=== PATIENT | female | born 1945 | race Caucasian/White ===

== ENCOUNTER 2018-10-04 16:37 | Inpatient (IN) | payer OTHER, BC ==
--- NOTE | 2018-10-04 17:10 | PDOC ---
Rapid Medical Evaluation Chief Complaint: Congestive Heart Failure Time Seen by Provider: 10/04/18 17:04 Medical Evaluation: Allergies Allergy/AdvReac Type Severity Reaction Status Date / Time No Known Allergies Allergy Verified 10/04/18 17:00 Vital Signs Temp Pulse Resp BP Pulse Ox 98.2 F 137 H 26 H 113/78 92 L 10/04/18 17:05 10/04/18 17:05 10/04/18 17:05 10/04/18 17:05 10/04/18 17:05 10/04/18 17:08 I performed a brief in-person evaluation on this patient. Chief complaint: Dyspnea, hx breast ca metastatic to spine on chemo, hx pleural effusion s/p thoracentesis 2 wks ago at [facility] Pertinent physical exam findings: Dyspnea, tachypnea, tachycardia, hypoxia. 2+ LE edema bilat, no calf tenderness. I have ordered the following: EKG, cardiac labs, CTA r/o PE Patient brought to ED monitored bed for further evaluation. 10/04/18 17:10 Discharge Disposition - Diagnosis Dyspnea - Referrals - Patient Instructions - Post Discharge Activity
--- NOTE | 2018-10-04 17:44 | PDOC ---
History of Present Illness - General Chief Complaint: Congestive Heart Failure Stated Complaint: PCP SENT/SHORTNESS OF BREATH Time Seen by Provider: 10/04/18 17:04 History Source: Patient Exam Limitations: No Limitations - History of Present Illness Initial Comments: 10/04/18 17:43 The patient is a 73F with a PMH of stage 4 breast CA w/ mets, hypertension, hyperlipidemia, CAD, stent, angina, CHF who presents to the ER with complaints of SOB. The patient states that over the past 2 days, she's had worsening BRADLEY and resting dyspnea. She states that she had a thoracentesis 2 weeks ago and has a history of pleural effusions as well. She denies fever, chills, CP, SOB, nausea vomiting, cough, dysuria. Past History - Past Medical History Allergies/Adverse Reactions: Allergies Allergy/AdvReac Type Severity Reaction Status Date / Time No Known Allergies Allergy Verified 10/04/18 17:00 Home Medications: Ambulatory Orders Aspirin [ASA -] 81 mg PO HS 03/29/14 Atorvastatin Ca [Lipitor -] 80 mg PO HS 03/29/14 Folic Acid 1 mg PO DAILY 03/29/14 Losartan Potassium [Cozaar] 50 mg PO DAILY 03/29/14 Metoprolol Succinate [Toprol Xl] 12.5 mg PO BID 03/29/14 Gemcitabine HCl [Gemzar -] 200 mg IV ASDIR 10/04/18 Cancer: Yes (BREAST CA to spine) Cardiac Disorders: Yes COPD: No - Surgical History Cardiac Surgery: Yes (STENT) - Suicide/Smoking/Psychosocial Hx Smoking History: Unknown if ever smoked Hx Alcohol Use: No Drug/Substance Use Hx: No Substance Use Type: None Review of Systems - Review of Systems Able to Perform ROS?: Yes Comments:: 10/04/18 17:48 GENERAL/CONSTITUTIONAL: Positive for weakness and fatigue. No fever or chills. HEAD, EYES, EARS, NOSE AND THROAT: No change in vision. No ear pain or discharge. No sore throat. CARDIOVASCULAR: No chest pain, palpitations, or lightheadedness. RESPIRATORY: Positive for SOB and BRADLEY. No cough, wheezing, or hemoptysis. GASTROINTESTINAL: No nausea, vomiting, diarrhea, constipation, or abdominal pain. GENITOURINARY: No dysuria, frequency, hematuria, or change in urination. MUSCULOSKELETAL: No joint or muscle swelling or pain. No neck or back pain. SKIN: No rash or lesions. NEUROLOGIC: No headache, numbness, tingling, focal weakness, loss of consciousness, or change in strength/sensation. Is the patient limited Micronesian proficient: No *Physical Exam - Vital Signs Last Vital Signs Temp Pulse Resp BP Pulse Ox 98.2 F 137 H 26 H 113/78 92 L 10/04/18 17:05 10/04/18 17:05 10/04/18 17:05 10/04/18 17:05 10/04/18 17:05 - Physical Exam Comments: 10/04/18 17:49 GENERAL: Well developed, well nourished. Awake and alert. No acute distress. HEENT: Normocephalic, atraumatic. Hearing grossly normal. Moist mucous membranes. PERRLA, EOMI. No conjunctival pallor. NECK: Supple. Full ROM. No JVD. CARDIOVASCULAR: Regular rate and rhythm. No murmurs, rubs, or gallops. PULMONARY: Mild respiratory distress. B/l dullness at bases. L lung is dull penitentiary up chest. Pt is tachypneic without increased WOB. ABDOMINAL: Soft. Non-tender. Non-distended. No rebound or guarding. GENITOURINARY: No CVA tenderness bilaterally. MUSCULOSKELETAL: Normal range of motion at all joints. No bony deformities or tenderness. EXTREMITIES: No cyanosis. No clubbing. No pitting edema. No calf tenderness or swelling. SKIN: Warm and dry. Normal capillary refill. No rashes. No jaundice. NEUROLOGICAL: Alert, awake, appropriate. Cranial nerves 2-12 intact. Normal speech. Gait is normal without ataxia. PSYCHIATRIC: Cooperative. Good eye contact. Appropriate mood and affect. Moderate Sedation - Procedure Monitoring Vital Signs: Procedure Monitoring Vital Signs Temperature 98.2 F 10/04/18 17:05 Pulse Rate 137 H 10/04/18 17:05 Respiratory Rate 26 H 10/04/18 17:05 Blood Pressure 113/78 10/04/18 17:05 O2 Sat by Pulse Oximetry (%) 92 L 10/04/18 17:05 ED Treatment Course - LABORATORY CBC & Chemistry Diagram: 10/04/18 17:45 10/04/18 17:45 Medical Decision Making - Medical Decision Making 10/04/18 17:50 The patient is a 73F with a PMH of stage 4 breast CA who presents to the ER with worsening SOB concerning for recurrent pleural effusion, PE, and malignant pericardial effusion. Pt's incoming vitals notable for tachycardia, tachypnea, and mild hypoxia to low 90's. Giving supplemental O2 and will order fluids, hydrating gently. 10/04/18 18:17 Bedside US reveals rapid HR without bowing of RV into LV and without pericardial effusion. CXR shows L pleural effusion, likely the cause of the patient's symptoms. 10/04/18 19:03 Pt signed out to Dr. Byrd for further evaluation. *DC/Admit/Observation/Transfer Diagnosis at time of Disposition: Dyspnea - Referrals Referrals: Jimi Joseph MD [Primary Care Provider] - - Patient Instructions - Post Discharge Activity
[2018-10-04 17:58] LABS: BASO % 0.2 % (0-2.0); EOS % 0.5 % (0-4.5); HEMATOCRIT 31.4 % (32.4-45.2); HEMOGLOBIN 11.2 GM/dL (10.7-15.3); LYMPH % 10.9 % (8-40); MCH 33.5 pg (25.7-33.7); MCHC 35.7 g/dl (32.0-36.0); MEAN CELL VOLUME 93.9 fl (80-96); MEAN PLT VOLUME 8.4 fl (7.5-11.1); MONO % 7.8 % (3.8-10.2); NEUT % 80.6 % (42.8-82.8); PLATELET COUNT 125 K/MM3 (134-434); RBC 3.35 M/mm3 (3.60-5.2); RDW 16.4 % (11.6-15.6); WHITE BLOOD COUNT 10.8 K/mm3 (4.0-10.0)
[2018-10-04] MEDS ORDERED: SODIUM CHLORIDE 0.9% 1000 ML INFUS.BAG IV ONE (18:22)
--- NOTE | 2018-10-04 19:03 | PDOC ---
Attending Attestation - HPI HPI: 10/04/18 19:07 The patient is a 73 year old female, with a significant past medical history of pleural effusions, stage 4 breast CA (w/ mets), hypertension, hyperlipidemia, CAD, stent, angina, CHF, who presents to the emergency department with, shortness of breath. Patient endorses both dyspnea upon exertion and rest. Patient endorses a thoracentesis 2 weeks ago. Patient was due for chemo yesterday but, was too weak thus, she only received fluids. Allergies: [employer] Sales Representative: Dr. Fritz <Kalee Bowen - Last Filed: 10/04/18 19:07> - Resident Resident Name: Alok Moon - ED Attending Attestation I have performed the following: I have examined & evaluated the patient, The case was reviewed & discussed with the resident, I agree w/resident's findings & plan, Exceptions are as noted - Physicial Exam PE: GENERAL: Awake, alert, and fully oriented, in no acute distress HEAD: No signs of trauma EYES: PERRLA, EOMI, sclera anicteric, conjunctiva clear ENT: Auricles normal inspection, hearing grossly normal, nares patent, oropharynx clear without exudates. Moist mucosa NECK: Normal ROM, supple, no lymphadenopathy, JVD, or masses LUNGS: Dec breath sounds at bases B/L, mild tachypnea. Speaking full sentences. HEART: Regular rate and rhythm, normal S1 and S2, no murmurs, rubs or gallops ABDOMEN: Soft, nontender, normoactive bowel sounds. No guarding, no rebound. No masses EXTREMITIES: Normal range of motion, no edema. No clubbing or cyanosis. No cords, erythema, or tenderness NEUROLOGICAL: Cranial nerves II through XII grossly intact. Normal speech. Motor and sensation intact SKIN: Warm, Dry, normal turgor, no rashes or lesions noted. - Medical Decision Making Pt with recurrent pleural effusion. She is speaking full sentences on oxygen nasal cannula in ED. Will defer thoracentesis, as she is comfortable on O2 via NC, would be better performed outside the ED. Also she may require a pleurX catheter given how quickly the fluid reaccumulated. <Oneyda Tobias - Last Filed: 10/08/18 09:52> Attestations - Attestations 10/04/18 19:07 Documentation prepared by Kalee Bowen, acting as medical/surgery registered nurse for Oneyda Tobias MD. <Kalee Bowen - Last Filed: 10/04/18 19:07>
[2018-10-04 19:07] LABS: ALBUMIN 2.1 g/dl (3.4-5.0); ALK PHOS 196 U/L (45-117); ANION GAP 15 MMOL/L (8-16); BLOOD UREA NITROGEN 32 mg/dL (7-18); CALCIUM 7.3 mg/dL (8.5-10.1); CHLORIDE 103 mmol/L (98-107); CO2 20 mmol/L (21-32); CREATININE 1.7 mg/dL (0.55-1.3); GLUCOSE,RANDOM 110 mg/dL (74-106); N-TERMINAL BNP 7576.5 pg/ml (5-125); POTASSIUM 3.5 mmol/L (3.5-5.1); SGOT/AST 177 U/L (15-37); SGPT/ALT 136 U/L (13-61); SODIUM 137 mmol/L (136-145); TOT PROT 4.9 g/dl (6.4-8.2)
--- NOTE | 2018-10-04 19:38 | PDOC ---
*Physical Exam - Vital Signs Last Vital Signs Temp Pulse Resp BP Pulse Ox 98.2 F 137 H 26 H 113/78 98 10/04/18 17:05 10/04/18 17:05 10/04/18 17:05 10/04/18 17:05 10/04/18 18:05 - Physical Exam Comments: 10/04/18 19:20 Patient's care was endorsed to me by Dr. Moon at the end of his shift. Patient is a 73 YOF chemotherapy patient with h/o pleural effusion requiring thoracentesis 2/2 SOB three weeks ago at [facility]. The patient presented with SOB, hypoxia, tachypnea; found to have a moderate-large left pleural effusion, elevated BNP. Initially was some concern for PE but this appears more mechanical tachypnea/hypoxia, patient states this is no different from prior effusion symptoms which resolved completely with thoracentesis. Patient remains tachypneic to 28, tachycardic to 130, but satting well at 98% on 2 LPM via nasal cannula, BP is 111/87. She is to be admitted. ED Treatment Course - LABORATORY CBC & Chemistry Diagram: 10/17/18 06:25 10/17/18 06:25 - ADDITIONAL ORDERS Additional order review: Laboratory Results 10/04/18 10/04/18 17:45 17:45 PTT (Actin FS) 25.9 Sodium 137 Potassium 3.5 Chloride 103 Carbon Dioxide 20 L Anion Gap 15 BUN 32 H Creatinine 1.7 H Creat Clearance w eGFR 29.54 Random Glucose 110 H Calcium 7.3 L Total Bilirubin 1.0 AST 177 H ALT 136 H Alkaline Phosphatase 196 H Creatine Kinase 708 H Troponin I 0.49 H B-Natriuretic Peptide 7576.5 H Total Protein 4.9 L Albumin 2.1 L 10/04/18 17:45 RBC 3.35 L MCV 93.9 MCHC 35.7 RDW 16.4 H MPV 8.4 Neutrophils % 80.6 Lymphocytes % 10.9 D Monocytes % 7.8 Eosinophils % 0.5 D Basophils % 0.2 - Medications Given in the ED: ED Medications Discontinued Medications Generic Name Dose Route Start Last Admin Trade Name Freq PRN Reason Stop Dose Admin Sodium Chloride 500 ml 10/04/18 18:22 10/04/18 18:36 Normal Saline - IV 10/04/18 18:23 500 ml ONCE ONE Administration Medical Decision Making - Medical Decision Making 10/04/18 19:42 The patient remains tachycardic, tachypneic, new baseline O2 requi [employer] sent to [facility] for admission. 10/04/18 21:22 Inpatient team is contacting patient's shoe repair cobbler Dr. Fritz. They will contact us with recs given the fact that the patient recently had thoracentesis. She may be better served with pigtail/PleurX. 10/04/18 23:30 Inpatient team spoke with CT surgery. We will place pigtail catheter here in the ED. This is done according to procedures section. Patient outputs roughly 1/2 liters into pleura-vac. *DC/Admit/Observation/Transfer Diagnosis at time of Disposition: Large pleural effusion, Troponin level elevated, Difficulty breathing, LUCRECIA ( acute kidney injury) Congestive heart failure Qualifiers: Heart failure type: diastolic Heart failure chronicity: acute on chronic Qualified Code(s): I50.33 - Acute on chronic diastolic (congestive) heart failure - Discharge Dispostion Condition at time of disposition: Guarded Decision to Admit order: Yes - Referrals - Patient Instructions - Post Discharge Activity Procedure Note Procedure: 10/04/18 11:15 pm Procedure: Pigtail catheter placement left 5th intercostal space midaxillary line Site was sterile prepped and draped in sterile fashion. Skin anesthetized with 2 cc 1% lido without epi. Anesthetic needle inserted into pleural effusion with bold yellow fluid return. Parietal pleura was anethetized with 4cc 1% lido without epi. Pigtail catheter was inserted using Seldinger technique, no complications. Sutured in place and sterile dressing applied with BioPatch. Pigtail connected to PleuriVac and about 1200cc bold yellow fluid removed without blood. Patient had pain on reexpansion of lung and 0.5 mg Dilaudid given (BP>120 systolic). Patient tolerated well, pleural fluid sent for analysis.
[2018-10-04 19:51] LABS: INR 1.12 (0.83-1.09); PROTHROMBIN TIME (PATIENT) 13.2 SEC (9.7-13.0)
[2018-10-04 20:34] LABS: ANISOCYTOSIS 1+; MACROCYTOSIS 1+; OVALOCYTE 1+
[2018-10-04 20:35] LABS: PLATELET ESTIMATE DECREASED; TOXIC GRANULATION 1+
[2018-10-04] MEDS ORDERED: CEFTRIAXONE 1 GM in DEXTROSE 5%-WATER - 50 ML IVPB SCH (21:00)
[2018-10-04] MEDS ORDERED: HEPARIN NA (PORCINE) 5,000 UNITS/ML 1ML VIAL ONE (21:08)
[2018-10-04] MEDS ORDERED: CEFTRIAXONE 1 GM/50 ML BAG ONE (21:08)
[2018-10-04] MEDS ORDERED: SODIUM CHLORIDE 0.45% 1,000 ML IV SCH (21:45)
--- NOTE | 2018-10-04 21:52 | HP ---
<Dora Chapman - Last Filed: 10/05/18 06:29> CHIEF COMPLAINT: L pleural effusion PCP: HISTORY OF PRESENT ILLNESS: 73 y/o F with PMH recurrent pleural effusion, stage 4 R breast CA with chemoport w/mets to spine, HTN, HLD, CAD s/p 1 stent (2013), angina, who presents to the ED c/o SOB on rest and exertion over the past two weeks. As per pt, she is s/p thoracentesis which occurred two weeks prior at [facility]. She had ~1L of fluid removed (states that she was told it was not malignant), and states that she needed to receive 2U platelets and 2U PRBC's afterward d/t her low counts. Ever since, she has continued to feel SOB, however denies chest pain or pressure. Has required 02 recently, now on 2L in the hospital sat in high 90's. Has also needed to use a walker to ambulate d/t her worsening SOB, ambulates on own at baseline. During this time, endorses subjective chills and mucus production. Without LOERA, fever, chest pain or pressure, or changes in urinary or bowel function. Receives chemo weekly (gemzar) usually through her R chemoport. Oncologist is Dr. Lazaro Nelson ([phone]) from [facility]. Did not receive chemo yesterday since she was very dehydrated, only received IVF during her appointment. Also states that she is on a "low dose of lasix" for LE edema (not CHF) since September, but it was held yesterday for the same reason. Her pump servicer is Dr. Fritz. ER course was notable for: (1) tachypneic RR26, tachycardic HR 130's (2) NS 500 cc (3) Recent Travel: none PAST MEDICAL HISTORY: as above PAST SURGICAL HISTORY: 1950: tonsillectomy/adenoidectomy. 1991- tubal ligation. 1997- L breast calcification, 2003- stent. 2005- R breast calcification, 2011 total mastectomy and TRAM flap, 2018- PTOSIS repair. Social History: lives at home with family. 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 Smoking: denies Alcohol: denies Drugs: denies Family History: HF - mother's side, HTN- father's side, colon ca- mom, sister- lumpectomy Allergies No Known Allergies Allergy (Verified 10/04/18 17:00) HOME MEDICATIONS: Home Medications Medication Instructions Recorded Aspirin [ASA -] 81 mg PO HS 03/29/14 Atorvastatin Ca [Lipitor -] 80 mg PO HS 03/29/14 Folic Acid 400 mcg PO DAILY 03/29/14 Losartan Potassium [Cozaar] taken in AM 25 mg PO DAILY 03/29/14 Metoprolol Succinate [Toprol Xl] 12.5 mg PO BID 03/29/14 Cholecalciferol (Vitamin D3) 1,000 unit PO DAILY 10/04/18 [Vitamin D3] Gemcitabine HCl [Gemzar -] 200 mg IV ASDIR 10/04/18 Nitroglycerin Sublingual 0.4 mg PRN 10/04/18 [Nitrostat -] verified with pt med sheet REVIEW OF SYSTEMS CONSTITUTIONAL: +chills Absent: fever, chills, diaphoresis, generalized weakness, malaise, loss of appetite, weight change HEENT: Absent: rhinorrhea, nasal congestion, throat pain, throat swelling, difficulty swallowing, mouth swelling, ear pain, eye pain, visual changes CARDIOVASCULAR: Absent: chest pain, syncope, palpitations, irregular heart rate, lightheadedness , peripheral edema RESPIRATORY: +mucus, SOB, BRADLEY Absent: cough, shortness of breath, dyspnea with exertion, orthopnea, wheezing, stridor, hemoptysis GASTROINTESTINAL: Absent: abdominal pain, abdominal distension, nausea, vomiting, diarrhea, constipation, melena, hematochezia GENITOURINARY: Absent: dysuria, frequency, urgency, hesitancy, hematuria, flank pain, genital pain MUSCULOSKELETAL: Absent: myalgia, arthralgia, joint swelling, back pain, neck pain SKIN: Absent: rash, itching, pallor HEMATOLOGIC/IMMUNOLOGIC: Absent: easy bleeding, easy bruising, lymphadenopathy, frequent infections ENDOCRINE: Absent: unexplained weight gain, unexplained weight loss, heat intolerance, cold intolerance NEUROLOGIC: Absent: headache, focal weakness or paresthesias, dizziness, unsteady gait, seizure, mental status changes, bladder or bowel incontinence PSYCHIATRIC: Absent: anxiety, depression, suicidal or homicidal ideation, hallucinations. PHYSICAL EXAMINATION Vital Signs - 24 hr 10/04/18 10/04/18 17:05 21:14 Temperature 98.2 F Pulse Rate 137 H Pulse Rate [ 128 H Apical] Respiratory 26 H 18 Rate Blood Pressure 113/78 Blood Pressure 128/84 [Left Arm] O2 Sat by Pulse 92 L 98 Oximetry (%) GENERAL: Pleasant, sitting up in bed. awake, alert, and fully oriented, in mild distress on 2L NC 02 . mildly labored breathing HEAD: Normal with no signs of trauma. EYES: Pupils equal, round and reactive to light, extraocular movements intact, sclera anicteric, conjunctiva clear. EARS, NOSE, THROAT: Ears normal, nares patent, oropharynx clear without exudates. Moist mucous membranes. NECK: Normal range of motion, supple without lymphadenopathy, JVD, or masses. LUNGS: +decreased breath sounds (L>R). no wheezing or rhonchi HEART: +tachycardic rate and rhythm, normal S1 and S2 without murmur, rub or gallop. ABDOMEN: Soft, nontender, not distended, normoactive bowel sounds, no guarding. no anasarca LOWER EXTREMITIES: 2+ pt pulses, warm, well-perfused. No calf tenderness. No peripheral edema. NEUROLOGICAL: Cranial nerves II-XII intact. able to move UE and LE - unable to test further as pt with labored breathing PSYCHIATRIC: Cooperative. Good eye contact. SKIN: Warm, dry, normal turgor Laboratory Results 10/04/18 10/04/18 10/04/18 17:40 17:45 17:45 WBC 10.8 H Hgb 11.2 Hct 31.4 L D Plt Count 125 L D Sodium 137 Potassium 3.5 Chloride 103 Carbon Dioxide 20 L BUN 32 H Creatinine 1.7 H Lactic Acid 3.2 H* AST 177 H ALT 136 H Troponin I 0.49 H B-Natriuretic Peptide 7576.5 H 10/04/18 21:00 ALT Troponin I 0.46 H B-Natriuretic Peptide CXR: since the prior study of 11/21/2015, there is a new sizable L effusion with questionable atelectasis or infiltrate at the L base, large heart, unfolded aorta, R port, fluid and atelectasis R base and dense R ribs. correlation recommended CT chest w/o contrast: official read pending EKG: sinus tach, vent rate 137bpm, no ST-T wave changes, few PVCs, qtc 549ms ASSESSMENT/PLAN: 73 y/o F with PMH recurrent pleural effusion, stage 4 R breast CA with chemoport w/mets to spine, HTN, HLD, CAD s/p 1 stent (2013), angina, who presents to the ED c/o SOB on rest and exertion over the past two weeks. #L sided pleural effusion -possible 2/2 malignancy as pt with extensive hx breast CA as well as recurrent -d/w CT sx Dr. Fletcher - pigtail placed by ED. drainage sanguineous. will see pt in AM and discuss possibility of pleurex -f/u pleural studies to determine if transudate or exudate -c/w NC 02 d/t increased oxygen requirement from effusion, labored breathing -f/u CT chest to determine if pulm nodularity -f/u repeat CXR in AM #post-obstructive PNA -will cover with vanc 1g IVPB qd, zosyn 2.25 q6h (Cr clearance 32), and doxy 100mg BID for atypicals. was recently in hosp at -f/u blood, ucx #LUCRECIA likely prerenal 2/2 vol depletion -will give 1/2 NS 42 cc/hr for now; d/w cardio -had received lasix previously until yesterday, may have worsened renal fnc -cont to assess for any signs of overload, cont to hold lasix -may need ECHO once vol improves to determine LV fnc. no ECHO in system -cardio consult: Dr. Fritz #Troponinemia likely 2/2 demand -has trended down. from demand from significant L pl eff 0.49>0.46 #hx breast CA w/spinal mets -will need to obtain files from oncologist- Dr. Lazaro [facility] -receives chemo weekly - gemzar #HTN- controlled -for now will hold anti-HTN as pt with low BP -hold Toprol, cozaar #CAD s/p 1 stent (2003) -hold ASA - pt for pigtail #HLD -hold lipitor as pt with current transaminitis likely 2/2 vol overload #F/E/N IV 1/2 NS 42 cc/hr continue to follow lytes NPO #PPX can start hep SQ in AM , for now holding as for pigtail SCD's #Dispo admit to tele Visit type - Emergency Visit Emergency Visit: Yes ED Registration Date: 10/04/18 Care time: The patient presented to the Emergency Department on the above date and was hospitalized for further evaluation of their emergent condition. - New Patient This patient is new to me today: Yes Date on this admission: 10/05/18 - Critical Care Critical Care patient: No <Kyle Cotton - Last Filed: 10/20/18 19:59> Seen and examined; agree with above aside from what is supplemented in my own documentation. Was present and verified all rm parts of history and physical exam.
[2018-10-04] MEDS ORDERED: HEPARIN NA (PORCINE) 5,000 UNITS/ML 1ML VIAL SQ SCH (22:00)
[2018-10-04 22:03] LABS: URINE APPEARANCE CLOUDY; URINE BILIRUBIN NEGATIVE (<2.0 mg/dL); URINE COLOR AMBER; URINE GLUCOSE (UA) NEGATIVE (NEGATIVE); URINE KETONE NEGATIVE (NEGATIVE); URINE LEUK ESTERASE 1+ (NEGATIVE); URINE NITRITE NEGATIVE (NEGATIVE); URINE PROTEIN 2+ (NEGATIVE); URINE UROBILINOGEN NEGATIVE mg/dL (0.2-1.0)
[2018-10-04] MEDS ORDERED: LIDOCAINE HCL 1%, 10 MG/ML (50 mL VIAL) INF ONE (22:15)
[2018-10-04 22:19] LABS: EPI CELLS RARE /HPF (FEW); URINE BACTERIA MANY /hpf (NONE SEEN); URINE MUCUS FEW
[2018-10-04] MEDS ORDERED: LIDOCAINE HCL 1%, 10 MG/ML (20ML VIAL) ONE (22:32)
--- NOTE | 2018-10-04 23:08 | PN ---
Teaching Attending Note Name of Resident: Dora Chapman ATTENDING PHYSICIAN STATEMENT I saw and evaluated the patient. I reviewed the resident's note and discussed the case with the resident. I agree with the resident's findings and plan as documented. SUBJECTIVE: Seen and examined; please see resident note for further historical documentation. Briefly, she presents today for 1 week of progressive SOB and is found to have a large L-pleural effusion on imaging. She was hospitalized for the same issue 2 weeks ago at [facility] and had thoracentesis done there; records pending. She has a history of Stage IV breast Cancer, HTN, HLD, CAD s/p remote PCI, and does NOT carry a diagnosis of CHF at this juncture. Unfortuantely we have no old echoes, CV studies, etc. here. In the ER she was found to have an elevated lactate that did go down after 500cc bolus, elevated BNP to 7k range, elevated CK and trop as well as LUCRECIA. We spoke with CT surgery as well as her CV Dr. Dominique; they recommended gentle hydration overnight and specifically CTS said they were OK with the placement of a pigtail in the ER and he will eval her for further tx/workup tomorrow. She is tachy to the 130s and had an increased RR down in the ER but was satting 98% on 2L NC. 10 sys ROS done and negative aside from HPI PMH and PSH reviewed; discussed above FH asked and noncontributory Social hx reviewed Medication list signiicant for cozaar, MS50 qHS, Lipitor, and ASA 81 QD. Will hold ASA and Cozaar but opt to continue the BB and the statin, resuming all appropriate home medications when clinically appropriate OBJECTIVE: VS, labs, imaging reviewed Mild distress with slight tachypnea but speaking in full sentences and in good spirits. Diminished L-sided breath sounds w/ sym exp NC AT EOMI PERRLA Tachycardic with regular rhythm, no mgr NT ND +BS CN2-12 wnl, no fnd Labs show WBC 10 with plts 125 and CO2 20 with Cr 1.7 and BUN 32. Plan to repeat BMP after thoracentesis. Lactate 3.2 dropped to 2.8, trop is 0.49 BNP is 7576.5 UA with 1+LE CXR with L-sided effusion with mardiomegaly, ?infiltrate v. atelectesis. R- mediport visualized. CT chest post thoracentesis pending; it was done and reveals L-chest thoracostomy tube in place with no visible thorax. Possible pneumonia. ASSESSMENT AND PLAN: Patient presents with SOB, tachycardia, and nonspecific chest discomfort. She was found to have a large L-pleural effusion and had a pigtail placed in the ER that drained appropriately and resolved the tachycardia and her sx. 1) Large L-pleural effusion -Pleural fluid studies pending; pigtail in place. Ddx includes parapneumonic effusion given possibility of PNA vs. malignant effusion. Would be ideal to compare to the results of the tap done at [facility]. Pending records. -CTS to see; can consider further instrumentation, etc. Appreciate their help in the management of this patient. -Incentive spirometry, chest tube care, etc. 2) Possible pneumonia -Potential for pneumonia; given the dependent densities seen on CT, etc. -Check urine Ags, sputum cx, viral PCR. Given that we don't know if she got abx at [facility] we will cover for HAP and atypicals (long QTc noted so doxy) and involve ID. Can change up the treatment per what is seen in the records. 3) LUCRECIA -Likely prerenal; she informs us that her OP provider told her to stop the lasix she takes for LE edema recently due to 'dehydration.' Discussed with CV; very gentle hydration overnight and recheck in AM. If improved DC fluids. If worsens obtain FeNa and consult nephrology. 4) Elevated BNP -Checking echo, but thinking that this is moreso strain from the large pleural effusion as opposed to pure CHF. Still, VERY careful fluid management and checking the patient's echo. Monitor fluid status carefully. 3) Stage IV Breast Cancer -Noted history; continue to monitor. Port in place. FU with OP chemo. 4) Thrombocytopenia -Likely 2/2 chemo (last dose 1 week ago, missed yesterday's). Trend CBC, avoid heparin products and use SCDs for DVT px. 5) CAD s/p PCI -Hold ASA, continue metoprolol and statin 6) HTN -Resume home ARB when clinically appropriate 7) HLD -Continue statin FENA -Very gentle hydration overnight then stop -PRN replete -Cardiac diet -As tolerated
[2018-10-04] MEDS ORDERED: HYDROmorphone HCl 2 MG/ML VIAL IVPUSH ONE (23:50)
[2018-10-05] MEDS ORDERED: HYDROmorphone HCl 2 MG/ML VIAL ONE ×2 (00:04→02:32)
[2018-10-05 00:59] LABS: BF WBC & OTHER NUCLEATED CELLS 164 /mm3
[2018-10-05 01:09] LABS: ARTERIAL BLD GAS O2 SATURATION 93.4 % (90-98.9); ARTERIAL BLOOD GAS BASE EXCESS -2.4 meq/l (-2-2); ARTERIAL BLOOD GAS PCO2 31.7 mmHg (35-45); ARTERIAL BLOOD GAS PO2 70.8 mmHg (70-100); ARTERIAL BLOOD GAS pH 7.43 (7.35-7.45)
[2018-10-05 01:20] LABS: ALLENS TEST POSITIVE
[2018-10-05] MEDS ORDERED: HYDROmorphone HCL CARPU-JECT 2 MG/1 ML DISP.SYRIN IVPUSH ONE (02:23)
[2018-10-05] MEDS ORDERED: PIPERACILLIN/TAZOB 2.25 GM 2.25 GM in DEXTROSE 5%-WATER - 50 ML IVPB SCH (03:00)
[2018-10-05] MEDS ORDERED: PIPERACILLIN/TAZOB 2.25 GM 2.25 GM/50 ML BAG IVPB ONE ×3 (03:05→15:08)
[2018-10-05 04:00] LABS: BODY FLUID MONOCYTE 14 %
[2018-10-05 04:01] LABS: BODY FLUID MACROPHAGES 57 %
[2018-10-05 05:39] LABS: BASO % 0.1 % (0-2.0); EOS % 0.4 % (0-4.5); HEMATOCRIT 27.9 % (32.4-45.2); HEMOGLOBIN 9.9 GM/dL (10.7-15.3); LYMPH % 10.3 % (8-40); MCH 32.9 pg (25.7-33.7); MCHC 35.4 g/dl (32.0-36.0); MEAN CELL VOLUME 93.1 fl (80-96); MEAN PLT VOLUME 7.9 fl (7.5-11.1); MONO % 9.6 % (3.8-10.2); NEUT % 79.6 % (42.8-82.8); PLATELET COUNT 93 K/MM3 (134-434); RBC 2.99 M/mm3 (3.60-5.2); RDW 16.3 % (11.6-15.6); WHITE BLOOD COUNT 10.4 K/mm3 (4.0-10.0)
[2018-10-05 06:41] LABS: ALBUMIN 1.9 g/dl (3.4-5.0); ALK PHOS 163 U/L (45-117); ANION GAP 9 MMOL/L (8-16); BILIRUBIN,TOTAL 0.9 mg/dL (0.2-1); BLOOD UREA NITROGEN 34 mg/dL (7-18); CHLORIDE 105 mmol/L (98-107); CO2 24 mmol/L (21-32); CREATININE 1.7 mg/dL (0.55-1.3); GLUCOSE,RANDOM 121 mg/dL (74-106); MAGNESIUM 1.7 mg/dL (1.8-2.4); POTASSIUM 3.7 mmol/L (3.5-5.1); SGOT/AST 149 U/L (15-37); SGPT/ALT 122 U/L (13-61); SODIUM 138 mmol/L (136-145); TOT PROT 4.3 g/dl (6.4-8.2)
[2018-10-05 06:43] LABS: CALCIUM 6.9 mg/dL (8.5-10.1)
[2018-10-05] MEDS ORDERED: VANCOMYCIN 1 GRAM (PRE-DOCKED) 1,000 MG/250 ML BAG IVPB ONE (09:41)
[2018-10-05] MEDS ORDERED: DOXYCYCLINE HYCLATE 100 MG CAPSULE PO ONE (09:41)
[2018-10-05] MEDS: metoPROLOL SUCCINATE 25 MG TAB.SR.24H (FP) PO SCH ×2 (09:59→21:57)
[2018-10-05] MEDS: HEPARIN NA (PORCINE) 5,000 UNITS/ML 1ML VIAL SQ SCH ×3 (09:59→22:29)
[2018-10-05] MEDS ORDERED: VANCOMYCIN 1 GM in D5W (PRE-DOCKED) 1,000 MG/250 ML IVPB ONE (10:00)
[2018-10-05] MEDS ORDERED: DOXYCYCLINE HYCLATE 100 MG CAPSULE PO SCH (10:00)
[2018-10-05] MEDS ORDERED: FUROSEMIDE 40 MG/4 ML INJECTABLE VIAL IVPUSH ONE ×3 (10:11→17:09)
[2018-10-05 11:31] LABS: ANISOCYTOSIS 2+; MACROCYTOSIS 2+; OVALOCYTE 1+; PLATELET ESTIMATE DECREASED; TEAR DROP CELLS 1+
--- NOTE | 2018-10-05 11:54 | ECHO ---
Version: 1 Name: NEGRO CULLEN Exam: Adult Echocardiogram Study Date: 10/05/2018, 11:06 AM Age: 73 Years MMode/2D Measurements & Calculations IVSd: 1.03 cm LVIDs: 2.7 cm LVIDd: 3.2 cm LVPWd: 1.35 cm ACS: 1.93 cm Doppler Measurements & Calculations Lat Peak E' Robinson: 4.9 cm/sec Med Peak E' Robinson: 7.0 cm/sec TR max robinson: 271.5 cm/sec TR max P.5 mmHg Procedure The study was technically difficult with many images being suboptimal in quality. Left Ventricle There is mild concentric left ventricular hypertrophy. Left ventricular systolic function is grossly normal. Ejection Fraction = 50-55%. Right Ventricle The right ventricle is grossly normal size. The right ventricular systolic function is grossly yesenia l. Mitral Valve There is severe mitral annular calcification. There is no mitral valve stenosis. Tricuspid Valve The tricuspid valve is not well visualized, but is grossly normal. There is mild tricuspid regurgita tion. Aortic Valve There is mild aortic sclerosis.;. No hemodynamically significant valvular aortic stenosis. No aortic regurgitation is present. Pulmonic Valve The pulmonic valve is not well seen, but is grossly normal. There is no pulmonic valvular stenosis. Great Vessels The aortic root is normal size. Pericardium/Pleura Small pericardial effusion (<1cm). Summary Statements The study was technically difficult with many images being suboptimal in quality. Left ventricular systolic function is grossly normal. Ejection Fraction = 50-55%. There is severe mitral annular calcification. There is mild tricuspid regurgitation. There is mild aortic sclerosis.; Small pericardial effusion (<1cm) MD Pizarro *Eligio 10/05/2018, 11:54 AM Ordering Physician: ANNE ELLIOTT Performed By: Nicole Jackson
--- NOTE | 2018-10-05 11:55 | EKG ---
Test Reason : Blood Pressure : / mmHG Vent. Rate : 137 BPM Atrial Rate : 137 BPM P-R Int : 000 ms QRS Dur : 068 ms QT Int : 364 ms P-R-T Axes : 000 -19 018 degrees QTc Int : 549 ms SINUS TACHYCARDIA WITH PREMATURE ATRIAL COMPLEXES AND PREMATURE VENTRICULAR COMPLEXES OR FUSION COMPLEXES LOW VOLTAGE QRS CANNOT RULE OUT ANTEROSEPTAL INFARCT , AGE UNDETERMINED ABNORMAL ECG WHEN COMPARED WITH ECG OF 30-APR-2012 12:38, SIGNIFICANT CHANGES HAVE OCCURRED Confirmed by GISSELLE MACE, DELTA ([id number]) on 10/05/2018 11:55:28 AM Referred By: Confirmed By:DELTA PITTS MD
[2018-10-05] MEDS: PIPERACILLIN/TAZOB 2.25 GM 2.25 GM in DEXTROSE 5%-WATER - 50 ML IVPB SCH ×2 (12:15→15:06)
--- NOTE | 2018-10-05 13:23 | CON.ID ---
Consult Consult Specialty:: infectious diseases Referred by:: hosp[italist Reason for Consultation:: sob,weakness - History of Present Illness Chief Complaint: weakness History of Present Illness: 73 y/o F with PMH recurrent pleural effusion, stage 4 R breast CA with chemoport w/mets to spine, HTN, HLD, CAD s/p 1 stent (2013), angina, who presents to the ED c/o SOB on rest and exertion over the past two weeks. As per pt, she is s/p thoracentesis which occurred two weeks prior at [facility]. She had ~1L of fluid removed (states that she was told it was not malignant), and states that she needed to receive 2U platelets and 2U PRBC's afterward d/t her low counts. Ever since, she has continued to feel SOB, however denies chest pain or pressure. Has required 02 recently, now on 2L in the hospital sat in high 90's. Has also needed to use a walker to ambulate d/t her worsening SOB, ambulates on own at baseline. During this time, endorses subjective chills and mucus production. Without LOERA, fever, chest pain or pressure, or changes in urinary or bowel function. Receives chemo weekly (gemzar) usually through her R chemoport. Oncologist is Dr. Lazaro Nelson ([phone]) from [facility]. Did not receive chemo yesterday since she was very dehydrated, only received IVF during her appointment. Also states that she is on a "low dose of lasix" for LE edema (not CHF) since September, but it was held yesterday for the same reason. Her director speech is Dr. Fritz. who send the patient to the hospital patient also has a left sided chest tube,draining serous fluid - History Source History Provided By: Patient, Family Member Limitations to Obtaining History: No Limitations - Alcohol/Substance Use Hx Alcohol Use: No - Smoking History Smoking history: Unknown if ever smoked Home Medications - Allergies Allergies/Adverse Reactions: Allergies Allergy/AdvReac Type Severity Reaction Status Date / Time No Known Allergies Allergy Verified 10/04/18 17:00 - Home Medications Home Medications: Ambulatory Orders Aspirin [ASA -] 81 mg PO HS 03/29/14 Atorvastatin Ca [Lipitor -] 80 mg PO HS 03/29/14 Losartan Potassium [Cozaar] 25 mg PO DAILY 03/29/14 Metoprolol Succinate [Toprol Xl] 12.5 mg PO BID 03/29/14 RX: Folic Acid 400 mcg PO DAILY 03/29/14 Cholecalciferol (Vitamin D3) [Vitamin D3] 1,000 unit PO DAILY 10/04/18 RX: Gemcitabine HCl [Gemzar -] 200 mg IV ASDIR 10/04/18 RX: Nitroglycerin Sublingual [Nitrostat -] 0.4 mg PO PRN PRN 10/04/18 Review of Systems - Review of Systems Constitutional: reports: Weakness Eyes: reports: No Symptoms HENT: reports: No Symptoms Neck: reports: No Symptoms Cardiovascular: reports: No Symptoms Respiratory: reports: SOB, Other Gastrointestinal: reports: No Symptoms Genitourinary: reports: No Symptoms Musculoskeletal: reports: No Symptoms Integumentary: reports: No Symptoms Neurological: reports: No Symptoms Endocrine: reports: No Symptoms Hematology/Lymphatic: reports: No Symptoms Psychiatric: reports: No Symptoms Physical Exam Vital Signs: Vital Signs Temperature 98.2 F 10/04/18 17:05 Pulse Rate 105 H 10/05/18 12:07 Respiratory Rate 21 H 10/05/18 12:07 Blood Pressure 119/78 10/05/18 12:07 O2 Sat by Pulse Oximetry (%) 96 10/05/18 12:07 Constitutional: Yes: Well Nourished, Mild Distress, Other (weak) Eyes: Yes: Conjunctiva Clear Cardiovascular: Yes: Regular Rate and Rhythm Respiratory: Yes: Regular, On Nasal O2, Poor Air Entry, Other (left sided chest tube in place) Gastrointestinal: Yes: Normal Bowel Sounds, Soft Musculoskeletal: Yes: WNL Extremities: Yes: WNL Neurological: Yes: Alert, Oriented Psychiatric: Yes: Alert, Oriented Labs: CBC, BMP 10/05/18 05:20 10/05/18 05:20 Imaging - Results Chest X-ray: Report Reviewed, Image Reviewed Assessment/Plan Problem List - Problems (1) Chest tube in place Code(s): Z96.89 - PRESENCE OF OTHER SPECIFIED FUNCTIONAL IMPLANTS (2) Congestive heart failure Code(s): I50.9 - HEART FAILURE, UNSPECIFIED Qualifiers: Heart failure type: diastolic Heart failure chronicity: acute on chronic Qualified Code(s): I50.33 - Acute on chronic diastolic (congestive) heart failure (3) Difficulty breathing Code(s): R06.89 - OTHER ABNORMALITIES OF BREATHING (4) Large pleural effusion Code(s): J90 - PLEURAL EFFUSION, NOT ELSEWHERE CLASSIFIED (5) Metastatic breast cancer Code(s): C50.919 - MALIGNANT NEOPLASM OF UNSP SITE OF UNSPECIFIED FEMALE BREAST after looking at the patient and the history at this moment i think it is more of a primary disease i have low suspicion for infection plan will not start abx at this time close watch on the patient monitor drainage await for the fluid result to be back once we have all the things then will decide further management
--- NOTE | 2018-10-05 14:11 | CON.CARD ---
Consult Consult Specialty:: Cardiology Referred by:: Jaime Tian MD Reason for Consultation:: Diastolic heart failure - History of Present Illness Chief Complaint: Dyspnea and weakness History of Present Illness: 73 yo female h/o CAD s/p EVAN LAD 09/18/2003, diastolic dysfunction, hypertensive heart disease, hyperlipidemia, Stage IV breast cancer presented for 1 week of progressive SOB and is found to have a large L-pleural and moderate right effusion on imaging, she was hospitalized for the same issue 2 weeks ago at [facility] and had thoracentesis done there, left chest tuble placed, repeat chest CT post left chest tube shows moderate right effusion. - History Source History Provided By: Patient Limitations to Obtaining History: No Limitations - Alcohol/Substance Use Hx Alcohol Use: No - Smoking History Smoking history: Unknown if ever smoked Home Medications - Allergies Allergies/Adverse Reactions: Allergies Allergy/AdvReac Type Severity Reaction Status Date / Time No Known Allergies Allergy Verified 10/04/18 17:00 - Home Medications Home Medications: Ambulatory Orders Aspirin [ASA -] 81 mg PO HS 03/29/14 Atorvastatin Ca [Lipitor -] 80 mg PO HS 03/29/14 Folic Acid 400 mcg PO DAILY 03/29/14 Losartan Potassium [Cozaar] 25 mg PO DAILY 03/29/14 Metoprolol Succinate [Toprol Xl] 12.5 mg PO BID 03/29/14 Cholecalciferol (Vitamin D3) [Vitamin D3] 1,000 unit PO DAILY 10/04/18 Gemcitabine HCl [Gemzar -] 200 mg IV ASDIR 10/04/18 Nitroglycerin Sublingual [Nitrostat -] 0.4 mg PRN 10/04/18 Review of Systems - Review of Systems Respiratory: reports: Exercise Intolerance, SOB, SOB on Exertion Vital Signs: Vital Signs Temperature 98.2 F 10/04/18 17:05 Pulse Rate 105 H 10/05/18 12:07 Respiratory Rate 21 H 10/05/18 12:07 Blood Pressure 119/78 10/05/18 12:07 O2 Sat by Pulse Oximetry (%) 96 10/05/18 12:07 Constitutional: Yes: No Distress, Calm, Thin Neck: Yes: Supple Respiratory: Yes: Regular, Diminished Gastrointestinal: Yes: Normal Bowel Sounds, Soft Cardiovascular: Yes: Tachycardia JVD: No Carotid Bruit: No Heart Sounds: Yes: S1, S2 Edema: Yes Edema: LLE: 1+, RLE: 1+ - Other Data Labs, Other Data: CBC, BMP 10/05/18 05:20 10/05/18 05:20 INR, PTT INR 1.12 (0.83-1.09) H 10/04/18 17:59 Troponin, BNP 10/04/18 10/04/18 17:45 21:00 Troponin I 0.49 H 0.46 H B-Natriuretic Peptide 7576.5 H Troponin, BNP 10/04/18 10/04/18 17:45 21:00 Troponin I 0.49 H 0.46 H B-Natriuretic Peptide 7576.[address] @ 137 PAC Prior Cardiac Procedures: PTCA with Stent Ejection Fraction %: LVEF > or = 40 % Imaging - Results Cat Scan: Report Reviewed Problem List - Problems (1) Demand ischemia Code(s): I24.8 - OTHER FORMS OF ACUTE ISCHEMIC HEART DISEASE (2) LUCRECIA (acute kidney injury) Code(s): N17.9 - ACUTE KIDNEY FAILURE, UNSPECIFIED (3) Congestive heart failure Code(s): I50.9 - HEART FAILURE, UNSPECIFIED Qualifiers: Heart failure type: diastolic Heart failure chronicity: acute on chronic Qualified Code(s): I50.33 - Acute on chronic diastolic (congestive) heart failure (4) Large pleural effusion Code(s): J90 - PLEURAL EFFUSION, NOT ELSEWHERE CLASSIFIED (5) Chest tube in place Code(s): Z96.89 - PRESENCE OF OTHER SPECIFIED FUNCTIONAL IMPLANTS (6) Metastatic breast cancer Code(s): C50.919 - MALIGNANT NEOPLASM OF UNSP SITE OF UNSPECIFIED FEMALE BREAST Assessment/Plan 10/05/2018 Echo: Mild cLVH, normal LVEF 50-55%, normal RV size and fxn, mild TR , small pericardial effusion CXR with L-sided effusion with cardiomegaly, ?infiltrate v. atelectesis. R- mediport visualized. CT chest post left chest tube; reveals L-chest thoracostomy tube in place with moderate right effusion and atx/consolidation 1. Acute on chronic diastolic heart failure with bilateral pleural effusion post left chest tube 2. Possible PNA 3. Acute kidney injury 4. 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 CAD s/p PCI, demand ischemia 6. Thrombocytopenia 7. HTN heart disease 8. Hyperlipidemia 9. Abnl LFTs improving, possible hepatic congestion P:1. Resume IV diuresis with monitor diuretic response, renal fxn and electrolytes 2. Empiric abx course 3. Continue ASA 81 qd, Lipitor 80 qd with monitor liver panel, Toprol XL 25 qd, resume losartan 25 qd once renal fxn stabilizes 4. F/u fluid studies and cultures 5. Thank you for consultative opportunity
--- NOTE | 2018-10-05 14:27 | PN ---
Physical Exam: SUBJECTIVE: Patient seen and examined at bedside. Pt states her breathing is fine, but she is sore around the site where the pigtail catheter was placed. Otherwise, she feels thirst and hungry. Denies chest pain, f/c, n/v, urinary/ bowel symptoms. OBJECTIVE: Vital Signs Temperature 98.2 F 10/04/18 17:05 Pulse Rate 105 H 10/05/18 12:07 Respiratory Rate 21 H 10/05/18 12:07 Blood Pressure 119/78 10/05/18 12:07 O2 Sat by Pulse Oximetry (%) 96 10/05/18 12:07 GENERAL: Pleasant, sitting up in bed. awake, alert, and fully oriented HEENT: AT/NC. EOMI. FREDERICK. Dry mucus membranes. NECK: Normal range of motion, supple without lymphadenopathy, JVD, or masses. LUNGS: +decreased breath sounds (L>R). no wheezing or rhonchi HEART: +tachycardic rate and rhythm, normal S1 and S2 without murmur, rub or gallop. ABDOMEN: Soft, nontender, not distended, normoactive bowel sounds, no guarding. no anasarca. L pigtail in place, draining dark yellow fluid, dressing c/d/i PSYCHIATRIC: Cooperative. Good eye contact. SKIN: Warm, dry, normal turgor CBC, BMP 10/05/18 05:20 10/05/18 05:20 Microbiology 10/05/18 11:20 Urine For Antigen Detection Legionella Antigen - Final 10/05/18 11:20 Urine For Antigen Detection Streptococcus pneumoniae Antigen (M - Final Active Medications Atorvastatin Calcium (Lipitor -) 80 mg PO HS JOSE ARMANDO Doxycycline Hyclate (Vibramycin -) 100 mg PO BID@1000,1800 JOSE ARMANDO Last Admin: 10/05/18 09:59 Dose: Not Given Heparin Sodium (Porcine) (Heparin -) 5,000 unit SQ TID [facility] Last Admin: 10/05/18 09:59 Dose: 5,000 unit Piperacillin Sod/Tazobactam (Sod 2.25 gm/ Dextrose) 50 mls @ 100 mls/hr IVPB Q6H-IV JOSE ARMANDO; Protocol Stop: 10/06/18 03:29 Last Admin: 10/05/18 12:15 Dose: 100 mls/hr Metoprolol Succinate (Toprol Xl -) 12.5 mg PO BID [facility] Last Admin: 10/05/18 09:59 Dose: 12.5 mg IMAGING: * CXR: since the prior study of 11/21/2015, there is a new sizable L effusion with questionable atelectasis or infiltrate at the L base, large heart, unfolded aorta, R port, fluid and atelectasis R base and dense R ribs. correlation recommended * CT chest w/o contrast: s/p L pig tail catheter placement; only minimal residual L pleural effusion. Atelectatic changes with airspace dz in the L lower lobe suggestive of infiltrates. Diffuse osteoblastic metastasis. * EKG: sinus tach, vent rate 137bpm, no ST-T wave changes, few PVCs, qtc 549ms ASSESSMENT/PLAN: 73 y/o F with PMH recurrent pleural effusion, stage 4 R breast CA with chemoport w/mets to spine, HTN, HLD, CAD s/p 1 stent (2013), angina, who presents to the ED c/o SOB on rest and exertion over the past two weeks. #L sided pleural effusion -Per pt, she had this same pleural effusion drained about 2 weeks ago and reports testing done at the hospital ruled out malignancy as cause of effusion -Will order fluid culture, amylase, LDH, osmolality, pH, -Per ID, d/c ABx -await CTS recommendations #LUCRECIA likely prerenal 2/2 vol depletion -cont to assess for any signs of overload, cont to hold lasix -may need ECHO once vol improves to determine LV fnc. no ECHO in system -f/u cardio recs #Troponinemia likely 2/2 demand -has trended down. from demand from significant L pl eff 0.49>0.46 #hx breast CA w/spinal mets -will need to obtain files from oncologist- Dr. Lazaro Oliov -receives chemo weekly - Gemzar #HTN- controlled -Cont home med Toprol XL 12.5 mg PO BID #CAD s/p 1 stent (2003) -hold ASA for now #HLD -Cont home med: Atorvastatin 80 mg PO HS #F/E/N IV 1/2 NS 42 cc/hr continue to follow lytes NPO #PPX -SQH #Dispo -cont to monitor on tele Visit type - Emergency Visit Emergency Visit: Yes ED Registration Date: 10/04/18 Care time: The patient presented to the Emergency Department on the above date and was hospitalized for further evaluation of their emergent condition. - New Patient This patient is new to me today: Yes Date on this admission: 10/05/18 - Critical Care Critical Care patient: No
[2018-10-05] MEDS ORDERED: HEPARIN NA (PORCINE) 5,000 UNITS/ML 1ML VIAL ONE (14:59)
--- NOTE | 2018-10-05 16:10 | PN ---
Teaching Attending Note Name of Resident: Subhash Nguyen ATTENDING PHYSICIAN STATEMENT I saw and evaluated the patient. I reviewed the resident's note and discussed the case with the resident. I agree with the resident's findings and plan as documented. SUBJECTIVE: No fever or chills. No abd pain. No PC . denies any cough. has poor po intake. was asked to stop her lasix a couple weeks ago due to dehydration . denies h/o heart failure . feels SOB. no fever at home . LE edema is not new and is not worsening OBJECTIVE: NAD, Awake, started with 4 word sentences but then became normal and comfortable . dry MM Cv: RRR Lungs: crackles T Left half way down and decreased breath sounds at R base . Ext : 1+ edema Abd: soft, NT, ND , Nl BS . Liver might be palpated in epigastric area . ASSESSMENT AND PLAN: Pleasant unfortunate 73 y/o lady with h/o Stage IV breast Cancer, HTN, HLD, CAD s/p PCI, currently on chemotherapy, and recent diagnosis of pleural effusions s/ p thoracentesis who presented with SOB. 1- b/l Pleural effusions: etiology could be malignant but could be due to hypoalbuminemia, and or cardiomyopathy . d/w Dr. Vazquez, unlikely parapneumonic. - s/p L pig tail with significant improvement on L hemithorax . - records from OSH are being obtained - follow fluid studies. add LDH of serum. send cytology. send cx. send PH - d/w ID , dc Abx - follow CTS Recs. 2- LE edema, unlikely due to heart failure as patient clinically looks volume depleted. hypoalbuminemia is probably contributing - echo - Card eval pending Recs. wll d/w Dr. Evans - hold home lasix 3- LUCRECIA : most likely prerenal form volume depletion . unlikely heart failure. need to r/o obstruction withh/o cancer - start IVF - check renal US - obtain base line cr 4- Elevated trop: EKG with low voltage , and sinus tachy. no significant ST/Tw changes - trop trended down, probaby demand . card eval pending - cont BB - holding asa in case a chest tube or other procedure is needed 5- Transaminitis : ? Mets/fatty liver. no abd tenderness . - check US dispo : HLOC DVT px
[2018-10-05] MEDS ORDERED: SODIUM CHLORIDE 1,000 ML IV SCH (16:15)
[2018-10-05] MEDS: ATORVASTATIN CA 80 MG TABLET (FP) PO SCH (21:57)
[2018-10-06] MEDS: HEPARIN NA (PORCINE) 5,000 UNITS/ML 1ML VIAL SQ SCH ×3 (05:46→22:09)
[2018-10-06 07:05] LABS: HEMOGLOBIN 9.3 GM/dL (10.7-15.3); MCH 33.4 pg (25.7-33.7); MCHC 35.9 g/dl (32.0-36.0); MEAN CELL VOLUME 93.1 fl (80-96); MEAN PLT VOLUME 7.9 fl (7.5-11.1); PLATELET COUNT 81 K/MM3 (134-434); RBC 2.79 M/mm3 (3.60-5.2); RDW 16.6 % (11.6-15.6); WHITE BLOOD COUNT 10.5 K/mm3 (4.0-10.0)
--- NOTE | 2018-10-06 08:47 | PN ---
Progress Note (short form) - Note Progress Note: Chief Complaint: Events noted, notes reviewed, reports persistent dyspnea, denies orthopnea or PND, denies any chest pain History of Present Illness: Seen and examined on telemetry. Events noted, notes reviewed, reports persistent dyspnea, denies orthopnea or PND, denies any chest pain Chest tube in situ Echocardiography dated 10/05/2018 revealed mild cLVH, normal LVEF 50-55%, normal RV size and function, mild TR and a small pericardial effusion Current Medications: Current Medications Atorvastatin Calcium (Lipitor -) 80 mg PO HS [facility] Last Admin: 10/05/18 21:57 Dose: 80 mg Heparin Sodium (Porcine) (Heparin -) 5,000 unit SQ TID [facility] Last Admin: 10/06/18 05:46 Dose: 5,000 unit Metoprolol Succinate (Toprol Xl -) 12.5 mg PO BID [facility] Last Admin: 10/06/18 09:34 Dose: 12.5 mg Review of Systems Constitutional: denies Chills or Fever Respiratory: denies Cough or Sputum Production Cardiovascular: As noted above Gastrointestinal: denies Nausea, Vomiting, Diarrhea, Constipation or Abdominal Pain Genitourinary: denies Frequency or Urgency Musculoskeletal: No symptoms reported - Objective Vital Signs: Last Vital Signs Temp Pulse Resp BP Pulse Ox 98.0 F 105 H 18 124/82 98 10/06/18 10:00 10/06/18 10:00 10/06/18 10:00 10/06/18 10:00 10/06/18 06:00 Intake & Output 10/03/18 10/04/18 10/05/18 10/06/18 23:59 23:59 23:59 23:59 Intake Total 620 260 Output Total 1710 390 Balance -1090 -130 Weight 148 lb 148 lb Neck: Supple Negative JVD No bruit Respiratory: Diminished breath sounds at the bases Cardiovascular: S1, S2 Regular Rate Rhythm Gastrointestinal: Soft Benign Normal Bowel Sounds Ext: Trace Edema Labs: CBC, BMP 10/06/18 05:30 10/06/18 05:30 Hepatic Panel Total Bilirubin 0.9 mg/dL (0.2-1) 10/06/18 05:30 Direct Bilirubin 0.4 mg/dL (0.0-0.2) H 10/06/18 05:30 AST 127 U/L (15-37) H 10/06/18 05:30 ALT 108 U/L (13-61) H 10/06/18 05:30 Alkaline Phosphatase 154 U/L (45-117) H 10/06/18 05:30 Albumin 1.8 g/dl (3.4-5.0) L 10/06/18 05:30 Assessment/Plan ASSESSMENT: 1. Diastolic LV dysfunction with clinical class I-II NYHA classification LV failure, resolving, unclear if pleural effusion is related to heart failure syndrome 2. Bilateral pleural effusion post left chest tube insertion, cytology pending 3. CAD post PCI/stent demand ischemia 4. HTN 5. Hyperlipidemia 6. 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 Acute kidney injury, with Hypokalemia 8. Thrombocytopenia 9. Abnl LFTs, possible hepatic congestion, resolving PLAN: 1. Consider IV diuresis/Lasix with Albumin (low albumin) infusion and close monitoring of renal function and electrolytes 2. Continue ASA 3. Withhold Lipitor therapy pending resolution of LFT's abnormality 4. Continue Toprol XL 25 5. Resume Losartan once renal function improved and at baseline 6. Correction of Hypokalemia Ambrocio Fritz MD
[2018-10-06 08:48] LABS: ALBUMIN 1.8 g/dl (3.4-5.0); ALK PHOS 154 U/L (45-117); ANION GAP 9 MMOL/L (8-16); BILIRUBIN,DIRECT 0.4 mg/dL (0.0-0.2); BILIRUBIN,TOTAL 0.9 mg/dL (0.2-1); BLOOD UREA NITROGEN 32 mg/dL (7-18); CHLORIDE 105 mmol/L (98-107); CO2 24 mmol/L (21-32); CREATININE 1.7 mg/dL (0.55-1.3); GLUCOSE,RANDOM 93 mg/dL (74-106); POTASSIUM 3.1 mmol/L (3.5-5.1); SGOT/AST 127 U/L (15-37); SGPT/ALT 108 U/L (13-61); SODIUM 138 mmol/L (136-145); TOT PROT 3.9 g/dl (6.4-8.2)
[2018-10-06 09:00] LABS: CALCIUM 6.9 mg/dL (8.5-10.1)
[2018-10-06] MEDS: metoPROLOL SUCCINATE 25 MG TAB.SR.24H (FP) PO SCH ×2 (09:34→22:09)
[2018-10-06] MEDS ORDERED: POTASSIUM CHLORIDE TABS 20 MEQ TABLET.ER (FP) PO ONE (09:46)
[2018-10-06] MEDS ORDERED: VANCOMYCIN 1 GM in D5W (PRE-DOCKED) 1,000 MG/250 ML IVPB SCH (10:00)
--- NOTE | 2018-10-06 10:57 | CONSULT ---
Consult Consult Specialty:: Thoracic Surgery Reason for Consultation:: pleural effusion, Shortness of breath - History of Present Illness Chief Complaint: Shortness of Breath History of Present Illness: 73 y/o F with PMH recurrent pleural effusion, stage 4 R breast CA with chemoport w/mets to spine, HTN, HLD, CAD s/p 1 stent (2013), angina, who presents to the ED c/o SOB on rest and exertion over the past two weeks. As per pt, she is s/p thoracentesis which occurred two weeks prior at [facility]. She had ~1L of fluid removed (states that she was told it was not malignant), and states that she needed to receive 2U platelets and 2U PRBC's afterward d/t her low counts. Ever since, she has continued to feel SOB, however denies chest pain or pressure. Has required 02 recently, now on 2L in the hospital sat in high 90's. Has also needed to use a walker to ambulate d/t her worsening SOB, ambulates on own at baseline. During this time, endorses subjective chills and mucus production. Without LOERA, fever, chest pain or pressure, or changes in urinary or bowel function. Receives chemo weekly (gemzar ) usually through her R chemoport. Patient had a left pigtail inserted during this admission and almost 1700 mL fluid was drained. Cytology pending. Patient feeling better after drainage. CT chest revealed right sided pleural effusion as well. - History Source History Provided By: Patient Limitations to Obtaining History: No Limitations - Past Medical History Cardio/Vascular: Yes: CAD, Hyperlipdemia Pulmonary: Yes: O2 Dependent Heme/Onc: Yes: Cancer, Thrombocytopenia - Past Surgical History Past Surgical History: Yes: Mastectomy - Alcohol/Substance Use Hx Alcohol Use: No - Smoking History Smoking history: Unknown if ever smoked - Social History Usual Living Arrangement: With Spouse Place of : [facility] Home Medications - Allergies Allergies/Adverse Reactions: Allergies Allergy/AdvReac Type Severity Reaction Status Date / Time No Known Allergies Allergy Verified 10/04/18 17:00 - Home Medications Home Medications: Ambulatory Orders Aspirin [ASA -] 81 mg PO HS 03/29/14 Atorvastatin Ca [Lipitor -] 80 mg PO HS 03/29/14 Folic Acid 400 mcg PO DAILY 03/29/14 Losartan Potassium [Cozaar] 25 mg PO DAILY 03/29/14 Metoprolol Succinate [Toprol Xl] 12.5 mg PO BID 03/29/14 Cholecalciferol (Vitamin D3) [Vitamin D3] 1,000 unit PO DAILY 10/04/18 Gemcitabine HCl [Gemzar -] 200 mg IV ASDIR 10/04/18 Nitroglycerin Sublingual [Nitrostat -] 0.4 mg PO PRN PRN 10/04/18 Family Disease History - Family Disease History Family History: Denies Review of Systems - Review of Systems Cardiovascular: reports: Shortness of Breath Respiratory: reports: SOB on Exertion Gastrointestinal: reports: No Symptoms Breasts: reports: See HPI Musculoskeletal: reports: No Symptoms Integumentary: reports: No Symptoms Physical Exam Vital Signs: Vital Signs Temperature 97.6 F 10/06/18 06:00 Pulse Rate 102 H 10/06/18 06:00 Respiratory Rate 18 10/06/18 06:00 Blood Pressure 110/72 10/06/18 06:00 O2 Sat by Pulse Oximetry (%) 98 10/06/18 06:00 Constitutional: Yes: Well Nourished Eyes: Yes: WNL HENT: Yes: WNL Neck: Yes: WNL Cardiovascular: Yes: Tachycardia Respiratory: Yes: On Nasal O2, Other (Decreased breath sounds bilaterally) Gastrointestinal: Yes: WNL Edema: Yes Edema: LLE: 1+, RLE: 1+ Neurological: Yes: WNL Labs: CBC, BMP 10/06/18 05:30 10/06/18 05:30 Imaging - Results Chest X-ray: Report Reviewed, Image Reviewed Cat Scan: Report Reviewed, Image Reviewed Problem List - Problems (1) Chest tube in place Code(s): Z96.89 - PRESENCE OF OTHER SPECIFIED FUNCTIONAL IMPLANTS (2) Congestive heart failure Code(s): I50.9 - HEART FAILURE, UNSPECIFIED Qualifiers: Heart failure type: diastolic Heart failure chronicity: acute on chronic Qualified Code(s): I50.33 - Acute on chronic diastolic (congestive) heart failure (3) Difficulty breathing Code(s): R06.89 - OTHER ABNORMALITIES OF BREATHING (4) Large pleural effusion Code(s): J90 - PLEURAL EFFUSION, NOT ELSEWHERE CLASSIFIED (5) Metastatic breast cancer Code(s): C50.919 - MALIGNANT NEOPLASM OF UNSP SITE OF UNSPECIFIED FEMALE BREAST Assessment/Plan 73 y/ O Fwith stage IV breast cancer with metastasis to spine was admitted with bilateral pleural effusion L>R. pigtail wsa placed in left pleural cavity with drainage of 1700mL pleural fluid. Cytology pending. Patient and her and daughter were informed of different treatment option after final cytology result for pleural fluid. Bilateral VATS and pleural biopsy and insertion of pleurX catheters as well as IR guided pleurX catheter placement. Will follow.
--- NOTE | 2018-10-06 12:48 | PN ---
Physical Exam: SUBJECTIVE: Patient seen and examined at bedside. 400+ cc drainage overnight for total of 1700. Denies SOB or chest pain. OBJECTIVE: Vital Signs Period Temp Pulse Resp BP Sys/[place] Pulse Ox Last 24 Hr 97.5 F-98.3 F 97-115 16-22 102-132/58-82 95-98 GENERAL: A&Ox3, no acute distress EYES: PERRLA, EOMI ENT: Moist mucus membranes NECK: No JVD LUNGS: CTA in apices, diminished at bases, no wheezes. L sided drainage pigtail catheter in place HEART: RRR, no murmurs ABDOMEN: Soft, nontender, BS present MUSCULOSKELETAL: No CVA Tenderness EXTREMITIES: 2+ pulses, no edema. NEUROLOGICAL: Cranial nerves II-XII intact. Laboratory Results - last 24 hr 10/06/18 10/06/18 05:30 05:30 WBC 10.5 H RBC 2.79 L Hgb 9.3 L Hct 26.0 L MCV 93.1 MCH 33.4 MCHC 35.9 RDW 16.6 H Plt Count 81 L MPV 7.9 Sodium 138 Potassium 3.1 L Chloride 105 Carbon Dioxide 24 Anion Gap 9 BUN 32 H Creatinine 1.7 H Creat Clearance w eGFR 29.54 Random Glucose 93 Calcium 6.9 L* Total Bilirubin 0.9 Direct Bilirubin 0.4 H AST 127 H ALT 108 H Alkaline Phosphatase 154 H Total Protein 3.9 L Albumin 1.8 L Active Medications Generic Name Dose Route Start Last Admin Trade Name Freq PRN Reason Stop Dose Admin Atorvastatin Calcium 80 mg 10/05/18 22:00 10/05/18 21:57 Lipitor - PO 80 mg HS JOSE ARMANDO Administration Heparin Sodium (Porcine) 5,000 unit 10/05/18 10:00 10/06/18 05:46 Heparin - SQ 5,000 unit TID JOSE ARMANDO Administration Metoprolol Succinate 12.5 mg 10/05/18 10:00 10/06/18 09:34 Toprol Xl - PO 12.5 mg BID JOSE ARMANDO Administration ASSESSMENT/PLAN: 73 y/o F with PMH recurrent pleural effusion, stage 4 R breast CA with chemoport w/mets to spine, HTN, HLD, CAD s/p 1 stent (2013), angina, who presents to the ED c/o SOB on rest and exertion over the past two weeks. #L sided pleural effusion: malignant vs cardiac in etiology, unlikely parapneumonic effusion -culture fluid/cytology still pending -off abx -CT surg following, possible Bilateral VATS and pleural biopsy and insertion of pleurX catheters as well as IR guided pleurX catheter placement. -files were obtained from [place] that showed exudative effusion without malignant cells, need to compare to fluid obtained here #LUCRECIA vs CKD: unclear etiology - creatinine was 1.7 for the past 3 days without improvement -continue to hold lasix for now -can consider albumin + lasix for simultaneous osmotic maintenance and fluid mobilization -renal US -f/u cards #hx breast CA w/spinal mets -files obtained from previous visit to [place] -receives chemo weekly - Gemzar #Troponinemia: likely demand #HTN- controlled -Cont home med Toprol XL 12.5 mg PO BID #CAD s/p 1 stent (2003) -hold ASA for now #HLD -Cont home med: Atorvastatin 80 mg PO HS #F/E/N Off fluids continue to follow lytes diet #PPX -SQH #Dispo -cont to monitor on tele Visit type - Emergency Visit Emergency Visit: No - New Patient This patient is new to me today: No - Critical Care Critical Care patient: No
--- NOTE | 2018-10-06 13:43 | PN ---
Teaching Attending Note Name of Resident: Subhash Nguyen ATTENDING PHYSICIAN STATEMENT I saw and evaluated the patient. I reviewed the resident's note and discussed the case with the resident. I agree with the resident's findings and plan as documented. SUBJECTIVE: No fever or chills. No abd pain, No CP . SOB is better. OBJECTIVE: NAD, Awake, dr ERNANDEZ Cv: RRR Lungs: clear lungs, with decreased breath sounds at R base . Ext : No edema Abd: soft, NT, ND , Nl BS . ASSESSMENT AND PLAN: Pleasant unfortunate 73 y/o lady with h/o Stage IV breast Cancer, HTN, HLD, CAD s/p PCI, currently on chemotherapy, and recent diagnosis of pleural effusions s/ p thoracentesis who presented with SOB. 1- b/l Pleural effusions: etiology could be malignant but could be due to hypoalbuminemia, and or cardiomyopathy . No evidence of pNA records obtained from OSH and indicated L sided effusion only, s/p drainage---> exudative fluid on analysis with neg cx and neg cytology for malignancy - cont pig tail to L - thoracic procedures pending cytology - follow LDH/protein/and fluid cx - received lasix yesterday. will hold off today and will decide tomorrow on need fro lasix + albumin 2- LE edema,possibly due to hypoalbuminemia +/- diastolic heart failure - will evaluate volume status and renal function tomorrow to decide on the need fro IV lasix + albumin 3- LUCRECIA : likely prerenal . No obstruction - monitor after receiving HD yesterday 4- Elevated trop: could be due to renal failure - cont BB - holding asa in case a chest tube or other procedure is needed 5- Transaminitis: ? Mets/fatty liver.? liver congestion frm heart failure . no abd tenderness . - check US - trend dispo : HLOC DVT px
--- NOTE | 2018-10-06 13:50 | PN ---
Progress Note, Physician History of Present Illness: patient doing well no complaints feels better more strength - Current Medication List Current Medications: Active Medications Atorvastatin Calcium (Lipitor -) 80 mg PO HS [facility] Last Admin: 10/05/18 21:57 Dose: 80 mg Heparin Sodium (Porcine) (Heparin -) 5,000 unit SQ TID [facility] Last Admin: 10/06/18 13:27 Dose: 5,000 unit Metoprolol Succinate (Toprol Xl -) 12.5 mg PO BID [facility] Last Admin: 10/06/18 09:34 Dose: 12.5 mg - Objective Vital Signs: Vital Signs Temperature 98.0 F 10/06/18 10:00 Pulse Rate 105 H 10/06/18 10:00 Respiratory Rate 18 10/06/18 10:00 Blood Pressure 124/82 10/06/18 10:00 O2 Sat by Pulse Oximetry (%) 98 10/06/18 09:00 Constitutional: Yes: No Distress, Calm Cardiovascular: Yes: Regular Rate and Rhythm Respiratory: Yes: Poor Air Entry (left side chest tube left side draianing) Gastrointestinal: Yes: Normal Bowel Sounds, Soft Musculoskeletal: Yes: WNL Extremities: Yes: WNL Neurological: Yes: Alert, Oriented Psychiatric: Yes: Alert, Oriented Labs: CBC, BMP 10/06/18 05:30 10/06/18 05:30 INR, PTT INR 1.12 (0.83-1.09) H 10/04/18 17:59 - ....Imaging X-ray: Report Reviewed, Image Reviewed Assessment/Plan Problem List - Problems (1) Chest tube in place Code(s): Z96.89 - PRESENCE OF OTHER SPECIFIED FUNCTIONAL IMPLANTS (2) Congestive heart failure Code(s): I50.9 - HEART FAILURE, UNSPECIFIED Qualifiers: Heart failure type: diastolic Heart failure chronicity: acute on chronic Qualified Code(s): I50.33 - Acute on chronic diastolic (congestive) heart failure (3) Difficulty breathing Code(s): R06.89 - OTHER ABNORMALITIES OF BREATHING (4) Large pleural effusion Code(s): J90 - PLEURAL EFFUSION, NOT ELSEWHERE CLASSIFIED (5) Metastatic breast cancer Code(s): C50.919 - MALIGNANT NEOPLASM OF UNSP SITE OF UNSPECIFIED FEMALE BREAST plan continue to monitor closely no abx await for all results rest as per the team
[2018-10-06] MEDS: ATORVASTATIN CA 80 MG TABLET (FP) PO SCH (22:09)
[2018-10-07] MEDS: HEPARIN NA (PORCINE) 5,000 UNITS/ML 1ML VIAL SQ SCH ×3 (06:44→21:53)
[2018-10-07 07:00] LABS: HEMATOCRIT 26.2 % (32.4-45.2); HEMOGLOBIN 9.4 GM/dL (10.7-15.3); MCH 33.4 pg (25.7-33.7); MCHC 35.8 g/dl (32.0-36.0); MEAN CELL VOLUME 93.2 fl (80-96); MEAN PLT VOLUME 8.1 fl (7.5-11.1); PLATELET COUNT 72 K/MM3 (134-434); RBC 2.81 M/mm3 (3.60-5.2); RDW 16.2 % (11.6-15.6)
[2018-10-07 07:14] LABS: ANION GAP 8 MMOL/L (8-16); BLOOD UREA NITROGEN 30 mg/dL (7-18); CHLORIDE 105 mmol/L (98-107); CO2 26 mmol/L (21-32); CREATININE 1.7 mg/dL (0.55-1.3); GLUCOSE,RANDOM 92 mg/dL (74-106); SODIUM 138 mmol/L (136-145)
--- NOTE | 2018-10-07 08:09 | PN ---
Progress Note (short form) - Note Progress Note: Chief Complaint: Events noted, notes reviewed, reports persistent dyspnea but improved, denies orthopnea or PND, denies any chest pain, chest tube in situ/ drainage noted History of Present Illness: Seen and examined on telemetry. Events noted, notes reviewed, reports persistent dyspnea but improved, denies orthopnea or PND, denies any chest pain , chest tube in situ/drainage noted Pleural fluid cytology and chemistry pending Echocardiography dated 10/05/2018 revealed mild cLVH, normal LVEF 50-55%, normal RV size and function, mild TR and a small pericardial effusion Current Medications: Current Medications Atorvastatin Calcium (Lipitor -) 80 mg PO HS [facility] Last Admin: 10/06/18 22:09 Dose: 80 mg Heparin Sodium (Porcine) (Heparin -) 5,000 unit SQ TID [facility] Last Admin: 10/07/18 06:44 Dose: 5,000 unit Metoprolol Succinate (Toprol Xl -) 12.5 mg PO BID [facility] Last Admin: 10/06/18 22:09 Dose: 12.5 mg Review of Systems Constitutional: denies Chills or Fever Respiratory: denies Cough or Sputum Production Cardiovascular: As noted above Gastrointestinal: denies Nausea, Vomiting, Diarrhea, Constipation or Abdominal Pain Genitourinary: denies Frequency or Urgency Musculoskeletal: No symptoms reported - Objective Vital Signs: Last Vital Signs Temp Pulse Resp BP Pulse Ox 98.1 F 107 H 20 123/73 98 10/07/18 04:00 10/07/18 04:00 10/07/18 04:00 10/07/18 04:00 10/06/18 20:00 Intake & Output 10/04/18 10/05/18 10/06/18 10/07/18 23:59 23:59 23:59 23:59 Intake Total 620 580 Output Total 1710 680 120 Balance -1090 -100 -120 Weight 148 lb 148 lb 148 lb Neck: Supple Negative JVD No bruit Respiratory: Diminished breath sounds at the bases Cardiovascular: S1, S2 Regular Rate Rhythm Gastrointestinal: Soft Benign Normal Bowel Sounds Ext: Trace Ankle Edema Labs: CBC, BMP 10/07/18 05:30 10/07/18 05:30 Hepatic Panel Total Bilirubin 0.9 mg/dL (0.2-1) 10/06/18 05:30 Direct Bilirubin 0.4 mg/dL (0.0-0.2) H 10/06/18 05:30 AST 127 U/L (15-37) H 10/06/18 05:30 ALT 108 U/L (13-61) H 10/06/18 05:30 Alkaline Phosphatase 154 U/L (45-117) H 10/06/18 05:30 Albumin 1.8 g/dl (3.4-5.0) L 10/06/18 05:30 Assessment/Plan ASSESSMENT: 1. Diastolic LV dysfunction with clinical class I-II NYHA classification LV failure, resolving, unclear if pleural effusion is related to heart failure syndrome, await cytology/chemistry 2. Bilateral pleural effusion post left chest tube insertion, cytology pending 3. CAD post PCI/stent demand ischemia angina pectoris 4. HTN 5. Hyperlipidemia 6. 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 Acute kidney injury, with Hypokalemia/persistent 8. Thrombocytopenia 9. Abnormal LFTs, possible hepatic congestion, resolving 10. Hypocalcemia PLAN: 1. Consider IV diuresis/Lasix with Albumin (low albumin) infusion and close monitoring of renal function and electrolytes, but await pleural fluid chemistry (transudate vs. exudate) 2. Continue ASA 3. As outlined in yesterday's note withhold Lipitor therapy pending resolution of LFT's abnormality 4. Continue Toprol XL hemodynamics permitting 5. Resume Losartan once renal function improved and at baseline, hemodynamics permitting 6. Correction of Hypokalemia and Hypocalcemia, check Mg level 7. Repeat BMP later today Ambrocio Fritz MD
[2018-10-07 08:10] LABS: POTASSIUM 2.7 mmol/L (3.5-5.1)
[2018-10-07 08:11] LABS: CALCIUM 6.6 mg/dL (8.5-10.1)
[2018-10-07] MEDS ORDERED: POTASSIUM CHLORIDE TABS 20 MEQ TABLET.ER (FP) PO ONE (08:18)
[2018-10-07] MEDS ORDERED: CALCIUM GLUCONATE 10% - 1,000 MG/10 ML VIAL IVPB ONE (08:21)
[2018-10-07] MEDS ORDERED: POTASSIUM CHLORIDE ORAL LIQUID 20 MEQ/15 ML PO ONE (08:34)
[2018-10-07 08:56] LABS: MAGNESIUM 2.2 mg/dL (1.8-2.4)
[2018-10-07] MEDS: metoPROLOL SUCCINATE 25 MG TAB.SR.24H (FP) PO SCH ×2 (09:03→21:53)
[2018-10-07] MEDS: KCL 10 MEQ IVPB 10 MEQ/100 ML INFUS.BAG IVPB SCH ×3 (09:06→12:15)
--- NOTE | 2018-10-07 12:47 | PN ---
Progress Note, Physician History of Present Illness: stable doing well says she feels much better u/s of abd done - Current Medication List Current Medications: Active Medications Heparin Sodium (Porcine) (Heparin -) 5,000 unit SQ TID [facility] Last Admin: 10/07/18 06:44 Dose: 5,000 unit Metoprolol Succinate (Toprol Xl -) 12.5 mg PO BID [facility] Last Admin: 10/07/18 09:03 Dose: 12.5 mg - Objective Vital Signs: Vital Signs Temperature 98.0 F 10/07/18 10:00 Pulse Rate 117 H 10/07/18 10:00 Respiratory Rate 20 10/07/18 10:00 Blood Pressure 104/50 L 10/07/18 10:00 O2 Sat by Pulse Oximetry (%) 98 10/07/18 09:00 Constitutional: Yes: No Distress, Calm Cardiovascular: Yes: Regular Rate and Rhythm Respiratory: Yes: Regular, Poor Air Entry (rt side) Gastrointestinal: Yes: Normal Bowel Sounds, Soft Musculoskeletal: Yes: WNL Extremities: Yes: WNL Neurological: Yes: Alert, Oriented Psychiatric: Yes: Alert, Oriented Labs: CBC, BMP 10/07/18 05:30 10/07/18 05:30 INR, PTT INR 1.12 (0.83-1.09) H 10/04/18 17:59 Assessment/Plan Problem List - Problems (1) Chest tube in place Code(s): Z96.89 - PRESENCE OF OTHER SPECIFIED FUNCTIONAL IMPLANTS (2) Congestive heart failure Code(s): I50.9 - HEART FAILURE, UNSPECIFIED Qualifiers: Heart failure type: diastolic Heart failure chronicity: acute on chronic Qualified Code(s): I50.33 - Acute on chronic diastolic (congestive) heart failure (3) Difficulty breathing Code(s): R06.89 - OTHER ABNORMALITIES OF BREATHING (4) Large pleural effusion Code(s): J90 - PLEURAL EFFUSION, NOT ELSEWHERE CLASSIFIED (5) Metastatic breast cancer Code(s): C50.919 - [facility] OF [facility]NSPECIFIED FEMALE BREAST plan continue to monitor closely nutrition will have to make final await for all results
[2018-10-07 16:34] LABS: ANION GAP 9 MMOL/L (8-16); BLOOD UREA NITROGEN 30 mg/dL (7-18); CALCIUM 7.3 mg/dL (8.5-10.1); CHLORIDE 108 mmol/L (98-107); CO2 23 mmol/L (21-32); CREATININE 1.7 mg/dL (0.55-1.3); GLUCOSE,RANDOM 150 mg/dL (74-106); POTASSIUM 4.4 mmol/L (3.5-5.1); SODIUM 140 mmol/L (136-145)
--- NOTE | 2018-10-07 17:52 | PN ---
Progress Note (short form) - Note Progress Note: Subjective: no SOB , no pain. Objective: Vital Signs: Last Vital Signs Temp Pulse Resp BP Pulse Ox 97.9 F 108 H 20 105/78 98 10/07/18 14:00 10/07/18 14:00 10/07/18 14:00 10/07/18 14:00 10/07/18 09:00 Laboratory Results - last 24 hr 10/07/18 10/07/18 10/07/18 05:30 05:30 16:00 WBC 12.0 H RBC 2.81 L Hgb 9.4 L Hct 26.2 L MCV 93.2 MCH 33.4 MCHC 35.8 RDW 16.2 H Plt Count 72 L MPV 8.1 Sodium 138 140 Potassium 2.7 L* 4.4 Chloride 105 108 H Carbon Dioxide 26 23 Anion Gap 8 9 BUN 30 H 30 H Creatinine 1.7 H 1.7 H Creat Clearance w eGFR 29.54 29.54 Random Glucose 92 150 H Calcium 6.6 L* 7.3 L Phosphorus 3.0 Magnesium 2.2 Physical Exam: NAD, Awake, dry MM still Cv: RRR Lungs: crackles at L base and decreased breath sounds at R base . Ext : No edema Abd: soft, NT, ND , Nl BS . ASSESSMENT AND PLAN: Pleasant unfortunate 73 y/o lady with h/o Stage IV breast Cancer, HTN, HLD, CAD s/p PCI, currently on chemotherapy, and recent diagnosis of pleural effusions s/ p thoracentesis who presented with SOB. 1- b/l Pleural effusions: etiology could be malignant but could be due to hypoalbuminemia, and or cardiomyopathy . No evidence of pNA - cont pig tail to L - thoracic procedures pending cytology - follow LDH/protein/and fluid cx - hold diuresis for now 2- LE edema,possibly due to hypoalbuminemia +/- diastolic heart failure - cont to evaluate volume status daily 3- LUCRECIA : ? CKD - will review records cont o hold losartan 4- Elevated trop: could be due to renal failure - cont BB - holding asa in case a chest tube or other procedure is needed 5- Transaminitis: ? Mets/fatty liver.? liver congestion from heart failure . no abd tenderness . - US unremarkable - trend 6- Hypokalemia repleted 7- hypocalcemia , corrected ca 8.38 . received IV calcium by card Dispo : HLOC DVT px Visit type - Emergency Visit Emergency Visit: Yes ED Registration Date: 10/04/18 Care time: The patient presented to the Emergency Department on the above date and was hospitalized for further evaluation of their emergent condition. - New Patient This patient is new to me today: No - Critical Care Critical Care patient: No
[2018-10-08] MEDS: HEPARIN NA (PORCINE) 5,000 UNITS/ML 1ML VIAL SQ SCH ×3 (06:29→21:33)
[2018-10-08 06:44] LABS: BASO % 0.3 % (0-2.0); EOS % 0.6 % (0-4.5); HEMATOCRIT 26.9 % (32.4-45.2); HEMOGLOBIN 9.5 GM/dL (10.7-15.3); LYMPH % 13.3 % (8-40); MCH 33.7 pg (25.7-33.7); MCHC 35.5 g/dl (32.0-36.0); MEAN CELL VOLUME 94.8 fl (80-96); MEAN PLT VOLUME 8.3 fl (7.5-11.1); NEUT % 75.8 % (42.8-82.8); PLATELET COUNT 64 K/MM3 (134-434); RBC 2.84 M/mm3 (3.60-5.2); RDW 16.6 % (11.6-15.6); WHITE BLOOD COUNT 13.5 K/mm3 (4.0-10.0)
[2018-10-08 07:26] LABS: ALBUMIN 1.8 g/dl (3.4-5.0); ALK PHOS 171 U/L (45-117); ANION GAP 7 MMOL/L (8-16); BILIRUBIN,TOTAL 0.9 mg/dL (0.2-1); BLOOD UREA NITROGEN 28 mg/dL (7-18); CHLORIDE 107 mmol/L (98-107); CO2 23 mmol/L (21-32); CREATININE 1.7 mg/dL (0.55-1.3); GLUCOSE,RANDOM 94 mg/dL (74-106); MAGNESIUM 2.2 mg/dL (1.8-2.4); POTASSIUM 3.9 mmol/L (3.5-5.1); SGOT/AST 159 U/L (15-37); SGPT/ALT 112 U/L (13-61); SODIUM 137 mmol/L (136-145); TOT PROT 4.1 g/dl (6.4-8.2)
[2018-10-08 09:50] LABS: CALCIUM 6.8 mg/dL (8.5-10.1)
[2018-10-08] MEDS: metoPROLOL SUCCINATE 25 MG TAB.SR.24H (FP) PO SCH ×2 (09:53→21:33)
[2018-10-08 11:20] LABS: ANISOCYTOSIS 1+; MACROCYTOSIS 1+; OVALOCYTE 1+; PLATELET ESTIMATE DECREASED; TEAR DROP CELLS 1+
--- NOTE | 2018-10-08 11:59 | PN ---
Physical Exam: SUBJECTIVE: Patient seen and examined at bedside. No acute events overnight. Pt states she feels breathing is better. Denies any bowel movement yet. Amauri PO diet , no nausea/vomiting. OBJECTIVE: Vital Signs Temperature 98.2 F 10/08/18 09:00 Pulse Rate 104 H 10/08/18 09:00 Respiratory Rate 20 10/08/18 09:00 Blood Pressure 95/54 L 10/08/18 09:00 O2 Sat by Pulse Oximetry (%) 98 10/08/18 09:00 GENERAL: Pleasant, sitting up in bed. awake, alert, and fully oriented HEENT: AT/NC. EOMI. FRED[place]. Dry mucus membranes. NECK: Normal range of motion, supple without lymphadenopathy, JVD, or masses. LUNGS: CTA B/L. no wheezing or rhonchi HEART: RRR, normal S1 and S2 without murmur, rub or gallop. ABDOMEN: Soft, nontender, not distended, normoactive bowel sounds, no guarding. no anasarca. L pigtail in place, draining dark yellow fluid, dressing c/d/i PSYCHIATRIC: Cooperative. Good eye contact. SKIN: Warm, dry, normal turgor CBCD WBC 13.5 K/mm3 (4.0-10.0) H 10/08/18 05:30 RBC 2.84 M/mm3 (3.60-5.2) L 10/08/18 05:30 Hgb 9.5 GM/dL (10.7-15.3) L 10/08/18 05:30 Hct 26.9 % (32.4-45.2) L 10/08/18 05:30 MCV 94.8 fl (80-96) 10/08/18 05:30 MCHC 35.5 g/dl (32.0-36.0) 10/08/18 05:30 RDW 16.6 % (11.6-15.6) H 10/08/18 05:30 Plt Count 64 K/MM3 (134-434) L 10/08/18 05:30 MPV 8.3 fl (7.5-11.1) 10/08/18 05:30 CMP Sodium 137 mmol/L (136-145) 10/08/18 05:30 Potassium 3.9 mmol/L (3.5-5.1) 10/08/18 05:30 Chloride 107 mmol/L (98-107) 10/08/18 05:30 Carbon Dioxide 23 mmol/L (21-32) 10/08/18 05:30 Anion Gap 7 MMOL/L (8-16) L 10/08/18 05:30 BUN 28 mg/dL (7-18) H 10/08/18 05:30 Creatinine 1.7 mg/dL (0.55-1.3) H 10/08/18 05:30 Creat Clearance w eGFR 29.54 (>60) 10/08/18 05:30 Calcium 6.8 mg/dL (8.5-10.1) L* 10/08/18 05:30 Total Bilirubin 0.9 mg/dL (0.2-1) 10/08/18 05:30 AST 159 U/L (15-37) H 10/08/18 05:30 ALT 112 U/L (13-61) H 10/08/18 05:30 Alkaline Phosphatase 171 U/L (45-117) H 10/08/18 05:30 Total Protein 4.1 g/dl (6.4-8.2) L 10/08/18 05:30 Albumin 1.8 g/dl (3.4-5.0) L 10/08/18 05:30 Active Medications Heparin Sodium (Porcine) (Heparin -) 5,000 unit SQ TID [facility] Last Admin: 10/08/18 06:29 Dose: 5,000 unit Metoprolol Succinate (Toprol Xl -) 12.5 mg PO BID [facility] Last Admin: 10/08/18 09:53 Dose: Not Given IMAGING: * Renal U/S: Small R mid and L renal cyst/parapelvic cyst w/o gross evid. of hydronephrosis or renal stones, b/l. R pleural effusion. * Abd U/S: R pleural effusion. R renal cyst. 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 #L sided pleural effusion: malignant vs cardiac in etiology, unlikely parapneumonic effusion -Files were obtained from [place] that showed exudative effusion without malignant cells, need to compare to fluid obtained here; called lab regarding fluid cytology which were sent out to [facility]; results will be available on 10/10 -Off abx -CT surg following, possible Bilateral VATS and pleural biopsy and insertion of pleurX catheters as well as IR guided pleurX catheter placement. #LUCRECIA vs CKD: unclear etiology - creatinine was 1.7 for 4 days without improvement -continue to hold lasix for now -can consider albumin + lasix for simultaneous osmotic maintenance and fluid mobilization -renal US -f/u cardio eval #hx breast CA w/spinal mets -files obtained from previous visit to [place] -receives chemo weekly - Gemzar; Pt states her oncologist did not give her dose last week as she was volume-depleted. She has an appointment schedule for this Monday. #Troponinemia: likely demand #HTN- controlled -Cont home med Toprol XL 12.5 mg PO BID #CAD s/p 1 stent (2003) -hold ASA for now #HLD -Cont home med: Atorvastatin 80 mg PO HS #F/E/N -Off fluids -continue to follow lytes -regular diet #PPX -SQH #Dispo -cont to monitor on tele Visit type - Emergency Visit Emergency Visit: Yes ED Registration Date: 10/04/18 Care time: The patient presented to the Emergency Department on the above date and was hospitalized for further evaluation of their emergent condition. - New Patient This patient is new to me today: No - Critical Care Critical Care patient: No
--- NOTE | 2018-10-08 14:52 | PN ---
Progress Note, Physician Chief Complaint: Events noted Chest tube draining Not in distress History of Present Illness: Patient was seen and examined. Awake and alert. Chart was reviewed Less SOB. No chest pain or palpitations - Current Medication List Current Medications: Active Medications Heparin Sodium (Porcine) (Heparin -) 5,[address] [facility] Last Admin: 10/08/18 14:24 Dose: 5,000 unit Metoprolol Succinate (Toprol Xl -) 12.[address] [facility] Last Admin: 10/07/18 21:53 Dose: 12.5 mg - Objective Vital Signs: Vital Signs Temperature 99.0 F 10/08/18 14:24 Pulse Rate 119 H 10/08/18 14:24 Respiratory Rate 20 10/08/18 14:24 Blood Pressure 109/69 10/08/18 14:24 O2 Sat by Pulse Oximetry (%) 98 10/08/18 09:00 HENT: Yes: Atraumatic Neck: Yes: Supple Cardiovascular: Yes: Regular Rate and Rhythm, S1, S2 Respiratory: Yes: Diminished, Other (chest tube) Gastrointestinal: Yes: Normal Bowel Sounds, Soft. No: Tenderness Edema: Yes Edema: LLE: Trace, RLE: Trace Additional Findings/Remarks: Review of Systems Constitutional: denies Chills or Fever Respiratory: denies Cough or Sputum Production Cardiovascular: (+) SOB Gastrointestinal: denies Nausea, Vomiting, Diarrhea, Constipation or Abdominal Pain Genitourinary: denies Frequency or Urgency Musculoskeletal: No symptoms reported Labs: CBC, BMP 10/08/18 05:30 10/08/18 05:30 Problem List - Problems (1) LUCRECIA (acute kidney injury) Code(s): N17.9 - ACUTE KIDNEY FAILURE, UNSPECIFIED (2) Chest tube in place Code(s): Z96.89 - PRESENCE OF OTHER SPECIFIED FUNCTIONAL IMPLANTS (3) Congestive heart failure Code(s): I50.9 - HEART FAILURE, UNSPECIFIED Qualifiers: Heart failure type: diastolic Heart failure chronicity: acute on chronic Qualified Code(s): I50.33 - Acute on chronic diastolic (congestive) heart failure (4) Demand ischemia Code(s): I24.8 - OTHER FORMS OF ACUTE ISCHEMIC HEART DISEASE (5) Large pleural effusion Code(s): J90 - PLEURAL EFFUSION, NOT ELSEWHERE CLASSIFIED (6) Metastatic breast cancer Code(s): C50.919 - MALIGNANT NEOPLASM OF UNSP SITE OF UNSPECIFIED FEMALE BREAST (7) CAD (coronary artery disease) Code(s): I25.10 - ATHSCL HEART DISEASE OF [place] CORONARY ARTERY W/O ANG PCTRS (8) History of percutaneous coronary intervention Code(s): Z98.61 - CORONARY ANGIOPLASTY STATUS (9) Hypercholesterolemia Code(s): E78.00 - PURE HYPERCHOLESTEROLEMIA, UNSPECIFIED (10) HTN (hypertension) Code(s): I10 - ESSENTIAL (PRIMARY) HYPERTENSION (11) Congestive heart failure with LV diastolic dysfunction, NYHA class 2 Code(s): I50.30 - UNSPECIFIED DIASTOLIC (CONGESTIVE) HEART FAILURE Assessment/Plan 1. Diastolic LV dysfunction with clinical class I-II NYHA classification LV failure, resolving, unclear if pleural effusion is related to heart failure syndrome 2. Bilateral pleural effusion post left chest tube insertion 3. CAD post PCI/stent demand ischemia angina pectoris 4. HTN 5. Hyperlipidemia 6. 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 Acute kidney injury, with Hypokalemia/persistent 8. Thrombocytopenia 9. Abnormal LFTs, possible hepatic congestion 10. Hypocalcemia PLAN: 1. Consider IV diuresis/Lasix with Albumin (low albumin) infusion and close monitoring of renal function and electrolytes. Currently chest tube draining 2. Continue ASA 3. Lipitor held with abnormal LFT 4. Continue Toprol XL hemodynamics permitting 5. Resume Losartan once renal function improved and at baseline, hemodynamics permitting 6. Monitor electrolytes Further plans are to follow Bello Combs MD
--- NOTE | 2018-10-08 15:34 | PN ---
Progress Note, Physician History of Present Illness: stable doing well no issues chest tube still draining - Current Medication List Current Medications: Active Medications Heparin Sodium (Porcine) (Heparin -) 5,000 unit SQ TID [facility] Last Admin: 10/08/18 14:24 Dose: 5,000 unit Metoprolol Succinate (Toprol Xl -) 12.5 mg PO BID [facility] Last Admin: 10/07/18 21:53 Dose: 12.5 mg - Objective Vital Signs: Vital Signs Temperature 99.0 F 10/08/18 14:24 Pulse Rate 119 H 10/08/18 14:24 Respiratory Rate 20 10/08/18 14:24 Blood Pressure 109/69 10/08/18 14:24 O2 Sat by Pulse Oximetry (%) 98 10/08/18 09:00 Constitutional: Yes: No Distress, Calm Cardiovascular: Yes: Regular Rate and Rhythm Respiratory: Yes: Regular, Poor Air Entry, Other (left sided chest tube) Musculoskeletal: Yes: WNL Extremities: Yes: WNL Neurological: Yes: Alert, Oriented Psychiatric: Yes: Alert, Oriented Labs: CBC, BMP 10/08/18 05:30 10/08/18 05:30 INR, PTT INR 1.12 (0.83-1.09) H 10/04/18 17:59 Assessment/Plan Problem List - Problems (1) Chest tube in place Code(s): Z96.89 - PRESENCE OF OTHER SPECIFIED FUNCTIONAL IMPLANTS (2) Congestive heart failure Code(s): I50.9 - HEART FAILURE, UNSPECIFIED Qualifiers: Heart failure type: diastolic Heart failure chronicity: acute on chronic Qualified Code(s): I50.33 - Acute on chronic diastolic (congestive) heart failure (3) Difficulty breathing Code(s): R06.89 - OTHER ABNORMALITIES OF BREATHING (4) Large pleural effusion Code(s): J90 - PLEURAL EFFUSION, NOT ELSEWHERE CLASSIFIED (5) Metastatic breast cancer Code(s): C50.919 - MALIGNANT NEOPLASM OF UNSP SITE OF UNSPECIFIED FEMALE BREAST plan continue to monitor closely nutrition all results noted will d/w the team
[2018-10-08 16:19] LABS: BODY FLUID ALBUMIN 1.4 g/dL (.)
--- NOTE | 2018-10-08 17:35 | PN ---
Teaching Attending Note Name of Resident: Subhash Nguyen ATTENDING PHYSICIAN STATEMENT I saw and evaluated the patient. I reviewed the resident's note and discussed the case with the resident. I agree with the resident's findings and plan as documented. SUBJECTIVE: No fever or chills. No abd pain. No SOB. OBJECTIVE: NAD, Awake, dry MM. Cv: RRR Lungs: crackles at L base and decreased breath sounds at R base . Ext : No edema Abd: soft, NT, ND, NL BS ASSESSMENT AND PLAN: Pleasant unfortunate 73 y/o lady with h/o Stage IV breast Cancer, HTN, HLD, CAD s/p PCI, currently on chemotherapy, and recent diagnosis of pleural effusions s/ p thoracentesis who presented with SOB. 1- B/l Pleural effusions: etiology could be malignant but could be due to hypoalbuminemia, and or cardiomyopathy . No evidence of pNA - cont pig tail to L - thoracic procedures pending cytology - follow LDH/protein - fluid cx neg - hold diuresis for now. 2- LE edema,possibly due to hypoalbuminemia +/- diastolic heart failure - cont to evaluate volume status daily 3- LUCRECIA : ? CKD - cr was 1.2 on sep 19 - cont o hold losartan 4- Elevated trop: could be due to renal failure - cont BB - holding asa in case a chest tube or other procedure is needed 5- Transaminitis: ? Mets/fatty liver.? liver congestion from heart failure . no abd tenderness . - trend 6- hypocalcemia , corrected ca is normal Dispo : HLOC DVT px
[2018-10-09] MEDS: HEPARIN NA (PORCINE) 5,000 UNITS/ML 1ML VIAL SQ SCH ×3 (05:41→21:14)
[2018-10-09 08:17] LABS: HEMATOCRIT 26.8 % (32.4-45.2); HEMOGLOBIN 9.4 GM/dL (10.7-15.3); MCH 33.5 pg (25.7-33.7); MCHC 35.1 g/dl (32.0-36.0); MEAN CELL VOLUME 95.4 fl (80-96); MEAN PLT VOLUME 8.8 fl (7.5-11.1); PLATELET COUNT 70 K/MM3 (134-434); RBC 2.81 M/mm3 (3.60-5.2); RDW 16.8 % (11.6-15.6); WHITE BLOOD COUNT 14.6 K/mm3 (4.0-10.0)
[2018-10-09 09:08] LABS: ANION GAP 6 MMOL/L (8-16); BLOOD UREA NITROGEN 26 mg/dL (7-18); CHLORIDE 106 mmol/L (98-107); CO2 24 mmol/L (21-32); CREATININE 1.5 mg/dL (0.55-1.3); GLUCOSE,RANDOM 90 mg/dL (74-106); POTASSIUM 3.8 mmol/L (3.5-5.1); SODIUM 136 mmol/L (136-145)
[2018-10-09 09:17] LABS: CALCIUM 6.8 mg/dL (8.5-10.1)
--- NOTE | 2018-10-09 10:14 | PN ---
Progress Note, Physician Chief Complaint: Events noted Chest tube in place Not in distress History of Present Illness: Patient was seen and examined. Awake and alert. Chart was reviewed Less SOB. No chest pain or palpitations - Current Medication List Current Medications: Active Medications Heparin Sodium (Porcine) (Heparin -) 5,000 unit SQ TID [facility] Last Admin: 10/09/18 05:41 Dose: 5,000 unit Metoprolol Succinate (Toprol Xl -) 12.5 mg PO BID [facility] Last Admin: 10/08/18 21:33 Dose: 12.5 mg - Objective Vital Signs: Vital Signs Temperature 97.7 F 10/09/18 05:30 Pulse Rate 112 H 10/09/18 05:30 Respiratory Rate 20 10/09/18 05:30 Blood Pressure 105/60 10/09/18 05:30 O2 Sat by Pulse Oximetry (%) 98 10/08/18 21:00 Eyes: Yes: PERRL HENT: Yes: Atraumatic Neck: Yes: Supple Cardiovascular: Yes: Regular Rate and Rhythm, S1, S2 Respiratory: Yes: Diminished, Other (Chest tube) Gastrointestinal: Yes: Normal Bowel Sounds, Soft. No: Tenderness Edema: Yes Edema: LLE: Trace, RLE: Trace Additional Findings/Remarks: Review of Systems Constitutional: denies Chills or Fever Respiratory: denies Cough or Sputum Production Cardiovascular: (+) SOB Gastrointestinal: denies Nausea, Vomiting, Diarrhea, Constipation or Abdominal Pain Genitourinary: denies Frequency or Urgency Musculoskeletal: No symptoms reported Labs: CBC, BMP 10/09/18 06:15 10/09/18 06:15 Problem List - Problems (1) LUCRECIA (acute kidney injury) Code(s): N17.9 - ACUTE KIDNEY FAILURE, UNSPECIFIED (2) Chest tube in place Code(s): Z96.89 - PRESENCE OF OTHER SPECIFIED FUNCTIONAL IMPLANTS (3) Congestive heart failure Code(s): I50.9 - HEART FAILURE, UNSPECIFIED Qualifiers: Heart failure type: diastolic Heart failure chronicity: acute on chronic Qualified Code(s): I50.33 - Acute on chronic diastolic (congestive) heart failure (4) Demand ischemia Code(s): I24.8 - OTHER FORMS OF ACUTE ISCHEMIC HEART DISEASE (5) Large pleural effusion Code(s): J90 - PLEURAL EFFUSION, NOT ELSEWHERE CLASSIFIED (6) Metastatic breast cancer Code(s): C50.919 - MALIGNANT NEOPLASM OF UNSP SITE OF UNSPECIFIED FEMALE BREAST (7) CAD (coronary artery disease) Code(s): I25.10 - ATHSCL HEART DISEASE OF [place] CORONARY ARTERY W/O ANG PCTRS (8) History of percutaneous coronary intervention Code(s): Z98.61 - CORONARY ANGIOPLASTY STATUS (9) Hypercholesterolemia Code(s): E78.00 - PURE HYPERCHOLESTEROLEMIA, UNSPECIFIED (10) HTN (hypertension) Code(s): I10 - ESSENTIAL (PRIMARY) HYPERTENSION (11) Congestive heart failure with LV diastolic dysfunction, NYHA class 2 Code(s): I50.30 - UNSPECIFIED DIASTOLIC (CONGESTIVE) HEART FAILURE Assessment/Plan 1. Diastolic LV dysfunction with clinical class I-II NYHA classification LV failure, resolving, unclear if pleural effusion is related to heart failure syndrome 2. Bilateral pleural effusion post left chest tube insertion 3. CAD post PCI/stent demand ischemia angina pectoris 4. HTN 5. Hyperlipidemia 6. 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 Acute kidney injury, with Hypokalemia/persistent 8. Thrombocytopenia 9. Abnormal LFTs, possible hepatic congestion 10. Hypocalcemia PLAN: 1. Currently chest tube draining - considering PleurX catheter (IR guided) decision is to be made. CT surgery follow up 2. Continue ASA 3. Lipitor held with abnormal LFT 4. Continue Toprol XL hemodynamics permitting 5. Resume Losartan once renal function improved and at baseline, hemodynamics permitting 6. Monitor electrolytes Further plans are to follow Bello Combs MD
[2018-10-09] MEDS: metoPROLOL SUCCINATE 25 MG TAB.SR.24H (FP) PO SCH ×2 (10:18→21:13)
--- NOTE | 2018-10-09 14:15 | PN ---
Teaching Attending Note Name of Resident: Sarika Reddy ATTENDING PHYSICIAN STATEMENT I saw and evaluated the patient. I reviewed the resident's note and discussed the case with the resident. I agree with the resident's findings and plan as documented. SUBJECTIVE: no fever or chills . felt nauseated after she walked to the bathroom. No abd pain . no CP OBJECTIVE: NAD, Awake, dry MM. Cv: RRR Lungs: crackles at L base and decreased breath sounds at R base . Ext : No edema Abd: soft, NT, ND, NL BS ASSESSMENT AND PLAN: Pleasant unfortunate 73 y/o lady with h/o Stage IV breast Cancer, HTN, HLD, CAD s/p PCI, currently on chemotherapy, and recent diagnosis of pleural effusions s/ p thoracentesis who presented with SOB. 1- B/l Pleural effusions: fluid is exudative per LDH. This rule out heart failure as etiology. it could be either malignant or parapneumonic - will d/w Id the rising WBC - spoke to path department, unfortunately the order was not received correctly and cytology was not done - will resend the cytology order - Fluid culture is negative - avoid diuresis due to above - decision on CT and pleurodesis depends on pathology 2- LUCRECIA : improved. likely prerenal . base line 1.2 - cont oral hydration - cont to hold losartan 3- LE edema,possibly due to hypoalbuminemia - cont to evaluate volume status daily 4- Elevated trop: could be due to renal failure - cont BB - holding asa in case a chest tube or other procedure is needed 5- Transaminitis: - trend 6- hypocalcemia , corrected ca is normal Dispo: HLOC DVT px
--- NOTE | 2018-10-09 14:18 | PN ---
Progress Note, Physician History of Present Illness: clinically patient is stable but the wbc has progressively climbing feels better worry is if patient is developing infection - Current Medication List Current Medications: Active Medications Heparin Sodium (Porcine) (Heparin -) 5,000 unit SQ TID [facility] Last Admin: 10/09/18 05:41 Dose: 5,000 unit Metoprolol Succinate (Toprol Xl -) 12.5 mg PO BID [facility] Last Admin: 10/09/18 10:18 Dose: 12.5 mg - Objective Vital Signs: Vital Signs Temperature 982 F H 10/09/18 09:00 Pulse Rate 107 H 10/09/18 09:00 Respiratory Rate 20 10/09/18 09:00 Blood Pressure 124/77 10/09/18 09:00 O2 Sat by Pulse Oximetry (%) 98 10/09/18 09:00 Constitutional: Yes: No Distress, Calm Cardiovascular: Yes: Regular Rate and Rhythm Respiratory: Yes: Regular, CTA Bilaterally, Other (chest tube with increased drainage) Gastrointestinal: Yes: Normal Bowel Sounds, Soft Musculoskeletal: Yes: WNL Extremities: Yes: WNL Neurological: Yes: Alert, Oriented Psychiatric: Yes: Alert, Oriented Labs: CBC, BMP 10/09/18 06:15 10/09/18 06:15 INR, PTT INR 1.12 (0.83-1.09) H 10/04/18 17:59 Assessment/Plan Problem List - Problems (1) Chest tube in place Code(s): Z96.89 - PRESENCE OF OTHER SPECIFIED FUNCTIONAL IMPLANTS (2) Congestive heart failure Code(s): I50.9 - HEART FAILURE, UNSPECIFIED Qualifiers: Heart failure type: diastolic Heart failure chronicity: acute on chronic Qualified Code(s): I50.33 - Acute on chronic diastolic (congestive) heart failure (3) Difficulty breathing Code(s): R06.89 - OTHER ABNORMALITIES OF BREATHING (4) Large pleural effusion Code(s): J90 - PLEURAL EFFUSION, NOT ELSEWHERE CLASSIFIED (5) Metastatic breast cancer Code(s): C50.919 - MALIGNANT NEOPLASM OF UNSP SITE OF UNSPECIFIED FEMALE BREAST plan continue to monitor closely nutrition all results noted will d/w the team if the patients wbc increases tomorrow will start patient on abx
--- NOTE | 2018-10-09 18:13 | PN ---
Physical Exam: SUBJECTIVE: Patient seen and examined at bedside. No acute events overnight. Pt denies cp, sob, abd pain, urinary/bowel symptoms. Amauri PO diet. OBJECTIVE: Last Vital Signs Temp Pulse Resp BP Pulse Ox 98.7 F 110 H 20 110/61 98 10/09/18 15:03 10/09/18 15:03 10/09/18 15:03 10/09/18 15:03 10/09/18 09:00 GENERAL: Pleasant, sitting up in bed. awake, alert, and fully oriented HEENT: AT/NC. EOMI. [place]. Dry mucus membranes. NECK: Normal range of motion, supple without lymphadenopathy, JVD, or masses. LUNGS: CTA B/L. no wheezing or rhonchi HEART: RRR, normal S1 and S2 without murmur, rub or gallop. ABDOMEN: Soft, nontender, not distended, normoactive bowel sounds, no guarding. no anasarca. L pigtail in place, draining dark yellow fluid, dressing c/d/i PSYCHIATRIC: Cooperative. Good eye contact. SKIN: Warm, dry, normal turgor CBC, BMP 10/09/18 06:15 10/09/18 06:15 Active Medications Heparin Sodium (Porcine) (Heparin -) 5,000 unit SQ TID [facility] Last Admin: 10/09/18 14:01 Dose: 5,000 unit Metoprolol Succinate (Toprol Xl -) 12.5 mg PO BID [facility] Last Admin: 10/09/18 10:18 Dose: 12.5 mg IMAGING: * Renal U/S: Small R mid and L renal/parapelvic cyst w/o gross evidence of hydronephrosis or renal stones b/l. R pleural effusion. 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 #L sided pleural effusion: malignant vs cardiac in etiology, unlikely CHF as pt' s fluid is exudative -Files were obtained from [place] that showed exudative effusion without malignant cells, need to compare to fluid obtained here; called lab regarding fluid cytology, however specimen was not received 2 days ago. Re-sent specimen and order form to lab, await results. -Off abx -CT surg following, possible Bilateral VATS and pleural biopsy and insertion of pleurX catheters as well as IR guided pleurX catheter placement. #LUCRECIA vs CKD: unclear etiology - creatinine was 1.7 for 4 days without improvement -continue to hold lasix for now -can consider albumin + lasix for simultaneous osmotic maintenance and fluid mobilization -renal US -f/u cardio eval #hx breast CA w/spinal mets -files obtained from previous visit to [place] -receives chemo weekly - Gemzar; Pt states her oncologist did not give her dose last week as she was volume-depleted. She has an appointment schedule for this Monday; will need f/u after discharage #Troponinemia: likely demand #HTN- controlled -Cont home med Toprol XL 12.5 mg PO BID #CAD s/p 1 stent (2003) -hold ASA for now #HLD -Lipitor held due to abnormal LFTs #F/E/N -Off fluids -continue to follow lytes -regular diet #PPX -SQH #Dispo -cont to monitor on tele Visit type - Emergency Visit Emergency Visit: Yes ED Registration Date: 10/04/18 Care time: The patient presented to the Emergency Department on the above date and was hospitalized for further evaluation of their emergent condition. - New Patient This patient is new to me today: No - Critical Care Critical Care patient: No
[2018-10-10] MEDS: HEPARIN NA (PORCINE) 5,000 UNITS/ML 1ML VIAL SQ SCH ×2 (05:53→14:49)
--- NOTE | 2018-10-10 07:12 | PN ---
Physical Exam: SUBJECTIVE: Patient seen and examined at bedside. No acute events overnight. Denies cp, sob, abd pain. Amauri PO diet. OBJECTIVE: Vital Signs Temperature 98.9 F 10/10/18 05:00 Pulse Rate 97 H 10/10/18 05:00 Respiratory Rate 18 10/10/18 05:00 Blood Pressure 102/65 10/10/18 05:00 O2 Sat by Pulse Oximetry (%) 96 10/09/18 20:57 GENERAL: Pleasant, sitting up in bed. awake, alert, and fully oriented HEENT: AT/NC. EOMI. FREDERICK. Dry mucus membranes. NECK: Normal range of motion, supple without lymphadenopathy, JVD, or masses. LUNGS: CTA B/L. no wheezing or rhonchi. L pigtail catheter in place draining yellow fluid in vac. Dressing c/d/i. HEART: RRR, normal S1 and S2 without murmur, rub or gallop. ABDOMEN: Soft, nontender, not distended, normoactive bowel sounds, no guarding. no anasarca. L pigtail in place, draining dark yellow fluid, dressing c/d/i PSYCHIATRIC: Cooperative. Good eye contact. SKIN: Warm, dry, normal turgor CBCD WBC 14.6 K/mm3 (4.0-10.0) H 10/09/18 06:15 RBC 2.81 M/mm3 (3.60-5.2) L 10/09/18 06:15 Hgb 9.4 GM/dL (10.7-15.3) L 10/09/18 06:15 Hct 26.8 % (32.4-45.2) L 10/09/18 06:15 MCV 95.4 fl (80-96) 10/09/18 06:15 MCHC 35.1 g/dl (32.0-36.0) 10/09/18 06:15 RDW 16.8 % (11.6-15.6) H 10/09/18 06:15 Plt Count 70 K/MM3 (134-434) L 10/09/18 06:15 MPV 8.8 fl (7.5-11.1) 10/09/18 06:15 CMP Sodium 136 mmol/L (136-145) 10/09/18 06:15 Potassium 3.8 mmol/L (3.5-5.1) 10/09/18 06:15 Chloride 106 mmol/L (98-107) 10/09/18 06:15 Carbon Dioxide 24 mmol/L (21-32) 10/09/18 06:15 Anion Gap 6 MMOL/L (8-16) L 10/09/18 06:15 BUN 26 mg/dL (7-18) H 10/09/18 06:15 Creatinine 1.5 mg/dL (0.55-1.3) H 10/09/18 06:15 Creat Clearance w eGFR 34.13 (>60) 10/09/18 06:15 Calcium 6.8 mg/dL (8.5-10.1) L* 10/09/18 06:15 Total Bilirubin 0.9 mg/dL (0.2-1) 10/08/18 05:30 AST 159 U/L (15-37) H 10/08/18 05:30 ALT 112 U/L (13-61) H 10/08/18 05:30 Alkaline Phosphatase 171 U/L (45-117) H 10/08/18 05:30 Total Protein 4.1 g/dl (6.4-8.2) L 10/08/18 05:30 Albumin 1.8 g/dl (3.4-5.0) L 10/08/18 05:30 Active Medications Heparin Sodium (Porcine) (Heparin -) 5,000 unit SQ TID [facility] Last Admin: 10/10/18 05:53 Dose: 5,000 unit Metoprolol Succinate (Toprol Xl -) 12.5 mg PO BID [facility] Last Admin: 10/09/18 21:13 Dose: 12.5 mg IMAGING: * Renal U/S: Small R mid and L renal/parapelvic cyst w/o gross evidence of hydronephrosis or renal stones b/l. R pleural effusion. 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 #L sided pleural effusion: malignant vs cardiac in etiology, unlikely CHF as pt' s fluid is exudative -Files were obtained from [place] that showed exudative effusion without malignant cells, need to compare to fluid obtained here; called lab regarding fluid cytology, however specimen was not received 2 days ago. Re-sent specimen and order form to lab, await results. -Per ID, start Zosyn 3.375gm Q8H IVPB -CT surg following, possible Bilateral VATS and pleural biopsy and insertion of pleurX catheters as well as IR guided pleurX catheter placement. #LUCRECIA vs CKD: Cr 1.5 today, improved from yesterday at 1.7. -continue to hold lasix for now -can consider albumin + lasix for simultaneous osmotic maintenance and fluid mobilization -renal US noted above, no evid of hydronephrosis -Per cardio eval, resume Losartan once renal fxn improves and at baseline #hx breast CA w/spinal mets -files obtained from previous visit to [place] -receives chemo weekly - Gemzar; Pt states her oncologist did not give her dose last week as she was volume-depleted. She has an appointment schedule for this Monday; will need f/u after discharage #Troponinemia: likely demand #HTN- controlled -Cont home med Toprol XL 12.5 mg PO BID #CAD s/p 1 stent (2003) -hold ASA for now #HLD -Lipitor held due to abnormal LFTs #F/E/N -Off fluids -continue to follow lytes -regular diet #PPX -SQH on hold due to thrombocytopenia #Dispo -cont to monitor on tele Visit type - Emergency Visit Emergency Visit: Yes ED Registration Date: 10/04/18 Care time: The patient presented to the Emergency Department on the above date and was hospitalized for further evaluation of their emergent condition. - New Patient This patient is new to me today: No - Critical Care Critical Care patient: No
[2018-10-10] MEDS: metoPROLOL SUCCINATE 25 MG TAB.SR.24H (FP) PO SCH ×2 (11:11→21:53)
--- NOTE | 2018-10-10 11:57 | PN ---
Progress Note, Physician History of Present Illness: Dyspnea resolving. - Current Medication List Current Medications: Active Medications Heparin Sodium (Porcine) (Heparin -) 5,000 unit SQ TID [facility] Last Admin: 10/10/18 05:53 Dose: 5,000 unit Metoprolol Succinate (Toprol Xl -) 12.5 mg PO BID [facility] Last Admin: 10/09/18 21:13 Dose: 12.5 mg - Objective Vital Signs: Vital Signs Temperature 98.9 F 10/10/18 05:00 Pulse Rate 114 H 10/10/18 09:00 Respiratory Rate 18 10/10/18 09:00 Blood Pressure 112/70 10/10/18 09:00 O2 Sat by Pulse Oximetry (%) 96 10/10/18 09:00 Constitutional: Yes: No Distress, Calm, Thin Neck: Yes: Supple Cardiovascular: Yes: Regular Rate and Rhythm Respiratory: Yes: Regular, Diminished, Other (Left chest tube in place) Gastrointestinal: Yes: Normal Bowel Sounds, Soft Edema: No Labs: CBC, BMP 10/09/18 06:15 10/09/18 06:15 INR, PTT INR 1.12 (0.83-1.09) H 10/04/18 17:59 - ....Imaging EKG: Report Reviewed (Paroxysmal atrial tachycardia -> SR) Problem List - Problems (1) Demand ischemia Code(s): I24.8 - OTHER FORMS OF ACUTE ISCHEMIC HEART DISEASE (2) LUCRECIA (acute kidney injury) Code(s): N17.9 - ACUTE KIDNEY FAILURE, UNSPECIFIED (3) Congestive heart failure Code(s): I50.9 - HEART FAILURE, UNSPECIFIED Qualifiers: Heart failure type: diastolic Heart failure chronicity: acute on chronic Qualified Code(s): I50.33 - Acute on chronic diastolic (congestive) heart failure (4) Large pleural effusion Code(s): J90 - PLEURAL EFFUSION, NOT ELSEWHERE CLASSIFIED (5) Chest tube in place Code(s): Z96.89 - PRESENCE OF OTHER SPECIFIED FUNCTIONAL IMPLANTS (6) Metastatic breast cancer Code(s): C50.919 - MALIGNANT NEOPLASM OF UNSP SITE OF UNSPECIFIED FEMALE BREAST Assessment/Plan 1. Diastolic LV dysfunction with clinical class I-II NYHA classification LV failure, resolving, unclear if pleural effusion is related to heart failure syndrome 2. Bilateral pleural effusion post left chest tube insertion 3. CAD post PCI/stent demand ischemia angina pectoris 4. HTN 5. Hyperlipidemia 6. 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 Acute kidney injury, with Hypokalemia/persistent 8. Thrombocytopenia, r/o HIT 9. Abnormal LFTs, possible hepatic congestion 10. Hypocalcemia 11. Paroxysmal atrial tachycardia -> SR PLAN: 1. Currently chest tube draining - considering PleurX catheter (IR guided) decision is to be made. CT surgery follow up, f/u cytology 2. ASA 81 qd held pending above procedure 3. Lipitor held with abnormal LFT 4. Continue Toprol XL 12.5 bid hemodynamics permitting 5. Resume Losartan once renal function improved and at baseline, hemodynamics permitting 6. D/c heparin, check HIT panel, mechanical DVT prophylaxis
[2018-10-10] MEDS ORDERED: DEXTROSE 5%-WATER - 50 ML IVPB ONE ×2 (14:29→20:20)
[2018-10-10] MEDS ORDERED: PIPERACILLIN/TAZOBACTAM 3.375 GM VIAL IVPB ONE ×2 (14:29→20:18)
--- NOTE | 2018-10-10 14:39 | PN ---
Progress Note, Physician History of Present Illness: wbc has increased again patient with no complaints - Current Medication List Current Medications: Active Medications Heparin Sodium (Porcine) (Heparin -) 5,000 unit SQ TID [facility] Last Admin: 10/10/18 05:53 Dose: 5,000 unit Piperacillin Sod/Tazobactam (Sod 3.375 gm/ Dextrose) 50 mls @ 100 mls/hr IVPB Q8H-IV [facility]; Protocol Metoprolol Succinate (Toprol Xl -) 12.5 mg PO BID [facility] Last Admin: 10/10/18 11:11 Dose: 12.5 mg - Objective Vital Signs: Vital Signs Temperature 98.9 F 10/10/18 05:00 Pulse Rate 114 H 10/10/18 09:00 Respiratory Rate 18 10/10/18 09:00 Blood Pressure 112/70 10/10/18 09:00 O2 Sat by Pulse Oximetry (%) 96 10/10/18 09:00 Constitutional: Yes: No Distress, Calm Cardiovascular: Yes: Regular Rate and Rhythm Respiratory: Yes: Regular, Poor Air Entry (bases), Other (chest tube in place) Gastrointestinal: Yes: Normal Bowel Sounds, Soft Extremities: Yes: WNL Neurological: Yes: Alert, Oriented Psychiatric: Yes: Alert, Oriented Labs: CBC, BMP 10/09/18 06:15 10/09/18 06:15 INR, PTT INR 1.12 (0.83-1.09) H 10/04/18 17:59 Assessment/Plan Problem List - Problems (1) Chest tube in place Code(s): Z96.89 - PRESENCE OF OTHER SPECIFIED FUNCTIONAL IMPLANTS (2) Congestive heart failure Code(s): I50.9 - HEART FAILURE, UNSPECIFIED Qualifiers: Heart failure type: diastolic Heart failure chronicity: acute on chronic Qualified Code(s): I50.33 - Acute on chronic diastolic (congestive) heart failure (3) Difficulty breathing Code(s): R06.89 - OTHER ABNORMALITIES OF BREATHING (4) Large pleural effusion Code(s): J90 - PLEURAL EFFUSION, NOT ELSEWHERE CLASSIFIED (5) Metastatic breast cancer Code(s): C50.919 - MALIGNANT NEOPLASM OF UNSP SITE OF UNSPECIFIED FEMALE BREAST plan continue to monitor closely nutrition all results noted will start patient on abx
[2018-10-10] MEDS: PIPERACILLIN/TAZOB 3.375 GM 3.375 GM in DEXTROSE 5%-WATER - 50 ML IVPB SCH ×2 (14:49→20:37)
--- NOTE | 2018-10-10 17:02 | PN ---
Teaching Attending Note Name of Resident: Sarika Reddy ATTENDING PHYSICIAN STATEMENT I saw and evaluated the patient. I reviewed the resident's note and discussed the case with the resident. I agree with the resident's findings and plan as documented. SUBJECTIVE: Patient is comfortable with no acute distress. No nausea or vomiting. OBJECTIVE: Vital Signs Temperature 98.1 F 10/10/18 14:00 Pulse Rate 103 H 10/10/18 14:00 Respiratory Rate 18 10/10/18 09:00 Blood Pressure 114/58 L 10/10/18 14:00 O2 Sat by Pulse Oximetry (%) 96 10/10/18 09:00 GENERAL: Pleasant, sitting up in bed. awake, alert, and fully oriented HEENT: AT/NC. EOMI. FREDERICK. Dry mucus membranes. NECK: Normal range of motion, supple without lymphadenopathy, JVD, or masses. LUNGS: CTA B/L. no wheezing or rhonchi HEART: RRR, normal S1 and S2 without murmur, rub or gallop. ABDOMEN: Soft, nontender, ND, normoactive bowel sounds, no guarding. L pigtail in place, draining dark yellow fluid. PSYCHIATRIC: Cooperative. Good eye contact. SKIN: Warm, dry, normal turgor CBCD WBC 14.6 K/mm3 (4.0-10.0) H 10/09/18 06:15 RBC 2.81 M/mm3 (3.60-5.2) L 10/09/18 06:15 Hgb 9.4 GM/dL (10.7-15.3) L 10/09/18 06:15 Hct 26.8 % (32.4-45.2) L 10/09/18 06:15 MCV 95.4 fl (80-96) 10/09/18 06:15 MCHC 35.1 g/dl (32.0-36.0) 10/09/18 06:15 RDW 16.8 % (11.6-15.6) H 10/09/18 06:15 Plt Count 70 K/MM3 (134-434) L 10/09/18 06:15 MPV 8.8 fl (7.5-11.1) 10/09/18 06:15 CMP Sodium 136 mmol/L (136-145) 10/09/18 06:15 Potassium 3.8 mmol/L (3.5-5.1) 10/09/18 06:15 Chloride 106 mmol/L (98-107) 10/09/18 06:15 Carbon Dioxide 24 mmol/L (21-32) 10/09/18 06:15 Anion Gap 6 MMOL/L (8-16) L 10/09/18 06:15 BUN 26 mg/dL (7-18) H 10/09/18 06:15 Creatinine 1.5 mg/dL (0.55-1.3) H 10/09/18 06:15 Creat Clearance w eGFR 34.13 (>60) 10/09/18 06:15 Random Glucose 90 mg/dL (74-106) 10/09/18 06:15 Calcium 6.8 mg/dL (8.5-10.1) L* 10/09/18 06:15 Total Bilirubin 0.9 mg/dL (0.2-1) 10/08/18 05:30 AST 159 U/L (15-37) H 10/08/18 05:30 ALT 112 U/L (13-61) H 10/08/18 05:30 Alkaline Phosphatase 171 U/L (45-117) H 10/08/18 05:30 Total Protein 4.1 g/dl (6.4-8.2) L 10/08/18 05:30 Albumin 1.8 g/dl (3.4-5.0) L 10/08/18 05:30 CARDIAC ENZYMES Creatine Kinase 708 U/L (26-192) H 10/04/18 17:45 Troponin I 0.46 ng/ml (0.00-0.05) H 10/04/18 21:00 Current Medications Generic Name Dose Route Start Last Admin Trade Name Freq PRN Reason Stop Dose Admin Heparin Sodium (Porcine) 5,000 unit 10/05/18 10:00 10/10/18 14:49 Heparin - SQ 5,000 unit TID [facility] Administration Piperacillin Sod/Tazobactam 50 mls @ 100 mls/hr 10/10/18 14:30 10/10/18 14:49 Sod 3.375 gm/ Dextrose IVPB 100 mls/hr Q8H-IV [facility] Administration Protocol Metoprolol Succinate 12.5 mg 10/05/18 10:00 10/10/18 11:11 Toprol Xl - PO 12.5 mg BID [facility] Administration Home Medications Medication Instructions Recorded Aspirin [ASA -] 81 mg PO HS 03/29/14 Atorvastatin Ca [Lipitor -] 80 mg PO HS 03/29/14 Folic Acid 400 mcg PO DAILY 03/29/14 Losartan Potassium [Cozaar] 25 mg PO DAILY 03/29/14 Metoprolol Succinate [Toprol Xl] 12.5 mg PO BID 03/29/14 Cholecalciferol (Vitamin D3) 1,000 unit PO DAILY 10/04/18 [Vitamin D3] Gemcitabine HCl [Gemzar -] 200 mg IV ASDIR 10/04/18 Nitroglycerin Sublingual 0.4 mg PO PRN PRN 10/04/18 [Nitrostat -] ASSESSMENT AND PLAN: Patient is a 73yo female with PMHx of Stage IV breast Cancer with metastasis to spine admitted for bl pleural effusions, L>R with pigtail in the left pleural cavity , HTN, HLD, CAD s/p PCI, currently on chemotherapy, and recent diagnosis of pleural effusions s/p thoracentesis who presented with SOB. Bilateral VATS and pleural biopsy and insertion of pleurX catheters as well as IR guided pleurX catheter placement. #Acute B/l Pleural effusions: fluid is exudative per LDH. Either malignant or parapneumonic , Fluid culture is negative, avoid diuresis ,pending cytology report. # LUCRECIA : improved. base line 1.2, continue oral hydration, hold losartan # LE edema, possibly due to hypoalbuminemia. # Elevated trop: could be due to renal failure , cont BB , hold asa in case a chest tube or other procedure is needed # Transaminitis: will trend # hypocalcemia , corrected ca is normal DVT Px: Heparin
[2018-10-11] MEDS ORDERED: PIPERACILLIN/TAZOBACTAM 3.375 GM VIAL IVPB ONE ×3 (02:32→17:13)
[2018-10-11] MEDS ORDERED: DEXTROSE 5%-WATER - 50 ML IVPB ONE ×3 (02:33→17:13)
[2018-10-11] MEDS: PIPERACILLIN/TAZOB 3.375 GM 3.375 GM in DEXTROSE 5%-WATER - 50 ML IVPB SCH ×3 (02:55→17:24)
[2018-10-11 06:24] LABS: HEMATOCRIT 27.3 % (32.4-45.2); HEMOGLOBIN 9.4 GM/dL (10.7-15.3); MCH 33.7 pg (25.7-33.7); MCHC 34.6 g/dl (32.0-36.0); MEAN CELL VOLUME 97.4 fl (80-96); MEAN PLT VOLUME 8.7 fl (7.5-11.1); PLATELET COUNT 102 K/MM3 (134-434); RDW 17.3 % (11.6-15.6); WHITE BLOOD COUNT 12.9 K/mm3 (4.0-10.0)
[2018-10-11 07:35] LABS: ANION GAP 6 MMOL/L (8-16); BLOOD UREA NITROGEN 25 mg/dL (7-18); CHLORIDE 106 mmol/L (98-107); CO2 25 mmol/L (21-32); CREATININE 1.6 mg/dL (0.55-1.3); GLUCOSE,RANDOM 94 mg/dL (74-106); POTASSIUM 3.7 mmol/L (3.5-5.1); SODIUM 137 mmol/L (136-145)
[2018-10-11 08:21] LABS: CALCIUM 6.5 mg/dL (8.5-10.1)
--- NOTE | 2018-10-11 08:57 | PN ---
Physical Exam: SUBJECTIVE: Patient seen and examined at bedside. Pt unable to sleep last night due to constant noise, otherwise she feels fine. Denies cp, sob, abd pain, f/c, n/v. Amauri PO diet. Ambulating, but gets short of breath easily. OBJECTIVE: Last Vital Signs Temp Pulse Resp BP Pulse Ox 97.9 F 103 H 20 110/66 97 10/11/18 06:38 10/11/18 06:38 10/11/18 06:38 10/11/18 06:38 10/10/18 21:00 GENERAL: Pleasant, sitting up in bed. awake, alert, and fully oriented HEENT: AT/NC. EOMI. FREDERICK. Dry mucus membranes. NECK: Normal range of motion, supple without lymphadenopathy, JVD, or masses. LUNGS: CTA B/L. no wheezing or rhonchi. L pigtail catheter in place draining yellow fluid in vac. Dressing c/d/i. HEART: RRR, normal S1 and S2 without murmur, rub or gallop. ABDOMEN: Soft, nontender, not distended, normoactive bowel sounds, no guarding. no anasarca. L pigtail in place, draining dark yellow fluid, dressing c/d/i PSYCHIATRIC: Cooperative. Good eye contact. SKIN: Warm, dry, normal turgor CBC, BMP 10/11/18 05:30 10/11/18 05:30 Active Medications Piperacillin Sod/Tazobactam (Sod 3.375 gm/ Dextrose) 50 mls @ 100 mls/hr IVPB Q8H-IV [facility]; Protocol Last Admin: 10/11/18 02:55 Dose: 100 mls/hr Metoprolol Succinate (Toprol Xl -) 12.5 mg PO BID [facility] Last Admin: 10/10/18 21:53 Dose: 12.5 mg IMAGING: * Renal U/S: Small R mid and L renal/parapelvic cyst w/o gross evidence of hydronephrosis or renal stones b/l. R pleural effusion. * CXR (10/11/18): Progressively worsening b/l pleural effusions. 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 #L sided pleural effusion: malignant vs cardiac in etiology, unlikely CHF as pt' s fluid is exudative -Spoke to path, pleural fluid cytology neg; CT made aware and will speak to pt and family regarding Bilateral VATS and pleural biopsy and insertion of pleurX catheters as well as IR guided pleurX catheter placement. (Files were obtained from [place] that showed exudative effusion without malignant cells). -Per ID, cont Zosyn 3.375gm Q8H IVPB (started 10/10/18) #LUCRECIA vs CKD: Cr 1.6 today, stable. -continue to hold lasix for now -can consider albumin + lasix for simultaneous osmotic maintenance and fluid mobilization -Renal US noted above, no evid of hydronephrosis -Per cardio eval, resume Losartan once renal fxn improves and at baseline #hx breast CA w/spinal mets -receives chemo weekly - Gemzar; Pt states her oncologist did not give her dose last week as she was volume-depleted. will need outpatient follow up after discharge. #Troponinemia: likely demand #HTN- controlled -Cont home med Toprol XL 12.5 mg PO BID #CAD s/p 1 stent (2003) -hold ASA for now #HLD -Lipitor held due to abnormal LFTs #Hypocalcemia; corrected Ca is normal. #F/E/N -Off fluids -continue to follow lytes -regular diet #PPX -SQH on hold due to thrombocytopenia #Dispo -cont to monitor on tele Visit type - Emergency Visit Emergency Visit: Yes ED Registration Date: 10/04/18 Care time: The patient presented to the Emergency Department on the above date and was hospitalized for further evaluation of their emergent condition. - New Patient This patient is new to me today: No - Critical Care Critical Care patient: No
[2018-10-11] MEDS: metoPROLOL SUCCINATE 25 MG TAB.SR.24H (FP) PO SCH ×2 (10:14→21:14)
--- NOTE | 2018-10-11 11:05 | PN ---
Progress Note, Physician History of Present Illness: Dyspnea resolving. - Current Medication List Current Medications: Active Medications Piperacillin Sod/Tazobactam (Sod 3.375 gm/ Dextrose) 50 mls @ 100 mls/hr IVPB Q8H-IV [facility]; Protocol Last Admin: 10/11/18 10:15 Dose: 100 mls/hr Metoprolol Succinate (Toprol Xl -) 12.5 mg PO BID [facility] Last Admin: 10/11/18 10:14 Dose: 12.5 mg - Objective Vital Signs: Vital Signs Temperature 97.9 F 10/11/18 06:38 Pulse Rate 103 H 10/11/18 06:38 Respiratory Rate 20 10/11/18 06:38 Blood Pressure 110/66 10/11/18 06:38 O2 Sat by Pulse Oximetry (%) 97 10/11/18 09:00 Constitutional: Yes: No Distress, Calm, Thin Neck: Yes: Supple Cardiovascular: Yes: Regular Rate and Rhythm Respiratory: Yes: Regular, Diminished, Other (Left chest tube) Gastrointestinal: Yes: Normal Bowel Sounds, Soft Edema: No Labs: CBC, BMP 10/11/18 05:30 10/11/18 05:30 INR, PTT INR 1.12 (0.83-1.09) H 10/04/18 17:59 - ....Imaging EKG: Report Reviewed (Tele: SR) Problem List - Problems (1) Demand ischemia Code(s): I24.8 - OTHER FORMS OF ACUTE ISCHEMIC HEART DISEASE (2) LUCRECIA (acute kidney injury) Code(s): N17.9 - ACUTE KIDNEY FAILURE, UNSPECIFIED (3) Congestive heart failure Code(s): I50.9 - HEART FAILURE, UNSPECIFIED Qualifiers: Heart failure type: diastolic Heart failure chronicity: acute on chronic Qualified Code(s): I50.33 - Acute on chronic diastolic (congestive) heart failure (4) Large pleural effusion Code(s): J90 - PLEURAL EFFUSION, NOT ELSEWHERE CLASSIFIED (5) Chest tube in place Code(s): Z96.89 - PRESENCE OF OTHER SPECIFIED FUNCTIONAL IMPLANTS (6) Metastatic breast cancer Code(s): C50.919 - MALIGNANT NEOPLASM OF UNSP SITE OF UNSPECIFIED FEMALE BREAST Assessment/Plan 1. Diastolic LV dysfunction with clinical class I-II NYHA classification LV failure, resolving, exudative pleural effusion argues against heart failure 2. Bilateral pleural effusion post left chest tube insertion 3. CAD post PCI/stent demand ischemia angina pectoris 4. HTN 5. Hyperlipidemia 6. 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 Acute kidney injury, with Hypokalemia/persistent 8. Thrombocytopenia, r/o HIT 9. Abnormal LFTs, possible hepatic congestion 10. Hypocalcemia 11. Paroxysmal atrial tachycardia -> SR PLAN: 1. Currently chest tube draining - considering Bilateral VATS and pleural biopsy and insertion of pleurX catheters as well as IR guided pleurX catheter placement pending cytology 2. ASA 81 qd held pending above procedure 3. Lipitor held with abnormal LFT 4. Continue Toprol XL 12.5 bid hemodynamics permitting 5. Resume Losartan once renal function improved and at baseline, hemodynamics permitting 6. SC heparin d/gaustin, f/u HIT panel, mechanical DVT prophylaxis
--- NOTE | 2018-10-11 14:08 | PN ---
Progress Note, Physician History of Present Illness: stable no complaints wbc trending down xray looked at reports noted - Current Medication List Current Medications: Active Medications Piperacillin Sod/Tazobactam (Sod 3.375 gm/ Dextrose) 50 mls @ 100 mls/hr IVPB Q8H-IV [facility]; Protocol Last Admin: 10/11/18 10:15 Dose: 100 mls/hr Metoprolol Succinate (Toprol Xl -) 12.5 mg PO BID [facility] Last Admin: 10/11/18 10:14 Dose: 12.5 mg - Objective Vital Signs: Vital Signs Temperature 97.7 F 10/11/18 10:00 Pulse Rate 104 H 10/11/18 10:00 Respiratory Rate 20 10/11/18 10:00 Blood Pressure 116/69 10/11/18 10:00 O2 Sat by Pulse Oximetry (%) 97 10/11/18 09:00 Constitutional: Yes: No Distress, Calm Cardiovascular: Yes: Regular Rate and Rhythm Respiratory: Yes: Regular, Poor Air Entry (at the bases), Other (left sided chest tube) Gastrointestinal: Yes: Normal Bowel Sounds, Soft Musculoskeletal: Yes: WNL Extremities: Yes: WNL Neurological: Yes: Alert, Oriented Psychiatric: Yes: Alert, Oriented Labs: CBC, BMP 10/11/18 05:30 10/11/18 05:30 INR, PTT INR 1.12 (0.83-1.09) H 10/04/18 17:59 Assessment/Plan Problem List - Problems (1) Chest tube in place Code(s): Z96.89 - PRESENCE OF OTHER SPECIFIED FUNCTIONAL IMPLANTS (2) Congestive heart failure Code(s): I50.9 - HEART FAILURE, UNSPECIFIED Qualifiers: Heart failure type: diastolic Heart failure chronicity: acute on chronic Qualified Code(s): I50.33 - Acute on chronic diastolic (congestive) heart failure (3) Difficulty breathing Code(s): R06.89 - OTHER ABNORMALITIES OF BREATHING (4) Large pleural effusion Code(s): J90 - PLEURAL EFFUSION, NOT ELSEWHERE CLASSIFIED (5) Metastatic breast cancer Code(s): C50.919 - MALIGNANT NEOPLASM OF UNSP SITE OF UNSPECIFIED FEMALE BREAST plan continue abx await for final plan monitor wbc rest a per the team
--- NOTE | 2018-10-11 15:07 | PN ---
Teaching Attending Note Name of Resident: Sarika Reddy ATTENDING PHYSICIAN STATEMENT I saw and evaluated the patient. I reviewed the resident's note and discussed the case with the resident. I agree with the resident's findings and plan as documented. SUBJECTIVE: Patient is comfortable, no new complains. OBJECTIVE: Vital Signs Temperature 97.7 F 10/11/18 10:00 Pulse Rate 104 H 10/11/18 10:00 Respiratory Rate 20 10/11/18 10:00 Blood Pressure 116/69 10/11/18 10:00 O2 Sat by Pulse Oximetry (%) 97 10/11/18 09:00 GENERAL: Pleasant, sitting up in bed. awake, alert, and fully oriented HEENT: AT/NC. EOMI. FREDERICK. Dry mucus membranes. NECK: Normal range of motion, supple without lymphadenopathy, JVD, or masses. LUNGS: CTA B/L. no wheezing or rhonchi HEART: RRR, normal S1 and S2 without murmur, rub or gallop. ABDOMEN: Soft, nontender, ND, normoactive bowel sounds, no guarding. L pigtail in place, draining dark yellow fluid. PSYCHIATRIC: Cooperative. Good eye contact. SKIN: Warm, dry, normal turgor CBCD WBC 12.9 K/mm3 (4.0-10.0) H 10/11/18 05:30 RBC 2.80 M/mm3 (3.60-5.2) L 10/11/18 05:30 Hgb 9.4 GM/dL (10.7-15.3) L 10/11/18 05:30 Hct 27.3 % (32.4-45.2) L 10/11/18 05:30 MCV 97.4 fl (80-96) H 10/11/18 05:30 MCHC 34.6 g/dl (32.0-36.0) 10/11/18 05:30 RDW 17.3 % (11.6-15.6) H 10/11/18 05:30 Plt Count 102 K/MM3 (134-434) L D 10/11/18 05:30 MPV 8.7 fl (7.5-11.1) 10/11/18 05:30 CMP Sodium 137 mmol/L (136-145) 10/11/18 05:30 Potassium 3.7 mmol/L (3.5-5.1) 10/11/18 05:30 Chloride 106 mmol/L (98-107) 10/11/18 05:30 Carbon Dioxide 25 mmol/L (21-32) 10/11/18 05:30 Anion Gap 6 MMOL/L (8-16) L 10/11/18 05:30 BUN 25 mg/dL (7-18) H 10/11/18 05:30 Creatinine 1.6 mg/dL (0.55-1.3) H 10/11/18 05:30 Creat Clearance w eGFR 31.68 (>60) 10/11/18 05:30 Random Glucose 94 mg/dL (74-106) 10/11/18 05:30 Calcium 6.5 mg/dL (8.5-10.1) L* 10/11/18 05:30 Total Bilirubin 0.9 mg/dL (0.2-1) 10/08/18 05:30 AST 159 U/L (15-37) H 10/08/18 05:30 ALT 112 U/L (13-61) H 10/08/18 05:30 Alkaline Phosphatase 171 U/L (45-117) H 10/08/18 05:30 Total Protein 4.1 g/dl (6.4-8.2) L 10/08/18 05:30 Albumin 1.8 g/dl (3.4-5.0) L 10/08/18 05:30 CARDIAC ENZYMES Creatine Kinase 708 U/L (26-192) H 10/04/18 17:45 Troponin I 0.46 ng/ml (0.00-0.05) H 10/04/18 21:00 Current Medications Generic Name Dose Route Start Last Admin Trade Name Freq PRN Reason Stop Dose Admin Piperacillin Sod/Tazobactam 50 mls @ 100 mls/hr 10/10/18 14:30 10/11/18 10:15 Sod 3.375 gm/ Dextrose IVPB 100 mls/hr Q8H-IV JOSE ARMANDO Administration Protocol Metoprolol Succinate 12.5 mg 10/05/18 10:00 10/11/18 10:14 Toprol Xl - PO 12.5 mg BID JOSE ARMANDO Administration Home Medications Medication Instructions Recorded Aspirin [ASA -] 81 mg PO 03/29/14 Atorvastatin Ca [Lipitor -] 80 mg PO 03/29/14 Folic Acid 400 mcg PO DAILY 03/29/14 Losartan Potassium [Cozaar] 25 mg PO DAILY 03/29/14 Metoprolol Succinate [Toprol Xl] 12.5 mg PO BID 03/29/14 Cholecalciferol (Vitamin D3) 1,000 unit PO DAILY 10/04/18 [Vitamin D3] Gemcitabine HCl [Gemzar -] 200 mg IV ASDIR 10/04/18 Nitroglycerin Sublingual 0.4 mg PO PRN PRN 10/04/18 [Nitrostat -] ASSESSMENT AND PLAN: Patient is a 73yo female with PMHx of Stage IV breast Cancer with metastasis to spine admitted for bl pleural effusions, L>R with pigtail in the left pleural cavity, HTN, HLD, CAD s/p PCI, currently on chemotherapy, and recent diagnosis of pleural effusions s/p thoracentesis who presented with SOB. Bilateral VATS and pleural biopsy and insertion of pleurX catheters as well as IR guided pleurX catheter placement. #Acute B/l Pleural effusions: fluid is exudative per LDH. malignant vs parapneumonic effusions, Fluid culture is negative, avoid diuresis ,cytology is negative. discussed with thoracic surgeon for further care. # LUCRECIA : improved. base line 1.2, continue oral hydration, hold losartan # LE edema, possibly due to hypoalbuminemia. improving. # Elevated trop: could be due to renal failure , cont BB , hold asa in case a chest tube or other procedure is needed # Transaminitis: will trend # hypocalcemia , corrected ca is normal DVT Px: Heparin
[2018-10-11] MEDS ORDERED: PT OWN MED DRAWER 7, Y5N ONE (16:53)
--- NOTE | 2018-10-11 17:03 | PATH ---
Cytology Non-Gynecological Report Patient Name: NEGRO CULLEN Med. Rec. #: [id number] /Age/Gender: 1945 (Age: 73) / F Account: [id number] Location: 4 TELEMETRY U Taken: 10/09/2018 Received: 10/09/2018 Reported: 10/11/2018 Physicians: Madelyn Gan M.D. Alexander Yurkiw, MD Specimen(s) Received PLEURAL FLUID LEFT SIDE Clinical History Left-sided pleural effusion, rule out malignancy-history of breast cancer Final Diagnosis PLEURAL FLUID, LEFT, THORACENTESIS: SATISFACTORY FOR EVALUATION NO MALIGNANT CELLS IDENTIFIED. RARE NEUTROPHILS AND RARE LYMPHOCYTES IN HEMORRHAGIC BACKGROUND PRESENT. Electronically Signed Faby Heredia M.D. Gross Description Approximately 7.5 cc of yellow fluid received fresh in a sterile cup. One cytofunnel prepared and Pap stained. One cellblock prepared.
[2018-10-12] MEDS ORDERED: PIPERACILLIN/TAZOBACTAM 3.375 GM VIAL IVPB ONE ×3 (01:19→18:07)
[2018-10-12] MEDS ORDERED: DEXTROSE 5%-WATER - 50 ML IVPB ONE ×3 (01:19→18:07)
[2018-10-12] MEDS: PIPERACILLIN/TAZOB 3.375 GM 3.375 GM in DEXTROSE 5%-WATER - 50 ML IVPB SCH ×3 (01:39→18:12)
[2018-10-12 06:52] LABS: HEMATOCRIT 27.6 % (32.4-45.2); HEMOGLOBIN 9.5 GM/dL (10.7-15.3); MCH 33.6 pg (25.7-33.7); MCHC 34.5 g/dl (32.0-36.0); MEAN CELL VOLUME 97.4 fl (80-96); MEAN PLT VOLUME 8.5 fl (7.5-11.1); PLATELET COUNT 122 K/MM3 (134-434); RBC 2.83 M/mm3 (3.60-5.2); RDW 17.5 % (11.6-15.6); WHITE BLOOD COUNT 12.2 K/mm3 (4.0-10.0)
[2018-10-12 07:32] LABS: ALBUMIN 1.6 g/dl (3.4-5.0); ALK PHOS 182 U/L (45-117); ANION GAP 9 MMOL/L (8-16); BILIRUBIN,TOTAL 0.8 mg/dL (0.2-1); BLOOD UREA NITROGEN 25 mg/dL (7-18); CHLORIDE 105 mmol/L (98-107); CO2 23 mmol/L (21-32); CREATININE 1.5 mg/dL (0.55-1.3); GLUCOSE,RANDOM 91 mg/dL (74-106); POTASSIUM 3.6 mmol/L (3.5-5.1); SGOT/AST 120 U/L (15-37); SGPT/ALT 87 U/L (13-61); SODIUM 138 mmol/L (136-145)
[2018-10-12 07:36] LABS: CALCIUM 6.9 mg/dL (8.5-10.1)
--- NOTE | 2018-10-12 08:28 | PN ---
Teaching Attending Note Name of Resident: Sarika Reddy ATTENDING PHYSICIAN STATEMENT I saw and evaluated the patient. I reviewed the resident's note and discussed the case with the resident. I agree with the resident's findings and plan as documented. SUBJECTIVE: Patient has no new complain. OBJECTIVE: Vital Signs Temperature 97.7 F 10/12/18 01:00 Pulse Rate 102 H 10/12/18 01:00 Respiratory Rate 18 10/12/18 01:00 Blood Pressure 102/59 L 10/12/18 01:00 O2 Sat by Pulse Oximetry (%) 98 10/11/18 21:00 GENERAL: Pleasant, sitting up in bed. awake, alert, and fully oriented HEENT: AT/NC. EOMI. FREDERICK. Dry mucus membranes. NECK: Normal range of motion, supple without lymphadenopathy, JVD, or masses. LUNGS: CTA B/L. no wheezing or rhonchi HEART: RRR, normal S1 and S2 without murmur, rub or gallop. ABDOMEN: Soft, nontender, ND, normoactive bowel sounds, no guarding. L pigtail in place. PSYCHIATRIC: Cooperative. Good eye contact. SKIN: Warm, dry, normal turgor CBCD WBC 12.2 K/mm3 (4.0-10.0) H 10/12/18 06:15 RBC 2.83 M/mm3 (3.60-5.2) L 10/12/18 06:15 Hgb 9.5 GM/dL (10.7-15.3) L 10/12/18 06:15 Hct 27.6 % (32.4-45.2) L 10/12/18 06:15 MCV 97.4 fl (80-96) H 10/12/18 06:15 MCHC 34.5 g/dl (32.0-36.0) 10/12/18 06:15 RDW 17.5 % (11.6-15.6) H 10/12/18 06:15 Plt Count 122 K/MM3 (134-434) L 10/12/18 06:15 MPV 8.5 fl (7.5-11.1) 10/12/18 06:15 CMP Sodium 138 mmol/L (136-145) 10/12/18 06:15 Potassium 3.6 mmol/L (3.5-5.1) 10/12/18 06:15 Chloride 105 mmol/L (98-107) 10/12/18 06:15 Carbon Dioxide 23 mmol/L (21-32) 10/12/18 06:15 Anion Gap 9 MMOL/L (8-16) 10/12/18 06:15 BUN 25 mg/dL (7-18) H 10/12/18 06:15 Creatinine 1.5 mg/dL (0.55-1.3) H 10/12/18 06:15 Creat Clearance w eGFR 34.13 (>60) 10/12/18 06:15 Random Glucose 91 mg/dL (74-106) 10/12/18 06:15 Calcium 6.9 mg/dL (8.5-10.1) L* 10/12/18 06:15 Total Bilirubin 0.8 mg/dL (0.2-1) 10/12/18 06:15 AST 120 U/L (15-37) H 10/12/18 06:15 ALT 87 U/L (13-61) H 10/12/18 06:15 Alkaline Phosphatase 182 U/L (45-117) H 10/12/18 06:15 Total Protein 4.0 g/dl (6.4-8.2) L 10/12/18 06:15 Albumin 1.6 g/dl (3.4-5.0) L 10/12/18 06:15 CARDIAC ENZYMES Creatine Kinase 708 U/L (26-192) H 10/04/18 17:45 Troponin I 0.46 ng/ml (0.00-0.05) H 10/04/18 21:00 Current Medications Generic Name Dose Route Start Last Admin Trade Name Freq PRN Reason Stop Dose Admin Piperacillin Sod/Tazobactam 50 mls @ 100 mls/hr 10/11/18 18:00 10/12/18 01:39 Sod 3.375 gm/ Dextrose IVPB 100 mls/hr Q8H-IV JOSE ARMANDO Administration Protocol Metoprolol Succinate 12.5 mg 10/05/18 10:00 10/11/18 21:14 Toprol Xl - PO 12.5 mg BID JOSE ARMANDO Administration Home Medications Medication Instructions Recorded Aspirin [ASA -] 81 mg PO HS 03/29/14 Atorvastatin Ca [Lipitor -] 80 mg PO HS 03/29/14 Folic Acid 400 mcg PO DAILY 03/29/14 Losartan Potassium [Cozaar] 25 mg PO DAILY 03/29/14 Metoprolol Succinate [Toprol Xl] 12.5 mg PO BID 03/29/14 Cholecalciferol (Vitamin D3) 1,000 unit PO DAILY 10/04/18 [Vitamin D3] Gemcitabine HCl [Gemzar -] 200 mg IV ASDIR 10/04/18 Nitroglycerin Sublingual 0.4 mg PO PRN PRN 10/04/18 [Nitrostat -] Laboratory Tests 10/04/18 10/05/18 10/06/18 17:45 05:20 05:30 Creatinine 1.7 H 1.7 H 1.7 H 10/07/18 10/07/18 10/08/18 05:30 16:00 05:30 Creatinine 1.7 H 1.7 H 1.7 H 10/09/18 10/11/18 10/12/18 06:15 05:30 06:15 Creatinine 1.5 H 1.6 H 1.5 H ASSESSMENT AND PLAN: Patient is a 73yo female with PMHx of Stage IV breast Cancer with metastasis to spine admitted for bl pleural effusions, L>R with pigtail in the left pleural cavity, HTN, HLD, CAD s/p PCI, currently on chemotherapy, and recent diagnosis of pleural effusions s/p thoracentesis who presented with SOB. Bilateral VATS and pleural biopsy and insertion of pleurX catheters as well as IR guided pleurX catheter placement. #Acute B/l Pleural effusions: fluid is exudative per LDH. malignant vs parapneumonic effusions, Fluid culture is negative, discussed with Dr. Newberry , will discuss with family for further care and management, avoid diuresis , cytology is negative. discussed with thoracic surgeon for further care, possible VATs Bl. # LUCRECIA : improved. 1.7-->1.5 today, base line 1.2, continue oral hydration, hold losartan , blood pressure is stable. # LE edema, possibly due to hypoalbuminemia, improving. # Elevated trop: could be due to renal failure , cont BB , hold asa in case a chest tube or other procedure is needed # Transaminitis: will trend # hypocalcemia , corrected ca is normal DVT Px: Heparin
[2018-10-12] MEDS: metoPROLOL SUCCINATE 25 MG TAB.SR.24H (FP) PO SCH ×2 (11:19→21:58)
--- NOTE | 2018-10-12 11:51 | PN ---
Physical Exam: SUBJECTIVE: Patient seen and examined at bedside. No acute events overnight. OBJECTIVE: Last Vital Signs Temp Pulse Resp BP Pulse Ox 97.7 F 110 H 18 112/63 98 10/12/18 01:00 10/12/18 09:00 10/12/18 09:00 10/12/18 09:00 10/12/18 09:00 GENERAL: Pleasant, sitting up in bed. awake, alert, and fully oriented HEENT: AT/NC. EOMI. FREDERICK. Dry mucus membranes. NECK: Normal range of motion, supple without lymphadenopathy, JVD, or masses. LUNGS: CTA B/L. no wheezing or rhonchi. L pigtail catheter in place draining yellow fluid in vac. Dressing c/d/i. HEART: RRR, normal S1 and S2 without murmur, rub or gallop. ABDOMEN: Soft, nontender, not distended, normoactive bowel sounds, no guarding. no anasarca. L pigtail in place, draining dark yellow fluid, dressing c/d/i PSYCHIATRIC: Cooperative. Good eye contact. SKIN: Warm, dry, normal turgor CBC, BMP 10/12/18 06:15 10/12/18 06:15 Active Medications Piperacillin Sod/Tazobactam (Sod 3.375 gm/ Dextrose) 50 mls @ 100 mls/hr IVPB Q8H-IV JOSE ARMANDO; Protocol Last Admin: 10/12/18 11:19 Dose: 100 mls/hr Metoprolol Succinate (Toprol Xl -) 12.5 mg PO BID JOSE ARMANDO Last Admin: 10/12/18 11:19 Dose: 12.5 mg IMAGING: * Renal U/S: Small R mid and L renal/parapelvic cyst w/o gross evidence of hydronephrosis or renal stones b/l. R pleural effusion. * CXR (10/11/18): Progressively worsening b/l pleural effusions. 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 #L sided pleural effusion: malignant vs cardiac in etiology, unlikely CHF as pt' s fluid is exudative -Spoke to path, pleural fluid cytology neg; CT made aware and will speak to pt and family regarding Bilateral VATS and pleural biopsy and insertion of pleurX catheters as well as IR guided pleurX catheter placement. (Files were obtained from [place] [facility] that showed exudative effusion without malignant cells). -Per ID, cont Zosyn 3.375gm Q8H IVPB (started 10/10/18) #LUCRECIA vs CKD: Cr 1.5 today, stable. -continue to hold lasix for now -can consider albumin + lasix for simultaneous osmotic maintenance and fluid mobilization -Renal US noted above, no evid of hydronephrosis -Per cardio eval, resume Losartan once renal fxn improves and at baseline #hx breast CA w/spinal mets -receives chemo weekly - Gemzar; Pt states her oncologist did not give her dose last week as she was volume-depleted. will need outpatient follow up after discharge. Pt's oncologist, Dr. Nelson, contacted. Spoke to trade union secretary to have physician call back to update pt's current clinical status as she follows him closely for chemo. #Troponinemia: likely demand #HTN- controlled -Cont home med Toprol XL 12.5 mg PO BID #CAD s/p 1 stent (2003) -hold ASA for now #HLD -Lipitor held due to abnormal LFTs #Hypocalcemia; corrected Ca is normal. #F/E/N -Off fluids -continue to follow lytes -regular diet #PPX -SQH on hold due to thrombocytopenia #Dispo -cont to monitor on tele Visit type - Emergency Visit Emergency Visit: Yes ED Registration Date: 10/04/18 Care time: The patient presented to the Emergency Department on the above date and was hospitalized for further evaluation of their emergent condition. - New Patient This patient is new to me today: No - Critical Care Critical Care patient: No
--- NOTE | 2018-10-12 11:55 | PN ---
Progress Note, Physician History of Present Illness: Dyspnea resolving. OOB to chair, fluid cytology negative for malignancy. - Current Medication List Current Medications: Active Medications Piperacillin Sod/Tazobactam (Sod 3.375 gm/ Dextrose) 50 mls @ 100 mls/hr IVPB Q8H-IV JOSE ARMANDO; Protocol Last Admin: 10/12/18 11:19 Dose: 100 mls/hr Metoprolol Succinate (Toprol Xl -) 12.5 mg PO BID JOSE ARMANDO Last Admin: 10/12/18 11:19 Dose: 12.5 mg - Objective Vital Signs: Vital Signs Temperature 97.7 F 10/12/18 01:00 Pulse Rate 110 H 10/12/18 09:00 Respiratory Rate 18 10/12/18 09:00 Blood Pressure 112/63 10/12/18 09:00 O2 Sat by Pulse Oximetry (%) 98 10/12/18 09:00 Constitutional: Yes: No Distress, Calm Neck: Yes: Supple Cardiovascular: Yes: Regular Rate and Rhythm Respiratory: Yes: Regular, Diminished, On Nasal O2, Other (Left chest tube) Gastrointestinal: Yes: Normal Bowel Sounds, Soft Edema: No Labs: CBC, BMP 10/12/18 06:15 10/12/18 06:15 INR, PTT INR 1.12 (0.83-1.09) H 10/04/18 17:59 - ....Imaging EKG: Report Reviewed (Tele: SR) Problem List - Problems (1) Demand ischemia Code(s): I24.8 - OTHER FORMS OF ACUTE ISCHEMIC HEART DISEASE (2) LUCRECIA (acute kidney injury) Code(s): N17.9 - ACUTE KIDNEY FAILURE, UNSPECIFIED (3) Congestive heart failure Code(s): I50.9 - HEART FAILURE, UNSPECIFIED Qualifiers: Heart failure type: diastolic Heart failure chronicity: acute on chronic Qualified Code(s): I50.33 - Acute on chronic diastolic (congestive) heart failure (4) Large pleural effusion Code(s): J90 - PLEURAL EFFUSION, NOT ELSEWHERE CLASSIFIED (5) Chest tube in place Code(s): Z96.89 - PRESENCE OF OTHER SPECIFIED FUNCTIONAL IMPLANTS (6) Metastatic breast cancer Code(s): C50.919 - MALIGNANT NEOPLASM OF UNSP SITE OF UNSPECIFIED FEMALE BREAST Assessment/Plan 1. Diastolic LV dysfunction with clinical class I-II NYHA classification LV failure, resolving, exudative pleural effusion argues against heart failure 2. Bilateral pleural effusion post left chest tube insertion 3. CAD post PCI/stent demand ischemia angina pectoris 4. HTN 5. Hyperlipidemia 6. 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 Acute kidney injury, with Hypokalemia/persistent 8. Thrombocytopenia, r/o HIT 9. Abnormal LFTs, possible hepatic congestion 10. Hypocalcemia 11. Paroxysmal atrial tachycardia -> SR PLAN: 1. Currently chest tube draining - considering Bilateral VATS and pleural biopsy and insertion of pleurX catheters as well as IR guided pleurX catheter placement, cytology negative for malignancy 2. ASA 81 qd held pending above procedure 3. Lipitor held with abnormal LFT 4. Continue Toprol XL 12.5 bid hemodynamics permitting 5. Resume Losartan once renal function improved and at baseline, hemodynamics permitting 6. SC heparin d/agustin, f/u HIT panel, mechanical DVT prophylaxis
--- NOTE | 2018-10-12 14:17 | PN ---
Progress Note, Physician History of Present Illness: stable no complaints weak wbc tending down - Current Medication List Current Medications: Active Medications Piperacillin Sod/Tazobactam (Sod 3.375 gm/ Dextrose) 50 mls @ 100 mls/hr IVPB Q8H-IV JOSE ARMANDO; Protocol Last Admin: 10/12/18 11:19 Dose: 100 mls/hr Metoprolol Succinate (Toprol Xl -) 12.5 mg PO BID JOSE ARMANDO Last Admin: 10/12/18 11:19 Dose: 12.5 mg - Objective Vital Signs: Vital Signs Temperature 97.7 F 10/12/18 01:00 Pulse Rate 110 H 10/12/18 09:00 Respiratory Rate 18 10/12/18 09:00 Blood Pressure 112/63 10/12/18 09:00 O2 Sat by Pulse Oximetry (%) 98 10/12/18 09:00 Constitutional: Yes: Calm Cardiovascular: Yes: Regular Rate and Rhythm Respiratory: Yes: Poor Air Entry, Other Gastrointestinal: Yes: Normal Bowel Sounds, Soft Musculoskeletal: Yes: WNL Extremities: Yes: WNL Neurological: Yes: Alert, Oriented Psychiatric: Yes: Alert, Oriented Labs: CBC, BMP 10/12/18 06:15 10/12/18 06:15 INR, PTT INR 1.12 (0.83-1.09) H 10/04/18 17:59 - ....Imaging Chest X-ray: Report Reviewed, Image Reviewed Assessment/Plan Problem List - Problems (1) Chest tube in place Code(s): Z96.89 - PRESENCE OF OTHER SPECIFIED FUNCTIONAL IMPLANTS (2) Congestive heart failure Code(s): I50.9 - HEART FAILURE, UNSPECIFIED Qualifiers: Heart failure type: diastolic Heart failure chronicity: acute on chronic Qualified Code(s): I50.33 - Acute on chronic diastolic (congestive) heart failure (3) Difficulty breathing Code(s): R06.89 - OTHER ABNORMALITIES OF BREATHING (4) Large pleural effusion Code(s): J90 - PLEURAL EFFUSION, NOT ELSEWHERE CLASSIFIED (5) Metastatic breast cancer Code(s): C50.919 - MALIGNANT NEOPLASM OF UNSP SITE OF UNSPECIFIED FEMALE BREAST plan continue abx monitor wbc final plan awaited rest as per the team
[2018-10-13] MEDS ORDERED: PIPERACILLIN/TAZOBACTAM 3.375 GM VIAL IVPB ONE ×3 (01:34→17:03)
[2018-10-13] MEDS ORDERED: DEXTROSE 5%-WATER - 50 ML IVPB ONE ×3 (01:34→17:03)
[2018-10-13] MEDS: PIPERACILLIN/TAZOB 3.375 GM 3.375 GM in DEXTROSE 5%-WATER - 50 ML IVPB SCH ×3 (02:00→18:21)
[2018-10-13 08:03] LABS: HEMATOCRIT 26.3 % (32.4-45.2); HEMOGLOBIN 9.1 GM/dL (10.7-15.3); MCH 34.3 pg (25.7-33.7); MCHC 34.6 g/dl (32.0-36.0); MEAN PLT VOLUME 8.8 fl (7.5-11.1); PLATELET COUNT 135 K/MM3 (134-434); RBC 2.65 M/mm3 (3.60-5.2); RDW 20.8 % (11.6-15.6); WHITE BLOOD COUNT 10.6 K/mm3 (4.0-10.0)
[2018-10-13 08:55] LABS: ANION GAP 8 MMOL/L (8-16); BLOOD UREA NITROGEN 24 mg/dL (7-18); CHLORIDE 104 mmol/L (98-107); CO2 24 mmol/L (21-32); CREATININE 1.5 mg/dL (0.55-1.3); GLUCOSE,RANDOM 85 mg/dL (74-106); POTASSIUM 3.8 mmol/L (3.5-5.1); SODIUM 136 mmol/L (136-145)
[2018-10-13 09:28] LABS: CALCIUM 6.6 mg/dL (8.5-10.1)
--- NOTE | 2018-10-13 10:48 | PN ---
Progress Note (short form) - Note Progress Note: Patient is feeling better with no acute distress, no nausea or vomiting. Vital Signs Temperature 97.8 F 10/13/18 06:00 Pulse Rate 101 H 10/13/18 06:00 Respiratory Rate 18 10/13/18 06:00 Blood Pressure 107/62 10/13/18 06:00 O2 Sat by Pulse Oximetry (%) 97 10/13/18 09:00 GENERAL: Pleasant, sitting up in bed. awake, alert, and fully oriented HEENT: AT/NC. EOMI. FREDERICK. Dry mucus membranes. NECK: Normal range of motion, supple without lymphadenopathy, JVD, or masses. LUNGS: CTA B/L. no wheezing or rhonchi HEART: RRR, normal S1 and S2 without murmur, rub or gallop. ABDOMEN: Soft, nontender, ND, normoactive bowel sounds, no guarding. L pigtail in place. PSYCHIATRIC: Cooperative. Good eye contact. SKIN: Warm, dry, normal turgor CBCD WBC 10.6 K/mm3 (4.0-10.0) H 10/13/18 06:20 RBC 2.65 M/mm3 (3.60-5.2) L 10/13/18 06:20 Hgb 9.1 GM/dL (10.7-15.3) L 10/13/18 06:20 Hct 26.3 % (32.4-45.2) L 10/13/18 06:20 MCV 99.0 fl (80-96) H 10/13/18 06:20 MCHC 34.6 g/dl (32.0-36.0) 10/13/18 06:20 RDW 20.8 % (11.6-15.6) H 10/13/18 06:20 Plt Count 135 K/MM3 (134-434) 10/13/18 06:20 MPV 8.8 fl (7.5-11.1) 10/13/18 06:20 CMP Sodium 136 mmol/L (136-145) 10/13/18 06:20 Potassium 3.8 mmol/L (3.5-5.1) 10/13/18 06:20 Chloride 104 mmol/L (98-107) 10/13/18 06:20 Carbon Dioxide 24 mmol/L (21-32) 10/13/18 06:20 Anion Gap 8 MMOL/L (8-16) 10/13/18 06:20 BUN 24 mg/dL (7-18) H 10/13/18 06:20 Creatinine 1.5 mg/dL (0.55-1.3) H 10/13/18 06:20 Creat Clearance w eGFR 34.13 (>60) 10/13/18 06:20 Random Glucose 85 mg/dL (74-106) 10/13/18 06:20 Calcium 6.6 mg/dL (8.5-10.1) L* 10/13/18 06:20 Total Bilirubin 0.8 mg/dL (0.2-1) 10/12/18 06:15 AST 120 U/L (15-37) H 10/12/18 06:15 ALT 87 U/L (13-61) H 10/12/18 06:15 Alkaline Phosphatase 182 U/L (45-117) H 10/12/18 06:15 Total Protein 4.0 g/dl (6.4-8.2) L 10/12/18 06:15 Albumin 1.6 g/dl (3.4-5.0) L 10/12/18 06:15 CARDIAC ENZYMES Creatine Kinase 708 U/L (26-192) H 10/04/18 17:45 Troponin I 0.46 ng/ml (0.00-0.05) H 10/04/18 21:00 Current Medications Generic Name Dose Route Start Last Admin Trade Name Freq PRN Reason Stop Dose Admin Piperacillin Sod/Tazobactam 50 mls @ 100 mls/hr 10/11/18 18:00 10/13/18 02:00 Sod 3.375 gm/ Dextrose IVPB 100 mls/hr Q8H-IV JOSE ARMANDO Administration Protocol Metoprolol Succinate 12.5 mg 10/05/18 10:00 10/12/18 21:58 Toprol Xl - PO 12.5 mg BID JOSE ARMANDO Administration Home Medications Medication Instructions Recorded Aspirin [ASA -] 81 mg PO HS 03/29/14 Atorvastatin Ca [Lipitor -] 80 mg PO HS 03/29/14 Folic Acid 400 mcg PO DAILY 03/29/14 Losartan Potassium [Cozaar] 25 mg PO DAILY 03/29/14 Metoprolol Succinate [Toprol Xl] 12.5 mg PO BID 03/29/14 Cholecalciferol (Vitamin D3) 1,000 unit PO DAILY 10/04/18 [Vitamin D3] Gemcitabine HCl [Gemzar -] 200 mg IV ASDIR 10/04/18 Nitroglycerin Sublingual 0.4 mg PO PRN PRN 10/04/18 [Nitrostat -] Microbiology 10/04/18 17:45 Blood - Peripheral Venous Blood Culture - Final NO GROWTH AFTER 5 DAYS INCUBATION 10/04/18 17:45 Blood - Peripheral Venous Blood Culture - Final NO GROWTH AFTER 5 DAYS INCUBATION 10/05/18 12:09 Nasopharyngeal Swab Respiratory Virus (PCR) - Final 10/05/18 06:45 Pleural Fluid Gram Stain - Final 10/05/18 06:45 Pleural Fluid Body Fluid Culture - Final NO GROWTH OF AEROBIC ORGANISMS AFTER 48 HOURS INCUBATION 10/05/18 06:45 Pleural Fluid Anaerobic Culture - Final NO ANAEROBES WERE ISOLATED 10/04/18 22:32 Pleural Fluid Gram Stain - Final 10/04/18 22:32 Pleural Fluid Body Fluid Culture - Final NO GROWTH OF AEROBIC ORGANISMS AFTER 48 HOURS INCUBATION 10/04/18 22:32 Pleural Fluid Anaerobic Culture - Final NO ANAEROBES WERE ISOLATED 10/04/18 21:00 Urine - Urine Clean Catch Urine Culture - Final Contaminated: Please Repeat 10/05/18 11:20 Urine For Antigen Detection Legionella Antigen - Final 10/05/18 11:20 Urine For Antigen Detection Streptococcus pneumoniae Antigen (M - Final A/P: Patient is a 73yo female with PMHx of 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 #Acute B/l Pleural effusions: fluid is exudative per LDH. malignant vs parapneumonic effusions, Fluid culture is negative, discussed with Dr. Newberry , will discuss with family for further care and management,for possible VATs Bl. Bilateral VATS and pleural biopsy and insertion of pleurX catheters. # LUCRECIA : improved. 1.7-->1.5 today, base line 1.2, continue oral hydration, hold losartan , blood pressure is stable. # LE edema, possibly due to hypoalbuminemia, improving. # Elevated trop: could be due to renal failure , cont BB , hold asa in case a chest tube or other procedure is needed # Transaminitis: will trend # hypocalcemia , corrected ca is normal DVT Px: Heparin Visit type - Emergency Visit Emergency Visit: Yes ED Registration Date: 10/04/18 Care time: The patient presented to the Emergency Department on the above date and was hospitalized for further evaluation of their emergent condition. - New Patient This patient is new to me today: No - Critical Care Critical Care patient: No - Discharge Referral Referred to [facility] No
--- NOTE | 2018-10-13 11:25 | PN ---
Progress Note, Physician History of Present Illness: Dyspnea resolving. resting in bed, fluid cytology negative for malignancy, await thoracic surgery plan. - Current Medication List Current Medications: Active Medications Piperacillin Sod/Tazobactam (Sod 3.375 gm/ Dextrose) 50 mls @ 100 mls/hr IVPB Q8H-IV JOSE ARMANDO; Protocol Last Admin: 10/13/18 02:00 Dose: 100 mls/hr Metoprolol Succinate (Toprol Xl -) 12.5 mg PO BID JOSE ARMANDO Last Admin: 10/12/18 21:58 Dose: 12.5 mg - Objective Vital Signs: Vital Signs Temperature 97.8 F 10/13/18 06:00 Pulse Rate 101 H 10/13/18 06:00 Respiratory Rate 18 10/13/18 06:00 Blood Pressure 107/62 10/13/18 06:00 O2 Sat by Pulse Oximetry (%) 97 10/13/18 09:00 Constitutional: Yes: No Distress, Calm, Thin Neck: Yes: Supple Cardiovascular: Yes: Regular Rate and Rhythm Respiratory: Yes: Regular, Diminished, Other (Left chest tube) Gastrointestinal: Yes: Normal Bowel Sounds, Soft Edema: No Labs: CBC, BMP 10/13/18 06:20 10/13/18 06:20 INR, PTT INR 1.12 (0.83-1.09) H 10/04/18 17:59 - ....Imaging EKG: Report Reviewed (Tele: NSR) Problem List - Problems (1) Demand ischemia Code(s): I24.8 - OTHER FORMS OF ACUTE ISCHEMIC HEART DISEASE (2) LUCRECIA (acute kidney injury) Code(s): N17.9 - ACUTE KIDNEY FAILURE, UNSPECIFIED (3) Congestive heart failure Code(s): I50.9 - HEART FAILURE, UNSPECIFIED Qualifiers: Heart failure type: diastolic Heart failure chronicity: acute on chronic Qualified Code(s): I50.33 - Acute on chronic diastolic (congestive) heart failure (4) Large pleural effusion Code(s): J90 - PLEURAL EFFUSION, NOT ELSEWHERE CLASSIFIED (5) Chest tube in place Code(s): Z96.89 - PRESENCE OF OTHER SPECIFIED FUNCTIONAL IMPLANTS (6) Metastatic breast cancer Code(s): C50.919 - MALIGNANT NEOPLASM OF UNSP SITE OF UNSPECIFIED FEMALE BREAST Assessment/Plan 1. Diastolic LV dysfunction with clinical class I-II NYHA classification LV failure, resolving, exudative pleural effusion argues against heart failure 2. Bilateral pleural effusion post left chest tube insertion 3. CAD post PCI/stent demand ischemia angina pectoris 4. HTN 5. Hyperlipidemia 6. 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 Acute kidney injury, with Hypokalemia/persistent 8. Thrombocytopenia, r/o HIT 9. Abnormal LFTs, possible hepatic congestion 10. Hypocalcemia 11. Paroxysmal atrial tachycardia -> SR PLAN: 1. Currently chest tube draining - considering Bilateral VATS and pleural biopsy and insertion of pleurX catheters as well as IR guided pleurX catheter placement, cytology negative for malignancy 2. ASA 81 qd held pending above procedure 3. Lipitor held with abnormal LFT 4. Continue Toprol XL 12.5 bid hemodynamics permitting 5. Resume Losartan once renal function improved and at baseline, hemodynamics permitting 6. SC heparin d/agustin, f/u HIT panel, mechanical DVT prophylaxis
[2018-10-13] MEDS: metoPROLOL SUCCINATE 25 MG TAB.SR.24H (FP) PO SCH ×2 (11:38→21:38)
--- NOTE | 2018-10-13 12:43 | PN ---
Progress Note, Physician History of Present Illness: Pt seen and examined, events noted. SOB improving, remains afebrile. WBC trending down. No other specific complaints. - Current Medication List Current Medications: Active Medications Piperacillin Sod/Tazobactam (Sod 3.375 gm/ Dextrose) 50 mls @ 100 mls/hr IVPB Q8H-IV JOSE ARMANDO; Protocol Last Admin: 10/13/18 11:41 Dose: 100 mls/hr Metoprolol Succinate (Toprol Xl -) 12.5 mg PO BID JOSE ARMANDO Last Admin: 10/13/18 11:38 Dose: 12.5 mg - Objective Vital Signs: Vital Signs Temperature 97.8 F 10/13/18 06:00 Pulse Rate 101 H 10/13/18 06:00 Respiratory Rate 18 10/13/18 06:00 Blood Pressure 107/62 10/13/18 06:00 O2 Sat by Pulse Oximetry (%) 97 10/13/18 09:00 Constitutional: Yes: No Distress, Calm Neck: Yes: Supple Respiratory: Yes: Diminished (bibasilar, +Lt chest tube) Gastrointestinal: Yes: Normal Bowel Sounds, Soft Edema: No Neurological: Yes: Alert Labs: CBC, BMP 10/13/18 06:20 10/13/18 06:20 INR, PTT INR 1.12 (0.83-1.09) H 10/04/18 17:59 Microbiology 10/04/18 17:45 Blood - Peripheral Venous Blood Culture - Final NO GROWTH AFTER 5 DAYS INCUBATION 10/04/18 17:45 Blood - Peripheral Venous Blood Culture - Final NO GROWTH AFTER 5 DAYS INCUBATION 10/05/18 12:09 Nasopharyngeal Swab Respiratory Virus (PCR) - Final 10/05/18 06:45 Pleural Fluid Gram Stain - Final 10/05/18 06:45 Pleural Fluid Body Fluid Culture - Final NO GROWTH OF AEROBIC ORGANISMS AFTER 48 HOURS INCUBATION 10/05/18 06:45 Pleural Fluid Anaerobic Culture - Final NO ANAEROBES WERE ISOLATED 10/04/18 22:32 Pleural Fluid Gram Stain - Final 10/04/18 22:32 Pleural Fluid Body Fluid Culture - Final NO GROWTH OF AEROBIC ORGANISMS AFTER 48 HOURS INCUBATION 10/04/18 22:32 Pleural Fluid Anaerobic Culture - Final NO ANAEROBES WERE ISOLATED 10/04/18 21:00 Urine - Urine Clean Catch Urine Culture - Final Contaminated: Please Repeat 10/05/18 11:20 Urine For Antigen Detection Legionella Antigen - Final 10/05/18 11:20 Urine For Antigen Detection Streptococcus pneumoniae Antigen (M - Final Problem List - Problems (1) LUCRECIA (acute kidney injury) Code(s): N17.9 - ACUTE KIDNEY FAILURE, UNSPECIFIED (2) CAD (coronary artery disease) Code(s): I25.10 - ATHSCL HEART DISEASE OF [place] CORONARY ARTERY W/O ANG PCTRS (3) Chest tube in place Code(s): Z96.89 - PRESENCE OF OTHER SPECIFIED FUNCTIONAL IMPLANTS (4) HTN (hypertension) Code(s): I10 - ESSENTIAL (PRIMARY) HYPERTENSION (5) Hypercholesterolemia Code(s): E78.00 - PURE HYPERCHOLESTEROLEMIA, UNSPECIFIED (6) Large pleural effusion Code(s): J90 - PLEURAL EFFUSION, NOT ELSEWHERE CLASSIFIED (7) Metastatic breast cancer Code(s): C50.919 - MALIGNANT NEOPLASM OF UNSP SITE OF UNSPECIFIED FEMALE BREAST Assessment/Plan B/L pleural effusion s/p Lt chest tube placement Dyspnea LUCRECIA Metastatic Breast CA CAD s/p PCI/stent HTN HLD -- lab and imaging results reviewed -- lactate and wbc trend down -- will consider d/c antibiotics -- possible VATS/pleurodesis, awaiting plan
[2018-10-14] MEDS ORDERED: PIPERACILLIN/TAZOBACTAM 3.375 GM VIAL IVPB ONE ×3 (02:29→16:31)
[2018-10-14] MEDS ORDERED: DEXTROSE 5%-WATER - 50 ML IVPB ONE ×3 (02:29→16:31)
[2018-10-14] MEDS: PIPERACILLIN/TAZOB 3.375 GM 3.375 GM in DEXTROSE 5%-WATER - 50 ML IVPB SCH ×3 (02:38→17:16)
[2018-10-14] MEDS: metoPROLOL SUCCINATE 25 MG TAB.SR.24H (FP) PO SCH ×2 (09:15→21:40)
--- NOTE | 2018-10-14 11:18 | PN ---
Physical Exam: SUBJECTIVE: Patient seen and examined at bedside. No acute complaints OBJECTIVE: Vital Signs Period Temp Pulse Resp BP Sys/[place] Pulse Ox Last 24 Hr 97.9 F-98.4 F 60-114 17-20 99-116/61-74 97 GENERAL: A&Ox3, no acute distress EYES: PERRLA, EOMI ENT: Moist mucus membranes NECK: No JVD LUNGS: CTA, no wheezes, pigtail catheter in place on L chest wall draining cloudy yellow fluid HEART: RRR, no murmurs ABDOMEN: Soft, nontender, BS present MUSCULOSKELETAL: No CVA Tenderness EXTREMITIES: 2+ pulses, no edema. NEUROLOGICAL: Cranial nerves II-XII intact. Active Medications Generic Name Dose Route Start Last Admin Trade Name Freq PRN Reason Stop Dose Admin Piperacillin Sod/Tazobactam 50 mls @ 100 mls/hr 10/11/18 18:00 10/14/18 09:16 Sod 3.375 gm/ Dextrose IVPB 100 mls/hr Q8H-IV JOSE ARMANDO Administration Protocol Metoprolol Succinate 12.5 mg 10/05/18 10:00 10/14/18 09:15 Toprol Xl - PO 12.5 mg BID JOSE ARMANDO Administration ASSESSMENT/PLAN: 73 y/o F with PMH recurrent pleural effusion, stage 4 R breast CA with chemoport w/mets to spine, HTN, HLD, CAD s/p 1 stent (2013), angina, who presents to the ED c/o SOB on rest and exertion over the past two weeks. #L sided pleural effusion: malignant etiology most likely -Spoke to path, pleural fluid cytology neg; CT made aware and will speak to pt and family regarding Bilateral VATS and pleural biopsy and insertion of pleurX catheters as well as IR guided pleurX catheter placement. (Files were obtained from [place] that showed exudative effusion without malignant cells). -will consider DC abx pending ID Eval -pending CT-surg evaluation #LUCRECIA vs CKD: stable -continue to hold lasix for now -can consider albumin + lasix for simultaneous osmotic maintenance and fluid mobilization -Renal US noted above, no evid of hydronephrosis #hx breast CA w/spinal mets -receives chemo weekly - Gemzar; Pt states her oncologist did not give her dose last week as she was volume-depleted. will need outpatient follow up after discharge. Pt's oncologist, Dr. Nelson, contacted. Spoke to laboratory secretary to have physician call back to update pt's current clinical status as she follows him closely for chemo. #Troponinemia: likely demand #HTN- controlled -Cont home med Toprol XL 12.5 mg PO BID #CAD s/p 1 stent (2003) -hold ASA for now #HLD -Lipitor held due to abnormal LFTs #Hypocalcemia; corrected Ca is normal. #F/E/N -Off fluids -continue to follow lytes -regular diet #PPX -SQH on hold due to thrombocytopenia #Dispo -cont to monitor on tele Visit type - Emergency Visit Emergency Visit: No - New Patient This patient is new to me today: No - Critical Care Critical Care patient: No
--- NOTE | 2018-10-14 13:25 | PN ---
Progress Note, Physician History of Present Illness: Dyspnea resolving. resting in bed, fluid cytology negative for malignancy, await thoracic surgery plan. - Current Medication List Current Medications: Active Medications Piperacillin Sod/Tazobactam (Sod 3.375 gm/ Dextrose) 50 mls @ 100 mls/hr IVPB Q8H-IV JOSE ARMANDO; Protocol Last Admin: 10/14/18 09:16 Dose: 100 mls/hr Metoprolol Succinate (Toprol Xl -) 12.5 mg PO BID JOSE ARMANDO Last Admin: 10/14/18 09:15 Dose: 12.5 mg - Objective Vital Signs: Vital Signs Temperature 98 F 10/14/18 09:00 Pulse Rate 80 10/14/18 09:00 Respiratory Rate 18 10/14/18 09:00 Blood Pressure 102/74 10/14/18 09:00 O2 Sat by Pulse Oximetry (%) 98 10/14/18 09:00 Constitutional: Yes: No Distress, Calm Neck: Yes: Supple Cardiovascular: Yes: Regular Rate and Rhythm Respiratory: Yes: Regular, Diminished, On Nasal O2, Other (Left chest tube in place) Gastrointestinal: Yes: Soft, Hypoactive Bowel Sounds Edema: No Labs: CBC, BMP 10/13/18 06:20 10/13/18 06:20 INR, PTT INR 1.12 (0.83-1.09) H 10/04/18 17:59 - ....Imaging EKG: Report Reviewed (Tele: No further PAT) Problem List - Problems (1) Demand ischemia Code(s): I24.8 - OTHER FORMS OF ACUTE ISCHEMIC HEART DISEASE (2) LUCRECIA (acute kidney injury) Code(s): N17.9 - ACUTE KIDNEY FAILURE, UNSPECIFIED (3) Congestive heart failure Code(s): I50.9 - HEART FAILURE, UNSPECIFIED Qualifiers: Heart failure type: diastolic Heart failure chronicity: acute on chronic Qualified Code(s): I50.33 - Acute on chronic diastolic (congestive) heart failure (4) Large pleural effusion Code(s): J90 - PLEURAL EFFUSION, NOT ELSEWHERE CLASSIFIED (5) Chest tube in place Code(s): Z96.89 - PRESENCE OF OTHER SPECIFIED FUNCTIONAL IMPLANTS (6) Metastatic breast cancer Code(s): C50.919 - MALIGNANT NEOPLASM OF UNSP SITE OF UNSPECIFIED FEMALE BREAST Assessment/Plan 1. Diastolic LV dysfunction with clinical class I-II NYHA classification LV failure, resolving, exudative pleural effusion argues against heart failure 2. Bilateral pleural effusion post left chest tube insertion 3. CAD post PCI/stent demand ischemia angina pectoris 4. HTN 5. Hyperlipidemia 6. 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 Acute kidney injury, with Hypokalemia/persistent 8. Thrombocytopenia improving, r/o HIT 9. Abnormal LFTs, possible hepatic congestion 10. Hypocalcemia 11. Paroxysmal atrial tachycardia -> SR PLAN: 1. Currently chest tube draining - considering Bilateral VATS and pleural biopsy and insertion of pleurX catheters as well as IR guided pleurX catheter placement, cytology negative for malignancy 2. ASA 81 qd held pending above procedure 3. Lipitor held with abnormal LFT 4. Continue Toprol XL 12.5 bid hemodynamics permitting 5. Resume Losartan once renal function improved and at baseline, hemodynamics permitting 6. SC heparin d/agustin, f/u HIT panel, mechanical DVT prophylaxis 7. Complete empiric abx course per ID
--- NOTE | 2018-10-14 16:43 | PN ---
Progress Note, Physician History of Present Illness: Pt remains alert, without distress. States she is breathing better. Chest tube remains in place. Afebrile, without specific complaints. - Current Medication List Current Medications: Active Medications Piperacillin Sod/Tazobactam (Sod 3.375 gm/ Dextrose) 50 mls @ 100 mls/hr IVPB Q8H-IV JOSE ARMANDO; Protocol Last Admin: 10/14/18 09:16 Dose: 100 mls/hr Metoprolol Succinate (Toprol Xl -) 12.5 mg PO BID JOSE ARMANDO Last Admin: 10/14/18 09:15 Dose: 12.5 mg - Objective Vital Signs: Vital Signs Temperature 98.3 F 10/14/18 14:00 Pulse Rate 106 H 10/14/18 14:00 Respiratory Rate 18 10/14/18 09:00 Blood Pressure 142/69 10/14/18 14:00 O2 Sat by Pulse Oximetry (%) 98 10/14/18 09:00 Constitutional: Yes: No Distress, Calm Cardiovascular: Yes: Regular Rate and Rhythm Respiratory: Yes: Regular, Other (Lt Chest tube diminished BS Rt base) Gastrointestinal: Yes: Normal Bowel Sounds, Soft Genitourinary: Yes: WNL Integumentary: Yes: WNL Neurological: Yes: Alert, Oriented Labs: CBC, BMP 10/13/18 06:20 10/13/18 06:20 INR, PTT INR 1.12 (0.83-1.09) H 10/04/18 17:59 Microbiology 10/04/18 17:45 Blood - Peripheral Venous Blood Culture - Final NO GROWTH AFTER 5 DAYS INCUBATION 10/04/18 17:45 Blood - Peripheral Venous Blood Culture - Final NO GROWTH AFTER 5 DAYS INCUBATION 10/05/18 12:09 Nasopharyngeal Swab Respiratory Virus (PCR) - Final 10/05/18 06:45 Pleural Fluid Gram Stain - Final 10/05/18 06:45 Pleural Fluid Body Fluid Culture - Final NO GROWTH OF AEROBIC ORGANISMS AFTER 48 HOURS INCUBATION 10/05/18 06:45 Pleural Fluid Anaerobic Culture - Final NO ANAEROBES WERE ISOLATED 10/04/18 22:32 Pleural Fluid Gram Stain - Final 10/04/18 22:32 Pleural Fluid Body Fluid Culture - Final NO GROWTH OF AEROBIC ORGANISMS AFTER 48 HOURS INCUBATION 10/04/18 22:32 Pleural Fluid Anaerobic Culture - Final NO ANAEROBES WERE ISOLATED 10/04/18 21:00 Urine - Urine Clean Catch Urine Culture - Final Contaminated: Please Repeat 10/05/18 11:20 Urine For Antigen Detection Legionella Antigen - Final 10/05/18 11:20 Urine For Antigen Detection Streptococcus pneumoniae Antigen (M - Final Problem List - Problems (1) LUCRECIA (acute kidney injury) Code(s): N17.9 - ACUTE KIDNEY FAILURE, UNSPECIFIED (2) CAD (coronary artery disease) Code(s): I25.10 - ATHSCL HEART DISEASE OF [place] CORONARY ARTERY W/O ANG PCTRS (3) Chest tube in place Code(s): Z96.89 - PRESENCE OF OTHER SPECIFIED FUNCTIONAL IMPLANTS (4) HTN (hypertension) Code(s): I10 - ESSENTIAL (PRIMARY) HYPERTENSION (5) Hypercholesterolemia Code(s): E78.00 - PURE HYPERCHOLESTEROLEMIA, UNSPECIFIED (6) Large pleural effusion Code(s): J90 - PLEURAL EFFUSION, NOT ELSEWHERE CLASSIFIED (7) Metastatic breast cancer Code(s): C50.919 - MALIGNANT NEOPLASM OF UNSP SITE OF UNSPECIFIED FEMALE BREAST Assessment/Plan B/L pleural effusion s/p Lt chest tube placement Dyspnea LUCRECIA Metastatic Breast CA CAD s/p PCI/stent HTN HLD -- wbc trending down since initiation of antibiotics -- continue Zosyn empirically for now -- possible VATS/pleurodesis/biopsy currently stable
--- NOTE | 2018-10-14 17:53 | PN ---
Teaching Attending Note Name of Resident: Subhash Nguyen ATTENDING PHYSICIAN STATEMENT I saw and evaluated the patient. I reviewed the resident's note and discussed the case with the resident. I agree with the resident's findings and plan as documented. SUBJECTIVE: Patient is comfortable wit no acute distress, no fever or chills. No nausea or vomiting. OBJECTIVE: Vital Signs Temperature 98.3 F 10/14/18 14:00 Pulse Rate 106 H 10/14/18 14:00 Respiratory Rate 18 10/14/18 09:00 Blood Pressure 142/69 10/14/18 14:00 O2 Sat by Pulse Oximetry (%) 98 10/14/18 09:00 GENERAL: Pleasant, sitting up in bed. awake, alert, and fully oriented HEENT: AT/NC. EOMI. [place]. Dry mucus membranes. NECK: Normal range of motion, supple without lymphadenopathy, JVD, or masses. LUNGS: CTA B/L. no wheezing or rhonchi HEART: RRR, normal S1 and S2 without murmur, rub or gallop. ABDOMEN: Soft, nontender, ND, normoactive bowel sounds, no guarding. L pigtail in place, draining. PSYCHIATRIC: Cooperative. Good eye contact. SKIN: Warm, dry, normal turgor. CBCD WBC 10.6 K/mm3 (4.0-10.0) H 10/13/18 06:20 RBC 2.65 M/mm3 (3.60-5.2) L 10/13/18 06:20 Hgb 9.1 GM/dL (10.7-15.3) L 10/13/18 06:20 Hct 26.3 % (32.4-45.2) L 10/13/18 06:20 MCV 99.0 fl (80-96) H 10/13/18 06:20 MCHC 34.6 g/dl (32.0-36.0) 10/13/18 06:20 RDW 20.8 % (11.6-15.6) H 10/13/18 06:20 Plt Count 135 K/MM3 (134-434) 10/13/18 06:20 MPV 8.8 fl (7.5-11.1) 10/13/18 06:20 CMP Sodium 136 mmol/L (136-145) 10/13/18 06:20 Potassium 3.8 mmol/L (3.5-5.1) 10/13/18 06:20 Chloride 104 mmol/L (98-107) 10/13/18 06:20 Carbon Dioxide 24 mmol/L (21-32) 10/13/18 06:20 Anion Gap 8 MMOL/L (8-16) 10/13/18 06:20 BUN 24 mg/dL (7-18) H 10/13/18 06:20 Creatinine 1.5 mg/dL (0.55-1.3) H 10/13/18 06:20 Creat Clearance w eGFR 34.13 (>60) 10/13/18 06:20 Random Glucose 85 mg/dL (74-106) 10/13/18 06:20 Calcium 6.6 mg/dL (8.5-10.1) L* 10/13/18 06:20 Total Bilirubin 0.8 mg/dL (0.2-1) 10/12/18 06:15 AST 120 U/L (15-37) H 10/12/18 06:15 ALT 87 U/L (13-61) H 10/12/18 06:15 Alkaline Phosphatase 182 U/L (45-117) H 10/12/18 06:15 Total Protein 4.0 g/dl (6.4-8.2) L 10/12/18 06:15 Albumin 1.6 g/dl (3.4-5.0) L 10/12/18 06:15 CARDIAC ENZYMES Creatine Kinase 708 U/L (26-192) H 10/04/18 17:45 Troponin I 0.46 ng/ml (0.00-0.05) H 10/04/18 21:00 Microbiology 10/04/18 17:45 Blood - Peripheral Venous Blood Culture - Final NO GROWTH AFTER 5 DAYS INCUBATION 10/04/18 17:45 Blood - Peripheral Venous Blood Culture - Final NO GROWTH AFTER 5 DAYS INCUBATION 10/05/18 12:09 Nasopharyngeal Swab Respiratory Virus (PCR) - Final 10/05/18 06:45 Pleural Fluid Gram Stain - Final 10/05/18 06:45 Pleural Fluid Body Fluid Culture - Final NO GROWTH OF AEROBIC ORGANISMS AFTER 48 HOURS INCUBATION 10/05/18 06:45 Pleural Fluid Anaerobic Culture - Final NO ANAEROBES WERE ISOLATED 10/04/18 22:32 Pleural Fluid Gram Stain - Final 10/04/18 22:32 Pleural Fluid Body Fluid Culture - Final NO GROWTH OF AEROBIC ORGANISMS AFTER 48 HOURS INCUBATION 10/04/18 22:32 Pleural Fluid Anaerobic Culture - Final NO ANAEROBES WERE ISOLATED 10/04/18 21:00 Urine - Urine Clean Catch Urine Culture - Final Contaminated: Please Repeat 10/05/18 11:20 Urine For Antigen Detection Legionella Antigen - Final 10/05/18 11:20 Urine For Antigen Detection Streptococcus pneumoniae Antigen (M - Final ASSESSMENT AND PLAN: Patient is a 73yo female with PMHx of 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 #Acute B/l Pleural effusions: fluid is exudative per LDH. malignant vs parapneumonic effusions, Fluid culture is negative so far, discussed with Dr. Newberry , will discuss with family for further care and management and possible b/l VATs if family agrees. Bilateral VATS and pleural biopsy and insertion of pleurX catheters if family agrees. # LUCRECIA : improved. 1.7-->1.5 today, base line 1.2, continue oral hydration, hold losartan , blood pressure is stable. # LE edema, possibly due to hypoalbuminemia, improving. # Elevated trop: could be due to renal failure , cont BB , hold asa in case a chest tube or other procedure is needed # Transaminitis: will trend # hypocalcemia , corrected ca is normal DVT Px: Heparin
[2018-10-15] MEDS ORDERED: PIPERACILLIN/TAZOBACTAM 3.375 GM VIAL IVPB ONE ×3 (03:10→16:53)
[2018-10-15] MEDS ORDERED: DEXTROSE 5%-WATER - 50 ML IVPB ONE ×3 (03:11→16:54)
[2018-10-15] MEDS: PIPERACILLIN/TAZOB 3.375 GM 3.375 GM in DEXTROSE 5%-WATER - 50 ML IVPB SCH ×3 (03:15→17:05)
[2018-10-15 06:41] LABS: BASO % 0.6 % (0-2.0); EOS % 4.9 % (0-4.5); HEMATOCRIT 26.5 % (32.4-45.2); HEMOGLOBIN 9.3 GM/dL (10.7-15.3); LYMPH % 18.9 % (8-40); MCH 34.9 pg (25.7-33.7); MEAN CELL VOLUME 99.8 fl (80-96); MEAN PLT VOLUME 8.2 fl (7.5-11.1); MONO % 17.3 % (3.8-10.2); NEUT % 58.3 % (42.8-82.8); PLATELET COUNT 167 K/MM3 (134-434); RBC 2.65 M/mm3 (3.60-5.2); RDW 25.7 % (11.6-15.6); WHITE BLOOD COUNT 10.8 K/mm3 (4.0-10.0)
[2018-10-15] MEDS: metoPROLOL SUCCINATE 25 MG TAB.SR.24H (FP) PO SCH ×2 (09:53→21:18)
--- NOTE | 2018-10-15 10:05 | PN ---
Progress Note, Physician Chief Complaint: Events noted Chest tube in place Await further intervention History of Present Illness: Patient was seen and examined. Awake and alert. Chart was reviewed Less SOB. No chest pain or palpitations - Current Medication List Current Medications: Active Medications Piperacillin Sod/Tazobactam (Sod 3.375 gm/ Dextrose) 50 mls @ 100 mls/hr IVPB Q8H-IV JOSE ARMANDO; Protocol Last Admin: 10/15/18 09:54 Dose: 100 mls/hr Metoprolol Succinate (Toprol Xl -) 12.5 mg PO BID JOSE ARMANDO Last Admin: 10/15/18 09:53 Dose: 12.5 mg - Objective Vital Signs: Vital Signs Temperature 97.8 F 10/15/18 06:00 Pulse Rate 82 10/15/18 06:00 Respiratory Rate 20 10/15/18 06:00 Blood Pressure 100/56 L 10/15/18 06:00 O2 Sat by Pulse Oximetry (%) 99 10/14/18 21:00 Eyes: Yes: PERRL HENT: Yes: Atraumatic Neck: Yes: Supple Cardiovascular: Yes: Regular Rate and Rhythm, S1, S2 Respiratory: Yes: Diminished Gastrointestinal: Yes: Normal Bowel Sounds, Soft. No: Tenderness Edema: No Additional Findings/Remarks: Review of Systems Constitutional: denies Chills or Fever Respiratory: denies Cough or Sputum Production Cardiovascular: (+) SOB Gastrointestinal: denies Nausea, Vomiting, Diarrhea, Constipation or Abdominal Pain Genitourinary: denies Frequency or Urgency Musculoskeletal: No symptoms reported Labs: CBC, BMP 10/15/18 05:30 Problem List - Problems (1) LUCRECIA (acute kidney injury) Code(s): N17.9 - ACUTE KIDNEY FAILURE, UNSPECIFIED (2) Chest tube in place Code(s): Z96.89 - PRESENCE OF OTHER SPECIFIED FUNCTIONAL IMPLANTS (3) Congestive heart failure Code(s): I50.9 - HEART FAILURE, UNSPECIFIED Qualifiers: Heart failure type: diastolic Heart failure chronicity: acute on chronic Qualified Code(s): I50.33 - Acute on chronic diastolic (congestive) heart failure (4) Demand ischemia Code(s): I24.8 - OTHER FORMS OF ACUTE ISCHEMIC HEART DISEASE (5) Large pleural effusion Code(s): J90 - PLEURAL EFFUSION, NOT ELSEWHERE CLASSIFIED (6) Metastatic breast cancer Code(s): C50.919 - MALIGNANT NEOPLASM OF UNSP SITE OF UNSPECIFIED FEMALE BREAST (7) CAD (coronary artery disease) Code(s): I25.10 - ATHSCL HEART DISEASE OF [place] CORONARY ARTERY W/O ANG PCTRS Qualifiers: Coronary Disease-Associated Artery/Lesion type: [place] artery [place] vs. transplanted heart: [place] heart Associated angina: without angina Qualified Code(s): I25.10 - Atherosclerotic heart disease of [place] coronary artery without angina pectoris (8) History of percutaneous coronary intervention Code(s): Z98.61 - CORONARY ANGIOPLASTY STATUS (9) Hypercholesterolemia Code(s): E78.00 - PURE HYPERCHOLESTEROLEMIA, UNSPECIFIED (10) HTN (hypertension) Code(s): I10 - ESSENTIAL (PRIMARY) HYPERTENSION Qualifiers: Hypertension type: essential hypertension Qualified Code(s): I10 - Essential (primary) hypertension (11) Congestive heart failure with LV diastolic dysfunction, NYHA class 2 Code(s): I50.30 - UNSPECIFIED DIASTOLIC (CONGESTIVE) HEART FAILURE Assessment/Plan 1. Diastolic LV dysfunction with clinical class I-II NYHA classification LV failure - exudative pleural effusion argues against heart failure 2. Bilateral pleural effusion post left chest tube insertion 3. CAD post PCI/stent demand ischemia angina pectoris 4. HTN 5. Hyperlipidemia 6. 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 Acute kidney injury, with Hypokalemia 8. Thrombocytopenia improving, possible HIT 9. Abnormal LFTs, possible hepatic congestion 10. Hypocalcemia 11. Paroxysmal atrial tachycardia currently in sinus rhythm PLAN: 1. Currently chest tube draining - considering Bilateral VATS and pleural biopsy and insertion of IR guided pleurX catheter placement (cytology negative for malignancy) 2. ASA 81 qd held pending above procedure 3. Lipitor held with abnormal LFT 4. Continue Toprol XL 12.5 mg BID hemodynamics permitting 5. Resume Losartan once renal function improves and as tolerated 6. SQ heparin held 7. Complete empiric antibiotic course per ID Further plans are to follow Bello Combs MD
[2018-10-15 10:17] LABS: ANISOCYTOSIS 2+; MACROCYTOSIS 1+; OVALOCYTE 1+; PLATELET ESTIMATE NORMAL
--- NOTE | 2018-10-15 12:31 | PN ---
Progress Note (short form) - Note Progress Note: PULMONARY CONSULTATION DICTATED 10/15/18 IMP BILATERAL PLEURAL EFFUSIONS LIKELY MALIGNANT METASTATIC BREAST CA ANEMIA ASHD S/P STENT DIASTOLIC HF CKD ELEVATED TROPONIN PLAN CONSIDER R VAT WITH BX IF + MALIGNANT CELLS PLEUR-X CATH INSERTION O2 MONITOR CHEST TUBE DRAINAGE MONITOR LYTES,H+H CHEST X-RAY DR CA Problem List - Problems (1) LUCRECIA (acute kidney injury) Code(s): N17.9 - ACUTE KIDNEY FAILURE, UNSPECIFIED (2) CAD (coronary artery disease) Code(s): I25.10 - ATHSCL HEART DISEASE OF [place] CORONARY ARTERY W/O ANG PCTRS Qualifiers: Coronary Disease-Associated Artery/Lesion type: [place] artery [place] vs. transplanted heart: [place] heart Associated angina: without angina Qualified Code(s): I25.10 - Atherosclerotic heart disease of [place] coronary artery without angina pectoris (3) Chest tube in place Code(s): Z96.89 - PRESENCE OF OTHER SPECIFIED FUNCTIONAL IMPLANTS (4) Congestive heart failure Code(s): I50.9 - HEART FAILURE, UNSPECIFIED Qualifiers: Heart failure type: diastolic Heart failure chronicity: acute on chronic Qualified Code(s): I50.33 - Acute on chronic diastolic (congestive) heart failure (5) Difficulty breathing Code(s): R06.89 - OTHER ABNORMALITIES OF BREATHING (6) HTN (hypertension) Code(s): I10 - ESSENTIAL (PRIMARY) HYPERTENSION Qualifiers: Hypertension type: essential hypertension Qualified Code(s): I10 - Essential (primary) hypertension (7) History of percutaneous coronary intervention Code(s): Z98.61 - CORONARY ANGIOPLASTY STATUS (8) Hypercholesterolemia Code(s): E78.00 - PURE HYPERCHOLESTEROLEMIA, UNSPECIFIED (9) Large pleural effusion Code(s): J90 - PLEURAL EFFUSION, NOT ELSEWHERE CLASSIFIED (10) Metastatic breast cancer Code(s): C50.919 - MALIGNANT NEOPLASM OF UNSP SITE OF UNSPECIFIED FEMALE BREAST
--- NOTE | 2018-10-15 13:22 | PN ---
Physical Exam: SUBJECTIVE: Patient seen and examined at bedside. No acute events overnight. Pt denies chest pain, shortness of breath, nausea/vomiting, f/c. Amauri PO diet. Has no complaints at this time. OBJECTIVE: Last Vital Signs Temp Pulse Resp BP Pulse Ox 98.2 F 93 H 20 108/65 100 10/15/18 10:00 10/15/18 10:00 10/15/18 10:00 10/15/18 10:00 10/15/18 09:00 GENERAL: A&Ox3, no acute distress EYES: PERRLA, EOMI ENT: Moist mucus membranes NECK: No JVD LUNGS: CTA, no wheezes, pigtail catheter in place on L chest wall draining cloudy yellow fluid HEART: RRR, no murmurs ABDOMEN: Soft, nontender, BS present MUSCULOSKELETAL: No CVA Tenderness EXTREMITIES: 2+ pulses, no edema. NEUROLOGICAL: Cranial nerves II-XII intact. CBC, BMP 10/15/18 05:30 10/13/18 06:20 Active Medications Piperacillin Sod/Tazobactam (Sod 3.375 gm/ Dextrose) 50 mls @ 100 mls/hr IVPB Q8H-IV JOSE ARMANDO; Protocol Last Admin: 10/15/18 09:54 Dose: 100 mls/hr Metoprolol Succinate (Toprol Xl -) 12.5 mg PO BID JOSE ARMANDO Last Admin: 10/15/18 09:53 Dose: 12.5 mg IMAGING: * Renal U/S: Small R mid and L renal/parapelvic cyst w/o gross evidence of hydronephrosis or renal stones b/l. R pleural effusion. * CXR (10/11/18): Progressively worsening b/l pleural effusions. 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 #L-sided pleural effusion: malignant etiology most likely -Spoke to path, pleural fluid cytology neg; CT made aware and will speak to pt and family regarding Bilateral VATS and pleural biopsy and insertion of pleurX catheters as well as IR guided pleurX catheter placement. (Files were obtained from [facility] that showed exudative effusion without malignant cells). -will consider DC abx pending ID Eval -Per CT eval, will likely do pleural biopsy this Monday; this was apparently discussed with pt's family this past weekend. Await further CT recs. -Per ID, currently on Zosyn (started 10/11) Day 5; await further ID recs #LUCRECIA vs CKD: stable -continue to hold lasix for now -can consider albumin + lasix for simultaneous osmotic maintenance and fluid mobilization -Renal US noted above, no evid of hydronephrosis #hx breast CA w/spinal mets -receives chemo weekly - Gemzar; Pt states her oncologist did not give her dose last week as she was volume-depleted. will need outpatient follow up after discharge. Pt's oncologist, Dr. Nelson, contacted. Called oncologist office again, left a message with law secretary to call back for update on pt's current status. #Troponinemia: likely demand #HTN- controlled -Cont home med Toprol XL 12.5 mg PO BID #CAD s/p 1 stent (2003) -hold ASA for now #HLD -Lipitor held due to abnormal LFTs #Hypocalcemia; corrected Ca is normal. #F/E/N -Off fluids -continue to follow lytes -regular diet #PPX -SQH on hold due to thrombocytopenia #Dispo -cont to monitor on tele -DC planning after pleural biopsy on Monday Visit type - Emergency Visit Emergency Visit: Yes ED Registration Date: 10/04/18 Care time: The patient presented to the Emergency Department on the above date and was hospitalized for further evaluation of their emergent condition. - New Patient This patient is new to me today: No - Critical Care Critical Care patient: No
--- NOTE | 2018-10-15 14:07 | CONS ---
DATE OF CONSULTATION: 10/15/2018 REFERRING PHYSICIAN: Alok Hamlni MD HISTORY: The patient is a 73-year-old white female with past medical history of breast cancer initially diagnosed 7 years ago status post bilateral mastectomy postoperative treated with chemotherapy. The patient had recurrence of disease recently to the spine. Currently back on chemotherapy, diastolic dysfunction, hypertensive heart disease, hyperlipidemia admitted to [facility] with complaint of a [id number] of progressive shortness of breath and dyspnea on exertion. The patient on admission was noted to have large bilateral pleural effusions. In the emergency room, she had a chest tube pigtail catheter inserted and transferred up to medical floor for further management. Of note, approximately 2-3 weeks prior to this admission, the patient was seen in [place] and underwent a thoracentesis on the left side. Apparently, the fluid reaccumulated within a couple of days, and the cytology was negative. During this hospitalization, she was also seen by Dr. Evans from Cardiology as well as Dr. Vazquez for Infectious Disease. Pleural fluid chemistries returned positive for exudate by LDH criteria. Protein was never sent. Cholesterol levels were never sent. Cytology, of note, initial specimen was not found, and subsequent specimen returned negative for malignancy. Patient is a nonsmoker. She denies any history of occupational exposure to chemicals or fumes. There is no history of asthma or COPD in the past. There is no history of fever or hemoptysis. Denies any chest pains or palpitations. PAST MEDICAL HISTORY: Again includes ASHD status post stent, metastatic breast cancer with recurrence, diastolic heart failure, hyperlipidemia. REVIEW OF SYSTEMS: Positive dyspnea. Positive orthopnea. No chest pain, no palpitations, no cough, no hemoptysis, no fevers. CURRENT MEDICATIONS: Include piperacillin and Toprol. PHYSICAL EXAMINATION: General: The patient is a thin white female well-developed, awake, alert in no acute distress. Vital Signs: She is afebrile. Blood pressure is 108/65, her respiratory rate is 20, O2 saturation is 100% on 2 L. HEENT: Normocephalic, atraumatic. Neck: Supple. Heart: Regular S1, S2. Chest: She has diminished breath sounds on the right 2/3 up and mildly diminished breath sounds at the left base. Abdomen: Soft. Bowel sounds are positive. Extremities: No cyanosis or edema. LABORATORIES: WBC: BUN 24, creatinine 1.5, WBC 10.8, hemoglobin 9.3, hematocrit 26.5 with a platelet count of 167,000. INR 1.12. Blood gas: PH 7.43, PCO2 of 31, PO2 of 75, bicarbonate 20, saturation 93.4. Chemistries: Pleural fluid, WBC 164, RBC 5094, albumin 1.4, LDH 262. Serum albumin 1.8, albumin gradient is 0.4 consistent with exudate. Chest x-ray on October 11, 2018 revealed increasing bilateral pleural effusion. IMPRESSION: 1. Bilateral pleural effusion exudate likely malignant. 2. Advanced metastatic breast cancer with spinal metastasis. 3. Diastolic heart failure. 4. Arteriosclerotic heart disease status post stent. 5. Hyperlipidemia. 6. Acute or chronic kidney disease. PLAN: Thoracic surgical consultation for right-sided video-assisted thoracoscopy with biopsy. If pleural fluid is biopsy-positive malignancy, recommend PleurX catheter insertion. Continue nutritional support. Supplemental O2 as needed. Also monitor electrolytes and renal function. CALLI CA M.D. [id number]
--- NOTE | 2018-10-15 14:09 | PN ---
Progress Note, Physician History of Present Illness: stable no new issues all cx reports noted vats procedure - Current Medication List Current Medications: Active Medications Piperacillin Sod/Tazobactam (Sod 3.375 gm/ Dextrose) 50 mls @ 100 mls/hr IVPB Q8H-IV JOSE ARMANDO; Protocol Last Admin: 10/15/18 09:54 Dose: 100 mls/hr Metoprolol Succinate (Toprol Xl -) 12.5 mg PO BID JOSE ARMANDO Last Admin: 10/15/18 09:53 Dose: 12.5 mg - Objective Vital Signs: Vital Signs Temperature 98.2 F 10/15/18 10:00 Pulse Rate 93 H 10/15/18 10:00 Respiratory Rate 20 10/15/18 10:00 Blood Pressure 108/65 10/15/18 10:00 O2 Sat by Pulse Oximetry (%) 100 10/15/18 09:00 Constitutional: Yes: No Distress, Calm Cardiovascular: Yes: Regular Rate and Rhythm Respiratory: Yes: Regular, Poor Air Entry (bases) Gastrointestinal: Yes: Normal Bowel Sounds, Soft Musculoskeletal: Yes: WNL Extremities: Yes: WNL Neurological: Yes: Alert, Oriented Psychiatric: Yes: Alert, Oriented Labs: CBC, BMP 10/15/18 05:30 10/13/18 06:20 INR, PTT INR 1.12 (0.83-1.09) H 10/04/18 17:59 Assessment/Plan Problem List - Problems (1) LUCRECIA (acute kidney injury) Code(s): N17.9 - ACUTE KIDNEY FAILURE, UNSPECIFIED (2) CAD (coronary artery disease) Code(s): I25.10 - ATHSCL HEART DISEASE OF [place] CORONARY ARTERY W/O ANG PCTRS Qualifiers: Coronary Disease-Associated Artery/Lesion type: [place] artery [place] vs. transplanted heart: [place] heart Associated angina: without angina Qualified Code(s): I25.10 - Atherosclerotic heart disease of [place] coronary artery without angina pectoris (3) Chest tube in place Code(s): Z96.89 - PRESENCE OF OTHER SPECIFIED FUNCTIONAL IMPLANTS (4) HTN (hypertension) Code(s): I10 - ESSENTIAL (PRIMARY) HYPERTENSION Qualifiers: Hypertension type: essential hypertension Qualified Code(s): I10 - Essential (primary) hypertension (5) Hypercholesterolemia Code(s): E78.00 - PURE HYPERCHOLESTEROLEMIA, UNSPECIFIED (6) Large pleural effusion Code(s): J90 - PLEURAL EFFUSION, NOT ELSEWHERE CLASSIFIED (7) Metastatic breast cancer Code(s): C50.919 - MALIGNANT NEOPLASM OF UNSP SITE OF UNSPECIFIED FEMALE BREAST Assessment/Plan B/L pleural effusion s/p b/l chest tube placement Metastatic Breast CA LUCR[place] CAD s/p PCI/stent HTN HLD plan continue abx monitor wbc await for procedure rest as per the team resp support
--- NOTE | 2018-10-15 17:29 | PN ---
Teaching Attending Note Name of Resident: Sarika Reddy ATTENDING PHYSICIAN STATEMENT I saw and evaluated the patient. I reviewed the resident's note and discussed the case with the resident. I agree with the resident's findings and plan as documented. SUBJECTIVE: Patient is comfortable with no acute distress, no new changes. OBJECTIVE: Vital Signs Temperature 98.3 F 10/15/18 14:00 Pulse Rate 86 10/15/18 14:00 Respiratory Rate 20 10/15/18 14:00 Blood Pressure 114/69 10/15/18 14:00 O2 Sat by Pulse Oximetry (%) 100 10/15/18 09:00 GENERAL: Pleasant, sitting up in bed. awake, alert, and fully oriented HEENT: AT/NC. EOMI. [place]. Dry mucus membranes. NECK: Normal range of motion, supple without lymphadenopathy, JVD, or masses. LUNGS: CTA B/L. no wheezing or rhonchi HEART: RRR, normal S1 and S2 without murmur, rub or gallop. ABDOMEN: Soft, nontender, ND, normoactive bowel sounds, no guarding. L pigtail in place, draining. PSYCHIATRIC: Cooperative. Good eye contact. SKIN: Warm, dry, normal turgor. CBCD WBC 10.8 K/mm3 (4.0-10.0) H 10/15/18 05:30 RBC 2.65 M/mm3 (3.60-5.2) L 10/15/18 05:30 Hgb 9.3 GM/dL (10.7-15.3) L 10/15/18 05:30 Hct 26.5 % (32.4-45.2) L 10/15/18 05:30 MCV 99.8 fl (80-96) H 10/15/18 05:30 MCHC 35.0 g/dl (32.0-36.0) 10/15/18 05:30 RDW 25.7 % (11.6-15.6) H 10/15/18 05:30 Plt Count 167 K/MM3 (134-434) D 10/15/18 05:30 MPV 8.2 fl (7.5-11.1) 10/15/18 05:30 CMP Sodium 136 mmol/L (136-145) 10/13/18 06:20 Potassium 3.8 mmol/L (3.5-5.1) 10/13/18 06:20 Chloride 104 mmol/L (98-107) 10/13/18 06:20 Carbon Dioxide 24 mmol/L (21-32) 10/13/18 06:20 Anion Gap 8 MMOL/L (8-16) 10/13/18 06:20 BUN 24 mg/dL (7-18) H 10/13/18 06:20 Creatinine 1.5 mg/dL (0.55-1.3) H 10/13/18 06:20 Creat Clearance w eGFR 34.13 (>60) 10/13/18 06:20 Random Glucose 85 mg/dL (74-106) 10/13/18 06:20 Calcium 6.6 mg/dL (8.5-10.1) L* 10/13/18 06:20 Total Bilirubin 0.8 mg/dL (0.2-1) 10/12/18 06:15 AST 120 U/L (15-37) H 10/12/18 06:15 ALT 87 U/L (13-61) H 10/12/18 06:15 Alkaline Phosphatase 182 U/L (45-117) H 10/12/18 06:15 Total Protein 4.0 g/dl (6.4-8.2) L 10/12/18 06:15 Albumin 1.6 g/dl (3.4-5.0) L 10/12/18 06:15 CARDIAC ENZYMES Creatine Kinase 708 U/L (26-192) H 10/04/18 17:45 Troponin I 0.46 ng/ml (0.00-0.05) H 10/04/18 21:00 CARDIAC ENZYMES Creatine Kinase 708 U/L (26-192) H 10/04/18 17:45 Troponin I 0.46 ng/ml (0.00-0.05) H 10/04/18 21:00 Current Medications Generic Name Dose Route Start Last Admin Trade Name Freq PRN Reason Stop Dose Admin Piperacillin Sod/Tazobactam 50 mls @ 100 mls/hr 10/11/18 18:00 10/15/18 17:05 Sod 3.375 gm/ Dextrose IVPB 100 mls/hr Q8H-IV JOSE ARMANDO Administration Protocol Metoprolol Succinate 12.5 mg 10/05/18 10:00 10/15/18 09:53 Toprol Xl - PO 12.5 mg BID JOSE ARMANDO Administration Home Medications Medication Instructions Recorded Aspirin [ASA -] 81 mg PO HS 03/29/14 Atorvastatin Ca [Lipitor -] 80 mg PO HS 03/29/14 Folic Acid 400 mcg PO DAILY 03/29/14 Losartan Potassium [Cozaar] 25 mg PO DAILY 03/29/14 Metoprolol Succinate [Toprol Xl] 12.5 mg PO BID 03/29/14 Cholecalciferol (Vitamin D3) 1,000 unit PO DAILY 10/04/18 [Vitamin D3] Gemcitabine HCl [Gemzar -] 200 mg IV ASDIR 10/04/18 Nitroglycerin Sublingual 0.4 mg PO PRN PRN 10/04/18 [Nitrostat -] Microbiology 10/04/18 17:45 Blood - Peripheral Venous Blood Culture - Final NO GROWTH AFTER 5 DAYS INCUBATION 10/04/18 17:45 Blood - Peripheral Venous Blood Culture - Final NO GROWTH AFTER 5 DAYS INCUBATION 10/05/18 12:09 Nasopharyngeal Swab Respiratory Virus (PCR) - Final 10/05/18 06:45 Pleural Fluid Gram Stain - Final 10/05/18 06:45 Pleural Fluid Body Fluid Culture - Final NO GROWTH OF AEROBIC ORGANISMS AFTER 48 HOURS INCUBATION 10/05/18 06:45 Pleural Fluid Anaerobic Culture - Final NO ANAEROBES WERE ISOLATED 10/04/18 22:32 Pleural Fluid Gram Stain - Final 10/04/18 22:32 Pleural Fluid Body Fluid Culture - Final NO GROWTH OF AEROBIC ORGANISMS AFTER 48 HOURS INCUBATION 10/04/18 22:32 Pleural Fluid Anaerobic Culture - Final NO ANAEROBES WERE ISOLATED 10/04/18 21:00 Urine - Urine Clean Catch Urine Culture - Final Contaminated: Please Repeat 10/05/18 11:20 Urine For Antigen Detection Legionella Antigen - Final 10/05/18 11:20 Urine For Antigen Detection Streptococcus pneumoniae Antigen (M - Final ASSESSMENT AND PLAN: Patient is a 73yo female with PMHx of 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 #Acute B/l Pleural effusions: fluid is exudative per LDH. malignant vs parapneumonic effusions, Fluid culture is negative so far, discussed with Dr. Newberry , will bx / b/l VATs procedure on morning, will keep the patient , surgeon discussed with the family for Bilateral VATS and pleural biopsy and insertion of pleurX catheters. # LUCRECIA : improved. 1.7-->1.5 today, base line 1.2, continue oral hydration, hold losartan , blood pressure is stable. will repeat labs for am # LE edema, possibly due to hypoalbuminemia, improving. # Elevated trop: could be due to renal failure , cont BB , hold asa in case a chest tube or other procedure is needed # Transaminitis: will trend # hypocalcemia , corrected ca is normal DVT Px: Heparin
[2018-10-16] MEDS ORDERED: PIPERACILLIN/TAZOBACTAM 3.375 GM VIAL IVPB ONE ×3 (00:57→17:34)
[2018-10-16] MEDS ORDERED: DEXTROSE 5%-WATER - 50 ML IVPB ONE ×3 (00:58→17:35)
[2018-10-16] MEDS: PIPERACILLIN/TAZOB 3.375 GM 3.375 GM in DEXTROSE 5%-WATER - 50 ML IVPB SCH ×3 (01:01→17:43)
[2018-10-16 06:40] LABS: HEMATOCRIT 26.3 % (32.4-45.2); HEMOGLOBIN 9.2 GM/dL (10.7-15.3); MCHC 35.1 g/dl (32.0-36.0); MEAN CELL VOLUME 99.7 fl (80-96); MEAN PLT VOLUME 8.2 fl (7.5-11.1); PLATELET COUNT 168 K/MM3 (134-434); RBC 2.64 M/mm3 (3.60-5.2); RDW 25.8 % (11.6-15.6)
[2018-10-16 07:31] LABS: ALBUMIN 1.4 g/dl (3.4-5.0); ALK PHOS 155 U/L (45-117); ANION GAP 9 MMOL/L (8-16); BILIRUBIN,TOTAL 0.7 mg/dL (0.2-1); BLOOD UREA NITROGEN 25 mg/dL (7-18); CHLORIDE 104 mmol/L (98-107); CO2 24 mmol/L (21-32); CREATININE 1.5 mg/dL (0.55-1.3); GLUCOSE,RANDOM 92 mg/dL (74-106); MAGNESIUM 2.1 mg/dL (1.8-2.4); POTASSIUM 3.2 mmol/L (3.5-5.1); SGOT/AST 77 U/L (15-37); SGPT/ALT 56 U/L (13-61); SODIUM 137 mmol/L (136-145); TOT PROT 3.7 g/dl (6.4-8.2)
[2018-10-16 07:35] LABS: CALCIUM 6.7 mg/dL (8.5-10.1)
[2018-10-16] MEDS: metoPROLOL SUCCINATE 25 MG TAB.SR.24H (FP) PO SCH ×2 (09:22→21:16)
--- NOTE | 2018-10-16 10:11 | PN ---
Progress Note, Physician History of Present Illness: PULMONARY ALERT,DYSPNEIC WITH EXERTION,L CHEST TUBE REMAINS IN PLACE. PT SCHEDULED FOR R VAT AND BX ON MONDAY - Current Medication List Current Medications: Active Medications Piperacillin Sod/Tazobactam (Sod 3.375 gm/ Dextrose) 50 mls @ 100 mls/hr IVPB Q8H-IV JOSE ARMANDO; Protocol Last Admin: 10/16/18 09:22 Dose: 100 mls/hr Metoprolol Succinate (Toprol Xl -) 12.5 mg PO BID JOSE ARMANDO Last Admin: 10/16/18 09:22 Dose: 12.5 mg - Objective Vital Signs: Vital Signs Temperature 98 F 10/16/18 09:00 Pulse Rate 106 H 10/16/18 09:00 Respiratory Rate 18 10/16/18 09:00 Blood Pressure 102/62 10/16/18 09:00 O2 Sat by Pulse Oximetry (%) 99 10/16/18 06:00 Constitutional: Yes: Calm, Thin Eyes: Yes: WNL HENT: Yes: WNL Neck: Yes: WNL Cardiovascular: Yes: Regular Rate and Rhythm, S1, S2 Respiratory: Yes: Diminished Gastrointestinal: Yes: Normal Bowel Sounds, Soft Extremities: Yes: WNL Edema: No Labs: CBC, BMP 10/16/18 05:30 10/16/18 05:30 INR, PTT INR 1.12 (0.83-1.09) H 10/04/18 17:59 - ....Imaging Chest X-ray: Report Reviewed, Image Reviewed Problem List - Problems (1) LUCRECIA (acute kidney injury) Code(s): N17.9 - ACUTE KIDNEY FAILURE, UNSPECIFIED (2) CAD (coronary artery disease) Code(s): I25.10 - ATHSCL HEART DISEASE OF [place] CORONARY ARTERY W/O ANG PCTRS Qualifiers: Coronary Disease-Associated Artery/Lesion type: [place] artery [place] vs. transplanted heart: [place] heart Associated angina: without angina Qualified Code(s): I25.10 - Atherosclerotic heart disease of [place] coronary artery without angina pectoris (3) Chest tube in place Code(s): Z96.89 - PRESENCE OF OTHER SPECIFIED FUNCTIONAL IMPLANTS (4) Congestive heart failure Code(s): I50.9 - HEART FAILURE, UNSPECIFIED Qualifiers: Heart failure type: diastolic Heart failure chronicity: acute on chronic Qualified Code(s): I50.33 - Acute on chronic diastolic (congestive) heart failure (5) Difficulty breathing Code(s): R06.89 - OTHER ABNORMALITIES OF BREATHING (6) HTN (hypertension) Code(s): I10 - ESSENTIAL (PRIMARY) HYPERTENSION Qualifiers: Hypertension type: essential hypertension Qualified Code(s): I10 - Essential (primary) hypertension (7) History of percutaneous coronary intervention Code(s): Z98.61 - CORONARY ANGIOPLASTY STATUS (8) Hypercholesterolemia Code(s): E78.00 - PURE HYPERCHOLESTEROLEMIA, UNSPECIFIED (9) Large pleural effusion Code(s): J90 - PLEURAL EFFUSION, NOT ELSEWHERE CLASSIFIED (10) Metastatic breast cancer Code(s): C50.919 - MALIGNANT NEOPLASM OF UNSP SITE OF UNSPECIFIED FEMALE BREAST Assessment/Plan IMP BILATERAL PLEURAL EFFUSIONS LIKELY MALIGNANT METASTATIC BREAST CA ANEMIA ASHD S/P STENT DIASTOLIC HF CKD ELEVATED TROPONIN PLAN R VAT WITH BX ON MONDAY IF + MALIGNANT CELLS PLEUR-X CATH INSERTION O2 MONITOR CHEST TUBE DRAINAGE MONITOR LYTES,H+H DR CA Problem List - Problems (1) LUCR[place]IA (acute kidney injury) Code(s): N17.9 - ACUTE KIDNEY FAILURE, UNSPECIFIED (2) CAD (coronary artery disease) Code(s): I25.10 - ATHSCL HEART DISEASE OF [place] CORONARY ARTERY W/O ANG PCTRS Qualifiers: Coronary Disease-Associated Artery/Lesion type: [place] artery [place] vs. transplanted heart: [place] heart Associated angina: without angina Qualified Code(s): I25.10 - Atherosclerotic heart disease of [place] coronary artery without angina pectoris (3) Chest tube in place Code(s): Z96.89 - PRESENCE OF OTHER SPECIFIED FUNCTIONAL IMPLANTS (4) Congestive heart failure Code(s): I50.9 - HEART FAILURE, UNSPECIFIED Qualifiers: Heart failure type: diastolic Heart failure chronicity: acute on chronic Qualified Code(s): I50.33 - Acute on chronic diastolic (congestive) heart failure (5) Difficulty breathing Code(s): R06.89 - OTHER ABNORMALITIES OF BREATHING (6) HTN (hypertension) Code(s): I10 - ESSENTIAL (PRIMARY) HYPERTENSION Qualifiers: Hypertension type: essential hypertension Qualified Code(s): I10 - Essential (primary) hypertension (7) History of percutaneous coronary intervention Code(s): Z98.61 - CORONARY ANGIOPLASTY STATUS (8) Hypercholesterolemia Code(s): E78.00 - PURE HYPERCHOLESTEROLEMIA, UNSPECIFIED (9) Large pleural effusion Code(s): J90 - PLEURAL EFFUSION, NOT ELSEWHERE CLASSIFIED (10) Metastatic breast cancer Code(s): C50.919 - MALIGNANT NEOPLASM OF UNSP SITE OF UNSPECIFIED FEMALE BREAST
--- NOTE | 2018-10-16 10:34 | PN ---
Progress Note, Physician Chief Complaint: Events noted Chest tube in place Await VAT and pleurX catheter insertion later this week History of Present Illness: Patient was seen and examined. Awake and alert. Chart was reviewed Less SOB. No chest pain or palpitations Appears comfortable - Current Medication List Current Medications: Active Medications Piperacillin Sod/Tazobactam (Sod 3.375 gm/ Dextrose) 50 mls @ 100 mls/hr IVPB Q8H-IV JOSE ARMANDO; Protocol Last Admin: 10/16/18 09:22 Dose: 100 mls/hr Metoprolol Succinate (Toprol Xl -) 12.5 mg PO BID JOSE ARMANDO Last Admin: 10/16/18 09:22 Dose: 12.5 mg - Objective Vital Signs: Vital Signs Temperature 98 F 10/16/18 09:00 Pulse Rate 106 H 10/16/18 09:00 Respiratory Rate 18 10/16/18 09:00 Blood Pressure 102/62 10/16/18 09:00 O2 Sat by Pulse Oximetry (%) 99 10/16/18 06:00 Eyes: Yes: PERRL HENT: Yes: Atraumatic Neck: Yes: Supple Cardiovascular: Yes: Regular Rate and Rhythm, S1, S2 Respiratory: Yes: Diminished Gastrointestinal: Yes: Normal Bowel Sounds, Soft. No: Tenderness Edema: No Additional Findings/Remarks: Review of Systems Constitutional: denies Chills or Fever Respiratory: denies Cough or Sputum Production Cardiovascular: (+) SOB Gastrointestinal: denies Nausea, Vomiting, Diarrhea, Constipation or Abdominal Pain Genitourinary: denies Frequency or Urgency Musculoskeletal: No symptoms reported Labs: CBC, BMP 10/16/18 05:30 10/16/18 05:30 Problem List - Problems (1) LUCRECIA (acute kidney injury) Code(s): N17.9 - ACUTE KIDNEY FAILURE, UNSPECIFIED (2) Chest tube in place Code(s): Z96.89 - PRESENCE OF OTHER SPECIFIED FUNCTIONAL IMPLANTS (3) Congestive heart failure Code(s): I50.9 - HEART FAILURE, UNSPECIFIED Qualifiers: Heart failure type: diastolic Heart failure chronicity: acute on chronic Qualified Code(s): I50.33 - Acute on chronic diastolic (congestive) heart failure (4) Demand ischemia Code(s): I24.8 - OTHER FORMS OF ACUTE ISCHEMIC HEART DISEASE (5) Large pleural effusion Code(s): J90 - PLEURAL EFFUSION, NOT ELSEWHERE CLASSIFIED (6) Metastatic breast cancer Code(s): C50.919 - MALIGNANT NEOPLASM OF UNSP SITE OF UNSPECIFIED FEMALE BREAST (7) CAD (coronary artery disease) Code(s): I25.10 - ATHSCL HEART DISEASE OF [place] CORONARY ARTERY W/O ANG PCTRS Qualifiers: Coronary Disease-Associated Artery/Lesion type: [place] artery [place] vs. transplanted heart: [place] heart Associated angina: without angina Qualified Code(s): I25.10 - Atherosclerotic heart disease of [place] coronary artery without angina pectoris (8) History of percutaneous coronary intervention Code(s): Z98.61 - CORONARY ANGIOPLASTY STATUS (9) Hypercholesterolemia Code(s): E78.00 - PURE HYPERCHOLESTEROLEMIA, UNSPECIFIED (10) HTN (hypertension) Code(s): I10 - ESSENTIAL (PRIMARY) HYPERTENSION Qualifiers: Hypertension type: essential hypertension Qualified Code(s): I10 - Essential (primary) hypertension (11) Congestive heart failure with LV diastolic dysfunction, NYHA class 2 Code(s): I50.30 - UNSPECIFIED DIASTOLIC (CONGESTIVE) HEART FAILURE Assessment/Plan 1. Diastolic LV dysfunction with clinical class I-II NYHA classification LV failure - exudative pleural effusion argues against heart failure 2. Bilateral pleural effusion post left chest tube insertion 3. CAD post PCI/stent demand ischemia angina pectoris 4. HTN 5. Hyperlipidemia 6. 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 Acute kidney injury, with Hypokalemia 8. Thrombocytopenia improving, possible HIT 9. Abnormal LFTs, possible hepatic congestion 10. Hypocalcemia 11. Paroxysmal atrial tachycardia currently in sinus rhythm PLAN: 1. Currently chest tube draining - considering Bilateral VATS and pleural biopsy and insertion of IR guided pleurX catheter placement later this week ( cytology negative for malignancy) 2. ASA 81 qd held pending above procedure 3. Lipitor held with abnormal LFT 4. Continue Toprol XL 12.5 mg BID hemodynamics permitting 5. Resume Losartan once renal function improves and as tolerated 6. SQ heparin held 7. Complete empiric antibiotic course per ID Further plans are to follow Bello Combs MD
--- NOTE | 2018-10-16 13:07 | PN ---
Physical Exam: SUBJECTIVE: Patient seen and examined at bedside. No acute events overnight. Pt feels stronger today. OBJECTIVE: Vital Signs Temperature 98 F 10/16/18 09:00 Pulse Rate 106 H 10/16/18 09:00 Respiratory Rate 18 10/16/18 09:00 Blood Pressure 102/62 10/16/18 09:00 O2 Sat by Pulse Oximetry (%) 99 10/16/18 06:00 GENERAL: A&Ox3, no acute distress EYES: PERRLA, EOMI ENT: Moist mucus membranes NECK: No JVD LUNGS: CTA, no wheezes, pigtail catheter in place on L chest wall draining cloudy yellow fluid HEART: RRR, no murmurs ABDOMEN: Soft, nontender, BS present MUSCULOSKELETAL: No CVA Tenderness EXTREMITIES: 2+ pulses, no edema. NEUROLOGICAL: Cranial nerves II-XII intact. Laboratory Results - last 24 hr 10/16/18 10/16/18 05:30 05:30 WBC 10.0 RBC 2.64 L Hgb 9.2 L Hct 26.3 L MCV 99.7 H MCH 35.0 H MCHC 35.1 RDW 25.8 H Plt Count 168 MPV 8.2 Sodium 137 Potassium 3.2 L Chloride 104 Carbon Dioxide 24 Anion Gap 9 BUN 25 H Creatinine 1.5 H Creat Clearance w eGFR 34.13 Random Glucose 92 Calcium 6.7 L* Magnesium 2.1 Total Bilirubin 0.7 AST 77 H ALT 56 Alkaline Phosphatase 155 H Total Protein 3.7 L Albumin 1.4 L Active Medications Piperacillin Sod/Tazobactam (Sod 3.375 gm/ Dextrose) 50 mls @ 100 mls/hr IVPB Q8H-IV JOSE ARMANDO; Protocol Last Admin: 10/16/18 09:22 Dose: 100 mls/hr Metoprolol Succinate (Toprol Xl -) 12.5 mg PO BID JOSE ARMANDO Last Admin: 10/16/18 09:22 Dose: 12.5 mg IMAGING: Renal U/S: Small R mid and L renal/parapelvic cyst w/o gross evidence of hydronephrosis or renal stones b/l. R pleural effusion. CXR (10/11/18): Progressively worsening b/l pleural effusions. 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 #L-sided pleural effusion: malignant etiology most likely -Spoke to path, pleural fluid cytology neg. (Files were obtained from [place] that also showed exudative effusion without malignant cells). -will consider DC abx pending ID Eval -Per CT eval, scheduled for pleural biopsy and R VAT this ; surgeon d/w patient and family yesterday. Await further CT recs. -Per ID, currently on Zosyn (started 10/11) Day 5; await further ID recs #LUCRECIA vs CKD: stable, BUN/Cr ~25/1.5 -continue to hold lasix for now -can consider albumin + lasix for simultaneous osmotic maintenance and fluid mobilization -Per cardio, hold Losartan until renal fxn improves -Renal US noted above, no evid of hydronephrosis #Hx breast CA w/spinal mets -receives chemo weekly - Gemzar; Pt states her oncologist did not give her dose last week as she was volume-depleted. will need outpatient follow up after discharge. Pt's oncologist, Dr. Nelson, contacted. 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 #Troponinemia: likely demand #HTN- controlled -Cont home med Toprol XL 12.5 mg PO BID #CAD s/p 1 stent (2003) -hold ASA for now #HLD -Lipitor held due to abnormal LFTs #Hypocalcemia; corrected Ca is normal. #F/E/N -Off fluids -continue to follow lytes -regular diet #PPX -SQH on hold due to thrombocytopenia #Dispo -cont to monitor on tele -DC planning after pleural biopsy on Visit type - Emergency Visit Emergency Visit: Yes ED Registration Date: 10/04/18 Care time: The patient presented to the Emergency Department on the above date and was hospitalized for further evaluation of their emergent condition. - New Patient This patient is new to me today: No - Critical Care Critical Care patient: No
[2018-10-16] MEDS ORDERED: POTASSIUM CHLORIDE TABS 20 MEQ TABLET.ER (FP) PO ONE (13:11)
--- NOTE | 2018-10-16 13:43 | PN ---
Progress Note, Physician History of Present Illness: stable still with sob chest tube in place plan for procedure on - Current Medication List Current Medications: Active Medications Piperacillin Sod/Tazobactam (Sod 3.375 gm/ Dextrose) 50 mls @ 100 mls/hr IVPB Q8H-IV JOSE ARMANDO; Protocol Last Admin: 10/16/18 09:22 Dose: 100 mls/hr Metoprolol Succinate (Toprol Xl -) 12.5 mg PO BID JOSE ARMANDO Last Admin: 10/16/18 09:22 Dose: 12.5 mg - Objective Vital Signs: Vital Signs Temperature 98 F 10/16/18 09:00 Pulse Rate 106 H 10/16/18 09:00 Respiratory Rate 18 10/16/18 09:00 Blood Pressure 102/62 10/16/18 09:00 O2 Sat by Pulse Oximetry (%) 99 10/16/18 06:00 Constitutional: Yes: Calm, Mild Distress Cardiovascular: Yes: Regular Rate and Rhythm Respiratory: Yes: Poor Air Entry, Other (chest tube in place) Gastrointestinal: Yes: Normal Bowel Sounds, Soft Musculoskeletal: Yes: WNL Extremities: Yes: WNL Neurological: Yes: Alert, Oriented Psychiatric: Yes: Alert, Oriented Labs: CBC, BMP 10/16/18 05:30 10/16/18 05:30 INR, PTT INR 1.12 (0.83-1.09) H 10/04/18 17:59 Assessment/Plan Problem List - Problems (1) LUCRECIA (acute kidney injury) Code(s): N17.9 - ACUTE KIDNEY FAILURE, UNSPECIFIED (2) CAD (coronary artery disease) Code(s): I25.10 - ATHSCL HEART DISEASE OF [place] CORONARY ARTERY W/O ANG PCTRS Qualifiers: Coronary Disease-Associated Artery/Lesion type: [place] artery [place] vs. transplanted heart: [place] heart Associated angina: without angina Qualified Code(s): I25.10 - Atherosclerotic heart disease of [place] coronary artery without angina pectoris (3) Chest tube in place Code(s): Z96.89 - PRESENCE OF OTHER SPECIFIED FUNCTIONAL IMPLANTS (4) HTN (hypertension) Code(s): I10 - ESSENTIAL (PRIMARY) HYPERTENSION Qualifiers: Hypertension type: essential hypertension Qualified Code(s): I10 - Essential (primary) hypertension (5) Hypercholesterolemia Code(s): E78.00 - PURE HYPERCHOLESTEROLEMIA, UNSPECIFIED (6) Large pleural effusion Code(s): J90 - PLEURAL EFFUSION, NOT ELSEWHERE CLASSIFIED (7) Metastatic breast cancer Code(s): C50.919 - MALIGNANT NEOPLASM OF UNSP SITE OF UNSPECIFIED FEMALE BREAST Assessment/Plan B/L pleural effusion s/p b/l chest tube placement Metastatic Breast CA LUCRECIA CAD s/p PCI/stent HTN HLD plan continue abx monitor wbc await for procedure rest as per the team resp support
[2018-10-16] MEDS ORDERED: POTASSIUM CHLORIDE TABS 10 MEQ TABLET.ER (FP) PO ONE (15:15)
--- NOTE | 2018-10-16 15:31 | PN ---
Teaching Attending Note Name of Resident: Sarika Reddy ATTENDING PHYSICIAN STATEMENT I saw and evaluated the patient. I reviewed the resident's note and discussed the case with the resident. I agree with the resident's findings and plan as documented. SUBJECTIVE: Patient is comfortable, patient is going for Bx on , patient has no new complains. OBJECTIVE: Vital Signs Temperature 98 F 10/16/18 09:00 Pulse Rate 106 H 10/16/18 09:00 Respiratory Rate 18 10/16/18 09:00 Blood Pressure 102/62 10/16/18 09:00 O2 Sat by Pulse Oximetry (%) 100 10/16/18 09:00 GENERAL: Pleasant, sitting up in bed. awake, alert, and fully oriented HEENT: AT/NC. EOMI. [place]. Dry mucus membranes. NECK: Normal range of motion, supple without lymphadenopathy, JVD, or masses. LUNGS: CTA B/L. no wheezing or rhonchi HEART: RRR, normal S1 and S2 without murmur, rub or gallop. ABDOMEN: Soft, nontender, ND, normoactive bowel sounds, no guarding. L pigtail in place, draining. PSYCHIATRIC: Cooperative. Good eye contact. SKIN: Warm, dry, normal turgor. CBCD WBC 10.0 K/mm3 (4.0-10.0) 10/16/18 05:30 RBC 2.64 M/mm3 (3.60-5.2) L 10/16/18 05:30 Hgb 9.2 GM/dL (10.7-15.3) L 10/16/18 05:30 Hct 26.3 % (32.4-45.2) L 10/16/18 05:30 MCV 99.7 fl (80-96) H 10/16/18 05:30 MCHC 35.1 g/dl (32.0-36.0) 10/16/18 05:30 RDW 25.8 % (11.6-15.6) H 10/16/18 05:30 Plt Count 168 K/MM3 (134-434) 10/16/18 05:30 MPV 8.2 fl (7.5-11.1) 10/16/18 05:30 CMP Sodium 137 mmol/L (136-145) 10/16/18 05:30 Potassium 3.2 mmol/L (3.5-5.1) L 10/16/18 05:30 Chloride 104 mmol/L (98-107) 10/16/18 05:30 Carbon Dioxide 24 mmol/L (21-32) 10/16/18 05:30 Anion Gap 9 MMOL/L (8-16) 10/16/18 05:30 BUN 25 mg/dL (7-18) H 10/16/18 05:30 Creatinine 1.5 mg/dL (0.55-1.3) H 10/16/18 05:30 Creat Clearance w eGFR 34.13 (>60) 10/16/18 05:30 Random Glucose 92 mg/dL (74-106) 10/16/18 05:30 Calcium 6.7 mg/dL (8.5-10.1) L* 10/16/18 05:30 Total Bilirubin 0.7 mg/dL (0.2-1) 10/16/18 05:30 AST 77 U/L (15-37) H 10/16/18 05:30 ALT 56 U/L (13-61) 10/16/18 05:30 Alkaline Phosphatase 155 U/L (45-117) H 10/16/18 05:30 Total Protein 3.7 g/dl (6.4-8.2) L 10/16/18 05:30 Albumin 1.4 g/dl (3.4-5.0) L 10/16/18 05:30 CARDIAC ENZYMES Creatine Kinase 708 U/L (26-192) H 10/04/18 17:45 Troponin I 0.46 ng/ml (0.00-0.05) H 10/04/18 21:00 CMP Sodium 137 mmol/L (136-145) 10/16/18 05:30 Potassium 3.2 mmol/L (3.5-5.1) L 10/16/18 05:30 Chloride 104 mmol/L (98-107) 10/16/18 05:30 Carbon Dioxide 24 mmol/L (21-32) 10/16/18 05:30 Anion Gap 9 MMOL/L (8-16) 10/16/18 05:30 BUN 25 mg/dL (7-18) H 10/16/18 05:30 Creatinine 1.5 mg/dL (0.55-1.3) H 10/16/18 05:30 Creat Clearance w eGFR 34.13 (>60) 10/16/18 05:30 Random Glucose 92 mg/dL (74-106) 10/16/18 05:30 Lactic Acid 1.5 mmol/L (0.4-2.0) 10/05/18 05:20 Calcium 6.7 mg/dL (8.5-10.1) L* 10/16/18 05:30 Phosphorus 3.0 mg/dL (2.5-4.9) 10/07/18 05:30 Magnesium 2.1 mg/dL (1.8-2.4) 10/16/18 05:30 Total Bilirubin 0.7 mg/dL (0.2-1) 10/16/18 05:30 Direct Bilirubin 0.4 mg/dL (0.0-0.2) H 10/06/18 05:30 AST 77 U/L (15-37) H 10/16/18 05:30 ALT 56 U/L (13-61) 10/16/18 05:30 Alkaline Phosphatase 155 U/L (45-117) H 10/16/18 05:30 Creatine Kinase 708 U/L (26-192) H 10/04/18 17:45 Creatine Kinase Index 0.7 % (0.0-5.0) 10/04/18 17:45 CK-MB (CK-2) 5.4 ng/mL (0.5-3.6) H 10/04/18 17:45 Troponin I 0.46 ng/ml (0.00-0.05) H 10/04/18 21:00 B-Natriuretic Peptide 7576.5 pg/ml (5-125) H 10/04/18 17:45 Total Protein 3.7 g/dl (6.4-8.2) L 10/16/18 05:30 Albumin 1.4 g/dl (3.4-5.0) L 10/16/18 05:30 Home Medications Medication Instructions Recorded Aspirin [ASA -] 81 mg PO HS 03/29/14 Atorvastatin Ca [Lipitor -] 80 mg PO HS 03/29/14 Folic Acid 400 mcg PO DAILY 03/29/14 Losartan Potassium [Cozaar] 25 mg PO DAILY 03/29/14 Metoprolol Succinate [Toprol Xl] 12.5 mg PO BID 03/29/14 Cholecalciferol (Vitamin D3) 1,000 unit PO DAILY 10/04/18 [Vitamin D3] Gemcitabine HCl [Gemzar -] 200 mg IV ASDIR 10/04/18 Nitroglycerin Sublingual 0.4 mg PO PRN PRN 10/04/18 [Nitrostat -] Microbiology 10/04/18 17:45 Blood - Peripheral Venous Blood Culture - Final NO GROWTH AFTER 5 DAYS INCUBATION 10/04/18 17:45 Blood - Peripheral Venous Blood Culture - Final NO GROWTH AFTER 5 DAYS INCUBATION 10/05/18 12:09 Nasopharyngeal Swab Respiratory Virus (PCR) - Final 10/05/18 06:45 Pleural Fluid Gram Stain - Final 10/05/18 06:45 Pleural Fluid Body Fluid Culture - Final NO GROWTH OF AEROBIC ORGANISMS AFTER 48 HOURS INCUBATION 10/05/18 06:45 Pleural Fluid Anaerobic Culture - Final NO ANAEROBES WERE ISOLATED 10/04/18 22:32 Pleural Fluid Gram Stain - Final 10/04/18 22:32 Pleural Fluid Body Fluid Culture - Final NO GROWTH OF AEROBIC ORGANISMS AFTER 48 HOURS INCUBATION 10/04/18 22:32 Pleural Fluid Anaerobic Culture - Final NO ANAEROBES WERE ISOLATED 10/04/18 21:00 Urine - Urine Clean Catch Urine Culture - Final Contaminated: Please Repeat 10/05/18 11:20 Urine For Antigen Detection Legionella Antigen - Final 10/05/18 11:20 Urine For Antigen Detection Streptococcus pneumoniae Antigen (M - Final ASSESSMENT AND PLAN: Patient is a 73yo female with PMHx of 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 #Acute B/l Pleural effusions: fluid is exudative per LDH. malignant vs parapneumonic effusions, Fluid culture is negative so far, discussed with , will bx / b/l VATs procedure on morning, will keep the patient NPO prior to bx, surgeon discussed with the family for Bilateral VATS and pleural biopsy and insertion of pleurX catheters. # LUCRECIA : improved. 1.7-->1.5-->1.5 today, base line 1.2, continue oral hydration , hold losartan , blood pressure is stable. will repeat labs for am # LE edema, possibly due to hypoalbuminemia, improving. # Elevated trop: could be due to renal failure , cont BB , hold asa in case a chest tube or other procedure is needed # Transaminitis: will trend # hypocalcemia , corrected ca is normal DVT Px: Heparin
[2018-10-17] MEDS ORDERED: PIPERACILLIN/TAZOBACTAM 3.375 GM VIAL IVPB ONE ×3 (00:54→17:10)
[2018-10-17] MEDS ORDERED: DEXTROSE 5%-WATER - 50 ML IVPB ONE ×3 (00:54→17:11)
[2018-10-17] MEDS: PIPERACILLIN/TAZOB 3.375 GM 3.375 GM in DEXTROSE 5%-WATER - 50 ML IVPB SCH ×3 (01:00→17:17)
[2018-10-17 08:03] LABS: HEMATOCRIT 26.4 % (32.4-45.2); HEMOGLOBIN 9.5 GM/dL (10.7-15.3); MCH 35.8 pg (25.7-33.7); MEAN CELL VOLUME 99.5 fl (80-96); PLATELET COUNT 173 K/MM3 (134-434); RBC 2.65 M/mm3 (3.60-5.2); RDW 26.3 % (11.6-15.6); WHITE BLOOD COUNT 9.6 K/mm3 (4.0-10.0)
--- NOTE | 2018-10-17 09:02 | PN ---
Progress Note, Physician History of Present Illness: Dyspnea resolving, await bilateral VATs, pleural biopsy and pleurX catheter insertion . - Current Medication List Current Medications: Active Medications Piperacillin Sod/Tazobactam (Sod 3.375 gm/ Dextrose) 50 mls @ 100 mls/hr IVPB Q8H-IV JOSE ARMANDO; Protocol Last Admin: 10/17/18 01:00 Dose: 100 mls/hr Metoprolol Succinate (Toprol Xl -) 12.5 mg PO BID JOSE ARMANDO Last Admin: 10/16/18 21:16 Dose: 12.5 mg - Objective Vital Signs: Vital Signs Temperature 97.9 F 10/17/18 06:00 Pulse Rate 88 10/17/18 06:00 Respiratory Rate 18 10/17/18 06:00 Blood Pressure 102/51 L 10/17/18 06:00 O2 Sat by Pulse Oximetry (%) 99 10/17/18 06:00 Constitutional: Yes: No Distress, Calm, Thin Neck: Yes: Supple Cardiovascular: Yes: Regular Rate and Rhythm, Murmur (2/6 SM) Respiratory: Yes: Regular, Diminished, Other (Left chest tube in place) Edema: No Labs: CBC, BMP 10/17/18 06:25 INR, PTT INR 1.12 (0.83-1.09) H 10/04/18 17:59 - ....Imaging EKG: Report Reviewed (Tele: SR with PAC) Problem List - Problems (1) Demand ischemia Code(s): I24.8 - OTHER FORMS OF ACUTE ISCHEMIC HEART DISEASE (2) LUCRECIA (acute kidney injury) Code(s): N17.9 - ACUTE KIDNEY FAILURE, UNSPECIFIED (3) Congestive heart failure Code(s): I50.9 - HEART FAILURE, UNSPECIFIED Qualifiers: Heart failure type: diastolic Heart failure chronicity: acute on chronic Qualified Code(s): I50.33 - Acute on chronic diastolic (congestive) heart failure (4) Large pleural effusion Code(s): J90 - PLEURAL EFFUSION, NOT ELSEWHERE CLASSIFIED (5) Chest tube in place Code(s): Z96.89 - PRESENCE OF OTHER SPECIFIED FUNCTIONAL IMPLANTS (6) Metastatic breast cancer Code(s): C50.919 - MALIGNANT NEOPLASM OF UNSP SITE OF UNSPECIFIED FEMALE BREAST Assessment/Plan 1. Diastolic LV dysfunction with clinical class I-II NYHA classification LV failure - exudative pleural effusion argues against heart failure 2. Bilateral pleural effusion post left chest tube insertion 3. CAD post PCI/stent demand ischemia angina pectoris 4. HTN 5. Hyperlipidemia 6. 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 Acute kidney injury, with Hypokalemia 8. Thrombocytopenia improving, possible HIT 9. Abnormal LFTs, possible hepatic congestion 10. Hypocalcemia 11. Paroxysmal atrial tachycardia currently in sinus rhythm PLAN: 1. Currently chest tube draining - considering Bilateral VATS and pleural biopsy and insertion of IR guided pleurX catheter placement later this week ( cytology negative for malignancy) 2. ASA 81 qd held pending above procedure 3. Lipitor held with abnormal LFT 4. Continue Toprol XL 12.5 mg BID hemodynamics permitting 5. Resume Losartan once renal function improves and as tolerated 6. SQ heparin held 7. Complete empiric antibiotic course per ID
[2018-10-17 09:19] LABS: ANION GAP 9 MMOL/L (8-16); BLOOD UREA NITROGEN 23 mg/dL (7-18); CHLORIDE 104 mmol/L (98-107); CO2 25 mmol/L (21-32); CREATININE 1.5 mg/dL (0.55-1.3); GLUCOSE,RANDOM 83 mg/dL (74-106); POTASSIUM 3.8 mmol/L (3.5-5.1); SODIUM 137 mmol/L (136-145)
[2018-10-17] MEDS: metoPROLOL SUCCINATE 25 MG TAB.SR.24H (FP) PO SCH ×2 (09:34→21:15)
--- NOTE | 2018-10-17 10:38 | PN ---
Progress Note, Physician History of Present Illness: pulmonary alert,no distress,-cp,-sob at rest - Current Medication List Current Medications: Active Medications Piperacillin Sod/Tazobactam (Sod 3.375 gm/ Dextrose) 50 mls @ 100 mls/hr IVPB Q8H-IV JOSE ARMANDO; Protocol Last Admin: 10/17/18 09:35 Dose: 100 mls/hr Metoprolol Succinate (Toprol Xl -) 12.5 mg PO BID JOSE ARMANDO Last Admin: 10/17/18 09:34 Dose: 12.5 mg - Objective Vital Signs: Vital Signs Temperature 98.4 F 10/17/18 10:00 Pulse Rate 85 10/17/18 10:00 Respiratory Rate 20 10/17/18 10:00 Blood Pressure 108/76 10/17/18 10:00 O2 Sat by Pulse Oximetry (%) 100 10/17/18 09:00 Constitutional: Yes: Well Nourished, Calm Eyes: Yes: WNL HENT: Yes: WNL Neck: Yes: WNL Cardiovascular: Yes: Regular Rate and Rhythm, S1, S2 Respiratory: Yes: Diminished Gastrointestinal: Yes: Normal Bowel Sounds, Soft Extremities: Yes: WNL Edema: No Labs: CBC, BMP 10/17/18 06:25 10/17/18 06:25 INR, PTT INR 1.12 (0.83-1.09) H 10/04/18 17:59 Problem List - Problems (1) LUCRECIA (acute kidney injury) Code(s): N17.9 - ACUTE KIDNEY FAILURE, UNSPECIFIED (2) CAD (coronary artery disease) Code(s): I25.10 - ATHSCL HEART DISEASE OF [place] CORONARY ARTERY W/O ANG PCTRS Qualifiers: Coronary Disease-Associated Artery/Lesion type: [place] artery [place] vs. transplanted heart: [place] heart Associated angina: without angina Qualified Code(s): I25.10 - Atherosclerotic heart disease of [place] coronary artery without angina pectoris (3) Chest tube in place Code(s): Z96.89 - PRESENCE OF OTHER SPECIFIED FUNCTIONAL IMPLANTS (4) Congestive heart failure Code(s): I50.9 - HEART FAILURE, UNSPECIFIED Qualifiers: Heart failure type: diastolic Heart failure chronicity: acute on chronic Qualified Code(s): I50.33 - Acute on chronic diastolic (congestive) heart failure (5) Difficulty breathing Code(s): R06.89 - OTHER ABNORMALITIES OF BREATHING (6) HTN (hypertension) Code(s): I10 - ESSENTIAL (PRIMARY) HYPERTENSION Qualifiers: Hypertension type: essential hypertension Qualified Code(s): I10 - Essential (primary) hypertension (7) History of percutaneous coronary intervention Code(s): Z98.61 - CORONARY ANGIOPLASTY STATUS (8) Hypercholesterolemia Code(s): E78.00 - PURE HYPERCHOLESTEROLEMIA, UNSPECIFIED (9) Large pleural effusion Code(s): J90 - PLEURAL EFFUSION, NOT ELSEWHERE CLASSIFIED (10) Metastatic breast cancer Code(s): C50.919 - MALIGNANT NEOPLASM OF UNSP SITE OF UNSPECIFIED FEMALE BREAST Assessment/Plan IMP BILATERAL PLEURAL EFFUSIONS LIKELY MALIGNANT METASTATIC BREAST CA ANEMIA ASHD S/P STENT DIASTOLIC HF CKD ELEVATED TROPONIN PLAN R VAT WITH BX TOMORROW IF + MALIGNANT CELLS PLEUR-X CATH INSERTION O2 MONITOR CHEST TUBE DRAINAGE MONITOR LYTES,H+H DR CA Problem List - Problems (1) LUCRECIA (acute kidney injury) Code(s): N17.9 - ACUTE KIDNEY FAILURE, UNSPECIFIED (2) CAD (coronary artery disease) Code(s): I25.10 - ATHSCL HEART DISEASE OF [place] CORONARY ARTERY W/O ANG PCTRS Qualifiers: Coronary Disease-Associated Artery/Lesion type: [place] artery [place] vs. transplanted heart: [place] heart Associated angina: without angina Qualified Code(s): I25.10 - Atherosclerotic heart disease of [place] coronary artery without angina pectoris (3) Chest tube in place Code(s): Z96.89 - PRESENCE OF OTHER SPECIFIED FUNCTIONAL IMPLANTS (4) Congestive heart failure Code(s): I50.9 - HEART FAILURE, UNSPECIFIED Qualifiers: Heart failure type: diastolic Heart failure chronicity: acute on chronic Qualified Code(s): I50.33 - Acute on chronic diastolic (congestive) heart failure (5) Difficulty breathing Code(s): R06.89 - OTHER ABNORMALITIES OF BREATHING (6) HTN (hypertension) Code(s): I10 - ESSENTIAL (PRIMARY) HYPERTENSION Qualifiers: Hypertension type: essential hypertension Qualified Code(s): I10 - Essential (primary) hypertension (7) History of percutaneous coronary intervention Code(s): Z98.61 - CORONARY ANGIOPLASTY STATUS (8) Hypercholesterolemia Code(s): E78.00 - PURE HYPERCHOLESTEROLEMIA, UNSPECIFIED (9) Large pleural effusion Code(s): J90 - PLEURAL EFFUSION, NOT ELSEWHERE CLASSIFIED (10) Metastatic breast cancer Code(s): C50.919 - MALIGNANT NEOPLASM OF UNSP SITE OF UNSPECIFIED FEMALE BREAST
--- NOTE | 2018-10-17 11:13 | PN ---
Physical Exam: SUBJECTIVE: Patient seen and examined at bedside. No acute events overnight. Pt denies chest pain, sob, abd pain, n/v, f/c. Amauri PO diet. Has redness at the bottom of the R heel, and is now wearing cushion for support. No other complaints. OBJECTIVE: Vital Signs Temperature 98.4 F 10/17/18 10:00 Pulse Rate 85 10/17/18 10:00 Respiratory Rate 20 10/17/18 10:00 Blood Pressure 108/76 10/17/18 10:00 O2 Sat by Pulse Oximetry (%) 100 10/17/18 09:00 GENERAL: A&Ox3, no acute distress EYES: PERRLA, EOMI ENT: Moist mucus membranes NECK: No JVD LUNGS: CTA, no wheezes, pigtail catheter in place on L chest wall draining cloudy yellow fluid HEART: RRR, no murmurs ABDOMEN: Soft, nontender, BS present MUSCULOSKELETAL: No CVA Tenderness. Redness on R heel. EXTREMITIES: 2+ pulses, no edema. NEUROLOGICAL: Cranial nerves II-XII intact. CBCD WBC 9.6 K/mm3 (4.0-10.0) 10/17/18 06:25 RBC 2.65 M/mm3 (3.60-5.2) L 10/17/18 06:25 Hgb 9.5 GM/dL (10.7-15.3) L 10/17/18 06:25 Hct 26.4 % (32.4-45.2) L 10/17/18 06:25 MCV 99.5 fl (80-96) H 10/17/18 06:25 MCHC 36.0 g/dl (32.0-36.0) 10/17/18 06:25 RDW 26.3 % (11.6-15.6) H 10/17/18 06:25 Plt Count 173 K/MM3 (134-434) 10/17/18 06:25 MPV 8.0 fl (7.5-11.1) 10/17/18 06:25 CMP Sodium 137 mmol/L (136-145) 10/17/18 06:25 Potassium 3.8 mmol/L (3.5-5.1) 10/17/18 06:25 Chloride 104 mmol/L (98-107) 10/17/18 06:25 Carbon Dioxide 25 mmol/L (21-32) 10/17/18 06:25 Anion Gap 9 MMOL/L (8-16) 10/17/18 06:25 BUN 23 mg/dL (7-18) H 10/17/18 06:25 Creatinine 1.5 mg/dL (0.55-1.3) H 10/17/18 06:25 Creat Clearance w eGFR 34.13 (>60) 10/17/18 06:25 Calcium 6.8 mg/dL (8.5-10.1) L* 10/17/18 06:25 Total Bilirubin 0.7 mg/dL (0.2-1) 10/16/18 05:30 AST 77 U/L (15-37) H 10/16/18 05:30 ALT 56 U/L (13-61) 10/16/18 05:30 Alkaline Phosphatase 155 U/L (45-117) H 10/16/18 05:30 Total Protein 3.7 g/dl (6.4-8.2) L 10/16/18 05:30 Albumin 1.4 g/dl (3.4-5.0) L 10/16/18 05:30 Active Medications Piperacillin Sod/Tazobactam (Sod 3.375 gm/ Dextrose) 50 mls @ 100 mls/hr IVPB Q8H-IV JOSE ARMANDO; Protocol Last Admin: 10/17/18 09:35 Dose: 100 mls/hr Metoprolol Succinate (Toprol Xl -) 12.5 mg PO BID JOSE ARMANDO Last Admin: 10/17/18 09:34 Dose: 12.5 mg IMAGING: Renal U/S: Small R mid and L renal/parapelvic cyst w/o gross evidence of hydronephrosis or renal stones b/l. R pleural effusion. CXR (10/11/18): Progressively worsening b/l pleural effusions. 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 #L-sided pleural effusion: malignant etiology most likely -Spoke to path, pleural fluid cytology neg. (Files were obtained from [place] that also showed exudative effusion without malignant cells). -Per CT eval, scheduled for pleural biopsy and R VAT this at 8am; surgeon d/w patient and family this past Monday. NPO at midnight. -Per ID, currently on Zosyn (started 10/11) Day 6; await further ID recs #LUCRECIA vs CKD: stable, BUN/Cr ~25/1.5 -continue to hold lasix for now -can consider albumin + lasix for simultaneous osmotic maintenance and fluid mobilization -Per cardio, hold Losartan until renal fxn improves -Renal US noted above, no evid of hydronephrosis #Hx breast CA w/spinal mets -receives chemo weekly - Gemzar; Pt states her oncologist did not give her dose last week as she was volume-depleted. will need outpatient follow up after discharge. Pt's oncologist, Dr. Nelson, contacted. Called oncologist office again, left a message with legal secretary receptionist to call back for update on pt's current status. #Troponinemia: likely demand #HTN- controlled -Cont home med Toprol XL 12.5 mg PO BID #CAD s/p 1 stent (2003) -hold ASA for now #HLD -Lipitor held due to abnormal LFTs #Hypocalcemia; corrected Ca is normal. #F/E/N -Off fluids -continue to follow lytes -regular diet #PPX -SQH on hold due to thrombocytopenia #Dispo -cont to monitor on tele -Possible DC planning after pleural biopsy tomorrow Visit type - Emergency Visit Emergency Visit: Yes ED Registration Date: 10/04/18 Care time: The patient presented to the Emergency Department on the above date and was hospitalized for further evaluation of their emergent condition. - New Patient This patient is new to me today: No - Critical Care Critical Care patient: No
[2018-10-17 12:33] LABS: CALCIUM 6.8 mg/dL (8.5-10.1)
--- NOTE | 2018-10-17 13:53 | PN ---
Progress Note, Physician History of Present Illness: stable still with sob chest tube in place plan for procedure - Current Medication List Current Medications: Active Medications Piperacillin Sod/Tazobactam (Sod 3.375 gm/ Dextrose) 50 mls @ 100 mls/hr IVPB Q8H-IV JOSE ARMANDO; Protocol Metoprolol Succinate (Toprol Xl -) 12.5 mg PO BID JOSE ARMANDO Last Admin: 10/17/18 09:34 Dose: 12.5 mg - Objective Vital Signs: Vital Signs Temperature 98.4 F 10/17/18 10:00 Pulse Rate 85 10/17/18 10:00 Respiratory Rate 20 10/17/18 10:00 Blood Pressure 108/76 10/17/18 10:00 O2 Sat by Pulse Oximetry (%) 100 10/17/18 09:00 Constitutional: Yes: No Distress, Calm Cardiovascular: Yes: Regular Rate and Rhythm Respiratory: Yes: Poor Air Entry, Other (chest ube in place) Gastrointestinal: Yes: Normal Bowel Sounds, Soft Neurological: Yes: Alert, Oriented Psychiatric: Yes: Alert, Oriented Labs: CBC, BMP 10/17/18 06:25 10/17/18 06:25 INR, PTT INR 1.12 (0.83-1.09) H 10/04/18 17:59 Assessment/Plan Problem List - Problems (1) LUCRECIA (acute kidney injury) Code(s): N17.9 - ACUTE KIDNEY FAILURE, UNSPECIFIED (2) CAD (coronary artery disease) Code(s): I25.10 - ATHSCL HEART DISEASE OF [place] CORONARY ARTERY W/O ANG PCTRS Qualifiers: Coronary Disease-Associated Artery/Lesion type: [place] artery [place] vs. transplanted heart: [place] heart Associated angina: without angina Qualified Code(s): I25.10 - Atherosclerotic heart disease of [place] coronary artery without angina pectoris (3) Chest tube in place Code(s): Z96.89 - PRESENCE OF OTHER SPECIFIED FUNCTIONAL IMPLANTS (4) HTN (hypertension) Code(s): I10 - ESSENTIAL (PRIMARY) HYPERTENSION Qualifiers: Hypertension type: essential hypertension Qualified Code(s): I10 - Essential (primary) hypertension (5) Hypercholesterolemia Code(s): E78.00 - PURE HYPERCHOLESTEROLEMIA, UNSPECIFIED (6) Large pleural effusion Code(s): J90 - PLEURAL EFFUSION, NOT ELSEWHERE CLASSIFIED (7) Metastatic breast cancer Code(s): C50.919 - MALIGNANT NEOPLASM OF UNSP SITE OF UNSPECIFIED FEMALE BREAST Assessment/Plan B/L pleural effusion s/p b/l chest tube placement Metastatic Breast CA LUCRECIA CAD s/p PCI/stent HTN HLD plan continue abx await for procedure rest as per the team resp support
--- NOTE | 2018-10-17 16:12 | SPA.PREOP ---
- PRE-OP NOTE Dx: Recurrent pleural effusion, stage 4 R breast CA with chemoport w/mets to spine, HTN, HLD, CAD s/p 1 stent (2013), angina, who presents to the ED c/o SOB on rest and exertion over the past two weeks Planned Procedure: Right VATs Surgeon: Chance Last Vital Signs Temp Pulse Resp BP Pulse Ox 98.4 F 85 20 108/76 100 10/17/18 10:00 10/17/18 10:00 10/17/18 10:00 10/17/18 10:00 10/17/18 09:00 Lab Results WBC 9.6 K/mm3 (4.0-10.0) 10/17/18 06:25 RBC 2.65 M/mm3 (3.60-5.2) L 10/17/18 06:25 Hgb 9.5 GM/dL (10.7-15.3) L 10/17/18 06:25 Hct 26.4 % (32.4-45.2) L 10/17/18 06:25 MCV 99.5 fl (80-96) H 10/17/18 06:25 MCHC 36.0 g/dl (32.0-36.0) 10/17/18 06:25 RDW 26.3 % (11.6-15.6) H 10/17/18 06:25 Plt Count 173 K/MM3 (134-434) 10/17/18 06:25 Sodium 137 mmol/L (136-145) 10/17/18 06:25 Potassium 3.8 mmol/L (3.5-5.1) 10/17/18 06:25 Chloride 104 mmol/L (98-107) 10/17/18 06:25 Carbon Dioxide 25 mmol/L (21-32) 10/17/18 06:25 Anion Gap 9 MMOL/L (8-16) 10/17/18 06:25 BUN 23 mg/dL (7-18) H 10/17/18 06:25 Creatinine 1.5 mg/dL (0.55-1.3) H 10/17/18 06:25 Random Glucose 83 mg/dL (74-106) 10/17/18 06:25 Calcium 6.8 mg/dL (8.5-10.1) L* 10/17/18 06:25 INR 1.12 (0.83-1.09) H 10/04/18 17:59 Problem List - Problems (1) Metastatic breast cancer Assessment/Plan: 1. Make NPO after midnight except po meds 2. GI/DVT PPX 3. Medical optimization / clearance 4. Consent to be obtained by surgeon after risks, benefits and alternatives discussed with patient and or Health Care Proxy. 5. [facility] Code(s): C50.919 - MALIGNANT NEOPLASM OF UNSP SITE OF UNSPECIFIED FEMALE BREAST Visit type - Case Type Case Type: ED Admission
--- NOTE | 2018-10-17 18:44 | PN ---
Teaching Attending Note Name of Resident: Subhash Nguyen ATTENDING PHYSICIAN STATEMENT I saw and evaluated the patient. I reviewed the resident's note and discussed the case with the resident. I agree with the resident's findings and plan as documented. SUBJECTIVE: no pain, SOB , or other complaints OBJECTIVE: NAD, Awake, dry MM. Cv: RRR Lungs: decreased breath sounds a R base. L chest tube with yellow fluids in container Ext : No edema Abd: soft, NT, ND, NL BS ASSESSMENT AND PLAN: Pleasant unfortunate 73 y/o lady with h/o Stage IV breast Cancer, HTN, HLD, CAD s/p PCI, currently on chemotherapy, and recent diagnosis of pleural effusions s/ p thoracentesis who presented with SOB. 1- B/l Pleural effusions, exudative fluid 2- LUCRECIA . ? CKD 3- Elevated trop 4- Transaminitis 5- hypoclacemia /hypoalbuminemia plan: - path report reviewed. neg for malignancy - for VATS tomorrow and pleural bx/possible pleurX cath - NPO after MN - cont to hold ASA for procedure - monitor renal function - corrected ca nL - Zosyn per ID
[2018-10-17] MEDS ORDERED: CHLORHEXIDINE GLUCONATE 4% CLEANSER FOR DECOLONIZATION TP SCH (22:00)
[2018-10-18] MEDS ORDERED: PIPERACILLIN/TAZOBACTAM 3.375 GM VIAL IVPB ONE ×3 (04:19→20:03)
[2018-10-18] MEDS ORDERED: DEXTROSE 5%-WATER - 50 ML IVPB ONE ×3 (04:20→20:03)
[2018-10-18] MEDS: PIPERACILLIN/TAZOB 3.375 GM 3.375 GM in DEXTROSE 5%-WATER - 50 ML IVPB SCH ×3 (04:25→17:31)
[2018-10-18] MEDS ORDERED: LIDOCAINE 1%-EPI 1:100,000 30 ML MDV IJ ONE (07:27)
[2018-10-18] MEDS ORDERED: BUPIVACAINE HCL/PF 0.5% (5MG/ML) 10 ML VIAL ONE (07:27)
[2018-10-18] MEDS ORDERED: BENZOIN TINCTURE SWABSTICK TP ONE (07:27)
[2018-10-18 08:06] LABS: HEMOGLOBIN 9.7 GM/dL (10.7-15.3); MCH 34.8 pg (25.7-33.7); MCHC 34.7 g/dl (32.0-36.0); MEAN CELL VOLUME 100.5 fl (80-96); MEAN PLT VOLUME 7.8 fl (7.5-11.1); PLATELET COUNT 181 K/MM3 (134-434); RBC 2.79 M/mm3 (3.60-5.2); RDW 26.9 % (11.6-15.6); WHITE BLOOD COUNT 12.3 K/mm3 (4.0-10.0)
[2018-10-18] MEDS ORDERED: MIDAZOLAM HCL 2 MG/2 ML SINGLE DOSE VIAL ONE ×2 (08:16→08:38)
[2018-10-18] MEDS ORDERED: PROPOFOL 20 ML ONE ×2 (08:16→08:51)
[2018-10-18] MEDS ORDERED: LIDOCAINE HCL/PF 2% SDV 5ML VIAL ONE (08:16)
[2018-10-18 08:50] LABS: INR 1.14 (0.83-1.09); PROTHROMBIN TIME (PATIENT) 13.5 SEC (9.7-13.0)
[2018-10-18] MEDS ORDERED: LIDOCAINE 1%/EPI 1:100000 (50 ML MULTI DOSE VIAL) INF ONE (08:55)
[2018-10-18] MEDS ORDERED: BUPIVACAINE HCL/PF (5 MG/ML) 30 ML VIAL IJ ONE (08:55)
[2018-10-18 08:58] LABS: ANION GAP 11 MMOL/L (8-16); BLOOD UREA NITROGEN 24 mg/dL (7-18); CALCIUM 7.3 mg/dL (8.5-10.1); CHLORIDE 102 mmol/L (98-107); CO2 24 mmol/L (21-32); CREATININE 1.5 mg/dL (0.55-1.3); GLUCOSE,RANDOM 103 mg/dL (74-106); POTASSIUM 3.4 mmol/L (3.5-5.1); SODIUM 137 mmol/L (136-145)
[2018-10-18] MEDS ORDERED: SODIUM CHLORIDE IVPB ONE (09:00)
[2018-10-18] MEDS ORDERED: DOXYCYCLINE IVPB ONE (09:00)
--- NOTE | 2018-10-18 09:55 | OP ---
Operative Note - Note: Operative Date: 10/18/18 Pre-Operative Diagnosis: Pleural effusion Operation: Right VATS with pleural biopsy and pleurex catheter placement Post-Operative Diagnosis: Same as Pre-op Surgeon: Nevin Fletcher Shipping Lead: Olegario Bennett Anesthesiologist/WELT INSOLE CHANNELER: Yesica Leblanc Anesthesia: MAC Specimens Removed: pleural biopsy and pleural fluid Blood Volume Replaced (mls): 15 Operative Report Dictated: Yes
--- NOTE | 2018-10-18 09:56 | SURG ---
Surgery Legal Cashier Note Legal Cashier: Olegario Bennett PA-C Date of Service: 10/18/18 Diagnosis: pleural effusion Procedure: Right VATS with pleural biopsy and pleurex catheter placement I was present for the entirety of the operative procedure. For further detail, please refer to operative report.
[2018-10-18] MEDS ORDERED: ACETAMINOPHEN 1000 MG/100 ML VIAL (NON FORMULARY) IVPB ONE (10:54)
[2018-10-18] MEDS ORDERED: ACETAMINOPHEN INJECTION 100 ML IVPB ONE (10:54)
[2018-10-18 11:29] LABS: BF WBC & OTHER NUCLEATED CELLS 72 /mm3
[2018-10-18] MEDS: LACTATED RINGERS SOLUTION 1,000 ML IV SCH ×2 (13:00→21:04)
--- NOTE | 2018-10-18 13:47 | PN ---
Physical Exam: SUBJECTIVE: Patient seen and examined, post-op. Doing well, minimal pain. Denies chest pain, sob improving. Amauri PO diet. OBJECTIVE: Vital Signs Temperature 97.8 F 10/18/18 12:10 Pulse Rate 103 H 10/18/18 12:10 Respiratory Rate 18 10/18/18 12:10 Blood Pressure 127/72 10/18/18 12:10 O2 Sat by Pulse Oximetry (%) 100 10/18/18 12:10 GENERAL: A&Ox3, no acute distress. Laying comfortably. EYES: PERRLA, EOMI ENT: Moist mucus membranes NECK: No JVD LUNGS: CTA, no wheezes, pigtail catheter in place on L chest wall draining cloudy yellow fluid. R VAT draining dark fluid. HEART: RRR, no murmurs ABDOMEN: Soft, nontender, BS present MUSCULOSKELETAL: No CVA Tenderness. Redness on R heel. EXTREMITIES: 2+ pulses, no edema. NEUROLOGICAL: Cranial nerves II-XII intact. CBCD WBC 12.3 K/mm3 (4.0-10.0) H 10/18/18 06:30 RBC 2.79 M/mm3 (3.60-5.2) L 10/18/18 06:30 Hgb 9.7 GM/dL (10.7-15.3) L 10/18/18 06:30 Hct 28.0 % (32.4-45.2) L 10/18/18 06:30 MCV 100.5 fl (80-96) H 10/18/18 06:30 MCHC 34.7 g/dl (32.0-36.0) 10/18/18 06:30 RDW 26.9 % (11.6-15.6) H 10/18/18 06:30 Plt Count 181 K/MM3 (134-434) 10/18/18 06:30 MPV 7.8 fl (7.5-11.1) 10/18/18 06:30 CMP Sodium 137 mmol/L (136-145) 10/18/18 06:00 Potassium 3.4 mmol/L (3.5-5.1) L 10/18/18 06:00 Chloride 102 mmol/L (98-107) 10/18/18 06:00 Carbon Dioxide 24 mmol/L (21-32) 10/18/18 06:00 Anion Gap 11 MMOL/L (8-16) 10/18/18 06:00 BUN 24 mg/dL (7-18) H 10/18/18 06:00 Creatinine 1.5 mg/dL (0.55-1.3) H 10/18/18 06:00 Creat Clearance w eGFR 34.13 (>60) 10/18/18 06:00 Calcium 7.3 mg/dL (8.5-10.1) L 10/18/18 06:00 Total Bilirubin 0.7 mg/dL (0.2-1) 10/16/18 05:30 AST 77 U/L (15-37) H 10/16/18 05:30 ALT 56 U/L (13-61) 10/16/18 05:30 Alkaline Phosphatase 155 U/L (45-117) H 10/16/18 05:30 Total Protein 3.7 g/dl (6.4-8.2) L 10/16/18 05:30 Albumin 1.4 g/dl (3.4-5.0) L 10/16/18 05:30 Active Medications Piperacillin Sod/Tazobactam (Sod 3.375 gm/ Dextrose) 50 mls @ 100 mls/hr IVPB Q8H-IV JOSE ARMANDO; Protocol Metoprolol Succinate (Toprol Xl -) 12.5 mg PO BID JOSE ARMANDO CONSULT: CT surg- Dr. Fletcher ID- Dr. Vazquez Cardio- Dr. Lisandro Pena- Dr. Webb IMAGING: Renal U/S: Small R mid and L renal/parapelvic cyst w/o gross evidence of hydronephrosis or renal stones b/l. R pleural effusion. CXR (10/11/18): Progressively worsening b/l pleural effusions. 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 #L-sided pleural effusion: malignant etiology most likely -s/p R VAT, pleural biopsy, POD #0. Frozen section neg for malignancy, await biopsy. -Per ID, currently on Zosyn (started 10/11) Day 8; 1 dose of IV Doxy given post- op. Continue IV Zosyn post-op for now per ID recs -Cont to monitor for at least 48 hours; will follow up CT surg recs regarding removal of L sided pigtail catheter, although still draining. -Pleural fluid studies pending #LUCRECIA vs CKD: stable, BUN/Cr ~24/1.5 -continue to hold lasix for now -can consider albumin + lasix for simultaneous osmotic maintenance and fluid mobilization -Per cardio, hold Losartan until renal fxn improves -Renal US noted above, no evid of hydronephrosis #Hx breast CA w/spinal mets -receives chemo weekly - Gemzar; Pt states her oncologist did not give her dose last week as she was volume-depleted. will need outpatient follow up after discharge. Pt's oncologist, Dr. Nelson, contacted. Called oncologist office again, left a message with painter barrel to call back for update on pt's current status. #Troponinemia: likely demand #HTN- controlled -Cont home med Toprol XL 12.5 mg PO BID #CAD s/p 1 stent (2003) -hold ASA for now #HLD -Lipitor held due to abnormal LFTs #Hypocalcemia; corrected Ca is normal. #F/E/N -LR @ 76 -continue to follow lytes -regular diet #PPX -SQH on hold due to thrombocytopenia #Dispo -cont to monitor on tele Visit type - Emergency Visit Emergency Visit: Yes ED Registration Date: 10/04/18 Care time: The patient presented to the Emergency Department on the above date and was hospitalized for further evaluation of their emergent condition. - New Patient This patient is new to me today: No - Critical Care Critical Care patient: No
[2018-10-18 14:16] LABS: BODY FLUID BASOPHIL 1 %; BODY FLUID MACROPHAGES 6 %; BODY FLUID MESOTHELIAL 5 %; BODY FLUID MONOCYTE 8 %; BODYL FLD EOSINOPHIL 2 %
[2018-10-18] MEDS: metoPROLOL SUCCINATE 25 MG TAB.SR.24H (FP) PO SCH ×2 (14:36→21:04)
[2018-10-18] MEDS ORDERED: ONDANSETRON 4 MG/2 ML VIAL IVPUSH PRN (14:37)
[2018-10-18] MEDS ORDERED: ACETAMINOPHEN 1000 MG/100 ML VIAL (NON FORMULARY) IVPB PRN (14:38)
--- NOTE | 2018-10-18 15:18 | PN ---
Teaching Attending Note Name of Resident: Svetlana Brown ATTENDING PHYSICIAN STATEMENT I saw and evaluated the patient. I reviewed the resident's note and discussed the case with the resident. I agree with the resident's findings and plan as documented. ASSESSMENT AND PLAN: Pleasant unfortunate 73 y/o lady with h/o Stage IV breast Cancer, HTN, HLD, CAD s/p PCI, currently on chemotherapy, and recent diagnosis of pleural effusions s/ p thoracentesis who presented with SOB. 1- B/l Pleural effusions, exudative fluid 2- LUCRECIA . ? CKD 3- Elevated trop 4- Transaminitis 5- hypoclacemia /hypoalbuminemia plan: - S/P VATS with R pleurX cath placement and Bx - plan d/w Dr. kline, best option for her is removing L pig tail and then pleurX cath and pleurodesis after fluid accumulate in near future. . will d/w patient - Cont Abx per ID - cont to hold statin and losartan - monitor renal function - corrected ca nL Dispo : close form DC . pending plan for L sided Pig tail
[2018-10-19] MEDS: PIPERACILLIN/TAZOB 3.375 GM 3.375 GM in DEXTROSE 5%-WATER - 50 ML IVPB SCH ×2 (01:50→10:24)
[2018-10-19 07:02] LABS: ALBUMIN 1.4 g/dl (3.4-5.0); ALK PHOS 152 U/L (45-117); ANION GAP 7 MMOL/L (8-16); BILIRUBIN,TOTAL 0.6 mg/dL (0.2-1); BLOOD UREA NITROGEN 26 mg/dL (7-18); CHLORIDE 105 mmol/L (98-107); CO2 25 mmol/L (21-32); CREATININE 1.5 mg/dL (0.55-1.3); GLUCOSE,RANDOM 90 mg/dL (74-106); POTASSIUM 3.8 mmol/L (3.5-5.1); SGOT/AST 65 U/L (15-37); SGPT/ALT 42 U/L (13-61); SODIUM 137 mmol/L (136-145); TOT PROT 3.8 g/dl (6.4-8.2)
[2018-10-19 07:06] LABS: CALCIUM 6.9 mg/dL (8.5-10.1)
--- NOTE | 2018-10-19 07:12 | OP ---
DATE OF OPERATION: DATE OF DICTATION: 10/18/2018 SURGEON: Nevin Reece MD DIRECTOR AIRPORT OPERATIONS: Oelgario Bennett PA-C ANESTHESIOLOGIST: Yesica Leblanc MD PREOPERATIVE DIAGNOSES: Stage IV right breast cancer with metastasis to spine, hypertension, hyperlipidemia, coronary artery disease status post 1 coronary stent, angina pectoris, pleural fluid. POSTOPERATIVE DIAGNOSES: Stage IV right breast cancer with metastasis to spine, hypertension, hyperlipidemia, coronary artery disease status post 1 coronary stent, angina pectoris, pleural fluid. PROCEDURE PERFORMED: Right video-assisted thoracoscopic surgery pleural biopsy, pleurodesis, and insertion of PleurX catheter. SPECIMEN: Pleural fluid and pleural biopsy. Frozen section showed no malignancy. TUBES: One PleurX catheter. IMPLANTS: Not applicable. CONDITION: Hemodynamically stable, transferred to PACU. INDICATION: A 73-year-old female with past medical history of recurrent pleural effusion on the left side, stage IV right breast cancer with chemotherapy port with metastases to spine, hypertension, HLD, CAD status post stent, presented to ED on October 04 for shortness of breath. CT of chest revealed right and left pleural effusion, left larger than right. A pigtail was inserted. In the beginning, the cytology was non-diagnostic. The cytology was re-sent and was found non-malignant, but exudative in character. We discussed with patient different treatment options such as bilateral VATS, PleurX placement, pleural biopsy versus right-sided VATS pleural biopsy and treatment of the left-sided fluid at a later time. We decided to go for a right VATS pleural biopsy and PleurX insertion. Risks, benefits, and alternative treatment options were presented to patient. Patient's daughter, , and patient consented for surgery. PROCEDURE IN DETAIL: Patient was brought into the OR, was placed in supine position. IV access was done by anesthesiologist. IV sedation was given. Patient was placed in a left lateral decubitus position, right side up; prepped and draped in sterile fashion. Maximum pressure points were adequately padded. Hereafter, at the level of IC7, local anesthesia of 0.25% Marcaine and 1% lidocaine given. Incision was made, pleura entered. About 800 mL of fluid was drained, sent for chemistry, culture, and cytology. Hereafter, 5-mm camera was inserted into the chest. Parietal and visceral pleura were inspected. No pleural metastasis was observed. Random pleural biopsy was performed. Per limited frozen section, did not show any malignancy. Hereafter, chemical pleurodesis using 500 mg of doxycycline in 50 mL saline was sprayed into the chest wall and over visceral and parietal pleura. Hereafter, a PleurX catheter was tunneled under the skin and inserted into the chest. Incision was closed. The tube was connected to Pleurovac. Patient tolerated the procedure well. I performed the procedure as dictated above and remained available thereafter. NEVIN REECE M.D. [id number]
--- NOTE | 2018-10-19 08:09 | PN ---
Progress Note (short form) - Note Progress Note: Anesthesia POD#1 S/P Right lung VATS,biopsy and Pleurex cathetor Placement under MAC VSS,looking better than before. Breathing is improved. No complications to anesthesia seen. Yesica Leblanc MD.
--- NOTE | 2018-10-19 09:35 | PN ---
Physical Exam: SUBJECTIVE: Patient seen and examined at bedside. No acute events overnight. Pt feels wells. Denies cp, sob, abd pain. Amauri PO diet. Has no complaints at this time. OBJECTIVE: Vital Signs Temperature 98.1 F 10/19/18 06:00 Pulse Rate 104 H 10/19/18 06:00 Respiratory Rate 17 10/19/18 06:00 Blood Pressure 124/75 10/19/18 06:00 O2 Sat by Pulse Oximetry (%) 100 10/18/18 19:32 GENERAL: A&Ox3, no acute distress. Laying comfortably. EYES: PERRLA, EOMI ENT: Moist mucus membranes NECK: No JVD LUNGS: CTA, no wheezes, pigtail catheter in place on L chest wall draining cloudy yellow fluid. R VAT draining dark fluid. HEART: RRR, no murmurs ABDOMEN: Soft, nontender, BS present MUSCULOSKELETAL: No CVA Tenderness. Redness on R heel. EXTREMITIES: 2+ pulses, no edema. NEUROLOGICAL: Cranial nerves II-XII intact. CBC, BMP 10/18/18 06:30 10/19/18 05:30 Microbiology 10/18/18 09:00 Pleural Fluid Gram Stain - Final 10/04/18 17:45 Blood - Peripheral Venous Blood Culture - Final NO GROWTH AFTER 5 DAYS INCUBATION 10/04/18 17:45 Blood - Peripheral Venous Blood Culture - Final NO GROWTH AFTER 5 DAYS INCUBATION 10/05/18 12:09 Nasopharyngeal Swab Respiratory Virus (PCR) - Final 10/05/18 06:45 Pleural Fluid Gram Stain - Final 10/05/18 06:45 Pleural Fluid Body Fluid Culture - Final NO GROWTH OF AEROBIC ORGANISMS AFTER 48 HOURS INCUBATION 10/05/18 06:45 Pleural Fluid Anaerobic Culture - Final NO ANAEROBES WERE ISOLATED 10/04/18 22:32 Pleural Fluid Gram Stain - Final 10/04/18 22:32 Pleural Fluid Body Fluid Culture - Final NO GROWTH OF AEROBIC ORGANISMS AFTER 48 HOURS INCUBATION 10/04/18 22:32 Pleural Fluid Anaerobic Culture - Final NO ANAEROBES WERE ISOLATED 10/04/18 21:00 Urine - Urine Clean Catch Urine Culture - Final Contaminated: Please Repeat 10/05/18 11:20 Urine For Antigen Detection Legionella Antigen - Final 10/05/18 11:20 Urine For Antigen Detection Streptococcus pneumoniae Antigen (M - Final Active Medications Acetaminophen (Ofirmev Injection -) 1,000 mg IVPB ONCE PRN PRN Reason: MODERATE PAIN Stop: 10/19/18 14:37 Piperacillin Sod/Tazobactam (Sod 3.375 gm/ Dextrose) 50 mls @ 100 mls/hr IVPB Q8H-IV JOSE ARMANDO; Protocol Last Admin: 10/19/18 01:50 Dose: 100 mls/hr Lactated Ringer's (Lactated Ringers Solution) 1,000 mls @ 75 mls/hr IV ASDIR JOSE ARMANDO Last Admin: 10/18/18 21:04 Dose: 75 mls/hr Metoprolol Succinate (Toprol Xl -) 12.5 mg PO BID JOSE ARMANDO Last Admin: 10/18/18 21:04 Dose: 12.5 mg Ondansetron HCl (Zofran Injection) 4 mg IVPUSH Q6H PRN PRN Reason: NAUSEA AND/OR VOMITING Stop: 10/19/18 14:36 CONSULT: CT surg- Dr. Chance GASTON- Dr. Vazquez Cardio- Dr. Agarwal Pulzaynab- Dr. Webb IMAGING: Renal U/S: Small R mid and L renal/parapelvic cyst w/o gross evidence of hydronephrosis or renal stones b/l. R pleural effusion. CXR (10/11/18): Progressively worsening b/l pleural effusions. ASSESSMENT/PLAN: 73 y/o F with PMH recurrent pleural effusion, stage 4 R breast CA with chemoport w/ mets to spine, HTN, HLD, CAD s/p 1 stent (2013), angina, presented w/ b/l pleural effusion, now s/p L pigtail catheter placement and R VAT placement w/ pleural biopsy (10/18/18). #L-sided pleural effusion: malignant etiology most likely -s/p R VAT, pleural biopsy, POD #1. Frozen section neg for malignancy, await biopsy results. -L pigtail catheter removed today. Since pt wishes to have L side pleural effusion taken care of definitively, she will remain in hospital and monitored over the weekend to watch for further fluid accumulation. If she develops more fluid, L VATS and L pleurX will be considered next week. Cont to suction R side for 48 hours. -Per ID, currently on Zosyn (started 10/11) Day 8; 1 dose of IV Doxy given post- op. Abx per ID recs -Pleural fluid studies pending -f/u CXR #LUCRECIA vs CKD: stable, BUN/Cr ~24/1.5 -continue to hold lasix for now -Per cardio, hold Losartan until renal fxn improves -Renal US noted above, no evid of hydronephrosis #Hx breast CA w/spinal mets -receives chemo weekly - Gemzar; Pt states her oncologist did not give her dose last week as she was volume-depleted. will need outpatient follow up after discharge. Pt's oncologist, Dr. Nelson, contacted. Called oncologist office again, left a message with real estate legal secretary to call back for update on pt's current status. #Troponinemia: likely demand #HTN- controlled -Cont home med Toprol XL 12.5 mg PO BID #CAD s/p 1 stent (2003) -hold ASA for now #HLD -Lipitor held due to abnormal LFTs #Hypocalcemia; corrected Ca is normal. #F/E/N -LR @ 76 -continue to follow lytes -regular diet #PPX -SQH on hold due to thrombocytopenia #Dispo -cont to monitor on tele -VNS to be arranged upon d/c for R pleurx Visit type - Emergency Visit Emergency Visit: Yes ED Registration Date: 10/04/18 Care time: The patient presented to the Emergency Department on the above date and was hospitalized for further evaluation of their emergent condition. - New Patient This patient is new to me today: No - Critical Care Critical Care patient: No
[2018-10-19] MEDS ORDERED: PT OWN MED DRAWER 7, Y5N ONE (10:21)
[2018-10-19] MEDS ORDERED: DEXTROSE 5%-WATER - 50 ML IVPB ONE (10:21)
[2018-10-19] MEDS ORDERED: PIPERACILLIN/TAZOBACTAM 3.375 GM VIAL IVPB ONE (10:21)
[2018-10-19] MEDS: metoPROLOL SUCCINATE 25 MG TAB.SR.24H (FP) PO SCH ×2 (10:23→21:30)
--- NOTE | 2018-10-19 11:55 | PN ---
Progress Note, Physician History of Present Illness: Dyspnea resolving, s/p right VATS with pleural biopsy and pleurex catheter placement without sequelae. - Current Medication List Current Medications: Active Medications Acetaminophen (Ofirmev Injection -) 1,000 mg IVPB ONCE PRN PRN Reason: MODERATE PAIN Stop: 10/19/18 14:37 Piperacillin Sod/Tazobactam (Sod 3.375 gm/ Dextrose) 50 mls @ 100 mls/hr IVPB Q8H-IV JOSE ARMANDO; Protocol Last Admin: 10/19/18 10:24 Dose: 100 mls/hr Lactated Ringer's (Lactated Ringers Solution) 1,000 mls @ 75 mls/hr IV ASDIR JOSE ARMANDO Last Admin: 10/18/18 21:04 Dose: 75 mls/hr Metoprolol Succinate (Toprol Xl -) 12.5 mg PO BID [facility] Last Admin: 10/19/18 10:23 Dose: 12.5 mg Ondansetron HCl (Zofran Injection) 4 mg IVPUSH Q6H PRN PRN Reason: NAUSEA AND/OR VOMITING Stop: 10/19/18 14:36 - Objective Vital Signs: Vital Signs Temperature 98.2 F 10/19/18 11:20 Pulse Rate 79 10/19/18 11:20 Respiratory Rate 22 H 10/19/18 11:20 Blood Pressure 109/56 L 10/19/18 11:20 O2 Sat by Pulse Oximetry (%) 100 10/18/18 19:32 Constitutional: Yes: No Distress, Calm, Thin Neck: Yes: Supple Cardiovascular: Yes: Regular Rate and Rhythm Respiratory: Yes: Regular, Diminished, On Nasal O2 Gastrointestinal: Yes: Normal Bowel Sounds, Soft Edema: No Labs: CBC, BMP 10/18/18 06:30 10/19/18 05:30 INR, PTT INR 1.14 (0.83-1.09) H 10/18/18 06:30 - ....Imaging Chest X-ray: Report Reviewed (Small right apica PTX, bilateral chest tubes) EKG: Report Reviewed (Tele: NSR) Problem List - Problems (1) Demand ischemia Code(s): I24.8 - OTHER FORMS OF ACUTE ISCHEMIC HEART DISEASE (2) LUCR[place]IA (acute kidney injury) Code(s): N17.9 - ACUTE KIDNEY FAILURE, UNSPECIFIED (3) Congestive heart failure Code(s): I50.9 - HEART FAILURE, UNSPECIFIED Qualifiers: Heart failure type: diastolic Heart failure chronicity: acute on chronic Qualified Code(s): I50.33 - Acute on chronic diastolic (congestive) heart failure (4) Large pleural effusion Code(s): J90 - PLEURAL EFFUSION, NOT ELSEWHERE CLASSIFIED (5) Chest tube in place Code(s): Z96.89 - PRESENCE OF OTHER SPECIFIED FUNCTIONAL IMPLANTS (6) Metastatic breast cancer Code(s): C50.919 - MALIGNANT NEOPLASM OF UNSP SITE OF UNSPECIFIED FEMALE BREAST Assessment/Plan 1. POD #1 S/P VATS with R pleurX cath placement and Bx 2. Diastolic LV dysfunction with clinical class I-II NYHA classification LV failure - exudative pleural effusion argues against heart failure 3. Bilateral pleural effusion post left chest tube insertion 4. CAD post PCI/stent demand ischemia angina pectoris 5. HTN 6. Hyperlipidemia 7. 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 Acute kidney injury, with Hypokalemia 9. Thrombocytopenia improving, possible HIT 10. Abnormal LFTs, possible hepatic congestion 11. Hypocalcemia 12. Paroxysmal atrial tachycardia currently in sinus rhythm PLAN: 1. Remove left pig drain per thoracic 2. ASA 81 qd held pending hemostasis 3. Lipitor held with abnormal LFT 4. Continue Toprol XL 12.5 mg BID hemodynamics permitting 5. Resume Losartan once renal function improves and as tolerated 6. SQ heparin held 7. Complete empiric antibiotic course per ID
--- NOTE | 2018-10-19 12:30 | PATH ---
Surgical Pathology Report Patient Name: NEGRO CULLEN [facility]. Rec. #: [id number] /Age/Gender: 1945 (Age: 73) / F Account: [id number] Location: 4 TELEMETRY U Taken: 10/18/2018 Received: 10/18/2018 Reported: 10/19/2018 Physicians: Madelyn Prakash M.D. Specimen(s) Received A: PLEURAL BIOPSY B: PLEURA BIOPSY/TISSUE Clinical History Pleural effusion Intraoperative Consult Diagnosis Pleural biopsy (FS): No definitive carcinoma identified. Jagjit Joshi 10/18/18. Final Diagnosis A. PLEURAL, BIOPSY (FS): BENIGN FIBROMEMBRANOUS TISSUE WITH MILD CHRONIC INFLAMMATION AND FEW MESOTHELIAL CELLS. NO MALIGNANCY IDENTIFIED. B. PLEURAL, BIOPSY: BENIGN FIBROMEMBRANOUS TISSUE WITH MILD CHRONIC INFLAMMATION AND ADIPOSE TISSUE. SCANT DETACHED MESOTHELIAL CELL CLUSTERS PRESENT. NO MALIGNANCY IDENTIFIED. Electronically Signed Faby Heredia M.D. Gross Description A. Received fresh for immediate intraoperative consultation labeled as "pleural biopsy" are 2 small fragments of pink correa soft tissue measuring 0.2 x 0.1 and 0.2 x < 0.1 cm. The entire specimen is submitted for frozen section analysis in one cassette. B. Received in formalin labeled "pleural biopsy," is a correa, irregular portion of soft tissue measuring 0.2 cm in greatest dimension. The specimen is submitted in toto in one cassette. MLSZ/10/18/2018 sannuno/10/18/2018
--- NOTE | 2018-10-19 14:10 | PN ---
Teaching Attending Note Name of Resident: Sarika Reddy ATTENDING PHYSICIAN STATEMENT I saw and evaluated the patient. I reviewed the resident's note and discussed the case with the resident. I agree with the resident's findings and plan as documented. SUBJECTIVE: No fever or chills. No abd pain, NO LOERA . R upper extremity swelling. no pain though. No diarrhea. No SOB. OBJECTIVE: NAD, dry lips. CV: RRR, No MRG Lungs: improved air entry in R base with some crackles Abd: soft, NT, ND , NL BS Ext : RUE edema , no erythema, RP 2+ . some bruises on both arms ASSESSMENT AND PLAN: Pleasant unfortunate 73 y/o lady with h/o Stage IV breast Cancer, HTN, HLD, CAD s/p PCI, currently on chemotherapy, and recent diagnosis of pleural effusions s/ p thoracentesis who presented with SOB. 1- B/l Pleural effusions, exudative fluid 2- LUCRECIA . ? CKD 3- Elevated trop 4- Transaminitis 5- hypoclacemia /hypoalbuminemia plan: - S/P VATS with R pleurodesis, pleurX cath placement and Bx - cont suction to R side for 48 hours - case was d/w patient. her options of L pigtail removal, then pleurodesis/ pleurX cath placement as out pt Vs. doing the procedure as inpatient wer ed/w her. - Patient chose the latter - will remove L PIg tail today. then L VATS will be done next week after fluid accumulate - Abx per ID - Keep Asa on hold for procedure - cont to hold statin and losartan - monitor renal function - corrected ca nL Dispo : as above
--- NOTE | 2018-10-19 14:52 | PN ---
Progress Note (short form) - Note Progress Note: Thoracic (For Chance) POD#1 Pain controlled. Tube functioning. Wants other side dealt with definitively before dc although I made her aware she may not need anything done on left unless symptomatic. Plan per Chance. Set up VNS for right pleurx.
--- NOTE | 2018-10-19 15:03 | PN ---
Progress Note (short form) - Note Progress Note: Pt will have Left pigtail catheter removed today. Plan is to see if pt reaccumulates over the weekend, if so will consider VATS and pleurex catheter placement on the Left. Plan discussed with Dr. De Dios and Chance. Left chest tube removed at bedside. Pt tolerated the procedure well. Follow up cxr
[2018-10-19] MEDS ORDERED: ACETAMINOPHEN 325 MG TABLET (FP) PO PRN (15:41)
--- NOTE | 2018-10-19 15:43 | PN ---
Progress Note, Physician - Current Medication List Current Medications: Active Medications Acetaminophen (Tylenol -) 650 mg PO Q6H PRN PRN Reason: Fever Or Pain Piperacillin Sod/Tazobactam (Sod 3.375 gm/ Dextrose) 50 mls @ 100 mls/hr IVPB Q8H-IV JOSE ARMANDO; Protocol Last Admin: 10/19/18 10:24 Dose: 100 mls/hr Lactated Ringer's (Lactated Ringers Solution) 1,000 mls @ 75 mls/hr IV ASDIR JOSE ARMANDO Last Admin: 10/18/18 21:04 Dose: 75 mls/hr Metoprolol Succinate (Toprol Xl -) 12.5 mg PO BID JOSE ARMANDO Last Admin: 10/19/18 10:23 Dose: 12.5 mg - Objective Vital Signs: Vital Signs Temperature 98.3 F 10/19/18 15:13 Pulse Rate 78 10/19/18 14:00 Respiratory Rate 20 10/19/18 15:13 Blood Pressure 134/75 10/19/18 14:00 O2 Sat by Pulse Oximetry (%) 100 10/19/18 10:00 Labs: CBC, BMP 10/18/18 06:30 10/19/18 05:30 INR, PTT INR 1.14 (0.83-1.09) H 10/18/18 06:30
--- NOTE | 2018-10-19 15:50 | PN ---
Progress Note, Physician History of Present Illness: stable post pleurodessis doing well - Current Medication List Current Medications: Active Medications Acetaminophen (Tylenol -) 650 mg PO Q6H PRN PRN Reason: Fever Or Pain Last Admin: 10/19/18 15:47 Dose: 650 mg Lactated Ringer's (Lactated Ringers Solution) 1,000 mls @ 75 mls/hr IV ASDIR [facility] Last Admin: 10/18/18 21:04 Dose: 75 mls/hr Metoprolol Succinate (Toprol Xl -) 12.5 mg PO BID [facility] Last Admin: 10/19/18 10:23 Dose: 12.5 mg - Objective Vital Signs: Vital Signs Temperature 98.3 F 10/19/18 15:13 Pulse Rate 78 10/19/18 14:00 Respiratory Rate 20 10/19/18 15:13 Blood Pressure 134/75 10/19/18 14:00 O2 Sat by Pulse Oximetry (%) 100 10/19/18 10:00 Constitutional: Yes: No Distress, Calm Cardiovascular: Yes: Regular Rate and Rhythm Respiratory: Yes: Regular, CTA Bilaterally, Other (b/l chest tubes) Gastrointestinal: Yes: Normal Bowel Sounds, Soft Musculoskeletal: Yes: WNL Extremities: Yes: WNL Neurological: Yes: Alert, Oriented Psychiatric: Yes: Alert, Oriented Labs: CBC, BMP 10/18/18 06:30 10/19/18 05:30 INR, PTT INR 1.14 (0.83-1.09) H 10/18/18 06:30 Assessment/Plan Problem List - Problems (1) Chest tube in place Code(s): Z96.89 - PRESENCE OF OTHER SPECIFIED FUNCTIONAL IMPLANTS (2) Congestive heart failure Code(s): I50.9 - HEART FAILURE, UNSPECIFIED Qualifiers: Heart failure type: diastolic Heart failure chronicity: acute on chronic Qualified Code(s): I50.33 - Acute on chronic diastolic (congestive) heart failure (3) Difficulty breathing Code(s): R06.89 - OTHER ABNORMALITIES OF BREATHING (4) Large pleural effusion Code(s): J90 - PLEURAL EFFUSION, NOT ELSEWHERE CLASSIFIED (5) Metastatic breast cancer Code(s): C50.919 - MALIGNANT NEOPLASM OF UNSP SITE OF UNSPECIFIED FEMALE BREAST plan continue abx will stop abx tomorrow rest as per the team close monitoring
[2018-10-19] MEDS: LACTATED RINGERS SOLUTION 1,000 ML IV SCH (21:31)
--- NOTE | 2018-10-20 06:46 | PN ---
Progress Note (short form) - Note Progress Note: Chief Complaint: Events noted, notes reviewed, reports persistent dyspnea but improved, denies orthopnea or PND, denies any chest pain, right chest tube/ pleurX cath in situ/drainage noted History of Present Illness: Seen and examined on telemetry. Events noted, notes reviewed, reports persistent dyspnea but improved, denies orthopnea or PND, denies any chest pain , right chest tube/pleurX cath in situ/drainage noted Echocardiography dated 10/05/2018 revealed mild cLVH, low normal LVEF 50-55%, normal RV size and function, mild TR and a small pericardial effusion Current Medications: Current Medications Acetaminophen (Tylenol -) 650 mg PO Q6H PRN PRN Reason: Fever Or Pain Last Admin: 10/19/18 15:47 Dose: 650 mg Lactated Ringer's (Lactated Ringers Solution) 1,000 mls @ 75 mls/hr IV ASDIR [facility] Last Admin: 10/19/18 21:31 Dose: Not Given Metoprolol Succinate (Toprol Xl -) 12.5 mg PO BID [facility] Last Admin: 10/19/18 21:30 Dose: 12.5 mg Review of Systems Constitutional: denies Chills or Fever Respiratory: denies Cough or Sputum Production Cardiovascular: As noted above Gastrointestinal: denies Nausea, Vomiting, Diarrhea, Constipation or Abdominal Pain Genitourinary: denies Frequency or Urgency Musculoskeletal: No symptoms reported - Objective Vital Signs: Last Vital Signs Temp Pulse Resp BP Pulse Ox 98.6 F 90 17 121/77 99 10/20/18 06:00 10/20/18 06:00 10/20/18 06:00 10/20/18 06:00 10/19/18 22:00 Intake & Output 10/17/18 10/18/18 10/19/18 10/20/18 23:59 23:59 23:59 23:59 Intake Total 850 2605 2600 1020 Output Total 340 900 360 110 Balance 510 1705 2240 910 Weight 142 lb 9.6 oz 142 lb 3 oz Neck: Supple Negative JVD No bruit Respiratory: Diminished breath sounds at the bases Cardiovascular: S1, S2 Regular Rate Rhythm Gastrointestinal: Soft Benign Normal Bowel Sounds Ext: Negative Edema Labs: Blood test from this AM pending Assessment/Plan ASSESSMENT: 1. POD #2 post VATS with right pleurX cath placement and Biopsy (Bilateral pleural effusions) 2. Diastolic/systolic LV dysfunction with clinical class 0-I NYHA classification LV failure, compensated/euvolemic, exudative pleural effusion argues against heart failure 3. CAD post PCI/stent demand ischemia angina pectoris 4. Paroxysmal atrial tachycardia currently in sinus rhythm 5. HTN 6. Hyperlipidemia 7. 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 Acute kidney injury, with Hypokalemia 9. Thrombocytopenia 10. Abnormal LFTs, possible hepatic congestion, resolving 11. Hypocalcemia PLAN: 1. Continue to hold ASA pending hemostasis 2. Continue to hold Lipitor pending LFT abnormality resolution 3. Continue Toprol XL and titrate dosage as needed and as tolerated, hemodynamics permitting 4. Resume Losartan once renal function improves and as tolerated, hemodynamics permitting 5. Await pathology report Ambrocio Fritz MD
[2018-10-20 07:15] LABS: HEMATOCRIT 27.9 % (32.4-45.2); HEMOGLOBIN 9.6 GM/dL (10.7-15.3); MCH 34.6 pg (25.7-33.7); MCHC 34.3 g/dl (32.0-36.0); MEAN CELL VOLUME 100.9 fl (80-96); PLATELET COUNT 151 K/MM3 (134-434); RBC 2.76 M/mm3 (3.60-5.2); RDW 27.2 % (11.6-15.6)
[2018-10-20 07:18] LABS: ANION GAP 8 MMOL/L (8-16); BLOOD UREA NITROGEN 26 mg/dL (7-18); CALCIUM 7.1 mg/dL (8.5-10.1); CHLORIDE 104 mmol/L (98-107); CO2 24 mmol/L (21-32); CREATININE 1.4 mg/dL (0.55-1.3); GLUCOSE,RANDOM 72 mg/dL (74-106); POTASSIUM 3.1 mmol/L (3.5-5.1); SODIUM 137 mmol/L (136-145)
--- NOTE | 2018-10-20 07:32 | PN ---
Physical Exam: SUBJECTIVE: Patient seen and examined at bedside. No acute events overnight. Pt complaining of R arm pain, although pain is controlled. Denies chest pain, sob, abd pain, n/v. Amauri PO diet. OBJECTIVE: Vital Signs Period Temp Pulse Resp BP Sys/[place] Pulse Ox Last 24 Hr 97.9 F-98.6 F 78-110 17-26 108-148/56-77 99-100 GENERAL: A&Ox3, no acute distress. Laying comfortably. EYES: PERRLA, EOMI ENT: Moist mucus membranes NECK: No JVD LUNGS: CTA, no wheezes. R VAT draining dark red fluid. HEART: RRR, no murmurs ABDOMEN: Soft, nontender, BS present MUSCULOSKELETAL: No CVA Tenderness. Redness on R heel. EXTREMITIES: 2+ pulses, no edema. NEUROLOGICAL: Cranial nerves II-XII intact. Laboratory Results - last 24 hr 10/18/18 10/18/18 10/20/18 09:00 09:00 05:30 Sodium 137 Potassium 3.1 L Chloride 104 Carbon Dioxide 24 Anion Gap 8 BUN 26 H Creatinine 1.4 H Creat Clearance w eGFR 36.96 Random Glucose 72 L Calcium 7.1 L POC Fluid pH 7.8 Fluid Glucose 125 Fluid Total Protein 1.8 Body Fluid LDH Source 249 Fluid Amylase 28 Fluid Triglycerides 19 Active Medications Acetaminophen (Tylenol -) 650 mg PO Q6H PRN PRN Reason: Fever Or Pain Last Admin: 10/19/18 15:47 Dose: 650 mg Lactated Ringer's (Lactated Ringers Solution) 1,000 mls @ 75 mls/hr IV ASDIR [facility] Last Admin: 10/19/18 21:31 Dose: Not Given Metoprolol Succinate (Toprol Xl -) 12.5 mg PO BID [facility] Last Admin: 10/19/18 21:30 Dose: 12.5 mg Potassium Chloride (K-Dur -) 40 meq PO ONCE ONE Stop: 10/20/18 08:49 CONSULT: CT surg- Dr. Chance Vazquez Cardio- Dr. Stefano Pena- Dr. Webb IMAGING: Renal U/S: Small R mid and L renal/parapelvic cyst w/o gross evidence of hydronephrosis or renal stones b/l. R pleural effusion. CXR (10/11/18): Progressively worsening b/l pleural effusions. ASSESSMENT/PLAN: 73 y/o F with PMH recurrent pleural effusion, stage 4 R breast CA with chemoport w/ mets to spine, HTN, HLD, CAD s/p 1 stent (2013), angina, presented w/ b/l pleural effusion, now s/p L pigtail catheter placement and R VAT placement w/ pleural biopsy (10/18/18). #L-sided pleural effusion: malignant etiology most likely -s/p R VAT, pleural biopsy, POD #2. Frozen section neg for malignancy, await biopsy results. -L pigtail catheter removed yesterday. Cont to monitor pt for fluid accumulation. If she develops more fluid, L VATS and L pleurX will be considered next week. Cont to suction R side for 48 hours total. -Per ID, currently on Zosyn (started 10/11) Day 8; 1 dose of IV Doxy given post- op. Abx d/c'd. Cont to monitor off abx -Pleural fluid studies pending -repeat CXR next week to check for fluid accumulation, especially on L side. #LUCRECIA vs CKD: stable, BUN/Cr ~24/1.5 -continue to hold lasix for now -Per cardio, hold Losartan until renal fxn improves -Renal US noted above, no evid of hydronephrosis #Hx breast CA w/spinal mets -receives chemo weekly - Gemzar; Pt states her oncologist did not give her dose last week as she was volume-depleted. will need outpatient follow up after discharge. Pt's oncologist, Dr. Nelson, contacted. Called oncologist office again, left a message with clinical secretary to call back for update on pt's current status. #Troponinemia: likely demand #HTN- controlled -Cont home med Toprol XL 12.5 mg PO BID #CAD s/p 1 stent (2003) -hold ASA for now #HLD -Lipitor held due to abnormal LFTs #Hypocalcemia; corrected Ca is normal. #F/E/N -LR @ 76 -continue to follow lytes -regular diet #PPX -SQH on hold due to thrombocytopenia #Dispo -cont to monitor on tele -VNS to be arranged upon d/c for R pleurx Visit type - Emergency Visit Emergency Visit: Yes ED Registration Date: 10/04/18 Care time: The patient presented to the Emergency Department on the above date and was hospitalized for further evaluation of their emergent condition. - New Patient This patient is new to me today: No - Critical Care Critical Care patient: No
[2018-10-20] MEDS ORDERED: POTASSIUM CHLORIDE TABS 20 MEQ TABLET.ER (FP) PO ONE (09:00)
[2018-10-20] MEDS: metoPROLOL SUCCINATE 25 MG TAB.SR.24H (FP) PO SCH ×2 (09:05→22:00)
[2018-10-20] MEDS ORDERED: POTASSIUM CHLORIDE TABS 10 MEQ TABLET.ER (FP) PO ONE (09:15)
--- NOTE | 2018-10-20 11:33 | PN ---
Teaching Attending Note Name of Resident: Sarika Reddy ATTENDING PHYSICIAN STATEMENT I saw and evaluated the patient. I reviewed the resident's note and discussed the case with the resident. I agree with the resident's findings and plan as documented. SUBJECTIVE: No fever or chills. No abd pain. no LOERA . feels good. OBJECTIVE: NAD, dry lips. CV: RRR, No MRG Lungs: good air entry. R basal crackles . R CT with light pink fluid Abd: soft, NT, ND , NL BS Ext : RUE edema , no erythema, RP 2+ . some bruises on both arms ASSESSMENT AND PLAN: Pleasant unfortunate 73 y/o lady with h/o Stage IV breast Cancer, HTN, HLD, CAD s/p PCI, currently on chemotherapy, and recent diagnosis of pleural effusions s/ p thoracentesis who presented with SOB. 1- B/l Pleural effusions, exudative fluid 2- LUCRECIA . ? CKD 3- Elevated trop 4- Transaminitis 5- hypoclacemia /hypoalbuminemia 6- RUE superficial phlebitis plan: - S/P VATS with R pleurodesis, pleurX cath placement and Bx - cont suction to R side until Monday - Pleural bx with no malignancy. - S/p removal of L pig tail, plan for L sided VATS on Monday - Off Abx since yesterday - Keep Asa on hold for procedure - cont to hold statin and losartan - Usually , no AC is indicated for upper ext superficial phlebitis. But will d/ w Heme , as this lady has cancer.
--- NOTE | 2018-10-20 11:42 | PN ---
Progress Note, Physician History of Present Illness: pulmonary alert,comfortable ,s/p r vat bx negative for malignant cells. left chest tube removed yesterday - Current Medication List Current Medications: Active Medications Acetaminophen (Tylenol -) 650 mg PO Q6H PRN PRN Reason: Fever Or Pain Last Admin: 10/19/18 15:47 Dose: 650 mg Lactated Ringer's (Lactated Ringers Solution) 1,000 mls @ 75 mls/hr IV ASDIR [facility] Last Admin: 10/19/18 21:31 Dose: Not Given Metoprolol Succinate (Toprol Xl -) 12.5 mg PO BID [facility] Last Admin: 10/20/18 09:05 Dose: 12.5 mg - Objective Vital Signs: Vital Signs Temperature 98 F 10/20/18 10:00 Pulse Rate 96 H 10/20/18 10:00 Respiratory Rate 10/20/18 10:00 Blood Pressure 104/78 10/20/18 10:00 O2 Sat by Pulse Oximetry (%) 100 10/20/18 08:27 Constitutional: Yes: Calm, Thin Eyes: Yes: WNL HENT: Yes: WNL Neck: Yes: WNL Cardiovascular: Yes: Regular Rate and Rhythm, S1, S2 Respiratory: Yes: Diminished Gastrointestinal: Yes: Normal Bowel Sounds, Soft Extremities: Yes: WNL Edema: No Labs: CBC, BMP 10/20/18 05:30 10/20/18 05:30 INR, PTT INR 1.14 (0.83-1.09) H 10/18/18 06:30 Problem List - Problems (1) LUCRECIA (acute kidney injury) Code(s): N17.9 - ACUTE KIDNEY FAILURE, UNSPECIFIED (2) CAD (coronary artery disease) Code(s): I25.10 - ATHSCL HEART DISEASE OF [place] CORONARY ARTERY W/O ANG PCTRS Qualifiers: Coronary Disease-Associated Artery/Lesion type: [place] artery [place] vs. transplanted heart: [place] heart Associated angina: without angina Qualified Code(s): I25.10 - Atherosclerotic heart disease of [place] coronary artery without angina pectoris (3) Chest tube in place Code(s): Z96.89 - PRESENCE OF OTHER SPECIFIED FUNCTIONAL IMPLANTS (4) Congestive heart failure Code(s): I50.9 - HEART FAILURE, UNSPECIFIED Qualifiers: Heart failure type: diastolic Heart failure chronicity: acute on chronic Qualified Code(s): I50.33 - Acute on chronic diastolic (congestive) heart failure (5) Difficulty breathing Code(s): R06.89 - OTHER ABNORMALITIES OF BREATHING (6) HTN (hypertension) Code(s): I10 - ESSENTIAL (PRIMARY) HYPERTENSION Qualifiers: Hypertension type: essential hypertension Qualified Code(s): I10 - Essential (primary) hypertension (7) History of percutaneous coronary intervention Code(s): Z98.61 - CORONARY ANGIOPLASTY STATUS (8) Hypercholesterolemia Code(s): E78.00 - PURE HYPERCHOLESTEROLEMIA, UNSPECIFIED (9) Large pleural effusion Code(s): J90 - PLEURAL EFFUSION, NOT ELSEWHERE CLASSIFIED (10) Metastatic breast cancer Code(s): C50.919 - MALIGNANT NEOPLASM OF UNSP SITE OF UNSPECIFIED FEMALE BREAST Assessment/Plan IMP BILATERAL PLEURAL EFFUSIONS LIKELY MALIGNANT S/P R VAT BX - FOR MALIGNANCY METASTATIC BREAST CA ANEMIA ASHD S/P STENT DIASTOLIC HF CKD ELEVATED TROPONIN PLAN O2 MONITOR CHEST TUBE DRAINAGE ON R F/U CHEST X-RAY IF SIGNIFICANT ACCUMULATION LEFT PLEURAL FLUID PLEUR-X INSERTION MONITOR LALITHAH+H DR CA Problem List - Problems (1) LUCRECIA (acute kidney injury) Code(s): N17.9 - ACUTE KIDNEY FAILURE, UNSPECIFIED (2) CAD (coronary artery disease) Code(s): I25.10 - ATHSCL HEART DISEASE OF [place] CORONARY ARTERY W/O ANG PCTRS Qualifiers: Coronary Disease-Associated Artery/Lesion type: [place] artery [place] vs. transplanted heart: [place] heart Associated angina: without angina Qualified Code(s): I25.10 - Atherosclerotic heart disease of [place] coronary artery without angina pectoris (3) Chest tube in place Code(s): Z96.89 - PRESENCE OF OTHER SPECIFIED FUNCTIONAL IMPLANTS (4) Congestive heart failure Code(s): I50.9 - HEART FAILURE, UNSPECIFIED Qualifiers: Heart failure type: diastolic Heart failure chronicity: acute on chronic Qualified Code(s): I50.33 - Acute on chronic diastolic (congestive) heart failure (5) Difficulty breathing Code(s): R06.89 - OTHER ABNORMALITIES OF BREATHING (6) HTN (hypertension) Code(s): I10 - ESSENTIAL (PRIMARY) HYPERTENSION Qualifiers: Hypertension type: essential hypertension Qualified Code(s): I10 - Essential (primary) hypertension (7) History of percutaneous coronary intervention Code(s): Z98.61 - CORONARY ANGIOPLASTY STATUS (8) Hypercholesterolemia Code(s): E78.00 - PURE HYPERCHOLESTEROLEMIA, UNSPECIFIED (9) Large pleural effusion Code(s): J90 - PLEURAL EFFUSION, NOT ELSEWHERE CLASSIFIED (10) Metastatic breast cancer Code(s): C50.919 - MALIGNANT NEOPLASM OF UNSP SITE OF UNSPECIFIED FEMALE BREAST
--- NOTE | 2018-10-20 16:43 | PN ---
Progress Note, Physician History of Present Illness: stable no complaints patients wbc has jumped up which is worrying - Current Medication List Current Medications: Active Medications Acetaminophen (Tylenol -) 650 mg PO Q6H PRN PRN Reason: Fever Or Pain Last Admin: 10/19/18 15:47 Dose: 650 mg Lactated Ringer's (Lactated Ringers Solution) 1,000 mls @ 75 mls/hr IV ASDIR [facility] Last Admin: 10/19/18 21:31 Dose: Not Given Metoprolol Succinate (Toprol Xl -) 12.5 mg PO BID [facility] Last Admin: 10/20/18 09:05 Dose: 12.5 mg - Objective Vital Signs: Vital Signs Temperature 97.8 F 10/20/18 14:00 Pulse Rate 100 H 10/20/18 14:00 Respiratory Rate 16 10/20/18 14:00 Blood Pressure 120/80 10/20/18 14:00 O2 Sat by Pulse Oximetry (%) 100 10/20/18 08:27 Constitutional: Yes: No Distress, Calm Cardiovascular: Yes: Regular Rate and Rhythm Respiratory: Yes: Poor Air Entry, Other (chest tube in place) Gastrointestinal: Yes: Normal Bowel Sounds, Soft Musculoskeletal: Yes: WNL Extremities: Yes: WNL Neurological: Yes: Alert, Oriented Psychiatric: Yes: Alert, Oriented Labs: CBC, BMP 10/20/18 05:30 10/20/18 05:30 INR, PTT INR 1.14 (0.83-1.09) H 10/18/18 06:30 Assessment/Plan Problem List - Problems (1) Chest tube in place Code(s): Z96.89 - PRESENCE OF OTHER SPECIFIED FUNCTIONAL IMPLANTS (2) Congestive heart failure Code(s): I50.9 - HEART FAILURE, UNSPECIFIED Qualifiers: Heart failure type: diastolic Heart failure chronicity: acute on chronic Qualified Code(s): I50.33 - Acute on chronic diastolic (congestive) heart failure (3) Difficulty breathing Code(s): R06.89 - OTHER ABNORMALITIES OF BREATHING (4) Large pleural effusion Code(s): J90 - PLEURAL EFFUSION, NOT ELSEWHERE CLASSIFIED (5) Metastatic breast cancer Code(s): C50.919 - MALIGNANT NEOPLASM OF UNSP SITE OF UNSPECIFIED FEMALE BREAST plan will restart the abx monitor wbc rest continue current mgmt patient stable
[2018-10-20] MEDS ORDERED: PIPERACILLIN/TAZOBACTAM 3.375 GM VIAL IVPB ONE (17:14)
[2018-10-20] MEDS ORDERED: DEXTROSE 5%-WATER - 50 ML IVPB ONE (17:15)
[2018-10-20] MEDS: PIPERACILLIN/TAZOB 3.375 GM 3.375 GM in DEXTROSE 5%-WATER - 50 ML IVPB SCH (17:26)
[2018-10-20] MEDS: LACTATED RINGERS SOLUTION 1,000 ML IV SCH (17:26)
--- NOTE | 2018-10-20 21:18 | CONSULT ---
Consult Consult Specialty:: Hematology Referred by:: Dr. Cotton Reason for Consultation:: superficial vein thrombosis - History of Present Illness Chief Complaint: SOB History of Present Illness: 73F with Stage 4 breast cancer with mets to spine, on gemzar (Dr. Nelson at [facility], previously treated with Ibrance, then anastrazole )CAD s/p 1 stent in 2013 admitted on 10/04 with dyspnea due to recurrent exudative bilateral pleural effusions s/p VATS with R. pleurodesis and pleurX catheter and bx (pleural biopsy and repeated taps with no e/o malignancy), planned for possible L. sided VATS next week. Hematology consulted for thrombophlebitis of superficial cephalic vein. Pt c/o intermittent pain in upper right arm, exacerbated by movement x 2 days and mild swelling that resolved with elevation. Denies prior hx of thrombosis. - Past Medical History Cardio/Vascular: Yes: CAD, Hyperlipdemia Pulmonary: Yes: O2 Dependent - Past Surgical History Past Surgical History: Yes: Mastectomy - Alcohol/Substance Use Hx Alcohol Use: No - Smoking History Smoking history: Unknown if ever smoked - Social History Usual Living Arrangement: With Spouse Home Medications - Allergies Allergies/Adverse Reactions: Allergies Allergy/AdvReac Type Severity Reaction Status Date / Time No Known Allergies Allergy Verified 10/04/18 17:00 - Home Medications Home Medications: Ambulatory Orders Aspirin [ASA -] 81 mg PO HS 03/29/14 Atorvastatin Ca [Lipitor -] 80 mg PO HS 03/29/14 Folic Acid 400 mcg PO DAILY 03/29/14 Losartan Potassium [Cozaar] 25 mg PO DAILY 03/29/14 Metoprolol Succinate [Toprol Xl] 12.5 mg PO BID 03/29/14 Cholecalciferol (Vitamin D3) [Vitamin D3] 1,000 unit PO DAILY 10/04/18 Gemcitabine HCl [Gemzar -] 200 mg IV ASDIR 10/04/18 Nitroglycerin Sublingual [Nitrostat -] 0.4 mg PO PRN PRN 10/04/18 Physical Exam Vital Signs: Vital Signs Temperature 98 F 10/20/18 18:00 Pulse Rate 103 H 10/20/18 18:00 Respiratory Rate 16 10/20/18 18:00 Blood Pressure 118/76 10/20/18 18:00 O2 Sat by Pulse Oximetry (%) 100 10/20/18 08:27 Constitutional: Yes: No Distress, Calm Eyes: Yes: Conjunctiva Clear Cardiovascular: Yes: Regular Rate and Rhythm Respiratory: Yes: Regular, Diminished (at bases, catheter draining) Gastrointestinal: Yes: Soft Extremities: Yes: WNL (Firm, tender area on dorsal surface of right upper arm, multiple bruises) Labs: CBC, BMP 10/20/18 05:30 10/20/18 05:30 Assessment/Plan 73F with Stage 4 breast cancer with mets to spine, on third line gemzar, CAD s/ p 1 stent in 2013 admitted on 10/04 with dyspnea due to recurrent exudative bilateral pleural effusions s/p VATS with R. pleurodesis and pleurX catheter and bx (pleural biopsy with no e/o malignancy), planned for possible L. sided VATS next week. UE doppler, done for evaluation of pain and swelling, showed thrombophlebitis of superficial cephalic vein. Would treat with low dose Lovenox (40 mg daily) for symptomatic SVT, monitor symptoms, and repeat doppler in 1 week.
[2018-10-21] MEDS: PIPERACILLIN/TAZOB 3.375 GM 3.375 GM in DEXTROSE 5%-WATER - 50 ML IVPB SCH ×3 (04:46→18:04)
[2018-10-21] MEDS: LACTATED RINGERS SOLUTION 1,000 ML IV SCH ×2 (04:47→22:05)
[2018-10-21 05:57] LABS: HEMATOCRIT 27.8 % (32.4-45.2); HEMOGLOBIN 9.5 GM/dL (10.7-15.3); MCH 34.3 pg (25.7-33.7); MCHC 34.3 g/dl (32.0-36.0); MEAN CELL VOLUME 100.1 fl (80-96); MEAN PLT VOLUME 7.6 fl (7.5-11.1); PLATELET COUNT 139 K/MM3 (134-434); RBC 2.78 M/mm3 (3.60-5.2); RDW 27.4 % (11.6-15.6); WHITE BLOOD COUNT 17.5 K/mm3 (4.0-10.0)
[2018-10-21 06:21] LABS: ANION GAP 7 MMOL/L (8-16); BLOOD UREA NITROGEN 27 mg/dL (7-18); CHLORIDE 106 mmol/L (98-107); CO2 24 mmol/L (21-32); CREATININE 1.4 mg/dL (0.55-1.3); GLUCOSE,RANDOM 81 mg/dL (74-106); SODIUM 137 mmol/L (136-145)
[2018-10-21 06:24] LABS: CALCIUM 6.9 mg/dL (8.5-10.1)
--- NOTE | 2018-10-21 07:24 | PN ---
Progress Note (short form) - Note Progress Note: Chief Complaint: Events noted, notes reviewed, reports persistent dyspnea but improved, denies orthopnea or PND, denies any chest pain, right chest tube/ pleurX cath in situ/drainage noted, sinus tachycardia persistent History of Present Illness: Seen and examined on telemetry. Events noted, notes reviewed, reports persistent dyspnea but improved, denies orthopnea or PND, denies any chest pain , right chest tube/pleurX cath in situ/drainage noted, sinus tachycardia persistent Antibiotics initiated, hematology note appreciated recommended Lovenox prophylaxis dose for management of thrombophlebitis/superficial cephalic vein; has been initiated as or yet ?? Echocardiography dated 10/05/2018 revealed mild cLVH, low normal LVEF 50-55%, normal RV size and function, mild TR and a small pericardial effusion Current Medications: Current Medications Acetaminophen (Tylenol -) 650 mg PO Q6H PRN PRN Reason: Fever Or Pain Last Admin: 10/19/18 15:47 Dose: 650 mg Lactated Ringer's (Lactated Ringers Solution) 1,000 mls @ 75 mls/hr IV ASDIR [facility] Last Admin: 10/21/18 04:47 Dose: 75 mls/hr Piperacillin Sod/Tazobactam (Sod 3.375 gm/ Dextrose) 50 mls @ 100 mls/hr IVPB Q8H-IV [facility]; Protocol Last Admin: 10/21/18 04:46 Dose: 100 mls/hr Metoprolol Succinate (Toprol Xl -) 12.5 mg PO BID [facility] Last Admin: 10/20/18 22:00 Dose: 12.5 mg Review of Systems Constitutional: denies Chills or Fever Respiratory: denies Cough or Sputum Production Cardiovascular: As noted above Gastrointestinal: denies Nausea, Vomiting, Diarrhea, Constipation or Abdominal Pain Genitourinary: denies Frequency or Urgency Musculoskeletal: No symptoms reported - Objective Vital Signs: Last Vital Signs Temp Pulse Resp BP Pulse Ox 97.8 F 111 H 18 112/79 100 10/21/18 02:00 10/21/18 06:00 10/21/18 06:00 10/21/18 06:00 10/20/18 21:00 Intake & Output 10/18/18 10/19/18 10/20/18 10/21/18 23:59 23:59 23:59 23:59 Intake Total 2605 2600 2670 610 Output Total 317 209 6279 550 Balance 1705 2240 280 60 Weight 142 lb 9.6 oz 142 lb 3 oz Neck: Supple Negative JVD No bruit Respiratory: Diminished breath sounds at the bases Cardiovascular: S1, S2 Regular Rate Rhythm Gastrointestinal: Soft Benign Normal Bowel Sounds Ext: Negative Edema Labs: CBC, BMP 10/21/18 05:30 CBC pending from this AM Hepatic Panel Total Bilirubin 0.6 mg/dL (0.2-1) 10/19/18 05:30 Direct Bilirubin 0.4 mg/dL (0.0-0.2) H 10/06/18 05:30 AST 65 U/L (15-37) H 10/19/18 05:30 ALT 42 U/L (13-61) 10/19/18 05:30 Alkaline Phosphatase 152 U/L (45-117) H 10/19/18 05:30 Albumin 1.4 g/dl (3.4-5.0) L 10/19/18 05:30 Assessment/Plan ASSESSMENT: 1. POD #3 post VATS with right pleurX cath placement and Biopsy (Bilateral pleural effusions) 2. Diastolic/systolic LV dysfunction with clinical class 0-I NYHA classification LV failure, compensated/euvolemic, exudative pleural effusion argues against heart failure 3. CAD post PCI/stent demand ischemia angina pectoris 4. Paroxysmal atrial tachycardia currently in sinus rhythm/sinus tachycardia 5. HTN 6. Hyperlipidemia 7. 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 Thrombophlebitis of superficial cephalic vein 9. Acute kidney injury, with Hypokalemia/resolved- Hypokalemia 10. Thrombocytopenia, resolved 11. Abnormal LFTs, possible hepatic congestion, resolving 12. Hypocalcemia PLAN: 1. Recommend resumption of ASA unless contraindicated 2. Recommend resumption of Lipitor unless contraindicated; LFT abnormality resolving 3. Continue Toprol XL and titrate dosage as needed and as tolerated, hemodynamics permitting 4. Resume Losartan once renal function improves and as tolerated, hemodynamics permitting 5. Lovenox as recommended by hematology 6. Await pathology report Ambrocio Fritz MD
[2018-10-21] MEDS ORDERED: DEXTROSE 5%-WATER - 50 ML IVPB ONE ×2 (10:52→18:02)
[2018-10-21] MEDS ORDERED: PIPERACILLIN/TAZOBACTAM 3.375 GM VIAL IVPB ONE ×2 (10:52→18:02)
[2018-10-21] MEDS: metoPROLOL SUCCINATE 25 MG TAB.SR.24H (FP) PO SCH ×2 (10:54→22:06)
--- NOTE | 2018-10-21 12:45 | PN ---
Progress Note, Physician History of Present Illness: pulmonary alert,feeling better,less dyspneic, chest tube drainage 150cc - Current Medication List Current Medications: Active Medications Acetaminophen (Tylenol -) 650 mg PO Q6H PRN PRN Reason: Fever Or Pain Last Admin: 10/19/18 15:47 Dose: 650 mg Lactated Ringer's (Lactated Ringers Solution) 1,000 mls @ 75 mls/hr IV ASDIR [facility] Last Admin: 10/21/18 04:47 Dose: 75 mls/hr Piperacillin Sod/Tazobactam (Sod 3.375 gm/ Dextrose) 50 mls @ 100 mls/hr IVPB Q8H-IV [facility]; Protocol Last Admin: 10/21/18 10:54 Dose: 100 mls/hr Metoprolol Succinate (Toprol Xl -) 12.5 mg PO BID [facility] Last Admin: 10/21/18 10:54 Dose: 12.5 mg - Objective Vital Signs: Vital Signs Temperature 97.8 F 10/21/18 02:00 Pulse Rate 111 H 10/21/18 06:00 Respiratory Rate 18 10/21/18 06:00 Blood Pressure 112/79 10/21/18 06:00 O2 Sat by Pulse Oximetry (%) 100 10/21/18 09:00 Constitutional: Yes: Well Nourished, Calm Eyes: Yes: WNL HENT: Yes: Nasal Congestion Neck: Yes: WNL Cardiovascular: Yes: Regular Rate and Rhythm, S1, S2 Respiratory: Yes: Diminished Gastrointestinal: Yes: Normal Bowel Sounds, Soft Extremities: Yes: WNL Edema: No Labs: CBC, BMP 10/21/18 05:30 10/21/18 05:30 INR, PTT INR 1.14 (0.83-1.09) H 10/18/18 06:30 Problem List - Problems (1) LUCRECIA (acute kidney injury) Code(s): N17.9 - ACUTE KIDNEY FAILURE, UNSPECIFIED (2) CAD (coronary artery disease) Code(s): I25.10 - ATHSCL HEART DISEASE OF [place] CORONARY ARTERY W/O ANG PCTRS Qualifiers: Coronary Disease-Associated Artery/Lesion type: [place] artery [place] vs. transplanted heart: [place] heart Associated angina: without angina Qualified Code(s): I25.10 - Atherosclerotic heart disease of [place] coronary artery without angina pectoris (3) Chest tube in place Code(s): Z96.89 - PRESENCE OF OTHER SPECIFIED FUNCTIONAL IMPLANTS (4) Congestive heart failure Code(s): I50.9 - HEART FAILURE, UNSPECIFIED Qualifiers: Heart failure type: diastolic Heart failure chronicity: acute on chronic Qualified Code(s): I50.33 - Acute on chronic diastolic (congestive) heart failure (5) Difficulty breathing Code(s): R06.89 - OTHER ABNORMALITIES OF BREATHING (6) HTN (hypertension) Code(s): I10 - ESSENTIAL (PRIMARY) HYPERTENSION Qualifiers: Hypertension type: essential hypertension Qualified Code(s): I10 - Essential (primary) hypertension (7) History of percutaneous coronary intervention Code(s): Z98.61 - CORONARY ANGIOPLASTY STATUS (8) Hypercholesterolemia Code(s): E78.00 - PURE HYPERCHOLESTEROLEMIA, UNSPECIFIED (9) Large pleural effusion Code(s): J90 - PLEURAL EFFUSION, NOT ELSEWHERE CLASSIFIED (10) Metastatic breast cancer Code(s): C50.919 - MALIGNANT NEOPLASM OF UNSP SITE OF UNSPECIFIED FEMALE BREAST Assessment/Plan IMP BILATERAL PLEURAL EFFUSIONS S/P R VAT BX - FOR MALIGNANCY METASTATIC BREAST CA ANEMIA ASHD S/P STENT DIASTOLIC HF CKD ELEVATED TROPONIN PLAN O2 MONITOR CHEST TUBE DRAINAGE ON R F/U CHEST X-RAY IF SIGNIFICANT ACCUMULATION LEFT PLEURAL FLUID PLEUR-X INSERTION MONITOR LYTES,H+H DR CA Problem List - Problems (1) LUCRECIA (acute kidney injury) Code(s): N17.9 - ACUTE KIDNEY FAILURE, UNSPECIFIED (2) CAD (coronary artery disease) Code(s): I25.10 - ATHSCL HEART DISEASE OF [place] CORONARY ARTERY W/O ANG PCTRS Qualifiers: Coronary Disease-Associated Artery/Lesion type: [place] artery [place] vs. transplanted heart: [place] heart Associated angina: without angina Qualified Code(s): I25.10 - Atherosclerotic heart disease of [place] coronary artery without angina pectoris (3) Chest tube in place Code(s): Z96.89 - PRESENCE OF OTHER SPECIFIED FUNCTIONAL IMPLANTS (4) Congestive heart failure Code(s): I50.9 - HEART FAILURE, UNSPECIFIED Qualifiers: Heart failure type: diastolic Heart failure chronicity: acute on chronic Qualified Code(s): I50.33 - Acute on chronic diastolic (congestive) heart failure (5) Difficulty breathing Code(s): R06.89 - OTHER ABNORMALITIES OF BREATHING (6) HTN (hypertension) Code(s): I10 - ESSENTIAL (PRIMARY) HYPERTENSION Qualifiers: Hypertension type: essential hypertension Qualified Code(s): I10 - Essential (primary) hypertension (7) History of percutaneous coronary intervention Code(s): Z98.61 - CORONARY ANGIOPLASTY STATUS (8) Hypercholesterolemia Code(s): E78.00 - PURE HYPERCHOLESTEROLEMIA, UNSPECIFIED (9) Large pleural effusion Code(s): J90 - PLEURAL EFFUSION, NOT ELSEWHERE CLASSIFIED (10) Metastatic breast cancer Code(s): C50.919 - MALIGNANT NEOPLASM OF UNSP SITE OF UNSPECIFIED FEMALE BREAST
--- NOTE | 2018-10-21 13:56 | PN ---
Progress Note (short form) - Note Progress Note: Subjective: no pain, or fever , no chills. Objective: Vital Signs: Last Vital Signs Temp Pulse Resp BP Pulse Ox 97.8 F 111 H 18 112/79 100 10/21/18 02:00 10/21/18 06:00 10/21/18 06:00 10/21/18 06:00 10/21/18 09:00 Laboratory Results - last 24 hr 10/21/18 10/21/18 05:30 05:30 WBC 17.5 H RBC 2.78 L Hgb 9.5 L Hct 27.8 L MCV 100.1 H MCH 34.3 H MCHC 34.3 RDW 27.4 H Plt Count 139 MPV 7.6 Sodium 137 Potassium 4.0 Chloride 106 Carbon Dioxide 24 Anion Gap 7 L BUN 27 H Creatinine 1.4 H Creat Clearance w eGFR 36.96 Random Glucose 81 Calcium 6.9 L* Physical Exam: NAD, dry lips. CV: RRR, No MRG Lungs: good air entry. R basal crackles . R CT with light pink fluid , 200 cc extra in past 24 hr Ext : RUE edema , no erythema, RP 2+ . ASSESSMENT AND PLAN: Pleasant unfortunate 73 y/o lady with h/o Stage IV breast Cancer, HTN, HLD, CAD s/p PCI, currently on chemotherapy, and recent diagnosis of pleural effusions s/ p thoracentesis who presented with SOB. 1- B/l Pleural effusions, exudative fluid 2- LUCRECIA . ? CKD 3- Elevated trop 4- Transaminitis 5- hypoclacemia /hypoalbuminemia 6- RUE superficial phlebitis 7 - Superficial thrombosis of RUE plan: - S/P VATS with R pleurodesis, pleurX cath placement and Bx - cont suction to R side until Monday - Pleural bx with no malignancy. - S/p removal of L pig tail, plan for L sided VATS on - start lovenox 40 mg daily. repeat US in 1 week - cont Shala d/w Dr. Vazquez. leukcytosis is worse - Keep Asa on hold for procedure - cont to hold statin and losartan Visit type - Emergency Visit Emergency Visit: Yes ED Registration Date: 10/04/18 Care time: The patient presented to the Emergency Department on the above date and was hospitalized for further evaluation of their emergent condition. - New Patient This patient is new to me today: No - Critical Care Critical Care patient: No
[2018-10-21] MEDS: ENOXAPARIN NA (PORCINE) 40 MG/0.4 ML DISP.SYRIN SQ SCH (18:04)
--- NOTE | 2018-10-21 18:48 | PN ---
Progress Note, Physician Chief Complaint: SOB History of Present Illness: No changes in RUE pain (mostly with movement), swelling down - Current Medication List Current Medications: Active Medications Acetaminophen (Tylenol -) 650 mg PO Q6H PRN PRN Reason: Fever Or Pain Last Admin: 10/19/18 15:47 Dose: 650 mg Enoxaparin Sodium (Lovenox -) 40 mg SQ DAILY [facility] Last Admin: 10/21/18 18:04 Dose: 40 mg Lactated Ringer's (Lactated Ringers Solution) 1,000 mls @ 75 mls/hr IV ASDIR [facility] Last Admin: 10/21/18 04:47 Dose: 75 mls/hr Piperacillin Sod/Tazobactam (Sod 3.375 gm/ Dextrose) 50 mls @ 100 mls/hr IVPB Q8H-IV [facility]; Protocol Last Admin: 10/21/18 18:04 Dose: 100 mls/hr Metoprolol Succinate (Toprol Xl -) 12.5 mg PO BID [facility] Last Admin: 10/21/18 10:54 Dose: 12.5 mg - Objective Vital Signs: Vital Signs Temperature 97.8 F 10/21/18 02:00 Pulse Rate 111 H 10/21/18 06:00 Respiratory Rate 18 10/21/18 06:00 Blood Pressure 112/79 10/21/18 06:00 O2 Sat by Pulse Oximetry (%) 100 10/21/18 09:00 Constitutional: Yes: No Distress Eyes: Yes: Conjunctiva Clear Cardiovascular: Yes: Regular Rate and Rhythm Respiratory: Yes: CTA Bilaterally Gastrointestinal: Yes: WNL, Soft Extremities: Yes: Other (RUE mildly tender posteriorly, no edema) Labs: CBC, BMP 10/21/18 05:30 10/21/18 05:30 INR, PTT INR 1.14 (0.83-1.09) H 10/18/18 06:30 Assessment/Plan 73F with Stage 4 breast cancer with mets to spine, on third line gemzar, CAD s/ p 1 stent in 2013 admitted on 10/04 with dyspnea due to recurrent exudative bilateral pleural effusions s/p VATS with R. pleurodesis and pleurX catheter and bx (pleural biopsy with no e/o malignancy), planned for possible L. sided VATS next week. UE doppler, done for evaluation of pain and swelling, showed thrombophlebitis of superficial cephalic vein. On low dose Lovenox (40 mg daily ) for symptomatic SVT, monitor symptoms, and repeat doppler in 1 week.
[2018-10-22] MEDS: PIPERACILLIN/TAZOB 3.375 GM 3.375 GM in DEXTROSE 5%-WATER - 50 ML IVPB SCH ×2 (01:49→10:26)
[2018-10-22 06:07] LABS: HEMATOCRIT 29.1 % (32.4-45.2); LYMPH % 16.6 % (8-40); MCH 34.6 pg (25.7-33.7); MCHC 34.5 g/dl (32.0-36.0); MEAN CELL VOLUME 100.4 fl (80-96); MEAN PLT VOLUME 7.8 fl (7.5-11.1); MONO % 10.9 % (3.8-10.2); NEUT % 69.5 % (42.8-82.8); PLATELET COUNT 138 K/MM3 (134-434); RDW 26.9 % (11.6-15.6); WHITE BLOOD COUNT 16.9 K/mm3 (4.0-10.0)
[2018-10-22] MEDS ORDERED: PIPERACILLIN/TAZOBACTAM 3.375 GM VIAL IVPB ONE ×2 (10:21→18:33)
[2018-10-22] MEDS ORDERED: DEXTROSE 5%-WATER - 50 ML IVPB ONE ×2 (10:21→18:33)
[2018-10-22] MEDS: ENOXAPARIN NA (PORCINE) 40 MG/0.4 ML DISP.SYRIN SQ SCH (10:26)
[2018-10-22] MEDS: metoPROLOL SUCCINATE 25 MG TAB.SR.24H (FP) PO SCH ×2 (10:26→21:55)
[2018-10-22 11:05] LABS: ANISOCYTOSIS 2+; MACROCYTOSIS 0; PLATELET ESTIMATE DECREASED
--- NOTE | 2018-10-22 12:54 | PN ---
Progress Note, Physician History of Present Illness: Dyspnea resolving, s/p right VATS with pleural biopsy and pleurex catheter placement without sequelae. - Current Medication List Current Medications: Active Medications Acetaminophen (Tylenol -) 650 mg PO Q6H PRN PRN Reason: Fever Or Pain Last Admin: 10/19/18 15:47 Dose: 650 mg Enoxaparin Sodium (Lovenox -) 40 mg SQ DAILY [facility] Last Admin: 10/22/18 10:26 Dose: 40 mg Lactated Ringer's (Lactated Ringers Solution) 1,000 mls @ 75 mls/hr IV ASDIR [facility] Last Admin: 10/21/18 22:05 Dose: 75 mls/hr Piperacillin Sod/Tazobactam (Sod 3.375 gm/ Dextrose) 50 mls @ 100 mls/hr IVPB Q8H-IV [facility]; Protocol Last Admin: 10/22/18 10:26 Dose: 100 mls/hr Metoprolol Succinate (Toprol Xl -) 12.5 mg PO BID [facility] Last Admin: 10/22/18 10:26 Dose: 12.5 mg - Objective Vital Signs: Vital Signs Temperature 98.6 F 10/22/18 12:06 Pulse Rate 118 H 10/22/18 12:06 Respiratory Rate 18 10/22/18 12:06 Blood Pressure 113/83 10/22/18 06:00 O2 Sat by Pulse Oximetry (%) 100 10/22/18 09:00 Constitutional: Yes: No Distress, Calm, Thin Neck: Yes: Supple Cardiovascular: Yes: Regular Rate and Rhythm, Tachycardia Respiratory: Yes: Regular, Diminished, On Nasal O2, Other (Right chest tube in place) Gastrointestinal: Yes: Normal Bowel Sounds, Soft Edema: No Labs: CBC, BMP 10/22/18 05:30 10/21/18 05:30 INR, PTT INR 1.14 (0.83-1.09) H 10/18/18 06:30 - ....Imaging Chest X-ray: Report Reviewed (Improved right base aeration, left effusion) EKG: Report Reviewed (Tele: ST) Problem List - Problems (1) Demand ischemia Code(s): I24.8 - OTHER FORMS OF ACUTE ISCHEMIC HEART DISEASE (2) LUCRECIA (acute kidney injury) Code(s): N17.9 - ACUTE KIDNEY FAILURE, UNSPECIFIED (3) Congestive heart failure Code(s): I50.9 - HEART FAILURE, UNSPECIFIED Qualifiers: Heart failure type: diastolic Heart failure chronicity: acute on chronic Qualified Code(s): I50.33 - Acute on chronic diastolic (congestive) heart failure (4) Large pleural effusion Code(s): J90 - PLEURAL EFFUSION, NOT ELSEWHERE CLASSIFIED (5) Chest tube in place Code(s): Z96.89 - PRESENCE OF OTHER SPECIFIED FUNCTIONAL IMPLANTS (6) Metastatic breast cancer Code(s): C50.919 - MALIGNANT NEOPLASM OF UNSP SITE OF UNSPECIFIED FEMALE BREAST Assessment/Plan 1. POD #4 post VATS with right pleurX cath placement and Biopsy (Bilateral pleural effusions) 2. Diastolic/systolic LV dysfunction with clinical class 0-I NYHA classification LV failure, compensated/euvolemic, exudative pleural effusion argues against heart failure 3. CAD post PCI/stent demand ischemia angina pectoris 4. Paroxysmal atrial tachycardia currently in sinus rhythm/sinus tachycardia 5. HTN 6. Hyperlipidemia 7. 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 Thrombophlebitis of right superficial cephalic vein 9. Acute kidney injury, with Hypokalemia/resolved- Hypokalemia 10. Thrombocytopenia, resolved 11. Abnormal LFTs, possible hepatic congestion, resolving 12. Hypocalcemia PLAN: 1. Recommend resumption of Lipitor unless contraindicated; LFT abnormality resolving 2. Continue Toprol XL 12.5 bid and titrate dosage as needed and as tolerated, hemodynamics permitting 3. Resume Losartan once renal function improves and as tolerated, hemodynamics permitting 4. Lovenox as recommended by hematology 5. Await pathology report
--- NOTE | 2018-10-22 13:34 | PN ---
Physical Exam: SUBJECTIVE: Patient seen and examined at bedside. 1 episode of SVT yesterday evening. Denies sob, chest pain, or lightheadedness. OBJECTIVE: Vital Signs Period Temp Pulse Resp BP Sys/[place] Pulse Ox Last 24 Hr 97.8 F-98.6 F 118-126 18-18 106-131/69-88 100-100 GENERAL: AAOx3 NAD EYES: EOMI Sclera Clear. LUNGS: r base crackles. R Chest tube in place draining. HEART: Tachycardic, S1S2 ABDOMEN: NDNT No HSM EXTREMITIES: No edema appreciated b/l. SKIN: Ecchymosis left arm. Laboratory Results - last 24 hr 10/22/18 05:30 WBC 16.9 H RBC 2.90 L Hgb 10.0 L Hct 29.1 L MCV 100.4 H MCH 34.6 H MCHC 34.5 RDW 26.9 H Plt Count 138 MPV 7.8 Absolute Neuts (auto) 11.8 H Neutrophils % 69.5 Lymphocytes % 16.6 Monocytes % 10.9 H Eosinophils % 2.0 Basophils % 1.0 Nucleated RBC % 0 Hypochromia 0 Platelet Estimate Decreased Polychromasia 2+ Poikilocytosis 0 Anisocytosis 2+ Microcytosis 2+ Macrocytosis 0 Active Medications Generic Name Dose Route Start Last Admin Trade Name Freq PRN Reason Stop Dose Admin Acetaminophen 650 mg 10/19/18 15:41 10/19/18 15:47 Tylenol - PO 650 mg Q6H PRN Administration Fever Or Pain Enoxaparin Sodium 40 mg 10/21/18 15:30 10/22/18 10:26 Lovenox - SQ 40 mg DAILY [facility] Administration Lactated Ringer's 1,000 mls @ 75 mls/hr 10/18/18 14:45 10/21/18 22:05 Lactated Ringers Solution IV 75 mls/hr ASDIR [facility]O Administration Piperacillin Sod/Tazobactam 50 mls @ 100 mls/hr 10/20/18 18:00 10/22/18 10:26 Sod 3.375 gm/ Dextrose IVPB 100 mls/hr Q8H-IV [facility] Administration Protocol Metoprolol Succinate 12.5 mg 10/18/18 22:00 10/22/18 10:26 Toprol Xl - PO 12.5 mg BID [facility] Administration ASSESSMENT/PLAN: 73 y/o F with PMH recurrent pleural effusion, stage 4 R breast CA with chemoport w/ mets to spine, HTN, HLD, CAD s/p 1 stent (2013), angina, presented w/ b/l pleural effusion, now s/p L pigtail catheter placement and R VAT placement w/ pleural biopsy (10/18/18). #L-sided pleural effusion: malignant etiology most likely -s/p R VAT, pleural biopsy, POD #4. Frozen section neg for malignancy, await biopsy results. - Cont to monitor pt for fluid accumulation. L VATS and L pleurX . Cont to suction R side per Dr Fletcher. -Zosyn 3.375 50 ml QHR -repeat CXR next week to check for fluid accumulation, especially on L side. #LUCRECIA vs CKD: stable, BUN/Cr ~27/1.4 -continue to hold lasix for now -Per cardio, hold Losartan until renal fxn improves -Renal US noted above, no evid of hydronephrosis #Hx breast CA w/spinal mets -Chemo weekly - Gemzar #Troponinemia: likely demand #HTN- controlled -Dr Evans on board - Toprol XL 12.5 mg PO BID. May increase if observe more paroxysmal atrial tachycardia #CAD s/p 1 stent (2003) -hold ASA for now in light of procedure this upcoming #HLD -Lipitor may be resumed per Cardiology #Hypocalcemia; corrected Ca---> 6.9 + (0.8 X (4-1.4))= 8.98 #F/E/N -LR @ 75 -Monitor Electrolytes -regular diet #PPX -Lovenox 40 SQ #Dispo - tele Visit type - Emergency Visit Emergency Visit: Yes ED Registration Date: 10/04/18 Care time: The patient presented to the Emergency Department on the above date and was hospitalized for further evaluation of their emergent condition. - New Patient This patient is new to me today: Yes Date on this admission: 10/22/18 - Critical Care Critical Care patient: No
--- NOTE | 2018-10-22 14:46 | PN ---
Teaching Attending Note Name of Resident: Paulie Haney ATTENDING PHYSICIAN STATEMENT I saw and evaluated the patient. I reviewed the resident's note and discussed the case with the resident. I agree with the resident's findings and plan as documented. SUBJECTIVE: no pain , no fever or chills, no SOB OBJECTIVE: NAD, dry lips. CV: RRR, No MRG Lungs: good air entry. R basal crackles . R CT with yellow fluid in tube Ext : RUE edema , no erythema, RP 2+ . ASSESSMENT AND PLAN: Pleasant unfortunate 73 y/o lady with h/o Stage IV breast Cancer, HTN, HLD, CAD s/p PCI, currently on chemotherapy, and recent diagnosis of pleural effusions s/ p thoracentesis who presented with SOB. 1- B/l Pleural effusions, exudative fluid . S/P VATS with R pleurodesis, pleurX cath placement and Bx 2- LUCRECIA . ? CKD 3- Elevated trop 4- Transaminitis 5- hypoclacemia /hypoalbuminemia 6- RUE superficial phlebitis 7 - Superficial thrombosis of RUE plan: - L sided effusion started to accumulate on cxray - currently on low suction for R sided CT. will dw with dr. Beck - for L VATS and pleurX cath on . follow cxray on Monday - cont lovenox 40 mg daily. repeat US in 1 week - cont Zosyn, WBC is better - Keep Asa on hold for procedure - cont to hold statin and losartan - check LFts tomorrow
--- NOTE | 2018-10-22 14:56 | PN ---
Progress Note, Physician - Current Medication List Current Medications: Active Medications Acetaminophen (Tylenol -) 650 mg PO Q6H PRN PRN Reason: Fever Or Pain Last Admin: 10/19/18 15:47 Dose: 650 mg Enoxaparin Sodium (Lovenox -) 40 mg SQ DAILY [facility] Last Admin: 10/22/18 10:26 Dose: 40 mg Lactated Ringer's (Lactated Ringers Solution) 1,000 mls @ 75 mls/hr IV ASDIR JOSE ARMANDO Last Admin: 10/21/18 22:05 Dose: 75 mls/hr Piperacillin Sod/Tazobactam (Sod 3.375 gm/ Dextrose) 50 mls @ 100 mls/hr IVPB Q8H-IV JOSE ARMANDO; Protocol Last Admin: 10/22/18 10:26 Dose: 100 mls/hr Metoprolol Succinate (Toprol Xl -) 12.5 mg PO BID [facility] Last Admin: 10/22/18 10:26 Dose: 12.5 mg - Objective Vital Signs: Vital Signs Temperature 98.6 F 10/22/18 12:06 Pulse Rate 118 H 10/22/18 12:06 Respiratory Rate 18 10/22/18 12:06 Blood Pressure 131/80 10/22/18 12:06 O2 Sat by Pulse Oximetry (%) 100 10/22/18 09:00 Labs: CBC, BMP 10/22/18 05:30 10/21/18 05:30 INR, PTT INR 1.14 (0.83-1.09) H 10/18/18 06:30
--- NOTE | 2018-10-22 15:06 | PN ---
Progress Note (short form) - Note Progress Note: Feels overall better. 150cc out from PleureX overnight. Some musculoskeletal discomfort. CXR: improving right effusion / minimal increase in the LLL Intake & Output 10/19/18 10/20/18 10/21/18 10/22/18 23:59 23:59 23:59 23:59 Intake Total 2600 2670 1485 500 Output Total 360 2390 1200 Balance 2240 280 285 500 Weight 142 lb 3 oz Last Vital Signs Temp Pulse Resp BP Pulse Ox 98.6 F 118 H 18 131/80 100 10/22/18 12:06 10/22/18 12:06 10/22/18 12:06 10/22/18 12:06 10/22/18 09:00 Active Medications Acetaminophen (Tylenol -) 650 mg PO Q6H PRN PRN Reason: Fever Or Pain Last Admin: 10/19/18 15:47 Dose: 650 mg Enoxaparin Sodium (Lovenox -) 40 mg SQ DAILY JOSE ARMANDO Last Admin: 10/22/18 10:26 Dose: 40 mg Lactated Ringer's (Lactated Ringers Solution) 1,000 mls @ 75 mls/hr IV ASDIR JOSE ARMANDO Last Admin: 10/21/18 22:05 Dose: 75 mls/hr Piperacillin Sod/Tazobactam (Sod 2.25 gm/ Dextrose) 50 mls @ 100 mls/hr IVPB Q8H-IV JOSE ARMANDO; Protocol Metoprolol Succinate (Toprol Xl -) 12.5 mg PO BID JOSE ARMANDO Last Admin: 10/22/18 10:26 Dose: 12.5 mg Constitutional: Yes: Awake and alert, NAD Eyes: Yes: WNL HENT: Yes: Nasal Congestion Neck: Yes: WNL Cardiovascular: Yes: Regular Rate and Rhythm, S1, S2 Respiratory: Yes: Diminished Gastrointestinal: Yes: Normal Bowel Sounds, Soft Extremities: Yes: WNL Edema: No Labs: Laboratory Results - last 24 hr 10/22/18 05:30 WBC 16.9 H RBC 2.90 L Hgb 10.0 L Hct 29.1 L MCV 100.4 H MCH 34.6 H MCHC 34.5 RDW 26.9 H Plt Count 138 MPV 7.8 Absolute Neuts (auto) 11.8 H Neutrophils % 69.5 Lymphocytes % 16.6 Monocytes % 10.9 H Eosinophils % 2.0 Basophils % 1.0 Nucleated RBC % 0 Hypochromia 0 Platelet Estimate Decreased Polychromasia 2+ Poikilocytosis 0 Anisocytosis 2+ Microcytosis 2+ Macrocytosis 0 Problem List - Problems (1) LUCRECIA (acute kidney injury) Code(s): N17.9 - ACUTE KIDNEY FAILURE, UNSPECIFIED (2) CAD (coronary artery disease) Code(s): I25.10 - ATHSCL HEART DISEASE OF [place] CORONARY ARTERY W/O ANG PCTRS Qualifiers: Coronary Disease-Associated Artery/Lesion type: [place] artery [place] vs. transplanted heart: [place] heart Associated angina: without angina Qualified Code(s): I25.10 - Atherosclerotic heart disease of [place] coronary artery without angina pectoris (3) Chest tube in place Code(s): Z96.89 - PRESENCE OF OTHER SPECIFIED FUNCTIONAL IMPLANTS (4) Congestive heart failure Code(s): I50.9 - HEART FAILURE, UNSPECIFIED Qualifiers: Heart failure type: diastolic Heart failure chronicity: acute on chronic Qualified Code(s): I50.33 - Acute on chronic diastolic (congestive) heart failure (5) Difficulty breathing Code(s): R06.89 - OTHER ABNORMALITIES OF BREATHING (6) HTN (hypertension) Code(s): I10 - ESSENTIAL (PRIMARY) HYPERTENSION Qualifiers: Hypertension type: essential hypertension Qualified Code(s): I10 - Essential (primary) hypertension (7) History of percutaneous coronary intervention Code(s): Z98.61 - CORONARY ANGIOPLASTY STATUS (8) Hypercholesterolemia Code(s): E78.00 - PURE HYPERCHOLESTEROLEMIA, UNSPECIFIED (9) Large pleural effusion Code(s): J90 - PLEURAL EFFUSION, NOT ELSEWHERE CLASSIFIED (10) Metastatic breast cancer Code(s): C50.919 - MALIGNANT NEOPLASM OF UNSP SITE OF UNSPECIFIED FEMALE BREAST Assessment/Plan IMP BILATERAL PLEURAL EFFUSIONS S/P R VAT BX - FOR MALIGNANCY METASTATIC BREAST CA ANEMIA ASHD S/P STENT DIASTOLIC HF CKD ELEVATED TROPONIN PLAN O2 NEEDED TO MAINTAIN SATURATION MONITOR CHEST TUBE DRAINAGE F/U CHEST X-RAY:l IF SIGNIFICANT ACCUMULATION LEFT PLEURAL FLUID PLEUR- X INSERTION OOB TO CHAIR INCENTIVE SPIROMETRY DR ARNOLD
--- NOTE | 2018-10-22 15:35 | PN ---
Progress Note (short form) - Note Progress Note: POD 4, s/p Right VATS with pleural biopsy and pleurex catheter placement Pt seen and examined. States she is feeling well. Has not been oob. Tolerating PO. Pain controlled. Denies cp/sob, n/v/d. Vital Signs Temp 98.6 F 10/22/18 12:06 Pulse 118 H 10/22/18 12:06 Resp 18 10/22/18 12:06 BP 131/80 10/22/18 12:06 Pulse Ox 100 10/22/18 09:00 Intake & Output 10/21/18 10/22/18 10/22/18 23:59 11:59 23:59 Intake Total 875 500 Output Total 650 Balance 225 500 Intake: IV 675 500 Lactated Ringers Solution 675 500 1,000 ml @ 75 mls/hr IV ASDIR JOSE ARMANDO Rx#:[id number] IVPB 200 Output: Chest Tube Drainage 350 Right Lateral Chest 350 Urine 300 Void 300 Other: Voiding Method Bedpan Bedpan # Unmeasured Voids Void 1 CBC, BMP 10/22/18 05:30 10/21/18 05:30 Gen: awake, alert, nad, sitting in bed, at bedside Resp: Unlabored on RA, decreased breath sounds LLL. Dressing intact with moderate dried serous drainage. A/P: 73 y/o F w/ PMHx recurrent pleural effusion, stage 4 R breast CA with chemoport w/mets to spine, HTN, HLD, CAD s/p 1 stent (2013), angina, admitted for SOB on rest and exertion, now POD 4, s/p Right VATS with pleural biopsy and pleurex catheter placement. Stable exam. Afebrile, remains tachy (?pain) R PleurX with 500ml serosanguinous drainage x 24 hours, 150ml overnight. -VNS for R PleurX, continue to monitor drainage -Plan for L VATS and pleurX cath on with Dr Fletcher -Continue daily cxr -Incentive spirometry -OOB with PT d/w attending, Dr Fletcher
[2018-10-22 16:06] VITALS: BMI 22.8
[2018-10-22] MEDS: PIPERACILLIN/TAZOB 3.375 GM 2.25 GM in DEXTROSE 5%-WATER - 50 ML IVPB SCH (18:44)
[2018-10-22] MEDS: LACTATED RINGERS SOLUTION 1,000 ML IV SCH (21:55)
[2018-10-23] MEDS ORDERED: PIPERACILLIN/TAZOBACTAM 3.375 GM VIAL IVPB ONE ×2 (01:05→09:28)
[2018-10-23] MEDS ORDERED: DEXTROSE 5%-WATER - 50 ML IVPB ONE ×5 (01:05→23:53)
[2018-10-23] MEDS: PIPERACILLIN/TAZOB 3.375 GM 2.25 GM in DEXTROSE 5%-WATER - 50 ML IVPB SCH ×2 (01:15→10:11)
[2018-10-23 06:33] LABS: BASO % 1.1 % (0-2.0); EOS % 2.8 % (0-4.5); HEMATOCRIT 28.2 % (32.4-45.2); HEMOGLOBIN 9.8 GM/dL (10.7-15.3); LYMPH % 15.8 % (8-40); MCH 34.5 pg (25.7-33.7); MCHC 34.6 g/dl (32.0-36.0); MEAN CELL VOLUME 99.7 fl (80-96); MEAN PLT VOLUME 8.2 fl (7.5-11.1); MONO % 11.4 % (3.8-10.2); NEUT % 68.9 % (42.8-82.8); PLATELET COUNT 138 K/MM3 (134-434); RBC 2.83 M/mm3 (3.60-5.2); WHITE BLOOD COUNT 14.4 K/mm3 (4.0-10.0)
[2018-10-23 07:23] LABS: ALK PHOS 287 U/L (45-117); ANION GAP 7 MMOL/L (8-16); BILIRUBIN,TOTAL 0.6 mg/dL (0.2-1); BLOOD UREA NITROGEN 30 mg/dL (7-18); CHLORIDE 104 mmol/L (98-107); CO2 24 mmol/L (21-32); CREATININE 1.3 mg/dL (0.55-1.3); GLUCOSE,RANDOM 82 mg/dL (74-106); MAGNESIUM 1.9 mg/dL (1.8-2.4); PHOSPHOROUS 3.3 mg/dL (2.5-4.9); POTASSIUM 3.3 mmol/L (3.5-5.1); SGOT/AST 75 U/L (15-37); SGPT/ALT 43 U/L (13-61); SODIUM 135 mmol/L (136-145); TOT PROT 3.5 g/dl (6.4-8.2)
[2018-10-23] MEDS ORDERED: POTASSIUM CHLORIDE TABS 20 MEQ TABLET.ER (FP) PO ONE (08:45)
[2018-10-23] MEDS ORDERED: PT OWN MED DRAWER 7, Y5N ONE (09:28)
--- NOTE | 2018-10-23 09:43 | PATH ---
Cytology Non-Gynecological Report Patient Name: NEGRO CULLEN Med. Rec. #: [id number] /Age/Gender: 1945 (Age: 73) / F Account: [id number] Location: 4 W TELEMETRY U Taken: 10/18/2018 Received: 10/18/2018 Reported: 10/23/2018 Physicians: Madelyn Prakash M.D. Specimen(s) Received PLEURAL FLUID Clinical History Pleural effusion Final Diagnosis PLEURAL FLUID, THORACENTESIS: SATISFACTORY FOR EVALUATION. NO MALIGNANT CELLS IDENTIFIED. REACTIVE MESOTHELIAL CELLS IN HEMORRHAGIC BACKGROUND WITH NUMEROUS NEUTROPHILS AND LYMPHOCYTES PRESENT. Comment: Immunohistochemical stains performed at [place], [place] ([id number]) and interpreted at [facility] show the reactive mesothelial cells are positive for calretinin, D2-40, and weakly positive for TEGAN. Immunostains for MOC31, Nathen-Ep4, and JOHNNY-3 are negative. See concurrent material [id number]. Electronically Signed Faby Heredia M.D. Gross Description Approximately 50 cc of correa fluid received fresh. One cytofunnel prepared and Pap stained. One cellblock prepared.
[2018-10-23] MEDS: ENOXAPARIN NA (PORCINE) 40 MG/0.4 ML DISP.SYRIN SQ SCH (10:12)
[2018-10-23] MEDS: metoPROLOL SUCCINATE 25 MG TAB.SR.24H (FP) PO SCH ×2 (10:13→21:30)
[2018-10-23] MEDS ORDERED: POTASSIUM CHLORIDE TABS 10 MEQ TABLET.ER (FP) PO ONE (10:30)
--- NOTE | 2018-10-23 11:48 | PN ---
Progress Note, Physician Chief Complaint: Events noted Post right VAT with pleurX catheter insertion now awaits left VAT History of Present Illness: Patient was seen and examined. Awake and alert. Chart was reviewed Episode of nausea yesterday but now appears stable HR > 100 - Current Medication List Current Medications: Active Medications Acetaminophen (Tylenol -) 650 mg PO Q6H PRN PRN Reason: Fever Or Pain Last Admin: 10/19/18 15:47 Dose: 650 mg Enoxaparin Sodium (Lovenox -) 40 mg SQ DAILY [facility] Last Admin: 10/23/18 10:12 Dose: 40 mg Lactated Ringer's (Lactated Ringers Solution) 1,000 mls @ 75 mls/hr IV ASDIR [facility] Last Admin: 10/22/18 21:55 Dose: 75 mls/hr Piperacillin Sod/Tazobactam (Sod 2.25 gm/ Dextrose) 50 mls @ 100 mls/hr IVPB Q8H-IV JOSE ARMANDO; Protocol Last Admin: 10/23/18 10:11 Dose: 100 mls/hr Metoprolol Succinate (Toprol Xl -) 12.5 mg PO BID [facility] Last Admin: 10/23/18 10:13 Dose: 12.5 mg - Objective Vital Signs: Vital Signs Temperature 98.2 F 10/23/18 10:00 Pulse Rate 108 H 10/23/18 10:00 Respiratory Rate 22 H 10/23/18 10:00 Blood Pressure 114/79 10/23/18 10:00 O2 Sat by Pulse Oximetry (%) 100 10/23/18 08:00 Eyes: Yes: PERRL HENT: Yes: Atraumatic Neck: Yes: Supple Cardiovascular: Yes: Regular Rate and Rhythm, Tachycardia, S1, S2 Respiratory: Yes: Diminished Gastrointestinal: Yes: Normal Bowel Sounds, Soft. No: Tenderness Edema: No Labs: CBC, BMP 10/23/18 05:30 10/23/18 05:30 Problem List - Problems (1) LUCRECIA (acute kidney injury) Code(s): N17.9 - ACUTE KIDNEY FAILURE, UNSPECIFIED (2) Chest tube in place Code(s): Z96.89 - PRESENCE OF OTHER SPECIFIED FUNCTIONAL IMPLANTS (3) Congestive heart failure Code(s): I50.9 - HEART FAILURE, UNSPECIFIED Qualifiers: Heart failure type: diastolic Heart failure chronicity: acute on chronic Qualified Code(s): I50.33 - Acute on chronic diastolic (congestive) heart failure (4) Demand ischemia Code(s): I24.8 - OTHER FORMS OF ACUTE ISCHEMIC HEART DISEASE (5) Large pleural effusion Code(s): J90 - PLEURAL EFFUSION, NOT ELSEWHERE CLASSIFIED (6) Metastatic breast cancer Code(s): C50.919 - MALIGNANT NEOPLASM OF UNSP SITE OF UNSPECIFIED FEMALE BREAST (7) CAD (coronary artery disease) Code(s): I25.10 - ATHSCL HEART DISEASE OF [place] CORONARY ARTERY W/O ANG PCTRS Qualifiers: Coronary Disease-Associated Artery/Lesion type: [place] artery [place] vs. transplanted heart: [place] heart Associated angina: without angina Qualified Code(s): I25.10 - Atherosclerotic heart disease of [place] coronary artery without angina pectoris (8) History of percutaneous coronary intervention Code(s): Z98.61 - CORONARY ANGIOPLASTY STATUS (9) Hypercholesterolemia Code(s): E78.00 - PURE HYPERCHOLESTEROLEMIA, UNSPECIFIED (10) HTN (hypertension) Code(s): I10 - ESSENTIAL (PRIMARY) HYPERTENSION Qualifiers: Hypertension type: essential hypertension Qualified Code(s): I10 - Essential (primary) hypertension (11) Congestive heart failure with LV diastolic dysfunction, NYHA class 2 Code(s): I50.30 - UNSPECIFIED DIASTOLIC (CONGESTIVE) HEART FAILURE Assessment/Plan 1. POD #5 post VATS with right pleurX cath placement and Biopsy (Bilateral pleural effusions) 2. Diastolic/systolic LV dysfunction with clinical class 0-I NYHA classification LV failure, compensated/euvolemic, exudative pleural effusion 3. CAD post PCI/stent demand ischemia, angina pectoris 4. Paroxysmal atrial tachycardia 5. HTN 6. Hyperlipidemia 7. 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 Thrombophlebitis of right superficial cephalic vein 9. Acute kidney injury 10. Thrombocytopenia 11. Abnormal LFTs, possible hepatic congestion 12. Hypocalcemia PLAN: 1. Restart Lipitor when able to 2. Continue Toprol XL 12.5 bid and titrate dosage as needed and as tolerated, hemodynamics permitting 3. Resume Losartan once renal function improves and as tolerated, hemodynamics permitting 4. Lovenox as recommended by hematology 5. Await pathology report 6. Await left VAT Further plans are to follow Bello Combs MD
[2018-10-23 12:20] LABS: CALCIUM 6.5 mg/dL (8.5-10.1)
--- NOTE | 2018-10-23 13:31 | PN ---
Physical Exam: SUBJECTIVE: Patient seen and examined at bedside. Resting in bed comfortably. Denies any sob or chest pain. No acute events overnight. OBJECTIVE: Vital Signs Period Temp Pulse Resp BP Sys/[place] Pulse Ox Last 24 Hr 97.6 F-98.3 F 98-118 18-24 114-122/79-87 100-100 GENERAL: AAOx3 NAD EYES: EOMI Sclera Clear. LUNGS: R Chest tube in place draining.Bandage over chest tube, no excoriation or skin irritation appreciated., HEART: Tachycardic, S1S2 ABDOMEN: NDNT No HSM EXTREMITIES: No edema appreciated b/l. SKIN: No rashes or lesions appreciated Laboratory Results - last 24 hr 10/23/18 10/23/18 05:30 05:30 WBC 14.4 H RBC 2.83 L Hgb 9.8 L Hct 28.2 L MCV 99.7 H MCH 34.5 H MCHC 34.6 RDW 26.0 H Plt Count 138 MPV 8.2 Absolute Neuts (auto) 9.9 H Neutrophils % 68.9 Lymphocytes % 15.8 Monocytes % 11.4 H Eosinophils % 2.8 Basophils % 1.1 Nucleated RBC % 0 Sodium 135 L Potassium 3.3 L Chloride 104 Carbon Dioxide 24 Anion Gap 7 L BUN 30 H Creatinine 1.3 Creat Clearance w eGFR 40.26 Random Glucose 82 Calcium 6.5 L* Phosphorus 3.3 Magnesium 1.9 Total Bilirubin 0.6 AST 75 H ALT 43 Alkaline Phosphatase 287 H Total Protein 3.5 L Albumin 1.0 L Active Medications Generic Name Dose Route Start Last Admin Trade Name Freq PRN Reason Stop Dose Admin Acetaminophen 650 mg 10/19/18 15:41 10/19/18 15:47 Tylenol - PO 650 mg Q6H PRN Administration Fever Or Pain Enoxaparin Sodium 40 mg 10/21/18 15:30 10/23/18 10:12 Lovenox - SQ 40 mg DAILY JOSE ARMANDO Administration Lactated Ringer's 1,000 mls @ 75 mls/hr 10/18/18 14:45 10/22/18 21:55 Lactated Ringers Solution IV 75 mls/hr ASDIR JOSE ARMANDO Administration Piperacillin Sod/Tazobactam 50 mls @ 100 mls/hr 10/22/18 18:00 10/23/18 10:11 Sod 2.25 gm/ Dextrose IVPB 100 mls/hr Q8H-IV JOSE ARMANDO Administration Protocol Metoprolol Succinate 12.5 mg 10/18/18 22:00 10/23/18 10:13 Toprol Xl - PO 12.5 mg BID JOSE ARMANDO Administration ASSESSMENT/PLAN: 73 y/o F with PMH recurrent pleural effusion, stage 4 R breast CA with chemoport w/ mets to spine, HTN, HLD, CAD s/p 1 stent (2013), angina, presented w/ b/l pleural effusion, now s/p L pigtail catheter placement and R VAT placement w/ pleural biopsy (10/18/18). #L-sided pleural effusion: malignant etiology most likely -s/p R VAT, pleural biopsy, POD #5. Frozen section neg for malignancy, await biopsy results. - Cont to monitor pt for fluid accumulation. L VATS and L pleurX . Cont to suction R side per Dr Fletcher. -Zosyn 3.375 50 ml QHR -repeat CXR next week to check for fluid accumulation, especially on L side. #LUCRECIA vs CKD: stable, BUN/Cr ~27/1.4 -continue to hold lasix -Per cardio, hold Losartan until renal fxn improves -Renal US noted above, no evid of hydronephrosis #Hx breast CA w/spinal mets -Chemo weekly - Gemzar #Troponinemia: likely demand #HTN- controlled -Dr Evans on board - Toprol XL 12.5 mg PO BID. May increase if observe more paroxysmal atrial tachycardia #CAD s/p 1 stent (2003) -hold ASA for now in light of procedure this upcoming #HLD -Lipitor may be resumed per Cardiology #Hypocalcemia; corrected Ca WNL #F/E/N -LR @ 75 -Monitor Electrolytes -regular diet #PPX -Lovenox 40 SQ #Dispo - tele Visit type - Emergency Visit Emergency Visit: Yes ED Registration Date: 10/04/18 Care time: The patient presented to the Emergency Department on the above date and was hospitalized for further evaluation of their emergent condition. - New Patient This patient is new to me today: No - Critical Care Critical Care patient: No - Discharge Referral Referred to [facility] Med P.C.: No
--- NOTE | 2018-10-23 14:24 | PN ---
Progress Note, Physician History of Present Illness: pulmonary alert,no distress,dyspnea improving,-cp, chest tube drainage 90cc since earlier am - Current Medication List Current Medications: Active Medications Acetaminophen (Tylenol -) 650 mg PO Q6H PRN PRN Reason: Fever Or Pain Last Admin: 10/19/18 15:47 Dose: 650 mg Enoxaparin Sodium (Lovenox -) 40 mg SQ DAILY [facility] Last Admin: 10/23/18 10:12 Dose: 40 mg Lactated Ringer's (Lactated Ringers Solution) 1,000 mls @ 75 mls/hr IV ASDIR JOSE ARMANDO Last Admin: 10/22/18 21:55 Dose: 75 mls/hr Piperacillin Sod/Tazobactam (Sod 2.25 gm/ Dextrose) 50 mls @ 100 mls/hr IVPB Q8H-IV JOSE ARMANDO; Protocol Last Admin: 10/23/18 10:11 Dose: 100 mls/hr Metoprolol Succinate (Toprol Xl -) 12.5 mg PO BID JOSE ARMANDO Last Admin: 10/23/18 10:13 Dose: 12.5 mg - Objective Vital Signs: Vital Signs Temperature 98.3 F 10/23/18 14:00 Pulse Rate 103 H 10/23/18 14:00 Respiratory Rate 22 H 10/23/18 14:00 Blood Pressure 120/86 10/23/18 14:00 O2 Sat by Pulse Oximetry (%) 100 10/23/18 08:00 Constitutional: Yes: Well Nourished, Calm Eyes: Yes: WNL HENT: Yes: WNL Neck: Yes: WNL Cardiovascular: Yes: Regular Rate and Rhythm, S1, S2 Respiratory: Yes: Diminished Gastrointestinal: Yes: Normal Bowel Sounds, Soft Extremities: Yes: WNL Edema: No Labs: CBC, BMP 10/23/18 05:30 10/23/18 05:30 INR, PTT INR 1.14 (0.83-1.09) H 10/18/18 06:30 Problem List - Problems (1) LUCRECIA (acute kidney injury) Code(s): N17.9 - ACUTE KIDNEY FAILURE, UNSPECIFIED (2) CAD (coronary artery disease) Code(s): I25.10 - ATHSCL HEART DISEASE OF [place] CORONARY ARTERY W/O ANG PCTRS Qualifiers: Coronary Disease-Associated Artery/Lesion type: [place] artery [place] vs. transplanted heart: [place] heart Associated angina: without angina Qualified Code(s): I25.10 - Atherosclerotic heart disease of [place] coronary artery without angina pectoris (3) Chest tube in place Code(s): Z96.89 - PRESENCE OF OTHER SPECIFIED FUNCTIONAL IMPLANTS (4) Congestive heart failure Code(s): I50.9 - HEART FAILURE, UNSPECIFIED Qualifiers: Heart failure type: diastolic Heart failure chronicity: acute on chronic Qualified Code(s): I50.33 - Acute on chronic diastolic (congestive) heart failure (5) Difficulty breathing Code(s): R06.89 - OTHER ABNORMALITIES OF BREATHING (6) HTN (hypertension) Code(s): I10 - ESSENTIAL (PRIMARY) HYPERTENSION Qualifiers: Hypertension type: essential hypertension Qualified Code(s): I10 - Essential (primary) hypertension (7) History of percutaneous coronary intervention Code(s): Z98.61 - CORONARY ANGIOPLASTY STATUS (8) Hypercholesterolemia Code(s): E78.00 - PURE HYPERCHOLESTEROLEMIA, UNSPECIFIED (9) Large pleural effusion Code(s): J90 - PLEURAL EFFUSION, NOT ELSEWHERE CLASSIFIED (10) Metastatic breast cancer Code(s): C50.919 - MALIGNANT NEOPLASM OF UNSP SITE OF UNSPECIFIED FEMALE BREAST Assessment/Plan IMP BILATERAL PLEURAL EFFUSIONS S/P R VAT BX - FOR MALIGNANCY METASTATIC BREAST CA ANEMIA ASHD S/P STENT DIASTOLIC HF CKD ELEVATED TROPONIN PLAN O2 MONITOR CHEST TUBE DRAINAGE F/U CHEST X-RAY IN AM MONITOR LYTES,H+H DR CA Problem List - Problems (1) LUCR[place]IA (acute kidney injury) Code(s): N17.9 - ACUTE KIDNEY FAILURE, UNSPECIFIED (2) CAD (coronary artery disease) Code(s): I25.10 - ATHSCL HEART DISEASE OF [place] CORONARY ARTERY W/O ANG PCTRS Qualifiers: Coronary Disease-Associated Artery/Lesion type: [place] artery [place] vs. transplanted heart: [place] heart Associated angina: without angina Qualified Code(s): I25.10 - Atherosclerotic heart disease of [place] coronary artery without angina pectoris (3) Chest tube in place Code(s): Z96.89 - PRESENCE OF OTHER SPECIFIED FUNCTIONAL IMPLANTS (4) Congestive heart failure Code(s): I50.9 - HEART FAILURE, UNSPECIFIED Qualifiers: Heart failure type: diastolic Heart failure chronicity: acute on chronic Qualified Code(s): I50.33 - Acute on chronic diastolic (congestive) heart failure (5) Difficulty breathing Code(s): R06.89 - OTHER ABNORMALITIES OF BREATHING (6) HTN (hypertension) Code(s): I10 - ESSENTIAL (PRIMARY) HYPERTENSION Qualifiers: Hypertension type: essential hypertension Qualified Code(s): I10 - Essential (primary) hypertension (7) History of percutaneous coronary intervention Code(s): Z98.61 - CORONARY ANGIOPLASTY STATUS (8) Hypercholesterolemia Code(s): E78.00 - PURE HYPERCHOLESTEROLEMIA, UNSPECIFIED (9) Large pleural effusion Code(s): J90 - PLEURAL EFFUSION, NOT ELSEWHERE CLASSIFIED (10) Metastatic breast cancer Code(s): C50.919 - MALIGNANT NEOPLASM OF UNSP SITE OF UNSPECIFIED FEMALE BREAST
[2018-10-23] MEDS: LACTATED RINGERS SOLUTION 1,000 ML IV SCH (14:45)
--- NOTE | 2018-10-23 15:41 | PN ---
Progress Note, Physician - Current Medication List Current Medications: Active Medications Acetaminophen (Tylenol -) 650 mg PO Q6H PRN PRN Reason: Fever Or Pain Last Admin: 10/19/18 15:47 Dose: 650 mg Enoxaparin Sodium (Lovenox -) 40 mg SQ DAILY [facility] Last Admin: 10/23/18 10:12 Dose: 40 mg Lactated Ringer's (Lactated Ringers Solution) 1,000 mls @ 75 mls/hr IV ASDIR JOSE ARMANDO Last Admin: 10/22/18 21:55 Dose: 75 mls/hr Piperacillin Sod/Tazobactam (Sod 2.25 gm/ Dextrose) 50 mls @ 100 mls/hr IVPB Q8H-IV JOSE ARMANDO; Protocol Last Admin: 10/23/18 10:11 Dose: 100 mls/hr Metoprolol Succinate (Toprol Xl -) 12.5 mg PO BID JOSE ARMANDO Last Admin: 10/23/18 10:13 Dose: 12.5 mg - Objective Vital Signs: Vital Signs Temperature 98.3 F 10/23/18 14:00 Pulse Rate 103 H 10/23/18 14:00 Respiratory Rate 22 H 10/23/18 14:00 Blood Pressure 120/86 10/23/18 14:00 O2 Sat by Pulse Oximetry (%) 100 10/23/18 08:00 Labs: CBC, BMP 10/23/18 05:30 10/23/18 05:30 INR, PTT INR 1.14 (0.83-1.09) H 10/18/18 06:30
[2018-10-23] MEDS ORDERED: PIPERACILLIN/TAZOBACTAM 2.25 GM VIAL IVPB ONE ×3 (16:34→23:53)
[2018-10-23] MEDS: PIPERACILLIN/TAZOB 2.25 GM 2.25 GM in DEXTROSE 5%-WATER - 50 ML IVPB SCH ×2 (16:55→21:30)
--- NOTE | 2018-10-23 18:13 | PN ---
Teaching Attending Note Name of Resident: Cheyanne Conklin ATTENDING PHYSICIAN STATEMENT I saw and evaluated the patient. I reviewed the resident's note and discussed the case with the resident. I agree with the resident's findings and plan as documented. SUBJECTIVE: Declined interview and exam. ASSESSMENT AND PLAN: Pleasant unfortunate 73 y/o lady with h/o Stage IV breast Cancer, HTN, HLD, CAD s/p PCI, currently on chemotherapy, and recent diagnosis of pleural effusions s/ p thoracentesis who presented with SOB. 1- B/l Pleural effusions, exudative fluid . S/P VATS with R pleurodesis, pleurX cath placement and Bx 2- LUCRECIA . ? CKD 3- Elevated trop 4- Transaminitis 5- hypoclacemia /hypoalbuminemia 6- RUE superficial phlebitis 7- Superficial thrombosis of RUE plan: - L sided effusion started to accumulate on cxray. plan for VATS on - R sided CT is still draining significant amount of fluids. will cont - cont lovenox 40 mg daily. repeat US on - cont Zosyn, WBC is better - Keep Asa on hold for procedure . can resume on Monday if no complications - cont to hold statin and losartan - Follow LFTs
[2018-10-24] MEDS: PIPERACILLIN/TAZOB 2.25 GM 2.25 GM in DEXTROSE 5%-WATER - 50 ML IVPB SCH ×4 (02:48→20:55)
[2018-10-24 06:08] LABS: HEMATOCRIT 30.7 % (32.4-45.2); HEMOGLOBIN 10.3 GM/dL (10.7-15.3); MCH 34.5 pg (25.7-33.7); MCHC 33.7 g/dl (32.0-36.0); MEAN CELL VOLUME 102.2 fl (80-96); PLATELET COUNT 129 K/MM3 (134-434); RDW 26.5 % (11.6-15.6); WHITE BLOOD COUNT 12.8 K/mm3 (4.0-10.0)
[2018-10-24 06:36] LABS: ANION GAP 7 MMOL/L (8-16); BLOOD UREA NITROGEN 30 mg/dL (7-18); CHLORIDE 105 mmol/L (98-107); CO2 25 mmol/L (21-32); CREATININE 1.3 mg/dL (0.55-1.3); GLUCOSE,RANDOM 81 mg/dL (74-106); PHOSPHOROUS 3.4 mg/dL (2.5-4.9); POTASSIUM 3.9 mmol/L (3.5-5.1); SODIUM 136 mmol/L (136-145)
[2018-10-24 06:40] LABS: CALCIUM 6.8 mg/dL (8.5-10.1)
--- NOTE | 2018-10-24 07:12 | SPA.PREOP ---
- PRE-OP NOTE Dx: Pleural effusion Planned Procedure: Left VATs with pleurex catheter placement Surgeon: Chance Last Vital Signs Temp Pulse Resp BP Pulse Ox 98.4 F 108 H 18 120/78 100 10/24/18 06:00 10/24/18 06:00 10/24/18 06:00 10/24/18 06:00 10/23/18 20:07 Lab Results WBC 12.8 K/mm3 (4.0-10.0) H 10/24/18 05:30 RBC 3.00 M/mm3 (3.60-5.2) L 10/24/18 05:30 Hgb 10.3 GM/dL (10.7-15.3) L 10/24/18 05:30 Hct 30.7 % (32.4-45.2) L 10/24/18 05:30 MCV 102.2 fl (80-96) H 10/24/18 05:30 MCHC 33.7 g/dl (32.0-36.0) 10/24/18 05:30 RDW 26.5 % (11.6-15.6) H 10/24/18 05:30 Plt Count 129 K/MM3 (134-434) L 10/24/18 05:30 Sodium 136 mmol/L (136-145) 10/24/18 05:30 Potassium 3.9 mmol/L (3.5-5.1) 10/24/18 05:30 Chloride 105 mmol/L (98-107) 10/24/18 05:30 Carbon Dioxide 25 mmol/L (21-32) 10/24/18 05:30 Anion Gap 7 MMOL/L (8-16) L 10/24/18 05:30 BUN 30 mg/dL (7-18) H 10/24/18 05:30 Creatinine 1.3 mg/dL (0.55-1.3) 10/24/18 05:30 Random Glucose 81 mg/dL (74-106) 10/24/18 05:30 Calcium 6.8 mg/dL (8.5-10.1) L* 10/24/18 05:30 Blood Type O POSITIVE 10/18/18 10:53 Antibody Screen Negative 10/18/18 06:30 INR 1.14 (0.83-1.09) H 10/18/18 06:30 - IMAGING Chest X-ray: Report Reviewed, Image Reviewed - ASSESSMENT/PLAN Problem List - Problems (1) Metastatic breast cancer Assessment/Plan: 1. Make NPO after midnight except po meds 2. GI/DVT PPX 3. Medical optimization / clearance 4. Hibiclens wash 5. Consent to be obtained by surgeon after risks, benefits and alternatives discussed with patient and or Health Care Proxy. Code(s): C50.919 - MALIGNANT NEOPLASM OF UNSP SITE OF UNSPECIFIED FEMALE BREAST Visit type - Case Type Case Type: ED Admission
[2018-10-24] MEDS ORDERED: PIPERACILLIN/TAZOBACTAM 2.25 GM VIAL IVPB ONE ×3 (08:26→20:51)
[2018-10-24] MEDS ORDERED: DEXTROSE 5%-WATER - 50 ML IVPB ONE ×3 (08:26→20:51)
--- NOTE | 2018-10-24 08:51 | PN ---
Teaching Attending Note Name of Resident: Paulie Haney ATTENDING PHYSICIAN STATEMENT I saw and evaluated the patient. I reviewed the resident's note and discussed the case with the resident. I agree with the resident's findings and plan as documented. SUBJECTIVE: Patient is comfortable with no acute distress. going for VATs in am. OBJECTIVE: Initial Vital Signs Temp Pulse Resp BP Pulse Ox 98.2 F 137 H 26 H 113/78 92 L 10/04/18 17:05 10/04/18 17:05 10/04/18 17:05 10/04/18 17:05 10/04/18 17:05 Vital Signs Temperature 98.4 F 10/24/18 06:00 Pulse Rate 108 H 10/24/18 06:00 Respiratory Rate 18 10/24/18 06:00 Blood Pressure 120/78 10/24/18 06:00 O2 Sat by Pulse Oximetry (%) 100 10/23/18 20:07 GENERAL: AAOx3 , NAD EYES: EOMI Sclera Clear. LUNGS: R Chest tube in place draining. decreased BS at the basis. HEART: Tachycardic, S1S2 positive, No murmur is appreciated. ABDOMEN: ND, NT, BS positive EXTREMITIES: No edema, pulses are positive. SKIN: No rashes or lesions appreciated CBCD WBC 12.8 K/mm3 (4.0-10.0) H 10/24/18 05:30 RBC 3.00 M/mm3 (3.60-5.2) L 10/24/18 05:30 Hgb 10.3 GM/dL (10.7-15.3) L 10/24/18 05:30 Hct 30.7 % (32.4-45.2) L 10/24/18 05:30 MCV 102.2 fl (80-96) H 10/24/18 05:30 MCHC 33.7 g/dl (32.0-36.0) 10/24/18 05:30 RDW 26.5 % (11.6-15.6) H 10/24/18 05:30 Plt Count 129 K/MM3 (134-434) L 10/24/18 05:30 MPV 8.0 fl (7.5-11.1) 10/24/18 05:30 CMP Sodium 136 mmol/L (136-145) 10/24/18 05:30 Potassium 3.9 mmol/L (3.5-5.1) 10/24/18 05:30 Chloride 105 mmol/L (98-107) 10/24/18 05:30 Carbon Dioxide 25 mmol/L (21-32) 10/24/18 05:30 Anion Gap 7 MMOL/L (8-16) L 10/24/18 05:30 BUN 30 mg/dL (7-18) H 10/24/18 05:30 Creatinine 1.3 mg/dL (0.55-1.3) 10/24/18 05:30 Creat Clearance w eGFR 40.26 (>60) 10/24/18 05:30 Random Glucose 81 mg/dL (74-106) 10/24/18 05:30 Calcium 6.8 mg/dL (8.5-10.1) L* 10/24/18 05:30 Total Bilirubin 0.6 mg/dL (0.2-1) 10/23/18 05:30 AST 75 U/L (15-37) H 10/23/18 05:30 ALT 43 U/L (13-61) 10/23/18 05:30 Alkaline Phosphatase 287 U/L (45-117) H 10/23/18 05:30 Total Protein 3.5 g/dl (6.4-8.2) L 10/23/18 05:30 Albumin 1.0 g/dl (3.4-5.0) L 10/23/18 05:30 CARDIAC ENZYMES Creatine Kinase 708 U/L (26-192) H 10/04/18 17:45 Troponin I 0.46 ng/ml (0.00-0.05) H 10/04/18 21:00 Hepatic Panel Total Bilirubin 0.6 mg/dL (0.2-1) 10/23/18 05:30 Direct Bilirubin 0.4 mg/dL (0.0-0.2) H 10/06/18 05:30 AST 75 U/L (15-37) H 10/23/18 05:30 ALT 43 U/L (13-61) 10/23/18 05:30 Alkaline Phosphatase 287 U/L (45-117) H 10/23/18 05:30 Albumin 1.0 g/dl (3.4-5.0) L 10/23/18 05:30 Current Medications Generic Name Dose Route Start Last Admin Trade Name Freq PRN Reason Stop Dose Admin Acetaminophen 650 mg 10/19/18 15:41 10/19/18 15:47 Tylenol - PO 650 mg Q6H PRN Administration Fever Or Pain Enoxaparin Sodium 40 mg 10/21/18 15:30 10/23/18 10:12 Lovenox - SQ 40 mg DAILY JOSE ARMANDO Administration Lactated Ringer's 1,000 mls @ 75 mls/hr 10/18/18 14:45 10/23/18 14:45 Lactated Ringers Solution IV Not Given ASDIR JOSE ARMANDO Piperacillin Sod/Tazobactam 50 mls @ 100 mls/hr 10/23/18 16:15 10/24/18 02:48 Sod 2.25 gm/ Dextrose IVPB 100 mls/hr Q6H-IV JOSE ARMANDO Administration Metoprolol Succinate 12.5 mg 10/18/18 22:00 10/23/18 21:30 Toprol Xl - PO 12.5 mg BID JOSE ARMANDO Administration Home Medications Medication Instructions Recorded Aspirin [ASA -] 81 mg PO HS 03/29/14 Atorvastatin Ca [Lipitor -] 80 mg PO HS 03/29/14 Folic Acid 400 mcg PO DAILY 03/29/14 Losartan Potassium [Cozaar] 25 mg PO DAILY 03/29/14 Metoprolol Succinate [Toprol Xl] 12.5 mg PO BID 03/29/14 Cholecalciferol (Vitamin D3) 1,000 unit PO DAILY 10/04/18 [Vitamin D3] Gemcitabine HCl [Gemzar -] 200 mg IV ASDIR 10/04/18 Nitroglycerin Sublingual 0.4 mg PO PRN PRN 10/04/18 [Nitrostat -] ASSESSMENT AND PLAN: Patient is a 73yo female with PMHx of 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 #Acute B/l Pleural effusions: with exudative per LDH. malignant vs parapneumonic effusions, s/p VATS procedure with R pleurodesis, pleurX cath placement and Bx , going for left VATs in am. On Zosyn IV continue. trend WBC. # LUCRECIA over CKD : improved. 1.7-->1.5-->1.5--1.3 today, base line 1.2, continue to hold losartan , blood pressure is stable. will continue to monitor # RUE superficial phlebitis on Lovenox , will hold it for am, will continue after the procedure. # Elevated trop: could be due to renal failure , cont BB , asa is on hold , for chest tube placement. # Transaminitis: will continue to trend # hypocalcemia , corrected ca is normal DVT Px: lovenox on hold for the procedure.
[2018-10-24] MEDS: metoPROLOL SUCCINATE 25 MG TAB.SR.24H (FP) PO SCH ×2 (09:28→20:59)
--- NOTE | 2018-10-24 09:58 | PN ---
Physical Exam: SUBJECTIVE: Patient seen and examined this am. Resting in bed comfortably. No acute events overnight. For Left VATs with pleurex catheter placement tomorrow. OBJECTIVE: Vital Signs Period Temp Pulse Resp BP Sys/[place] Pulse Ox Last 24 Hr 98.0 F-98.6 F 94-114 18-24 114-124/68-87 100-100 GENERAL: AAOx3 NAD EYES: EOMI Sclera Clear. LUNGS: R Chest tube in place draining.Bandage over chest tube, no excoriation or skin irritation appreciated. HEART: Tachycardic, S1S2 ABDOMEN: NDNT No HSM EXTREMITIES: No edema appreciated b/l. SCD's. SKIN: No rashes or lesions appreciated. Erythema left arm. Laboratory Results - last 24 hr 10/05/18 10/23/18 10/24/18 09:00 05:30 05:30 WBC 12.8 H RBC 3.00 L Hgb 10.3 L Hct 30.7 L MCV 102.2 H MCH 34.5 H MCHC 33.7 RDW 26.5 H Plt Count 129 L MPV 8.0 Sodium Potassium Chloride Carbon Dioxide Anion Gap BUN Creatinine Creat Clearance w eGFR Random Glucose Calcium 6.5 L* Phosphorus Magnesium Fluid Total Protein Cancelled 10/24/18 05:30 WBC RBC Hgb Hct MCV MCH MCHC RDW Plt Count MPV Sodium 136 Potassium 3.9 Chloride 105 Carbon Dioxide 25 Anion Gap 7 L BUN 30 H Creatinine 1.3 Creat Clearance w eGFR 40.26 Random Glucose 81 Calcium 6.8 L* Phosphorus 3.4 Magnesium 2.0 Fluid Total Protein Active Medications Generic Name Dose Route Start Last Admin Trade Name Freq PRN Reason Stop Dose Admin Acetaminophen 650 mg 10/19/18 15:41 10/19/18 15:47 Tylenol - PO 650 mg Q6H PRN Administration Fever Or Pain Enoxaparin Sodium 40 mg 10/21/18 15:30 10/23/18 10:12 Lovenox - SQ 40 mg DAILY JOSE ARMANDO Administration Lactated Ringer's 1,000 mls @ 75 mls/hr 10/18/18 14:45 10/23/18 14:45 Lactated Ringers Solution IV Not Given ASDIR JOSE ARMANDO Piperacillin Sod/Tazobactam 50 mls @ 100 mls/hr 10/23/18 16:15 10/24/18 08:53 Sod 2.25 gm/ Dextrose IVPB 100 mls/hr Q6H-IV JOSE ARMANDO Administration Metoprolol Succinate 12.5 mg 10/18/18 22:00 10/24/18 09:28 Toprol Xl - PO 12.5 mg BID JOSE ARMANDO Administration ASSESSMENT/PLAN: 73 y/o F with PMH recurrent pleural effusion, stage 4 R breast CA with chemoport w/ mets to spine, HTN, HLD, CAD s/p 1 stent (2013), angina, presented w/ b/l pleural effusion, now s/p L pigtail catheter placement and R VAT placement w/ pleural biopsy (10/18/18). #L-sided pleural effusion: malignant etiology most likely -s/p R VAT, pleural biopsy, POD #6. Frozen section neg for malignancy, await biopsy results. - Cont to monitor pt for fluid accumulation. L VATS and L pleurX Tomorrow . Cont to suction R side per Dr Fletcher. -Zosyn 3.375 50 ml QHR -repeat CXR next week to check for fluid accumulation, especially on L side. #LUCRECIA vs CKD: stable, BUN/Cr ~27/1.4 -continue to hold lasix -Per cardio, hold Losartan until renal fxn improves -Renal US noted above, no evid of hydronephrosis #Hx breast CA w/spinal mets -Chemo weekly - Gemzar #Troponinemia: likely demand #HTN- controlled -Dr Evans on board - Toprol XL 12.5 mg PO BID. May increase if observe more paroxysmal atrial tachycardia #CAD s/p 1 stent (2003) -hold ASA for now in light of procedure this upcoming #HLD -Lipitor may be resumed per Cardiology #Hypocalcemia; corrected Ca WNL #F/E/N -LR @ 75 -Monitor Electrolytes -regular diet #PPX -Lovenox 40 SQ. Will hold after today's dose in light of planned procedure. #Dispo - tele Visit type - Emergency Visit Emergency Visit: Yes ED Registration Date: 10/04/18 Care time: The patient presented to the Emergency Department on the above date and was hospitalized for further evaluation of their emergent condition. - New Patient This patient is new to me today: No - Critical Care Critical Care patient: No
--- NOTE | 2018-10-24 10:36 | PN ---
Progress Note (short form) - Note Progress Note: PULMONARY States breathing is improving. Serous output from right pleur-x catheter. Vital Signs Period Temp Pulse Resp BP Sys/[place] Pulse Ox Last 24 Hr 97.6 F-98.6 F 94-110 17-18 115-122/78-83 100-100 Gen: NAD at rest Heart: RRR Lung: decreased breath sounds at the bases Abd: soft, nontender Ext: no edema CBC, BMP 10/24/18 05:30 10/24/18 05:30 Active Medications Acetaminophen (Tylenol -) 650 mg PO Q6H PRN PRN Reason: Fever Or Pain Last Admin: 10/19/18 15:47 Dose: 650 mg Lactated Ringer's (Lactated Ringers Solution) 1,000 mls @ 75 mls/hr IV ASDIR JOSE ARMANDO Last Admin: 10/24/18 16:01 Dose: Not Given Piperacillin Sod/Tazobactam (Sod 2.25 gm/ Dextrose) 50 mls @ 100 mls/hr IVPB Q6H-IV JOSE ARMANDO Last Admin: 10/24/18 15:30 Dose: 100 mls/hr Metoprolol Succinate (Toprol Xl -) 12.5 mg PO BID JOSE ARMANDO Last Admin: 10/24/18 09:28 Dose: 12.5 mg A/P Metastatic Breast Ca Bilateral Pleural Effusions s/p R VATS/pleur-x placement CAD LV Diastolic Dysfunction CAD/+Troponins CKD - discussed with thoracic surgery, for L pleur-x catheter placement - monitor chest tube output - PT - DVT prophylaxis
[2018-10-24] MEDS: ENOXAPARIN NA (PORCINE) 40 MG/0.4 ML DISP.SYRIN SQ SCH (11:00)
--- NOTE | 2018-10-24 15:34 | PN ---
Progress Note, Physician - Current Medication List Current Medications: Active Medications Acetaminophen (Tylenol -) 650 mg PO Q6H PRN PRN Reason: Fever Or Pain Last Admin: 10/19/18 15:47 Dose: 650 mg Enoxaparin Sodium (Lovenox -) 40 mg SQ DAILY [facility] Last Admin: 10/24/18 11:00 Dose: 40 mg Lactated Ringer's (Lactated Ringers Solution) 1,000 mls @ 75 mls/hr IV ASDIR [facility] Last Admin: 10/23/18 14:45 Dose: Not Given Piperacillin Sod/Tazobactam (Sod 2.25 gm/ Dextrose) 50 mls @ 100 mls/hr IVPB Q6H-IV [facility] Last Admin: 10/24/18 08:53 Dose: 100 mls/hr Metoprolol Succinate (Toprol Xl -) 12.5 mg PO BID [facility] Last Admin: 10/24/18 09:28 Dose: 12.5 mg - Objective Vital Signs: Vital Signs Temperature 98 F 10/24/18 10:00 Pulse Rate 106 H 10/24/18 10:00 Respiratory Rate 18 10/24/18 10:00 Blood Pressure 121/83 10/24/18 10:00 O2 Sat by Pulse Oximetry (%) 100 10/24/18 10:00 Labs: CBC, BMP 10/24/18 05:30 10/24/18 05:30 INR, PTT INR 1.14 (0.83-1.09) H 10/18/18 06:30
[2018-10-24] MEDS: LACTATED RINGERS SOLUTION 1,000 ML IV SCH (16:01)
[2018-10-25] MEDS ORDERED: PIPERACILLIN/TAZOBACTAM 2.25 GM VIAL IVPB ONE ×4 (03:00→21:17)
[2018-10-25] MEDS ORDERED: DEXTROSE 5%-WATER - 50 ML IVPB ONE ×4 (03:00→21:17)
[2018-10-25] MEDS: PIPERACILLIN/TAZOB 2.25 GM 2.25 GM in DEXTROSE 5%-WATER - 50 ML IVPB SCH ×3 (03:08→22:14)
[2018-10-25 06:17] LABS: ANION GAP 8 MMOL/L (8-16); BLOOD UREA NITROGEN 30 mg/dL (7-18); CHLORIDE 105 mmol/L (98-107); CO2 24 mmol/L (21-32); CREATININE 1.3 mg/dL (0.55-1.3); GLUCOSE,RANDOM 92 mg/dL (74-106); MAGNESIUM 1.6 mg/dL (1.8-2.4); PHOSPHOROUS 3.5 mg/dL (2.5-4.9); POTASSIUM 3.3 mmol/L (3.5-5.1); SODIUM 137 mmol/L (136-145)
[2018-10-25 06:21] LABS: CALCIUM 6.6 mg/dL (8.5-10.1)
[2018-10-25 06:52] LABS: HEMATOCRIT 28.5 % (32.4-45.2); HEMOGLOBIN 9.7 GM/dL (10.7-15.3); MCH 34.5 pg (25.7-33.7); MCHC 33.9 g/dl (32.0-36.0); MEAN CELL VOLUME 101.5 fl (80-96); MEAN PLT VOLUME 7.9 fl (7.5-11.1); PLATELET COUNT 127 K/MM3 (134-434); RDW 26.4 % (11.6-15.6); WHITE BLOOD COUNT 11.7 K/mm3 (4.0-10.0)
[2018-10-25] MEDS ORDERED: MIDAZOLAM HCL 2 MG/2 ML SINGLE DOSE VIAL ONE ×2 (08:00)
[2018-10-25] MEDS ORDERED: PROPOFOL 20 ML ONE ×2 (08:00)
[2018-10-25] MEDS ORDERED: LIDOCAINE HCL/PF 2% SDV 5ML VIAL ONE (08:00)
[2018-10-25] MEDS ORDERED: HEPARIN NA (PORCINE) 5,000 UNITS/ML 1ML VIAL ONE (08:02)
[2018-10-25] MEDS ORDERED: PIPERACILLIN/TAZOBACTAM 4.5 GM VIAL IVPB ONE (08:25)
[2018-10-25] MEDS ORDERED: DEXAMETHASONE SOD PHOSPHATE 4 MG/1 ML VIAL ONE (08:36)
[2018-10-25] MEDS ORDERED: KETOROLAC TROMETHAMINE 30 MG/1 ML VIAL ONE (08:36)
[2018-10-25] MEDS ORDERED: BUPIVACAINE HCL/PF 0.25% (2.5MG/ML) 10 ML VIAL ONE (08:50)
[2018-10-25] MEDS ORDERED: BUPIVACAINE HCL/PF 0.5% (5MG/ML) 10 ML VIAL ONE (08:50)
[2018-10-25] MEDS ORDERED: BUPIVACAINE HCL/PF 0.25% (2.5MG/ML) 10 ML VIAL IJ ONE (09:14)
[2018-10-25] MEDS ORDERED: MAGNESIUM SULF 50% (8.12 MEQ/2 ML-1 GM VIAL) IVPB ONE (09:15)
[2018-10-25] MEDS ORDERED: POTASSIUM CHLORIDE 20 MEQ PREMIX IVPB 100 ML IVPB ONE ×2 (09:15→10:31)
--- NOTE | 2018-10-25 09:16 | PN ---
Physical Exam: SUBJECTIVE: Patient seen and examined. POD #0 Left Video Assisted Thorascopy, Pleurodesis and Pleurx Catheter Insertion. OBJECTIVE: Vital Signs Period Temp Pulse Resp BP Sys/[place] Pulse Ox Last 24 Hr 97.1 F-98.1 F 97-110 14-18 99-121/70-83 100-100 GENERAL: AAOx3 NAD EYES: EOMI Sclera Clear. LUNGS: Right and Left Chest tubes in place draining. HEART: S1S2 Irregular ABDOMEN: NDNT No HSM EXTREMITIES: No edema appreciated b/l. SCD's. SKIN: No rashes or lesions appreciated. Erythema left arm. Laboratory Results - last 24 hr 10/25/18 10/25/18 05:15 05:15 WBC 11.7 H RBC 2.80 L Hgb 9.7 L Hct 28.5 L MCV 101.5 H MCH 34.5 H MCHC 33.9 RDW 26.4 H Plt Count 127 L MPV 7.9 Sodium 137 Potassium 3.3 L Chloride 105 Carbon Dioxide 24 Anion Gap 8 BUN 30 H Creatinine 1.3 Creat Clearance w eGFR 40.26 Random Glucose 92 Calcium 6.6 L* Phosphorus 3.5 Magnesium 1.6 L Active Medications Generic Name Dose Route Start Last Admin Trade Name Freq PRN Reason Stop Dose Admin Acetaminophen 650 mg 10/19/18 15:41 10/19/18 15:47 Tylenol - PO 650 mg Q6H PRN Administration Fever Or Pain Lactated Ringer's 1,000 mls @ 75 mls/hr 10/18/18 14:45 10/24/18 16:01 Lactated Ringers Solution IV Not Given ASDIR JOSE ARMANDO Piperacillin Sod/Tazobactam 50 mls @ 100 mls/hr 10/23/18 16:15 10/25/18 03:08 Sod 2.25 gm/ Dextrose IVPB 100 mls/hr Q6H-IV JOSE ARMANDO Administration Doxycycline Hyclate 500 mg/ 50 mls @ 50 mls/hr 10/25/18 09:30 Sodium Chloride IVPB 10/25/18 10:29 ONCE ONE Magnesium Sulfate 1 gm 10/25/18 09:15 Magnesium Sulfate IVPB 10/25/18 09:16 ONCE ONE Metoprolol Succinate 12.5 mg 10/18/18 22:00 10/24/18 20:59 Toprol Xl - PO 12.5 mg BID JOSE ARMANDO Administration Potassium Chloride 20 meq 10/25/18 09:15 Potassium Chloride 20 Meq Premix Ivpb - IVPB 10/25/18 09:16 ONCE ONE ASSESSMENT/PLAN: 73 y/o F with PMH recurrent pleural effusion, stage 4 R breast CA with chemoport w/ mets to spine, HTN, HLD, CAD s/p 1 stent (2013), angina, presented w/ b/l pleural effusion, now s/p L pigtail catheter placement and R VAT placement w/ pleural biopsy (10/18/18). #L-sided pleural effusion: malignant etiology most likely -s/p R VAT, pleural biopsy, POD #7. Frozen section neg for malignancy, await biopsy results. -Left Video Assisted Thorascopy, Pleurodesis and Pleurx Catheter Insertion POD#0 - Cont to monitor pt for fluid accumulation. -Zosyn 3.375 50 ml QHR -repeat CXR next week to check for fluid accumulation -Oxycodone for pain #LUCRECIA vs CKD: stable, BUN/Cr ~30/1.3 -continue to hold lasix -Per cardio, hold Losartan until renal fxn improves -Renal US noted above, no evid of hydronephrosis #Hx breast CA w/spinal mets -Chemo weekly - Gemzar #Troponinemia: likely demand #HTN- controlled -Dr Evans on board - Toprol XL 12.5 mg PO BID. May increase if observe more paroxysmal atrial tachycardia #CAD s/p 1 stent (2003) -hold ASA for now #HLD -Lipitor may be resumed per Cardiology #Hypocalcemia; corrected Ca WNL #F/E/N -LR @ 75 -Monitor Electrolytes -regular diet #PPX -Lovenox 40 SQ. #Dispo - tele Visit type - Emergency Visit Emergency Visit: Yes ED Registration Date: 10/04/18 Care time: The patient presented to the Emergency Department on the above date and was hospitalized for further evaluation of their emergent condition. - New Patient This patient is new to me today: No - Critical Care Critical Care patient: No - Discharge Referral Referred to [facility] Med [facility] No
[2018-10-25] MEDS ORDERED: SODIUM CHLORIDE IVPB ONE (09:30)
[2018-10-25] MEDS ORDERED: DOXYCYCLINE IVPB ONE (09:30)
[2018-10-25] MEDS ORDERED: PROMETHAZINE HCL 25 MG/1 ML VIAL IVPB PRN ×2 (09:45→10:31)
[2018-10-25] MEDS ORDERED: ONDANSETRON 4 MG/2 ML VIAL IVPUSH PRN ×2 (09:45→10:31)
[2018-10-25] MEDS ORDERED: oxyCODONE HCL 5 MG TABLET PO PRN ×2 (09:45→10:31)
--- NOTE | 2018-10-25 10:26 | OP ---
Operative Note - Note: Operative Date: 10/25/18 Pre-Operative Diagnosis: Large pleural effusion/congestion Operation: Left Video Assisted Thorascopy, Pleurodesis and Pleurx Catheter Insertion Findings: as dictated Post-Operative Diagnosis: Same as Pre-op Surgeon: Nevin Fletcher Works Manager: Jone Jones Anesthesiologist/TRAVEL TRAILER COMPONENTS ASSEMBLER: Subhash Horton Anesthesia: Local, MAC Specimens Removed: L pleural fluid sent for cytology Estimated Blood Loss (mls): 15 (ml) Drains & Tubes with Location: L pleural cavity PleurX catheter Fluid Volume Replaced (mls): 800 (ml LR) Operative Report Dictated: Yes
--- NOTE | 2018-10-25 10:30 | SURG ---
Surgery Bridal Consultant Note Bridal Consultant: oJne Jones PA-C (Suzy) Date of Service: 10/25/18 Diagnosis: Large pleural effusion/congestion Procedure: Left Video Assisted Thorascopy, Pleurodesis and Pleurx Catheter Insertion I was present for the entirety of the operative procedure. For further detail, please refer to operative report. Visit type - Case Type Case Type: Scheduled - Emergency Emergency Visit: No - New patient This patient is new to me today: No - Critical Care Critical Care patient: No
[2018-10-25] MEDS: metoPROLOL SUCCINATE 25 MG TAB.SR.24H (FP) PO SCH ×2 (10:36→22:13)
--- NOTE | 2018-10-25 11:23 | PN ---
Progress Note (short form) - Note Progress Note: S/p insertion of a left PleureX. 700cc drained. CXR: improvement in left effusion. Intake & Output 10/22/18 10/23/18 10/24/18 10/25/18 23:59 23:59 23:59 23:59 Intake Total 1150 460 750 650 Output Total 350 840 350 5 Balance 800 -380 400 645 Last Vital Signs Temp Pulse Resp BP Pulse Ox 96.3 F L 105 H 21 H 135/89 100 10/25/18 11:00 10/25/18 11:00 10/25/18 11:00 10/25/18 11:00 10/25/18 11:00 Active Medications Acetaminophen (Tylenol -) 650 mg PO Q6H PRN PRN Reason: Fever Or Pain Chlorhexidine Gluconate (Hibiclens For Decolonization -) 1 applic TP HS [facility] Enoxaparin Sodium (Lovenox -) 40 mg SQ DAILY [facility] Fentanyl (Sublimaze Injection -) 50 mcg IVPUSH [id number] PRN PRN Reason: PAIN-PACU ORDER X 4 DOSES ONLY Heparin Sodium (Porcine) (Hep-Lock -) 5 ml IVPUSH ONCE ONE Stop: 10/25/18 10:32 Lactated Ringer's (Lactated Ringers Solution) 1,000 mls @ 75 mls/hr IV ASDIR [facility] Piperacillin Sod/Tazobactam (Sod 2.25 gm/ Dextrose) 50 mls @ 100 mls/hr IVPB Q6H-IV JOSE ARMANDO Metoprolol Succinate (Toprol Xl -) 12.5 mg PO BID [facility] [place] Mupirocin (Bactroban Ointment (For Decolonization) -) 1 applic NS BID [facility] Stop: 10/30/18 21:59 Ondansetron HCl (Zofran Injection) 4 mg IVPUSH Q6H PRN PRN Reason: NAUSEA AND/OR VOMITING Oxycodone HCl (Roxicodone -) 10 mg PO Q4H PRN PRN Reason: PAIN LEVEL 6-10 Stop: 10/26/18 09:44 Potassium Chloride (Potassium Chloride 20 Meq Premix Ivpb -) 20 meq IVPB ONCE ONE Stop: 10/25/18 10:32 Promethazine HCl (Phenergan Injection -) 12.5 mg IVPB Q6H PRN PRN Reason: NAUSEA-FOR RESCUE AFTER 15 MIN Constitutional: Yes: Awake and alert, NAD Eyes: Yes: WNL HENT: Yes: Nasal Congestion Neck: Yes: WNL Cardiovascular: Yes: Regular Rate and Rhythm, S1, S2 Respiratory: Yes: Diminished, bilateral PleureX catheters Gastrointestinal: Yes: Normal Bowel Sounds, Soft Extremities: Yes: WNL Edema: No Labs: Laboratory Results - last 24 hr 10/25/18 10/25/18 05:15 05:15 WBC 11.7 H RBC 2.80 L Hgb 9.7 L Hct 28.5 L MCV 101.5 H MCH 34.5 H MCHC 33.9 RDW 26.4 H Plt Count 127 L MPV 7.9 Sodium 137 Potassium 3.3 L Chloride 105 Carbon Dioxide 24 Anion Gap 8 BUN 30 H Creatinine 1.3 Creat Clearance w eGFR 40.26 Random Glucose 92 Calcium 6.6 L* Phosphorus 3.5 Magnesium 1.6 L Problem List - Problems (1) LUCRECIA (acute kidney injury) Code(s): N17.9 - ACUTE KIDNEY FAILURE, UNSPECIFIED (2) CAD (coronary artery disease) Code(s): I25.10 - ATHSCL HEART DISEASE OF [place] CORONARY ARTERY W/O ANG PCTRS Qualifiers: Coronary Disease-Associated Artery/Lesion type: [place] artery [place] vs. transplanted heart: [place] heart Associated angina: without angina Qualified Code(s): I25.10 - Atherosclerotic heart disease of [place] coronary artery without angina pectoris (3) Chest tube in place Code(s): Z96.89 - PRESENCE OF OTHER SPECIFIED FUNCTIONAL IMPLANTS (4) Congestive heart failure Code(s): I50.9 - HEART FAILURE, UNSPECIFIED Qualifiers: Heart failure type: diastolic Heart failure chronicity: acute on chronic Qualified Code(s): I50.33 - Acute on chronic diastolic (congestive) heart failure (5) Difficulty breathing Code(s): R06.89 - OTHER ABNORMALITIES OF BREATHING (6) HTN (hypertension) Code(s): I10 - ESSENTIAL (PRIMARY) HYPERTENSION Qualifiers: Hypertension type: essential hypertension Qualified Code(s): I10 - Essential (primary) hypertension (7) History of percutaneous coronary intervention Code(s): Z98.61 - CORONARY ANGIOPLASTY STATUS (8) Hypercholesterolemia Code(s): E78.00 - PURE HYPERCHOLESTEROLEMIA, UNSPECIFIED (9) Large pleural effusion Code(s): J90 - PLEURAL EFFUSION, NOT ELSEWHERE CLASSIFIED (10) Metastatic breast cancer Code(s): C50.919 - MALIGNANT NEOPLASM OF UNSP SITE OF UNSPECIFIED FEMALE BREAST Assessment/Plan IMP BILATERAL PLEURAL EFFUSIONS S/P R VAT BX - FOR MALIGNANCY METASTATIC BREAST CA ANEMIA ASHD S/P STENT DIASTOLIC HF CKD ELEVATED TROPONIN PLAN O2 NEEDED TO MAINTAIN SATURATION MONITOR CATHETER DRAINAGE OOB TO CHAIR INCENTIVE SPIROMETRY DR ARNOLD
[2018-10-25 11:48] LABS: BASO % 0.7 % (0-2.0); EOS % 1.3 % (0-4.5); HEMATOCRIT 34.5 % (32.4-45.2); HEMOGLOBIN 11.5 GM/dL (10.7-15.3); MCH 34.6 pg (25.7-33.7); MCHC 33.3 g/dl (32.0-36.0); MEAN CELL VOLUME 103.8 fl (80-96); MEAN PLT VOLUME 8.1 fl (7.5-11.1); MONO % 3.1 % (3.8-10.2); NEUT % 84.9 % (42.8-82.8); PLATELET COUNT 189 K/MM3 (134-434); RBC 3.32 M/mm3 (3.60-5.2); RDW 26.8 % (11.6-15.6); WHITE BLOOD COUNT 17.9 K/mm3 (4.0-10.0)
[2018-10-25] MEDS ORDERED: PT OWN MED DRAWER 7, Y5N ONE ×2 (12:23→21:16)
[2018-10-25] MEDS: LACTATED RINGERS SOLUTION 1,000 ML IV SCH (12:32)
[2018-10-25 12:47] LABS: ALBUMIN 1.2 g/dl (3.4-5.0); ALK PHOS 378 U/L (45-117); ANION GAP 13 MMOL/L (8-16); BILIRUBIN,TOTAL 0.5 mg/dL (0.2-1); BLOOD UREA NITROGEN 30 mg/dL (7-18); CALCIUM 7.1 mg/dL (8.5-10.1); CHLORIDE 106 mmol/L (98-107); CO2 19 mmol/L (21-32); CREATININE 1.3 mg/dL (0.55-1.3); GLUCOSE,RANDOM 106 mg/dL (74-106); POTASSIUM 3.7 mmol/L (3.5-5.1); SGOT/AST 95 U/L (15-37); SGPT/ALT 50 U/L (13-61); SODIUM 137 mmol/L (136-145); TOT PROT 4.3 g/dl (6.4-8.2)
--- NOTE | 2018-10-25 13:24 | PN ---
Progress Note, Physician History of Present Illness: Dyspnea resolving, s/p bilateral VATS with pleural biopsy and pleurex catheter placement without sequelae. - Current Medication List Current Medications: Active Medications Acetaminophen (Tylenol -) 650 mg PO Q6H PRN PRN Reason: Fever Or Pain Chlorhexidine Gluconate (Hibiclens For Decolonization -) [address] [facility] Enoxaparin Sodium (Lovenox -) [address] [facility] Fentanyl (Sublimaze Injection -) 50 mcg IVPUSH [id number] PRN PRN Reason: PAIN-PACU ORDER X 4 DOSES ONLY Lactated Ringer's (Lactated Ringers Solution) 1,000 mls @ 75 mls/hr IV ASDIR [facility] Last Admin: 10/25/18 12:32 Dose: 75 mls/hr Piperacillin Sod/Tazobactam (Sod 2.25 gm/ Dextrose) 50 mls @ 100 mls/hr IVPB Q6H-IV [facility] Stop: 10/26/18 09:29 Piperacillin Sod/Tazobactam (Sod 2.25 gm/ Dextrose) 50 mls @ 100 mls/hr IVPB Q6H-IV [facility] Metoprolol Succinate (Toprol Xl -) 12.[address] [facility] Mupirocin (Bactroban Ointment (For Decolonization) -) [address] [facility] Stop: 10/30/18 21:59 Ondansetron HCl (Zofran Injection) 4 mg IVPUSH Q6H PRN PRN Reason: NAUSEA AND/OR VOMITING Oxycodone HCl (Roxicodone -) 10 mg PO Q4H PRN PRN Reason: PAIN LEVEL 6-10 Stop: 10/26/18 09:44 Promethazine HCl (Phenergan Injection -) 12.5 mg IVPB Q6H PRN PRN Reason: NAUSEA-FOR RESCUE AFTER 15 MIN - Objective Vital Signs: Vital Signs Temperature 96.3 F L 10/25/18 11:00 Pulse Rate 105 H 10/25/18 11:00 Respiratory Rate 21 H 10/25/18 11:00 Blood Pressure 135/89 10/25/18 11:00 O2 Sat by Pulse Oximetry (%) 100 10/25/18 11:00 Constitutional: Yes: No Distress, Calm, Thin Neck: Yes: Supple Cardiovascular: Yes: Regular Rate and Rhythm Respiratory: Yes: Regular, Diminished, On Nasal O2, Other (Bilateral chest tubes in place) Gastrointestinal: Yes: Normal Bowel Sounds, Soft Peripheral Pulses WNL: No Labs: CBC, BMP 10/25/18 11:20 10/25/18 11:20 INR, PTT INR 1.14 (0.83-1.09) H 10/18/18 06:30 - ....Imaging Chest X-ray: Report Reviewed (Improved aeration left effusion) EKG: Report Reviewed (Tele: ST) Problem List - Problems (1) Demand ischemia Code(s): I24.8 - OTHER FORMS OF ACUTE ISCHEMIC HEART DISEASE (2) LUCRECIA (acute kidney injury) Code(s): N17.9 - ACUTE KIDNEY FAILURE, UNSPECIFIED (3) Congestive heart failure Code(s): I50.9 - HEART FAILURE, UNSPECIFIED Qualifiers: Heart failure type: diastolic Heart failure chronicity: acute on chronic Qualified Code(s): I50.33 - Acute on chronic diastolic (congestive) heart failure (4) Large pleural effusion Code(s): J90 - PLEURAL EFFUSION, NOT ELSEWHERE CLASSIFIED (5) Chest tube in place Code(s): Z96.89 - PRESENCE OF OTHER SPECIFIED FUNCTIONAL IMPLANTS (6) Metastatic breast cancer Code(s): C50.919 - MALIGNANT NEOPLASM OF UNSP SITE OF UNSPECIFIED FEMALE BREAST Assessment/Plan 1. s/p bilateral VATS with pleurX cath placement and biopsy for bilateral pleural effusions 2. Diastolic/systolic LV dysfunction with clinical class 0-I NYHA classification LV failure, compensated/euvolemic, exudative pleural effusion argues against heart failure 3. CAD post PCI/stent demand ischemia angina pectoris 4. Paroxysmal atrial tachycardia currently in sinus rhythm/sinus tachycardia 5. HTN 6. Hyperlipidemia 7. 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 Thrombophlebitis of right superficial cephalic vein 9. Acute kidney injury, with Hypokalemia/resolved- Hypokalemia 10. Thrombocytopenia, resolved 11. Abnormal LFTs, possible hepatic congestion, resolving 12. Hypocalcemia PLAN: 1. Recommend resumption of Lipitor unless contraindicated; LFT abnormality resolving 2. Continue Toprol XL 12.5 bid and titrate dosage as needed and as tolerated, hemodynamics permitting 3. Resume Losartan once renal function improves and as tolerated, hemodynamics permitting 4. Lovenox as recommended by hematology 5. Await pathology report, monitor catheter output, OOB to chair
[2018-10-25 14:22] LABS: ANISOCYTOSIS 1+; MACROCYTOSIS 1+; PLATELET ESTIMATE NORMAL
--- NOTE | 2018-10-25 14:41 | PN ---
Physical Exam: SUBJECTIVE: Patient seen and examined; Left Video Assisted Thorascopy, Pleurodesis and Pleurx Catheter Insertion done today. OBJECTIVE: Vital Signs Period Temp Pulse Resp BP Sys/[place] Pulse Ox Last 24 Hr 96.3 F-98.1 F 86-110 14- 99-135/70-97 100-100 GENERAL: The patient is awake, alert, and fully oriented, in no acute distress. HEAD: Normal with no signs of trauma. EYES: PERRL, extraocular movements intact, sclera anicteric, conjunctiva clear. No ptosis. ENT: Ears normal, nares patent, oropharynx clear without exudates, moist mucous membranes. NECK: Trachea midline, full range of motion, supple. LUNGS: Breath sounds equal, clear to auscultation bilaterally, no wheezes, no crackles, no accessory muscle use. HEART: Regular rate and rhythm, S1, S2 without murmur, rub or gallop. ABDOMEN: Soft, nontender, nondistended, normoactive bowel sounds, no guarding, no rebound, no hepatosplenomegaly, no masses. EXTREMITIES: 2+ pulses, warm, well-perfused, no edema. NEUROLOGICAL: Cranial nerves II through XII grossly intact. Normal speech, gait not observed. PSYCH: Normal mood, normal affect. SKIN: Warm, dry, normal turgor, no rashes or lesions noted Laboratory Results - last 24 hr 10/25/18 10/25/18 10/25/18 05:15 05:15 11:20 WBC 11.7 H 17.9 H RBC 2.80 L 3.32 L Hgb 9.7 L 11.5 Hct 28.5 L 34.5 D MCV 101.5 H 103.8 H MCH 34.5 H 34.6 H MCHC 33.9 33.3 RDW 26.4 H 26.8 H Plt Count 127 L 189 D MPV 7.9 8.1 Absolute Neuts (auto) 15.3 H Neutrophils % 84.9 H D Neutrophils % (Manual) 81.6 Band Neutrophils % 0.0 Lymphocytes % 10.0 D Lymphocytes % (Manual) 11.2 D Monocytes % 3.1 L Monocytes % (Manual) 1 L D Eosinophils % 1.3 Eosinophils % (Manual) 3.1 Basophils % 0.7 Basophils % (Manual) 0.0 Myelocytes % (Man) 2 Promyelocytes % (Man) 0 Blast Cells % (Manual) 0 Nucleated RBC % 0 Metamyelocytes 1 D Hypochromia 0 Platelet Estimate Normal Polychromasia 1+ Poikilocytosis 0 Anisocytosis 1+ Microcytosis 0 Macrocytosis 1+ Sodium 137 Potassium 3.3 L Chloride 105 Carbon Dioxide 24 Anion Gap 8 BUN 30 H Creatinine 1.3 Creat Clearance w eGFR 40.26 Random Glucose 92 Calcium 6.6 L* Phosphorus 3.5 Magnesium 1.6 L Total Bilirubin AST ALT Alkaline Phosphatase Total Protein Albumin 10/25/18 11:20 WBC RBC Hgb Hct MCV MCH MCHC RDW Plt Count MPV Absolute Neuts (auto) Neutrophils % Neutrophils % (Manual) Band Neutrophils % Lymphocytes % Lymphocytes % (Manual) Monocytes % Monocytes % (Manual) Eosinophils % Eosinophils % (Manual) Basophils % Basophils % (Manual) Myelocytes % (Man) Promyelocytes % (Man) Blast Cells % (Manual) Nucleated RBC % Metamyelocytes Hypochromia Platelet Estimate Polychromasia Poikilocytosis Anisocytosis Microcytosis Macrocytosis Sodium 137 Potassium 3.7 Chloride 106 Carbon Dioxide 19 L Anion Gap 13 BUN 30 H Creatinine 1.3 Creat Clearance w eGFR 40.26 Random Glucose 106 Calcium 7.1 L Phosphorus Magnesium Total Bilirubin 0.5 AST 95 H ALT 50 Alkaline Phosphatase 378 H Total Protein 4.3 L Albumin 1.2 L Active Medications Generic Name Dose Route Start Last Admin Trade Name Freq PRN Reason Stop Dose Admin Acetaminophen 650 mg 10/25/18 10:31 Tylenol - PO Q6H PRN Fever Or Pain Chlorhexidine Gluconate 1 applic 10/25/18 22:00 Hibiclens For Decolonization - TP HS [facility] Enoxaparin Sodium 40 mg 10/26/18 10:00 Lovenox - SQ DAILY [facility] Fentanyl 50 mcg 10/25/18 10:31 Sublimaze Injection - IVPUSH [id number] PRN PAIN-PACU ORDER X 4 DOSES ONLY Lactated Ringer's 1,000 mls @ 75 mls/hr 10/25/18 10:31 10/25/18 12:32 Lactated Ringers Solution IV 75 mls/hr ASDIR [facility] Administration Piperacillin Sod/Tazobactam 50 mls @ 100 mls/hr 10/25/18 15:00 10/25/18 14:25 Sod 2.25 gm/ Dextrose IVPB 10/26/18 09:29 100 mls/hr Q6H-IV [facility] Administration Piperacillin Sod/Tazobactam 50 mls @ 100 mls/hr 10/26/18 15:00 Sod 2.25 gm/ Dextrose IVPB Q6H-IV [facility] Metoprolol Succinate 12.5 mg 10/25/18 22:00 Toprol Xl - PO BID [facility] Mupirocin 1 applic 10/25/18 22:00 Bactroban Ointment (For Decolonization) - NS 10/30/18 21:59 BID [facility] Ondansetron HCl 4 mg 10/25/18 10:31 Zofran Injection IVPUSH Q6H PRN NAUSEA AND/OR VOMITING Oxycodone HCl 10 mg 10/25/18 10:31 Roxicodone - PO 10/26/18 09:44 Q4H PRN PAIN LEVEL 6-10 Promethazine HCl 12.5 mg 10/25/18 10:31 Phenergan Injection - IVPB Q6H PRN NAUSEA-FOR RESCUE AFTER 15 MIN ASSESSMENT/PLAN: This is a 73 year old female with with Stage 4 breast cancer with mets to spine , on gemzar (Dr. Nelson at [facility], previously treated with Ibrance, then anastrazole )CAD s/p 1 stent in 2013 admitted on 10/04 with dyspnea due to recurrent exudative bilateral pleural effusions s/p VATS with R and now VATS left; pleurodesis and pleurX catheter and bx (pleural biopsy and repeated taps with no e/o malignancy) Hematology consulted for thrombophlebitis of superficial cephalic vein. -BIlateral pleural effusion -s/p bl VATS pleurodesis, pleurX catheter; bilateral bx -Breast CA with spinal METs on chemo weekly; gemzar -troponemia -HTN -CAD -hypocalemia -thrombophlebitits -symptomatic SVT -lovenox 40mg daily for symptomattic SVT -thrombophlebitis of superficial cephalic vein; repeat doppler -pleural effusion ; await biopy and fluid analysis; -s/p R VAT, pleural biopsy, POD #6. Frozen section neg for malignancy, await biopsy results. Visit type - Emergency Visit Emergency Visit: Yes ED Registration Date: 10/04/18 Care time: The patient presented to the Emergency Department on the above date and was hospitalized for further evaluation of their emergent condition. - New Patient This patient is new to me today: Yes Date on this admission: 10/25/18 - Critical Care Critical Care patient: No
[2018-10-25] MEDS ORDERED: PIPERACILLIN/TAZOB 2.25 GM 2.25 GM in DEXTROSE 5%-WATER - 50 ML IVPB SCH (15:00)
--- NOTE | 2018-10-25 17:22 | PN ---
Progress Note, Physician - Current Medication List Current Medications: Active Medications Acetaminophen (Tylenol -) 650 mg PO Q6H PRN PRN Reason: Fever Or Pain Chlorhexidine Gluconate (Hibiclens For Decolonization -) 1 applic TP HS ON LICENSE OF [facility] Enoxaparin Sodium (Lovenox -) 40 mg SQ DAILY ON [facility] OF [facility] Fentanyl (Sublimaze Injection -) 50 mcg IVPUSH [id number] PRN PRN Reason: PAIN-PACU ORDER X 4 DOSES ONLY Lactated Ringer's (Lactated Ringers Solution) 1,000 mls @ 75 mls/hr IV ASDIR ON [facility] Last Admin: 10/25/18 12:32 Dose: 75 mls/hr Piperacillin Sod/Tazobactam (Sod 2.25 gm/ Dextrose) 50 mls @ 100 mls/hr IVPB Q6H-IV [facility] Stop: 10/26/18 09:29 Last Admin: 10/25/18 14:25 Dose: 100 mls/hr Piperacillin Sod/Tazobactam (Sod 2.25 gm/ Dextrose) 50 mls @ 100 mls/hr IVPB Q6H-IV ON [facility] OF [facility] Metoprolol Succinate (Toprol Xl -) 12.5 mg PO BID ON [facility] OF [facility] Mupirocin (Bactroban Ointment (For Decolonization) -) 1 applic NS BID [facility] Stop: 10/30/18 21:59 Ondansetron HCl (Zofran Injection) 4 mg IVPUSH Q6H PRN PRN Reason: NAUSEA AND/OR VOMITING Oxycodone HCl (Roxicodone -) 10 mg PO Q4H PRN PRN Reason: PAIN LEVEL 6-10 Stop: 10/26/18 09:44 Promethazine HCl (Phenergan Injection -) 12.5 mg IVPB Q6H PRN PRN Reason: NAUSEA-FOR RESCUE AFTER 15 MIN - Objective Vital Signs: Vital Signs Temperature 97.6 F 10/25/18 14:00 Pulse Rate 94 H 10/25/18 14:00 Respiratory Rate 16 10/25/18 14:00 Blood Pressure 123/79 10/25/18 14:00 O2 Sat by Pulse Oximetry (%) 100 10/25/18 11:00 Labs: CBC, BMP 10/25/18 11:20 10/25/18 11:20 INR, PTT INR 1.14 (0.83-1.09) H 10/18/18 06:30
--- NOTE | 2018-10-25 20:39 | PN ---
Teaching Attending Note Name of Resident: Paulie Haney ATTENDING PHYSICIAN STATEMENT I saw and evaluated the patient. I reviewed the resident's note and discussed the case with the resident. I agree with the resident's findings and plan as documented. SUBJECTIVE: Patient is s/p Left Video Assisted Thorascopy, Pleurodesis and Pleurx Catheter Insertion done today. OBJECTIVE: Vital Signs Temperature 97.6 F 10/25/18 14:00 Pulse Rate 105 H 10/25/18 18:00 Respiratory Rate 20 10/25/18 18:00 Blood Pressure 93/71 10/25/18 18:00 O2 Sat by Pulse Oximetry (%) 100 10/25/18 20:28 GENERAL: AAOx3 , NAD EYES: EOMI Sclera Clear. LUNGS: R Chest tube in place draining. decreased BS at the basis. HEART: Tachycardic, S1S2 positive, No murmur is appreciated. ABDOMEN: ND, NT, BS positive EXTREMITIES: No edema, pulses are positive. SKIN: No rashes or lesions appreciated CBCD WBC 17.9 K/mm3 (4.0-10.0) H 10/25/18 11:20 RBC 3.32 M/mm3 (3.60-5.2) L 10/25/18 11:20 Hgb 11.5 GM/dL (10.7-15.3) 10/25/18 11:20 Hct 34.5 % (32.4-45.2) D 10/25/18 11:20 MCV 103.8 fl (80-96) H 10/25/18 11:20 MCHC 33.3 g/dl (32.0-36.0) 10/25/18 11:20 RDW 26.8 % (11.6-15.6) H 10/25/18 11:20 Plt Count 189 K/MM3 (134-434) D 10/25/18 11:20 MPV 8.1 fl (7.5-11.1) 10/25/18 11:20 CMP Sodium 137 mmol/L (136-145) 10/25/18 11:20 Potassium 3.7 mmol/L (3.5-5.1) 10/25/18 11:20 Chloride 106 mmol/L (98-107) 10/25/18 11:20 Carbon Dioxide 19 mmol/L (21-32) L 10/25/18 11:20 Anion Gap 13 MMOL/L (8-16) 10/25/18 11:20 BUN 30 mg/dL (7-18) H 10/25/18 11:20 Creatinine 1.3 mg/dL (0.55-1.3) 10/25/18 11:20 Creat Clearance w eGFR 40.26 (>60) 10/25/18 11:20 Random Glucose 106 mg/dL (74-106) 10/25/18 11:20 Calcium 7.1 mg/dL (8.5-10.1) L 10/25/18 11:20 Total Bilirubin 0.5 mg/dL (0.2-1) 10/25/18 11:20 AST 95 U/L (15-37) H 10/25/18 11:20 ALT 50 U/L (13-61) 10/25/18 11:20 Alkaline Phosphatase 378 U/L (45-117) H 10/25/18 11:20 Total Protein 4.3 g/dl (6.4-8.2) L 10/25/18 11:20 Albumin 1.2 g/dl (3.4-5.0) L 10/25/18 11:20 CARDIAC ENZYMES Creatine Kinase 708 U/L (26-192) H 10/04/18 17:45 Troponin I 0.46 ng/ml (0.00-0.05) H 10/04/18 21:00 Current Medications Generic Name Dose Route Start Last Admin Trade Name Freq PRN Reason Stop Dose Admin Acetaminophen 650 mg 10/25/18 10:31 Tylenol - PO Q6H PRN Fever Or Pain Chlorhexidine Gluconate 1 applic 10/25/18 22:00 Hibiclens For Decolonization - TP HS [facility] Enoxaparin Sodium 40 mg 10/26/18 10:00 Lovenox - SQ DAILY [facility] Fentanyl 50 mcg 10/25/18 10:31 Sublimaze Injection - IVPUSH [id number] PRN PAIN-PACU ORDER X 4 DOSES ONLY Lactated Ringer's 1,000 mls @ 75 mls/hr 10/25/18 10:31 10/25/18 12:32 Lactated Ringers Solution IV 75 mls/hr ASDIR [facility] Administration Piperacillin Sod/Tazobactam 50 mls @ 100 mls/hr 10/25/18 21:00 Sod 2.25 gm/ Dextrose IVPB Q6H-IV [facility] Protocol Metoprolol Succinate 12.5 mg 10/25/18 22:00 Toprol Xl - PO BID [facility] Mupirocin 1 applic 10/25/18 22:00 Bactroban Ointment (For Decolonization) - NS 10/30/18 21:59 BID [facility] Ondansetron HCl 4 mg 10/25/18 10:31 Zofran Injection IVPUSH Q6H PRN NAUSEA AND/OR VOMITING Oxycodone HCl 10 mg 10/25/18 10:31 Roxicodone - PO 10/26/18 09:44 Q4H PRN PAIN LEVEL 6-10 Promethazine HCl 12.5 mg 10/25/18 10:31 Phenergan Injection - IVPB Q6H PRN NAUSEA-FOR RESCUE AFTER 15 MIN Home Medications Medication Instructions Recorded Aspirin [ASA -] 81 mg PO HS 03/29/14 Atorvastatin Ca [Lipitor -] 80 mg PO HS 03/29/14 Folic Acid 400 mcg PO DAILY 03/29/14 Losartan Potassium [Cozaar] 25 mg PO DAILY 03/29/14 Metoprolol Succinate [Toprol Xl] 12.5 mg PO BID 03/29/14 Cholecalciferol (Vitamin D3) 1,000 unit PO DAILY 10/04/18 [Vitamin D3] Gemcitabine HCl [Gemzar -] 200 mg IV ASDIR 10/04/18 Nitroglycerin Sublingual 0.4 mg PO PRN PRN 10/04/18 [Nitrostat -] ASSESSMENT AND PLAN: Patient is a 73yo female with PMHx of 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 #S/p left VAT POD #0 and right VAT POD # 7 due to having B/l Pleural effusions : with pleurodesis, pleurX cath placement and Bx pending, frozen section is negative. #Right UE thrombophlebitis of superficial cephalic vein; will repeat doppler in am # LUCRECIA : improved. 1.7-->1.5-->1.5--1.3 today, base line 1.2, continue to hold losartan , blood pressure is stable. will continue to monitor # Elevated trop: could be due to renal failure , cont BB , asa is on hold for now. # Transaminitis: will continue to trend # hypocalcemia , corrected ca is normal DVT Px: On lovenox sq
[2018-10-25] MEDS: MUPIROCIN 2% TOPICAL OINTMENT FOR DECOLONIZATION NS SCH (22:10)
[2018-10-25] MEDS: CHLORHEXIDINE GLUCONATE 4% CLEANSER FOR DECOLONIZATION TP SCH (22:10)
[2018-10-26] MEDS: PIPERACILLIN/TAZOB 2.25 GM 2.25 GM in DEXTROSE 5%-WATER - 50 ML IVPB SCH ×4 (04:00→21:02)
[2018-10-26] MEDS ORDERED: DEXTROSE 5%-WATER - 50 ML IVPB ONE ×4 (06:00→20:58)
[2018-10-26] MEDS ORDERED: PIPERACILLIN/TAZOBACTAM 2.25 GM VIAL IVPB ONE ×4 (06:00→20:58)
[2018-10-26 06:34] LABS: ANION GAP 8 MMOL/L (8-16); BLOOD UREA NITROGEN 35 mg/dL (7-18); CHLORIDE 104 mmol/L (98-107); CO2 24 mmol/L (21-32); CREATININE 1.7 mg/dL (0.55-1.3); GLUCOSE,RANDOM 107 mg/dL (74-106); MAGNESIUM 2.2 mg/dL (1.8-2.4); PHOSPHOROUS 4.4 mg/dL (2.5-4.9); POTASSIUM 3.7 mmol/L (3.5-5.1); SODIUM 136 mmol/L (136-145)
[2018-10-26 06:40] LABS: CALCIUM 6.7 mg/dL (8.5-10.1)
[2018-10-26 06:43] LABS: HEMATOCRIT 26.4 % (32.4-45.2); HEMOGLOBIN 8.8 GM/dL (10.7-15.3); MCH 34.2 pg (25.7-33.7); MCHC 33.5 g/dl (32.0-36.0); MEAN CELL VOLUME 102.1 fl (80-96); RBC 2.58 M/mm3 (3.60-5.2); RDW 25.9 % (11.6-15.6); WHITE BLOOD COUNT 14.1 K/mm3 (4.0-10.0)
[2018-10-26 06:44] LABS: MEAN PLT VOLUME 7.9 fl (7.5-11.1); PLATELET COUNT 154 K/MM3 (134-434)
--- NOTE | 2018-10-26 08:10 | PN ---
Progress Note (short form) - Note Progress Note: POD 8, s/p Right VATS with pleural biopsy and pleurex catheter placement, POD 1 , s/p Left Video Assisted Thorascopy, Pleurodesis and Pleurx Catheter Insertion Pt seen and examined on AM rounds. Reports feeling significantly improved. States she feels like she has more energy. Has been doing better with the incentive spirometer as well (able to get to 500). Tolerated clears, denies cp/ sob, n/v/d, calf pain/edema. Vital Signs Temp 97.6 F 10/25/18 14:00 Pulse 69 10/26/18 06:00 Resp 21 H 10/26/18 06:00 BP 107/59 L 10/26/18 06:00 Pulse Ox 100 10/25/18 20:28 Intake & Output 10/25/18 10/25/18 10/26/18 11:59 23:59 11:59 Intake Total 311 922 4482 Output Total 5 70 100 Balance 645 630 900 Intake: IV 600 600 900 Lactated Ringers Solution 600 900 1,000 ml @ 75 mls/hr IV ASDIR [facility] ARMANDO Rx#:[id number] IVPB 50 100 100 Output: Chest Tube Drainage 70 100 Left Lateral Chest 40 0 Right Lateral Chest 30 100 Estimated Blood Loss 5 Other: Voiding Method Bedpan Bedpan # Unmeasured Voids Void 1 Bowel Movement No No No CBC, BMP 10/26/18 05:30 10/26/18 05:30 Gen: awake, alert, nad Resp: unlabored on 3L NC. Decreased breath sounds lower lobes. B/L dressings c/d /i. Ext: soft, nt A/P: 73 y/o F w/ PMHx recurrent pleural effusion, stage 4 R breast CA with chemoport w/mets to spine, HTN, HLD, CAD s/p 1 stent (2013), angina, admitted for SOB on rest and exertion, now POD 8, s/p Right VATS with pleural biopsy and pleurex catheter placement, POD 1, s/p Left Video Assisted Thorascopy, Pleurodesis and Pleurx Catheter Insertion Afebrile, vss this AM. h/h 8.826.4 FROM 11.5/34.5 yesterday Creatinine 1.7 from 1.3 R pleurX output 100ml serosanguinous drainage overnight. L pleurX 40ml upto midnight (dark red/brown), 0ml overnight. Per resident pt w/ vasovagal episodes during movement this afternoon, concerned for too much output from Pleurx catheters. D/w attendign Dr Fletcher, L Pleurx with minimal output, will cap BOTH this afternoon. -F/U OR cytology -F/U am xray -Recommend bolus pt is likely having vasovagal episodes due to hypovolemia -Will need VNS for home -CXR Monday d/w attending Dr Fletcher
[2018-10-26] MEDS: MUPIROCIN 2% TOPICAL OINTMENT FOR DECOLONIZATION NS SCH ×2 (09:09→21:05)
[2018-10-26] MEDS: ENOXAPARIN NA (PORCINE) 40 MG/0.4 ML DISP.SYRIN SQ SCH (09:10)
[2018-10-26] MEDS: metoPROLOL SUCCINATE 25 MG TAB.SR.24H (FP) PO SCH ×2 (09:11→21:04)
--- NOTE | 2018-10-26 09:57 | OP ---
DATE OF OPERATION: 10/25/2018 SURGEON: Nevin Fletcher MD SHOES SALESPERSON: Jone Jones ANESTHESIOLOGIST: Subhash Horton MD PREOPERATIVE DIAGNOSES: Stage 4 right breast cancer with metastasis to spine, hypertension, hyperlipidemia, coronary artery disease, status post 1 coronary stent, angina pectoris, pleural fluid. POSTOPERATIVE DIAGNOSES: Stage 4 right breast cancer with metastasis to spine, hypertension, hyperlipidemia, coronary artery disease, status post 1 coronary stent, angina pectoris, pleural fluid. PROCEDURE PERFORMED: Left video-assisted thoracoscopic surgery, pleurodesis and insertion of PleurX catheter. SPECIMEN: Pleural fluid for culture and cytology. TUBES: One PleurX catheter. IMPLANTS: Not applicable. CONDITION: Hemodynamically stable, transferred to PACU. ANESTHESIA: MAC and local. INDICATION: A 73-year-old female with past medical history of recurrent pleural effusion on the left side, stage 4 right breast cancer with chemotherapy port with metastasis to spine, hypertension, HLD, CAD, status post stent, presented to ED on October 04 for shortness of breath. CT of chest revealed right and left pleural effusion, left larger than right. Pigtail catheter was inserted in the left pleural cavity. Cytology revealed no malignancy but exudative in character. Different treatment options were discussed with patient. Patient underwent a right VATS with pleural biopsy and pleurodesis, insertion of PleurX catheter on October 18, 2018. We did not do the bilateral VATS because of patient's condition. After right VATS a couple of days later the catheter on the left side was removed. Patient was offered to come in under another admission for PleurX insertion but refused and wished for surgery on the left side under same admission. Patient was informed about risks, benefits and alternative treatment options and consented for surgery. PROCEDURE IN DETAIL: Patient was brought into the OR, was placed in the right lateral decubitus position left side up, prepped and draped in sterile fashion. At the level of ICA, anterior axillary line incision was made. Prior to that ultrasound was used to confirm the best positioning of the catheter. Under local and MAC, local with 0.25% Marcaine, incision was made. Pleura was entered. Serous fluid 700 was suctioned. Specimen was sent for culture and cytology. Hereafter 5-mm camera was inserted into the chest. Pleura was inspected. No pleural metastases were seen. Hereafter a PleurX catheter was tunneled under skin and inserted into the pleural cavity. Doxycycline 500 mg and 50 mL saline was sprayed on the pleural viscera and parietal pleura for pleurodesis. Hereafter the incision was closed using 0 Vicryl in the fascia, 3-0 Vicryl in the subcutaneous tissue and 3-0 Monocryl at the level of the skin. The PleurX was connected to the Pleur-Evac. I performed the procedure as dictated above. I was in the OR during the whole procedure and remained available thereafter. Madelyn [id number] [id number]
--- NOTE | 2018-10-26 11:24 | PN ---
Progress Note, Physician History of Present Illness: Dyspnea resolving, s/p bilateral VATS with pleural biopsy and pleurex catheter placement without sequelae. HR improved. - Current Medication List Current Medications: Active Medications Acetaminophen (Tylenol -) 650 mg PO Q6H PRN PRN Reason: Fever Or Pain Chlorhexidine Gluconate (Hibiclens For Decolonization -) 1 applic TP HS [facility] Last Admin: 10/25/18 22:10 Dose: 1 applic Enoxaparin Sodium (Lovenox -) 40 mg SQ DAILY [facility] Last Admin: 10/26/18 09:10 Dose: 40 mg Fentanyl (Sublimaze Injection -) 50 mcg IVPUSH [id number] PRN PRN Reason: PAIN-PACU ORDER X 4 DOSES ONLY Lactated Ringer's (Lactated Ringers Solution) 1,000 mls @ 75 mls/hr IV ASDIR [facility] Last Admin: 10/25/18 12:32 Dose: 75 mls/hr Piperacillin Sod/Tazobactam (Sod 2.25 gm/ Dextrose) 50 mls @ 100 mls/hr IVPB Q6H-IV [facility]; Protocol Last Admin: 10/26/18 09:08 Dose: 100 mls/hr Metoprolol Succinate (Toprol Xl -) 12.5 mg PO BID [facility] Last Admin: 10/26/18 09:11 Dose: 12.5 mg Mupirocin (Bactroban Ointment (For Decolonization) -) 1 applic NS BID [facility] Stop: 10/30/18 21:59 Last Admin: 10/26/18 09:09 Dose: 1 applic Ondansetron HCl (Zofran Injection) 4 mg IVPUSH Q6H PRN PRN Reason: NAUSEA AND/OR VOMITING Last Admin: 10/25/18 22:10 Dose: 4 mg Promethazine HCl (Phenergan Injection -) 12.5 mg IVPB Q6H PRN PRN Reason: NAUSEA-FOR RESCUE AFTER 15 MIN - Objective Vital Signs: Vital Signs Temperature 97.5 F L 10/26/18 10:00 Pulse Rate 68 10/26/18 10:00 Respiratory Rate 20 10/26/18 10:00 Blood Pressure 119/88 10/26/18 10:00 O2 Sat by Pulse Oximetry (%) 100 10/26/18 09:00 Constitutional: Yes: No Distress, Calm, Thin Neck: Yes: Supple Cardiovascular: Yes: Regular Rate and Rhythm Respiratory: Yes: Regular, Diminished, On Nasal O2, Other (Chest tubes in place bilaterally) Edema: No Labs: CBC, BMP 10/26/18 05:30 10/26/18 05:30 INR, PTT INR 1.14 (0.83-1.09) H 10/18/18 06:30 - ....Imaging EKG: Report Reviewed (Tele: NSR) Problem List - Problems (1) Demand ischemia Code(s): I24.8 - OTHER FORMS OF ACUTE ISCHEMIC HEART DISEASE (2) LUCRECIA (acute kidney injury) Code(s): N17.9 - ACUTE KIDNEY FAILURE, UNSPECIFIED (3) Congestive heart failure Code(s): I50.9 - HEART FAILURE, UNSPECIFIED Qualifiers: Heart failure type: diastolic Heart failure chronicity: acute on chronic Qualified Code(s): I50.33 - Acute on chronic diastolic (congestive) heart failure (4) Large pleural effusion Code(s): J90 - PLEURAL EFFUSION, NOT ELSEWHERE CLASSIFIED (5) Chest tube in place Code(s): Z96.89 - PRESENCE OF OTHER SPECIFIED FUNCTIONAL IMPLANTS (6) Metastatic breast cancer Code(s): C50.919 - MALIGNANT NEOPLASM OF UNSP SITE OF UNSPECIFIED FEMALE BREAST Assessment/Plan 1. s/p bilateral VATS with pleurX cath placement and biopsy for bilateral pleural effusions 2. Diastolic/systolic LV dysfunction with clinical class 0-I NYHA classification LV failure, compensated/euvolemic, exudative pleural effusion argues against heart failure 3. CAD post PCI/stent demand ischemia angina pectoris 4. Paroxysmal atrial tachycardia currently in sinus rhythm/sinus tachycardia 5. HTN 6. Hyperlipidemia 7. 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 Thrombophlebitis of right superficial cephalic vein 9. Acute kidney injury, with Hypokalemia/resolved- Hypokalemia 10. Thrombocytopenia, resolved 11. Abnormal LFTs, possible hepatic congestion, resolving 12. Hypocalcemia PLAN: 1. Recommend resumption of Lipitor unless contraindicated; LFT abnormality resolving 2. Continue Toprol XL 12.5 bid and titrate dosage as needed and as tolerated, hemodynamics permitting 3. Resume Losartan once renal function improves and as tolerated, hemodynamics permitting 4. Lovenox as recommended by hematology 5. Await pathology report, monitor catheter output, OOB to chair
--- NOTE | 2018-10-26 11:58 | PN ---
Progress Note, Physician History of Present Illness: stable feels much better b/l chest tubes wbc trending down - Current Medication List Current Medications: Active Medications Acetaminophen (Tylenol -) 650 mg PO Q6H PRN PRN Reason: Fever Or Pain Chlorhexidine Gluconate (Hibiclens For Decolonization -) 1 applic TP HS [facility] Last Admin: 10/25/18 22:10 Dose: 1 applic Enoxaparin Sodium (Lovenox -) 40 mg SQ DAILY [facility] Last Admin: 10/26/18 09:10 Dose: 40 mg Fentanyl (Sublimaze Injection -) 50 mcg IVPUSH [id number] PRN PRN Reason: PAIN-PACU ORDER X 4 DOSES ONLY Lactated Ringer's (Lactated Ringers Solution) 1,000 mls @ 75 mls/hr IV ASDIR [facility] Last Admin: 10/25/18 12:32 Dose: 75 mls/hr Piperacillin Sod/Tazobactam (Sod 2.25 gm/ Dextrose) 50 mls @ 100 mls/hr IVPB Q6H-IV [facility]; Protocol Last Admin: 10/26/18 09:08 Dose: 100 mls/hr Metoprolol Succinate (Toprol Xl -) 12.5 mg PO BID [facility] Last Admin: 10/26/18 09:11 Dose: 12.5 mg Mupirocin (Bactroban Ointment (For Decolonization) -) 1 applic NS BID [facility] Stop: 10/30/18 21:59 Last Admin: 10/26/18 09:09 Dose: 1 applic Ondansetron HCl (Zofran Injection) 4 mg IVPUSH Q6H PRN PRN Reason: NAUSEA AND/OR VOMITING Last Admin: 10/25/18 22:10 Dose: 4 mg Promethazine HCl (Phenergan Injection -) 12.5 mg IVPB Q6H PRN PRN Reason: NAUSEA-FOR RESCUE AFTER 15 MIN - Objective Vital Signs: Vital Signs Temperature 97.5 F L 10/26/18 10:00 Pulse Rate 68 10/26/18 10:00 Respiratory Rate 20 10/26/18 10:00 Blood Pressure 119/88 10/26/18 10:00 O2 Sat by Pulse Oximetry (%) 100 10/26/18 09:00 Constitutional: Yes: No Distress, Calm Cardiovascular: Yes: Regular Rate and Rhythm Respiratory: Yes: On Nasal O2, Poor Air Entry (bases), Other (b/l chest tubes) Gastrointestinal: Yes: Normal Bowel Sounds, Soft Musculoskeletal: Yes: WNL Extremities: Yes: WNL Wound/Incision: Yes: Clean/Dry Neurological: Yes: Alert, Oriented Labs: CBC, BMP 10/26/18 05:30 10/26/18 05:30 INR, PTT INR 1.14 (0.83-1.09) H 10/18/18 06:30 Assessment/Plan Problem List - Problems (1) Chest tube in place Code(s): Z96.89 - PRESENCE OF OTHER SPECIFIED FUNCTIONAL IMPLANTS (2) Congestive heart failure Code(s): I50.9 - HEART FAILURE, UNSPECIFIED Qualifiers: Heart failure type: diastolic Heart failure chronicity: acute on chronic Qualified Code(s): I50.33 - Acute on chronic diastolic (congestive) heart failure (3) Difficulty breathing Code(s): R06.89 - OTHER ABNORMALITIES OF BREATHING (4) Large pleural effusion Code(s): J90 - PLEURAL EFFUSION, NOT ELSEWHERE CLASSIFIED (5) Metastatic breast cancer Code(s): C50.919 - MALIGNANT NEOPLASM OF UNSP SITE OF UNSPECIFIED FEMALE BREAST plan continue abx monitor wbc rest continue current mgmt patient stable
--- NOTE | 2018-10-26 13:34 | PN ---
Progress Note (short form) - Note Progress Note: POD #1 - s/p left VATS/pleurodesis under MAC. VSS. Pt. doing better, sitting up comfortably in bed. No complaints. No apparent anesthetic complications noted. Continue current care.
--- NOTE | 2018-10-26 13:43 | PN ---
Progress Note (short form) - Note Progress Note: Breathing feels better today. Dizziness on moving and changing body position. 100cc output from each PleureX. Noted increase in creatinine. CXR: improving effusions overall. Intake & Output 10/23/18 10/24/18 10/25/18 10/26/18 23:59 23:59 23:59 23:59 Intake Total 390 941 3307 1000 Output Total 840 350 75 100 Balance -309 556 5201 900 Last Vital Signs Temp Pulse Resp BP Pulse Ox 97.5 F L 68 20 119/88 100 10/26/18 10:00 10/26/18 10:00 10/26/18 10:00 10/26/18 10:00 10/26/18 09:00 Active Medications Acetaminophen (Tylenol -) 650 mg PO Q6H PRN PRN Reason: Fever Or Pain Chlorhexidine Gluconate (Hibiclens For Decolonization -) 1 applic TP HS [facility] Last Admin: 10/25/18 22:10 Dose: 1 applic Enoxaparin Sodium (Lovenox -) 40 mg SQ DAILY [facility] Last Admin: 10/26/18 09:10 Dose: 40 mg Fentanyl (Sublimaze Injection -) 50 mcg IVPUSH [id number] PRN PRN Reason: PAIN-PACU ORDER X 4 DOSES ONLY Lactated Ringer's (Lactated Ringers Solution) 1,000 mls @ 75 mls/hr IV ASDIR [facility] Last Admin: 10/25/18 12:32 Dose: 75 mls/hr Piperacillin Sod/Tazobactam (Sod 2.25 gm/ Dextrose) 50 mls @ 100 mls/hr IVPB Q6H-IV [facility]; Protocol Last Admin: 10/26/18 09:08 Dose: 100 mls/hr Metoprolol Succinate (Toprol Xl -) 12.5 mg PO BID [facility] Last Admin: 10/26/18 09:11 Dose: 12.5 mg Mupirocin (Bactroban Ointment (For Decolonization) -) 1 applic NS BID [facility] Stop: 10/30/18 21:59 Last Admin: 10/26/18 09:09 Dose: 1 applic Ondansetron HCl (Zofran Injection) 4 mg IVPUSH Q6H PRN PRN Reason: NAUSEA AND/OR VOMITING Last Admin: 10/25/18 22:10 Dose: 4 mg Promethazine HCl (Phenergan Injection -) 12.5 mg IVPB Q6H PRN PRN Reason: NAUSEA-FOR RESCUE AFTER 15 MIN Constitutional: Yes: Awake and alert, NAD Eyes: Yes: WNL HENT: Yes: Nasal Congestion Neck: Yes: WNL Cardiovascular: Yes: Regular Rate and Rhythm, S1, S2 Respiratory: Yes: Diminished, Rhonchi, bilateral PleureX catheters Gastrointestinal: Yes: Normal Bowel Sounds, Soft Extremities: Yes: WNL Edema: No Labs: Laboratory Results - last 24 hr 10/25/18 10/26/18 10/26/18 11:20 05:30 05:30 WBC 14.1 H RBC 2.58 L Hgb 8.8 L Hct 26.4 L D MCV 102.1 H MCH 34.2 H MCHC 33.5 RDW 25.9 H Plt Count 154 MPV 7.9 Neutrophils % (Manual) 81.6 Band Neutrophils % 0.0 Lymphocytes % (Manual) 11.2 D Monocytes % (Manual) 1 L D Eosinophils % (Manual) 3.1 Basophils % (Manual) 0.0 Myelocytes % (Man) 2 Promyelocytes % (Man) 0 Blast Cells % (Manual) 0 Metamyelocytes 1 D Hypochromia 0 Platelet Estimate Normal Polychromasia 1+ Poikilocytosis 0 Anisocytosis 1+ Microcytosis 0 Macrocytosis 1+ Sodium 136 Potassium 3.7 Chloride 104 Carbon Dioxide 24 Anion Gap 8 BUN 35 H Creatinine 1.7 H Creat Clearance w eGFR 29.54 Random Glucose 107 H Calcium 6.7 L* Phosphorus 4.4 Magnesium 2.2 Problem List - Problems (1) LUCRECIA (acute kidney injury) Code(s): N17.9 - ACUTE KIDNEY FAILURE, UNSPECIFIED (2) CAD (coronary artery disease) Code(s): I25.10 - ATHSCL HEART DISEASE OF [place] CORONARY ARTERY W/O ANG PCTRS Qualifiers: Coronary Disease-Associated Artery/Lesion type: [place] artery [place] vs. transplanted heart: [place] heart Associated angina: without angina Qualified Code(s): I25.10 - Atherosclerotic heart disease of [place] coronary artery without angina pectoris (3) Chest tube in place Code(s): Z96.89 - PRESENCE OF OTHER SPECIFIED FUNCTIONAL IMPLANTS (4) Congestive heart failure Code(s): I50.9 - HEART FAILURE, UNSPECIFIED Qualifiers: Heart failure type: diastolic Heart failure chronicity: acute on chronic Qualified Code(s): I50.33 - Acute on chronic diastolic (congestive) heart failure (5) Difficulty breathing Code(s): R06.89 - OTHER ABNORMALITIES OF BREATHING (6) HTN (hypertension) Code(s): I10 - ESSENTIAL (PRIMARY) HYPERTENSION Qualifiers: Hypertension type: essential hypertension Qualified Code(s): I10 - Essential (primary) hypertension (7) History of percutaneous coronary intervention Code(s): Z98.61 - CORONARY ANGIOPLASTY STATUS (8) Hypercholesterolemia Code(s): E78.00 - PURE HYPERCHOLESTEROLEMIA, UNSPECIFIED (9) Large pleural effusion Code(s): J90 - PLEURAL EFFUSION, NOT ELSEWHERE CLASSIFIED (10) Metastatic breast cancer Code(s): C50.919 - MALIGNANT NEOPLASM OF UNSP SITE OF UNSPECIFIED FEMALE BREAST Assessment/Plan IMP BILATERAL PLEURAL EFFUSIONS S/P R VAT BX - FOR MALIGNANCY METASTATIC BREAST CA ANEMIA ASHD S/P STENT DIASTOLIC HF CKD ELEVATED TROPONIN PLAN WOULD CAP BOTH PLEUREX CATHETERS TODAY. HAS DRAINED A SIGNIFICANT AMOUNT OF FLUID THUS FAR O2 NEEDED TO MAINTAIN SATURATION AM CXR OOB TO CHAIR INCENTIVE SPIROMETRY FOLLOW AM CREATININE DR ARNOLD
[2018-10-26] MEDS ORDERED: PIPERACILLIN/TAZOB 2.25 GM 2.25 GM in DEXTROSE 5%-WATER - 50 ML IVPB SCH (15:00)
--- NOTE | 2018-10-26 15:36 | PN ---
Teaching Attending Note Name of Resident: Paulie Haney ATTENDING PHYSICIAN STATEMENT I saw and evaluated the patient. I reviewed the resident's note and discussed the case with the resident. I agree with the resident's findings and plan as documented. SUBJECTIVE: Patient is feeling better with no acute distress. at bedside. OBJECTIVE: Vital Signs Temperature 98.2 F 10/26/18 14:00 Pulse Rate 69 10/26/18 14:00 Respiratory Rate 20 10/26/18 14:00 Blood Pressure 108/67 10/26/18 14:00 O2 Sat by Pulse Oximetry (%) 100 10/26/18 09:00 GENERAL: AAOx3 , NAD EYES: EOMI Sclera Clear. LUNGS: left Chest tube in place. decreased BS at the basis. HEART: RRR, S1S2 positive, No murmur is appreciated. ABDOMEN: ND, NT, BS positive EXTREMITIES: 2 plus edema bl, positive for SCDs, pulses are positive. SKIN: No rashes or lesions appreciated CBCD WBC 14.1 K/mm3 (4.0-10.0) H 10/26/18 05:30 RBC 2.58 M/mm3 (3.60-5.2) L 10/26/18 05:30 Hgb 8.8 GM/dL (10.7-15.3) L 10/26/18 05:30 Hct 26.4 % (32.4-45.2) L D 10/26/18 05:30 MCV 102.1 fl (80-96) H 10/26/18 05:30 MCHC 33.5 g/dl (32.0-36.0) 10/26/18 05:30 RDW 25.9 % (11.6-15.6) H 10/26/18 05:30 Plt Count 154 K/MM3 (134-434) 10/26/18 05:30 MPV 7.9 fl (7.5-11.1) 10/26/18 05:30 CMP Sodium 136 mmol/L (136-145) 10/26/18 05:30 Potassium 3.7 mmol/L (3.5-5.1) 10/26/18 05:30 Chloride 104 mmol/L (98-107) 10/26/18 05:30 Carbon Dioxide 24 mmol/L (21-32) 10/26/18 05:30 Anion Gap 8 MMOL/L (8-16) 10/26/18 05:30 BUN 35 mg/dL (7-18) H 10/26/18 05:30 Creatinine 1.7 mg/dL (0.55-1.3) H 10/26/18 05:30 Creat Clearance w eGFR 29.54 (>60) 10/26/18 05:30 Random Glucose 107 mg/dL (74-106) H 10/26/18 05:30 Calcium 6.7 mg/dL (8.5-10.1) L* 10/26/18 05:30 Total Bilirubin 0.5 mg/dL (0.2-1) 10/25/18 11:20 AST 95 U/L (15-37) H 10/25/18 11:20 ALT 50 U/L (13-61) 10/25/18 11:20 Alkaline Phosphatase 378 U/L (45-117) H 10/25/18 11:20 Total Protein 4.3 g/dl (6.4-8.2) L 10/25/18 11:20 Albumin 1.2 g/dl (3.4-5.0) L 10/25/18 11:20 CARDIAC ENZYMES Creatine Kinase 708 U/L (26-192) H 10/04/18 17:45 Troponin I 0.46 ng/ml (0.00-0.05) H 10/04/18 21:00 Current Medications Generic Name Dose Route Start Last Admin Trade Name Freq PRN Reason Stop Dose Admin Acetaminophen 650 mg 10/25/18 10:31 Tylenol - PO Q6H PRN Fever Or Pain Chlorhexidine Gluconate 1 applic 10/25/18 22:00 10/25/18 22:10 Hibiclens For Decolonization - TP 1 applic HS [facility] Administration Enoxaparin Sodium 40 mg 10/26/18 10:00 10/26/18 09:10 Lovenox - SQ 40 mg DAILY [facility] Administration Fentanyl 50 mcg 10/25/18 10:31 Sublimaze Injection - IVPUSH [id number] PRN PAIN-PACU ORDER X 4 DOSES ONLY Lactated Ringer's 1,000 mls @ 75 mls/hr 10/25/18 10:31 10/25/18 12:32 Lactated Ringers Solution IV 75 mls/hr ASDIR [facility] Administration Piperacillin Sod/Tazobactam 50 mls @ 100 mls/hr 10/25/18 21:00 10/26/18 15:29 Sod 2.25 gm/ Dextrose IVPB 100 mls/hr Q6H-IV [facility] Administration Protocol Metoprolol Succinate 12.5 mg 10/25/18 22:00 10/26/18 09:11 Toprol Xl - PO 12.5 mg BID [facility] Administration Mupirocin 1 applic 10/25/18 22:00 10/26/18 09:09 Bactroban Ointment (For Decolonization) - NS 10/30/18 21:59 1 applic BID [facility] Administration Ondansetron HCl 4 mg 10/25/18 10:31 10/25/18 22:10 Zofran Injection IVPUSH 4 mg Q6H PRN Administration NAUSEA AND/OR VOMITING Promethazine HCl 12.5 mg 10/25/18 10:31 Phenergan Injection - IVPB Q6H PRN NAUSEA-FOR RESCUE AFTER 15 MIN Home Medications Medication Instructions Recorded Aspirin [ASA -] 81 mg PO HS 03/29/14 Atorvastatin Ca [Lipitor -] 80 mg PO HS 03/29/14 Folic Acid 400 mcg PO DAILY 03/29/14 Losartan Potassium [Cozaar] 25 mg PO DAILY 03/29/14 Metoprolol Succinate [Toprol Xl] 12.5 mg PO BID 03/29/14 Cholecalciferol (Vitamin D3) 1,000 unit PO DAILY 10/04/18 [Vitamin D3] Gemcitabine HCl [Gemzar -] 200 mg IV [facility]IR 10/04/18 Nitroglycerin Sublingual 0.4 mg PO PRN PRN 10/04/18 [Nitrostat -] ASSESSMENT AND PLAN: Patient is a 73yo female with PMHx of 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 #S/p left VAT POD #1 and right VAT POD # 8 due to having B/l Pleural effusions : with pleurodesis, pleurX cath placement and Bx pending, frozen section is negative. #Right UE thrombophlebitis of superficial cephalic vein; will repeat doppler in am # LUCRECIA on CKD : back to 1.7 today 1.7-->1.5-->1.5--1.3--> 1.7 today, base line 1.2, continue to hold losartan , blood pressure is stable. will continue to trend. # Elevated trop: could be due to renal failure , cont BB , asa is on hold for now. # Transaminitis: will continue to trend # hypocalcemia , corrected ca is normal DVT Px: On lovenox sq
[2018-10-26] MEDS: LACTATED RINGERS SOLUTION 1,000 ML IV SCH ×2 (15:48→21:09)
--- NOTE | 2018-10-26 17:13 | PATH ---
Cytology Non-Gynecological Report Patient Name: NEGRO CULLEN Med. Rec. #: [id number] /Age/Gender: 1945 (Age: 73) / F Account: [id number] Location: 4 TELEMETRY U Taken: 10/25/2018 Received: 10/25/2018 Reported: 10/26/2018 Physicians: Morteza De Dios M.D. Specimen(s) Received PLEURAL FLUID Clinical History Pleural effusion Final Diagnosis PLEURAL FLUID, THORACENTESIS: SATISFACTORY FOR EVALUATION. NO MALIGNANT CELLS IDENTIFIED. RARE MACROPHAGES IN A BACKGROUND OF PROTEINACEOUS MATERIAL WITH SCATTERED LYMPHOCYTES. Electronically Signed Faby Heredia M.D. Gross Description Approximately 30 cc of yellow fluid received fresh. One cytofunnel prepared and Pap stained. One cellblock prepared.
--- NOTE | 2018-10-26 19:36 | PN ---
Physical Exam: SUBJECTIVE: Patient seen and examined at bedside. No acute distress. POD# 1 Left Video Assisted Thorascopy, Pleurodesis and Pleurx Catheter Insertion. OBJECTIVE: Vital Signs Period Temp Pulse Resp BP Sys/[place] Pulse Ox Last 24 Hr 97.5 F-98.5 F 68-90 15-21 97-120/59-88 100-100 GENERAL: AAOx3 NAD EYES: EOMI Sclera Clear. LUNGS: b/l PleureX catheters. BS more audible compares to yesterday. HEART: S1S2 Irregular ABDOMEN: NDNT No HSM EXTREMITIES: 2+ b/l pitting edema. SCD's on. SKIN: No rashes or lesions appreciated. Laboratory Results - last 24 hr 10/26/18 10/26/18 05:30 05:30 WBC 14.1 H RBC 2.58 L Hgb 8.8 L Hct 26.4 L D MCV 102.1 H MCH 34.2 H MCHC 33.5 RDW 25.9 H Plt Count 154 MPV 7.9 Sodium 136 Potassium 3.7 Chloride 104 Carbon Dioxide 24 Anion Gap 8 BUN 35 H Creatinine 1.7 H Creat Clearance w eGFR 29.54 Random Glucose 107 H Calcium 6.7 L* Phosphorus 4.4 Magnesium 2.2 Active Medications Generic Name Dose Route Start Last Admin Trade Name Freq PRN Reason Stop Dose Admin Acetaminophen 650 mg 10/25/18 10:31 Tylenol - PO Q6H PRN Fever Or Pain Chlorhexidine Gluconate 1 applic 10/25/18 22:00 10/25/18 22:10 Hibiclens For Decolonization - TP 1 applic HS [facility] Administration Enoxaparin Sodium 40 mg 10/26/18 10:00 10/26/18 09:10 Lovenox - SQ 40 mg DAILY [facility] Administration Fentanyl 50 mcg 10/25/18 10:31 Sublimaze Injection - IVPUSH [id number] PRN PAIN-PACU ORDER X 4 DOSES ONLY Lactated Ringer's 1,000 mls @ 75 mls/hr 10/25/18 10:31 10/26/18 15:48 Lactated Ringers Solution IV 75 mls/hr ASDIR [facility] Administration Piperacillin Sod/Tazobactam 50 mls @ 100 mls/hr 10/25/18 21:00 10/26/18 15:29 Sod 2.25 gm/ Dextrose IVPB 100 mls/hr Q6H-IV [facility] Administration Protocol Metoprolol Succinate 12.5 mg 10/25/18 22:00 10/26/18 09:11 Toprol Xl - PO 12.5 mg BID [facility] Administration Mupirocin 1 applic 10/25/18 22:00 10/26/18 09:09 Bactroban Ointment (For Decolonization) - NS 10/30/18 21:59 1 applic BID [facility] Administration Ondansetron HCl 4 mg 10/25/18 10:31 10/25/18 22:10 Zofran Injection IVPUSH 4 mg Q6H PRN Administration NAUSEA AND/OR VOMITING Promethazine HCl 12.5 mg 10/25/18 10:31 Phenergan Injection - IVPB Q6H PRN NAUSEA-FOR RESCUE AFTER 15 MIN ASSESSMENT/PLAN: 73 y/o F with PMH recurrent pleural effusion, stage 4 R breast CA with chemoport w/ mets to spine, HTN, HLD, CAD s/p 1 stent (2013), angina, presented w/ b/l pleural effusion, now s/p L pigtail catheter placement and R VAT placement w/ pleural biopsy (10/18/18). #L-sided pleural effusion: malignant etiology most likely -s/p R VAT, pleural biopsy, POD #8. Frozen section neg for malignancy, await biopsy results. -Left Video Assisted Thorascopy, Pleurodesis and Pleurx Catheter Insertion POD#1 -Cont to monitor pt for fluid accumulation. -Zosyn 2.25 50 ml QHR -repeat CXR next week to check for fluid accumulation -Oxycodone for pain #LUCRECIA vs CKD: BUN/Cr today 35/1.7 -continue to hold lasix -Per cardio, hold Losartan until renal fxn improves -Renal US noted above, no evid of hydronephrosis #Hx breast CA w/spinal mets -Chemo weekly - Gemzar #Troponinemia: likely demand #HTN- controlled -Dr Evans on board - Toprol XL 12.5 mg PO BID. May increase if observe more paroxysmal atrial tachycardia #CAD s/p 1 stent (2003) -hold ASA for now #HLD -Lipitor may be resumed per Cardiology pending Normal LFT's #Hypocalcemia; corrected Ca WNL #F/E/N -LR @ 75 -Monitor Electrolytes -Diet advanced to soft tomorrow am #PPX -Lovenox 40 SQ. #Dispo - tele Visit type - Emergency Visit Emergency Visit: Yes ED Registration Date: 10/04/18 Care time: The patient presented to the Emergency Department on the above date and was hospitalized for further evaluation of their emergent condition. - New Patient This patient is new to me today: No - Critical Care Critical Care patient: No - Discharge Referral Referred to [facility] Med [facility] No
[2018-10-26] MEDS: CHLORHEXIDINE GLUCONATE 4% CLEANSER FOR DECOLONIZATION TP SCH (21:02)
[2018-10-27] MEDS ORDERED: PIPERACILLIN/TAZOBACTAM 2.25 GM VIAL IVPB ONE ×4 (04:24→21:12)
[2018-10-27] MEDS ORDERED: DEXTROSE 5%-WATER - 50 ML IVPB ONE ×4 (04:25→21:13)
[2018-10-27] MEDS: PIPERACILLIN/TAZOB 2.25 GM 2.25 GM in DEXTROSE 5%-WATER - 50 ML IVPB SCH ×4 (04:27→21:18)
[2018-10-27 06:39] LABS: HEMATOCRIT 23.8 % (32.4-45.2); MCH 34.3 pg (25.7-33.7); MCHC 33.8 g/dl (32.0-36.0); MEAN CELL VOLUME 101.7 fl (80-96); MEAN PLT VOLUME 7.9 fl (7.5-11.1); PLATELET COUNT 135 K/MM3 (134-434); RBC 2.34 M/mm3 (3.60-5.2); RDW 25.7 % (11.6-15.6); WHITE BLOOD COUNT 13.3 K/mm3 (4.0-10.0)
[2018-10-27 07:27] LABS: ANION GAP 8 MMOL/L (8-16); BLOOD UREA NITROGEN 35 mg/dL (7-18); CHLORIDE 102 mmol/L (98-107); CO2 24 mmol/L (21-32); CREATININE 1.6 mg/dL (0.55-1.3); GLUCOSE,RANDOM 81 mg/dL (74-106); MAGNESIUM 1.9 mg/dL (1.8-2.4); PHOSPHOROUS 3.8 mg/dL (2.5-4.9); POTASSIUM 3.3 mmol/L (3.5-5.1); SODIUM 135 mmol/L (136-145)
[2018-10-27 08:20] LABS: CALCIUM 6.5 mg/dL (8.5-10.1)
[2018-10-27] MEDS: LACTATED RINGERS SOLUTION 1,000 ML IV SCH (09:49)
[2018-10-27] MEDS: ENOXAPARIN NA (PORCINE) 40 MG/0.4 ML DISP.SYRIN SQ SCH (10:14)
[2018-10-27] MEDS: metoPROLOL SUCCINATE 25 MG TAB.SR.24H (FP) PO SCH ×2 (10:14→21:19)
--- NOTE | 2018-10-27 10:44 | PN ---
Progress Note (short form) - Note Progress Note: Patient is feeling better, but more swelling of lower extremities. Vital Signs Temperature 98.3 F 10/27/18 04:00 Pulse Rate 77 10/27/18 04:00 Respiratory Rate 16 10/27/18 04:00 Blood Pressure 98/66 10/27/18 04:00 O2 Sat by Pulse Oximetry (%) 100 10/26/18 20:10 GENERAL: AAOx3 , NAD EYES: EOMI Sclera Clear. LUNGS: decreased BS at the basis. Bilateral pleur-x catheters capped. HEART: RRR, S1S2 positive, No murmur is appreciated. ABDOMEN: ND, NT, BS positive EXTREMITIES: 2 plus edema bl, positive for SCDs, pulses are positive. SKIN: No rashes or lesions appreciated CBCD WBC 13.3 K/mm3 (4.0-10.0) H 10/27/18 06:00 RBC 2.34 M/mm3 (3.60-5.2) L 10/27/18 06:00 Hgb 8.0 GM/dL (10.7-15.3) L 10/27/18 06:00 Hct 23.8 % (32.4-45.2) L 10/27/18 06:00 MCV 101.7 fl (80-96) H 10/27/18 06:00 MCHC 33.8 g/dl (32.0-36.0) 10/27/18 06:00 RDW 25.7 % (11.6-15.6) H 10/27/18 06:00 Plt Count 135 K/MM3 (134-434) 10/27/18 06:00 MPV 7.9 fl (7.5-11.1) 10/27/18 06:00 CMP Sodium 135 mmol/L (136-145) L 10/27/18 06:00 Potassium 3.3 mmol/L (3.5-5.1) L 10/27/18 06:00 Chloride 102 mmol/L (98-107) 10/27/18 06:00 Carbon Dioxide 24 mmol/L (21-32) 10/27/18 06:00 Anion Gap 8 MMOL/L (8-16) 10/27/18 06:00 BUN 35 mg/dL (7-18) H 10/27/18 06:00 Creatinine 1.6 mg/dL (0.55-1.3) H 10/27/18 06:00 Creat Clearance w eGFR 31.68 (>60) 10/27/18 06:00 Random Glucose 81 mg/dL (74-106) 10/27/18 06:00 Calcium 6.5 mg/dL (8.5-10.1) L* 10/27/18 06:00 Total Bilirubin 0.5 mg/dL (0.2-1) 10/25/18 11:20 AST 95 U/L (15-37) H 10/25/18 11:20 ALT 50 U/L (13-61) 10/25/18 11:20 Alkaline Phosphatase 378 U/L (45-117) H 10/25/18 11:20 Total Protein 4.3 g/dl (6.4-8.2) L 10/25/18 11:20 Albumin 1.2 g/dl (3.4-5.0) L 10/25/18 11:20 CARDIAC ENZYMES Creatine Kinase 708 U/L (26-192) H 10/04/18 17:45 Troponin I 0.46 ng/ml (0.00-0.05) H 10/04/18 21:00 Current Medications Generic Name Dose Route Start Last Admin Trade Name Freq PRN Reason Stop Dose Admin Acetaminophen 650 mg 10/25/18 10:31 Tylenol - PO Q6H PRN Fever Or Pain Chlorhexidine Gluconate 1 applic 10/25/18 22:00 10/26/18 21:02 Hibiclens For Decolonization - TP 1 applic HS JOSE ARMANDO Administration Enoxaparin Sodium 40 mg 10/26/18 10:00 10/27/18 10:14 Lovenox - SQ 40 mg DAILY JOSE ARMANDO Administration Fentanyl 50 mcg 10/25/18 10:31 Sublimaze Injection - IVPUSH [id number] PRN PAIN-PACU ORDER X 4 DOSES ONLY Lactated Ringer's 1,000 mls @ 75 mls/hr 10/25/18 10:31 10/27/18 09:49 Lactated Ringers Solution IV 75 mls/hr ASDIR JOSE ARMANDO Administration Piperacillin Sod/Tazobactam 50 mls @ 100 mls/hr 10/25/18 21:00 10/27/18 10:14 Sod 2.25 gm/ Dextrose IVPB 100 mls/hr Q6H-IV JOSE ARMANDO Administration Protocol Metoprolol Succinate 12.5 mg 10/25/18 22:00 10/27/18 10:14 Toprol Xl - PO 12.5 mg BID JOSE ARMANDO Administration Mupirocin 1 applic 10/25/18 22:00 10/26/18 21:05 Bactroban Ointment (For Decolonization) - NS 10/30/18 21:59 1 applic BID JOSE ARMANDO Administration Ondansetron HCl 4 mg 10/25/18 10:31 10/25/18 22:10 Zofran Injection IVPUSH 4 mg Q6H PRN Administration NAUSEA AND/OR VOMITING Promethazine HCl 12.5 mg 10/25/18 10:31 Phenergan Injection - IVPB Q6H PRN NAUSEA-FOR RESCUE AFTER 15 MIN Home Medications Medication Instructions Recorded Aspirin [ASA -] 81 mg PO HS 03/29/14 Atorvastatin Ca [Lipitor -] 80 mg PO HS 03/29/14 Folic Acid 400 mcg PO DAILY 03/29/14 Losartan Potassium [Cozaar] 25 mg PO DAILY 03/29/14 Metoprolol Succinate [Toprol Xl] 12.5 mg PO BID 03/29/14 Cholecalciferol (Vitamin D3) 1,000 unit PO DAILY 10/04/18 [Vitamin D3] Gemcitabine HCl [Gemzar -] 200 mg IV ASDIR 10/04/18 Nitroglycerin Sublingual 0.4 mg PO PRN PRN 10/04/18 ASSESSMENT AND PLAN:[Nitrostat -] EJF: 50-55% ASSESSMENT AND PLAN: Patient is a 73yo female with PMHx of 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 #S/p left VAT POD #2 and right VAT POD # 9 due to having B/l Pleural effusions : with pleurodesis, pleurX cath placement and Bx pending, frozen section is negative. Pleur-x catheter is capped bl. #Right UE thrombophlebitis of superficial cephalic vein # LUCRECIA on CKD : back to 1.7 today 1.7-->1.5-->1.5--1.3--> 1.7-->1.6 today, base line 1.2, continue to hold losartan , blood pressure is stable. will continue to trend. # Elevated trop: could be due to renal failure , cont BB , asa is on hold for now. # Transaminitis: will continue to trend # hypocalcemia , corrected ca is normal DVT Px: On lovenox sq will reduce to 30mg (dosed renally) Visit type - Emergency Visit Emergency Visit: Yes ED Registration Date: 10/04/18 Care time: The patient presented to the Emergency Department on the above date and was hospitalized for further evaluation of their emergent condition. - New Patient This patient is new to me today: No - Critical Care Critical Care patient: No - Discharge Referral Referred to [facility] Med P.C.: No
--- NOTE | 2018-10-27 12:20 | PN ---
Progress Note (short form) - Note Progress Note: PULMONARY Denies shortness of breath. Bilateral pleur-x catheters capped. Vital Signs Period Temp Pulse Resp BP Sys/[place] Pulse Ox Last 24 Hr 98.1 F-98.7 F 69-90 16-20 98-108/64-70 100-100 Gen: NAD at rest Heart: RRR Lung: decreased breath sounds at the bases Abd: soft, nontender Ext: + edema CBC, BMP 10/27/18 06:00 10/27/18 06:00 Active Medications Acetaminophen (Tylenol -) 650 mg PO Q6H PRN PRN Reason: Fever Or Pain Chlorhexidine Gluconate (Hibiclens For Decolonization -) 1 applic TP HS [facility] Last Admin: 10/26/18 21:02 Dose: 1 applic Enoxaparin Sodium (Lovenox -) 40 mg SQ DAILY [facility] Last Admin: 10/27/18 10:14 Dose: 40 mg Fentanyl (Sublimaze Injection -) 50 mcg IVPUSH [id number] PRN PRN Reason: PAIN-PACU ORDER X 4 DOSES ONLY Lactated Ringer's (Lactated Ringers Solution) 1,000 mls @ 75 mls/hr IV ASDIR [facility] Last Admin: 10/27/18 09:49 Dose: 75 mls/hr Piperacillin Sod/Tazobactam (Sod 2.25 gm/ Dextrose) 50 mls @ 100 mls/hr IVPB Q6H-IV JOSE ARMANDO; Protocol Last Admin: 10/27/18 10:14 Dose: 100 mls/hr Metoprolol Succinate (Toprol Xl -) 12.5 mg PO BID [facility] Last Admin: 10/27/18 10:14 Dose: 12.5 mg Mupirocin (Bactroban Ointment (For Decolonization) -) 1 applic NS BID [facility] Stop: 10/30/18 21:59 Last Admin: 10/26/18 21:05 Dose: 1 applic Ondansetron HCl (Zofran Injection) 4 mg IVPUSH Q6H PRN PRN Reason: NAUSEA AND/OR VOMITING Last Admin: 10/25/18 22:10 Dose: 4 mg Promethazine HCl (Phenergan Injection -) 12.5 mg IVPB Q6H PRN PRN Reason: NAUSEA-FOR RESCUE AFTER 15 MIN A/P Metastatic Breast Ca Bilateral Pleural Effusions s/p b/l VATS/pleur-x placement CAD LV Diastolic Dysfunction CAD/+Troponins CKD - drain pleur-x as needed - complete antibiotics - rehab/PT - DVT prophylaxis
--- NOTE | 2018-10-27 12:40 | PN ---
Progress Note, Physician History of Present Illness: Events noted. Pt is alert, afebrile, without distress. B/L Chest tubes in place. - Current Medication List Current Medications: Active Medications Acetaminophen (Tylenol -) 650 mg PO Q6H PRN PRN Reason: Fever Or Pain Chlorhexidine Gluconate (Hibiclens For Decolonization -) 1 applic TP HS [facility] Last Admin: 10/26/18 21:02 Dose: 1 applic Enoxaparin Sodium (Lovenox -) 40 mg SQ DAILY [facility] Last Admin: 10/27/18 10:14 Dose: 40 mg Fentanyl (Sublimaze Injection -) 50 mcg IVPUSH [id number] PRN PRN Reason: PAIN-PACU ORDER X 4 DOSES ONLY Lactated Ringer's (Lactated Ringers Solution) 1,000 mls @ 75 mls/hr IV ASDIR [facility] Last Admin: 10/27/18 09:49 Dose: 75 mls/hr Piperacillin Sod/Tazobactam (Sod 2.25 gm/ Dextrose) 50 mls @ 100 mls/hr IVPB Q6H-IV [facility]; Protocol Last Admin: 10/27/18 10:14 Dose: 100 mls/hr Metoprolol Succinate (Toprol Xl -) 12.5 mg PO BID [facility] Last Admin: 10/27/18 10:14 Dose: 12.5 mg Mupirocin (Bactroban Ointment (For Decolonization) -) 1 applic NS BID [facility] Stop: 10/30/18 21:59 Last Admin: 10/26/18 21:05 Dose: 1 applic Ondansetron HCl (Zofran Injection) 4 mg IVPUSH Q6H PRN PRN Reason: NAUSEA AND/OR VOMITING Last Admin: 10/25/18 22:10 Dose: 4 mg Promethazine HCl (Phenergan Injection -) 12.5 mg IVPB Q6H PRN PRN Reason: NAUSEA-FOR RESCUE AFTER 15 MIN - Objective Vital Signs: Vital Signs Temperature 98.3 F 10/27/18 04:00 Pulse Rate 77 10/27/18 04:00 Respiratory Rate 16 10/27/18 04:00 Blood Pressure 98/66 10/27/18 04:00 O2 Sat by Pulse Oximetry (%) 100 10/26/18 20:10 Constitutional: Yes: No Distress, Calm Cardiovascular: Yes: Regular Rate and Rhythm Respiratory: Yes: Diminished (bases) Gastrointestinal: Yes: Normal Bowel Sounds, Soft Edema: LLE: 1+, RLE: 1+ Integumentary: Yes: WNL Neurological: Yes: Alert Labs: CBC, BMP 10/27/18 06:00 10/27/18 06:00 INR, PTT INR 1.14 (0.83-1.09) H 10/18/18 06:30 Problem List - Problems (1) LUCRECIA (acute kidney injury) Code(s): N17.9 - ACUTE KIDNEY FAILURE, UNSPECIFIED (2) CAD (coronary artery disease) Code(s): I25.10 - ATHSCL HEART DISEASE OF [place] CORONARY ARTERY W/O ANG PCTRS Qualifiers: Coronary Disease-Associated Artery/Lesion type: [place] artery [place] vs. transplanted heart: [place] heart Associated angina: without angina Qualified Code(s): I25.10 - Atherosclerotic heart disease of [place] coronary artery without angina pectoris (3) Chest tube in place Code(s): Z96.89 - PRESENCE OF OTHER SPECIFIED FUNCTIONAL IMPLANTS (4) HTN (hypertension) Code(s): I10 - ESSENTIAL (PRIMARY) HYPERTENSION Qualifiers: Hypertension type: essential hypertension Qualified Code(s): I10 - Essential (primary) hypertension (5) Hypercholesterolemia Code(s): E78.00 - PURE HYPERCHOLESTEROLEMIA, UNSPECIFIED (6) Large pleural effusion Code(s): J90 - PLEURAL EFFUSION, NOT ELSEWHERE CLASSIFIED (7) Metastatic breast cancer Code(s): C50.919 - MALIGNANT NEOPLASM OF UNSP SITE OF UNSPECIFIED FEMALE BREAST Assessment/Plan B/L pleural effusion s/p b/l chest tube placement Metastatic Breast CA LUCRECIA CAD s/p PCI/stent HTN HLD -- continue antibiotics -- wbc trending down, pt remains afebrile Currently appears stable
[2018-10-27] MEDS: MUPIROCIN 2% TOPICAL OINTMENT FOR DECOLONIZATION NS SCH ×2 (14:00→21:20)
[2018-10-27] MEDS: ACETAMINOPHEN 325 MG TABLET (FP) PO PRN (17:03)
[2018-10-27] MEDS: CHLORHEXIDINE GLUCONATE 4% CLEANSER FOR DECOLONIZATION TP SCH (21:19)
[2018-10-28] MEDS ORDERED: PIPERACILLIN/TAZOBACTAM 2.25 GM VIAL IVPB ONE ×4 (02:00→22:06)
[2018-10-28] MEDS ORDERED: DEXTROSE 5%-WATER - 50 ML IVPB ONE ×4 (02:01→22:06)
[2018-10-28] MEDS: PIPERACILLIN/TAZOB 2.25 GM 2.25 GM in DEXTROSE 5%-WATER - 50 ML IVPB SCH ×4 (02:09→22:08)
[2018-10-28 06:33] LABS: ALK PHOS 410 U/L (45-117); ANION GAP 8 MMOL/L (8-16); BILIRUBIN,TOTAL 0.5 mg/dL (0.2-1); BLOOD UREA NITROGEN 33 mg/dL (7-18); CHLORIDE 104 mmol/L (98-107); CO2 23 mmol/L (21-32); CREATININE 1.6 mg/dL (0.55-1.3); GLUCOSE,RANDOM 83 mg/dL (74-106); MAGNESIUM 1.8 mg/dL (1.8-2.4); PHOSPHOROUS 3.2 mg/dL (2.5-4.9); PREALBUMIN 8.2 mg/dl (20-40); SGOT/AST 95 U/L (15-37); SGPT/ALT 52 U/L (13-61); SODIUM 135 mmol/L (136-145); TOT PROT 3.5 g/dl (6.4-8.2)
--- NOTE | 2018-10-28 09:05 | PN ---
Physical Exam: SUBJECTIVE: Patient seen and examined at [facility]- no acute events overnight; patient states her legs are a lot less swollen than they were yesterday- feels her breathing is improving;denies any CP/SOB/N/V fevers or chills OBJECTIVE: Vital Signs Period Temp Pulse Resp BP Sys/[place] Pulse Ox Last 24 Hr 97.7 F-98.3 F 77-105 14-22 104-112/66-84 98-98 GENERAL: The patient is awake, alert, and fully oriented, in no acute distress.. EYES:EOMI; PEERLA: no scleral icterus NECK: no JVD; no lymphadenopathy LUNGS: decreased breath sounds at the bases; B/L chest tubes in place and clamped. HEART: Regular rate and rhythm, S1, S2 without murmur, rub or gallop. ABDOMEN: Soft, nontender, nondistended, normoactive bowel sounds, no guarding, no rebound, no hepatosplenomegaly, no masses. EXTREMITIES: 2+ pulses, warm, well-perfused, 1+ pitting edema BL; SCDS in place. . PSYCH: Normal mood, normal affect. SKIN: Warm, dry, normal turgor, no rashes or lesions noted Laboratory Results - last 24 hr 10/28/18 10/28/18 05:30 05:30 Sodium 135 L Potassium 3.0 L Chloride 104 Carbon Dioxide 23 Anion Gap 8 BUN 33 H Creatinine 1.6 H Creat Clearance w eGFR 31.68 Random Glucose 83 Phosphorus 3.2 Magnesium 1.8 Total Bilirubin 0.5 AST 95 H ALT 52 Alkaline Phosphatase 410 H Total Protein 3.5 L Albumin 1.0 L Prealbumin 8.2 L Vitamin B12 1160 H Serum Folate 15 Active Medications Generic Name Dose Route Start Last Admin Trade Name Freq PRN Reason Stop Dose Admin Acetaminophen 650 mg 10/25/18 10:31 10/27/18 17:03 Tylenol - PO 650 mg Q6H PRN Administration Fever Or Pain Chlorhexidine Gluconate 1 applic 10/25/18 22:00 10/27/18 21:19 Hibiclens For Decolonization - TP 1 applic HS JOSE ARMANDO Administration Enoxaparin Sodium 30 mg 10/27/18 17:03 Lovenox - SQ DAILY JOSE ARMANDO Fentanyl 50 mcg 10/25/18 10:31 Sublimaze Injection - IVPUSH [id number] PRN PAIN-PACU ORDER X 4 DOSES ONLY Piperacillin Sod/Tazobactam 50 mls @ 100 mls/hr 10/25/18 21:00 10/28/18 02:09 Sod 2.25 gm/ Dextrose IVPB 100 mls/hr Q6H-IV JOSE ARMANDO Administration Protocol Potassium Chloride 10 meq in 100 mls @ 100 mls/hr 10/28/18 09:00 Potassium Chloride 10 Meq Premix Ivpb - IVPB 10/28/18 11:59 Q60M JOSE ARMANDO Metoprolol Succinate 12.5 mg 10/25/18 22:00 10/27/18 21:19 Toprol Xl - PO 12.5 mg BID JOSE ARMANDO Administration Mupirocin 1 applic 10/25/18 22:00 10/27/18 21:20 Bactroban Ointment (For Decolonization) - NS 10/30/18 21:59 1 applic BID JOSE ARMANDO Administration Ondansetron HCl 4 mg 10/25/18 10:31 10/25/18 22:10 Zofran Injection IVPUSH 4 mg Q6H PRN Administration NAUSEA AND/OR VOMITING Promethazine HCl 12.5 mg 10/25/18 10:31 Phenergan Injection - IVPB Q6H PRN NAUSEA-FOR RESCUE AFTER 15 MIN ASSESSMENT/PLAN: 73 y/o F with PMH recurrent pleural effusion, stage 4 R breast CA with chemoport w/ mets to spine, HTN, HLD, CAD s/p 1 stent (2013), angina, presented w/ b/l pleural effusion, now s/p L pigtail catheter placement and R VAT placement w/ pleural biopsy (10/18/18). #L-sided pleural effusion: -s/p R VAT, pleural biopsy, POD #10. . -Left Video Assisted Thorascopy, Pleurodesis and Pleurx Catheter Insertion POD# 3. -Zosyn 2.25 50 ml QHR -repeat CXR next week to check for fluid accumulation -Oxycodone for pain -monitor BP -both chest tubes now clamped given orthostatic hypotension #LUCRECIA vs CKD: BUN/Cr today 33/1.6 -continue to hold lasix - hold Losartan until renal fxn improves, as per cardio #Hx breast CA w/spinal mets -Chemo weekly - Gemzar #HTN- controlled -Dr Evans on board - Toprol XL 12.5 mg PO BID. May increase if observe more paroxysmal atrial tachycardia #CAD s/p 1 stent (2003) -hold ASA for now #HLD -Lipitor may be resumed per Cardiology pending Normal LFT's #Hypocalcemia; corrected Ca WNL #F/E/N -fluids were d/c'd yesterday -Monitor Electrolytes; hypokalemia this AM- repleted -Diet advanced to soft tomorrow am #PPX -Lovenox 40 SQ. Problem List - Problems (1) LUCRECIA (acute kidney injury) Code(s): N17.9 - ACUTE KIDNEY FAILURE, UNSPECIFIED (2) CAD (coronary artery disease) Code(s): I25.10 - ATHSCL HEART DISEASE OF [place] CORONARY ARTERY W/O ANG PCTRS Qualifiers: Coronary Disease-Associated Artery/Lesion type: [place] artery [place] vs. transplanted heart: [place] heart Associated angina: without angina Qualified Code(s): I25.10 - Atherosclerotic heart disease of [place] coronary artery without angina pectoris (3) Chest tube in place Code(s): Z96.89 - PRESENCE OF OTHER SPECIFIED FUNCTIONAL IMPLANTS (4) HTN (hypertension) Code(s): I10 - ESSENTIAL (PRIMARY) HYPERTENSION Qualifiers: Hypertension type: essential hypertension Qualified Code(s): I10 - Essential (primary) hypertension Visit type - Emergency Visit Emergency Visit: Yes ED Registration Date: 10/04/18 Care time: The patient presented to the Emergency Department on the above date and was hospitalized for further evaluation of their emergent condition. - New Patient This patient is new to me today: Yes Date on this admission: 10/28/18 - Critical Care Critical Care patient: No
[2018-10-28] MEDS: KCL 10 MEQ IVPB 10 MEQ/100 ML INFUS.BAG IVPB SCH ×3 (09:14→12:20)
[2018-10-28] MEDS: MUPIROCIN 2% TOPICAL OINTMENT FOR DECOLONIZATION NS SCH ×2 (09:14→21:31)
[2018-10-28] MEDS: ENOXAPARIN NA (PORCINE) 30 MG/0.3 ML DISP.SYRIN SQ SCH (09:15)
[2018-10-28] MEDS: metoPROLOL SUCCINATE 25 MG TAB.SR.24H (FP) PO SCH ×2 (09:16→21:30)
[2018-10-28 10:10] LABS: CALCIUM 6.6 mg/dL (8.5-10.1)
--- NOTE | 2018-10-28 10:43 | PN ---
Progress Note (short form) - Note Progress Note: PULMONARY Denies shortness of breath. Still some soreness at pleur-x sites. Vital Signs Period Temp Pulse Resp BP Sys/[place] Pulse Ox Last 24 Hr 97.7 F-98.3 F 77-105 14-22 104-125/66-88 98-100 Gen: NAD at rest Heart: RRR Lung: decreased breath sounds at the bases Abd: soft, nontender Ext: + edema CBC, BMP 10/27/18 06:00 10/28/18 05:30 Active Medications Acetaminophen (Tylenol -) 650 mg PO Q6H PRN PRN Reason: Fever Or Pain Last Admin: 10/27/18 17:03 Dose: 650 mg Chlorhexidine Gluconate (Hibiclens For Decolonization -) 1 applic TP HS [facility] Last Admin: 10/27/18 21:19 Dose: 1 applic Enoxaparin Sodium (Lovenox -) 30 mg SQ DAILY [facility] Last Admin: 10/28/18 09:15 Dose: 30 mg Fentanyl (Sublimaze Injection -) 50 mcg IVPUSH [id number] PRN PRN Reason: PAIN-PACU ORDER X 4 DOSES ONLY Piperacillin Sod/Tazobactam (Sod 2.25 gm/ Dextrose) 50 mls @ 100 mls/hr IVPB Q6H-IV JOSE ARMANDO; Protocol Last Admin: 10/28/18 09:14 Dose: 100 mls/hr Potassium Chloride (Potassium Chloride 10 Meq Premix Ivpb -) 10 meq in 100 mls @ 100 mls/hr IVPB Q60M [facility] Stop: 10/28/18 11:59 Last Admin: 10/28/18 09:14 Dose: 100 mls/hr Metoprolol Succinate (Toprol Xl -) 12.5 mg PO BID [facility] Last Admin: 10/28/18 09:16 Dose: 12.5 mg Mupirocin (Bactroban Ointment (For Decolonization) -) 1 applic NS BID [facility] Stop: 10/30/18 21:59 Last Admin: 10/28/18 09:14 Dose: 1 applic Ondansetron HCl (Zofran Injection) 4 mg IVPUSH Q6H PRN PRN Reason: NAUSEA AND/OR VOMITING Last Admin: 10/25/18 22:10 Dose: 4 mg Promethazine HCl (Phenergan Injection -) 12.5 mg IVPB Q6H PRN PRN Reason: NAUSEA-FOR RESCUE AFTER 15 MIN A/P Metastatic Breast Ca Bilateral Pleural Effusions s/p b/l VATS/pleur-x placement CAD LV Diastolic Dysfunction CAD/+Troponins CKD - drain pleur-x as needed - complete antibiotics - replete lytes - rehab/PT - DVT prophylaxis
--- NOTE | 2018-10-28 13:00 | PN ---
Progress Note, Physician History of Present Illness: Dyspnea resolving, s/p bilateral VATS with pleural biopsy and pleurex catheter placement without sequelae. HR improved. - Current Medication List Current Medications: Active Medications Acetaminophen (Tylenol -) 650 mg PO Q6H PRN PRN Reason: Fever Or Pain Last Admin: 10/27/18 17:03 Dose: 650 mg Chlorhexidine Gluconate (Hibiclens For Decolonization -) 1 applic TP HS [facility] Last Admin: 10/27/18 21:19 Dose: 1 applic Enoxaparin Sodium (Lovenox -) 30 mg SQ DAILY [facility] Last Admin: 10/28/18 09:15 Dose: 30 mg Fentanyl (Sublimaze Injection -) 50 mcg IVPUSH [id number] PRN PRN Reason: PAIN-PACU ORDER X 4 DOSES ONLY Piperacillin Sod/Tazobactam (Sod 2.25 gm/ Dextrose) 50 mls @ 100 mls/hr IVPB Q6H-IV [facility]; Protocol Last Admin: 10/28/18 09:14 Dose: 100 mls/hr Metoprolol Succinate (Toprol Xl -) 12.5 mg PO BID [facility] Last Admin: 10/28/18 09:16 Dose: 12.5 mg Mupirocin (Bactroban Ointment (For Decolonization) -) 1 applic NS BID [facility] Stop: 10/30/18 21:59 Last Admin: 10/28/18 09:14 Dose: 1 applic Ondansetron HCl (Zofran Injection) 4 mg IVPUSH Q6H PRN PRN Reason: NAUSEA AND/OR VOMITING Last Admin: 10/25/18 22:10 Dose: 4 mg Promethazine HCl (Phenergan Injection -) 12.5 mg IVPB Q6H PRN PRN Reason: NAUSEA-FOR RESCUE AFTER 15 MIN - Objective Vital Signs: Vital Signs Temperature 98.1 F 10/28/18 10:00 Pulse Rate 85 10/28/18 10:00 Respiratory Rate 20 10/28/18 08:00 Blood Pressure 109/88 10/28/18 10:00 O2 Sat by Pulse Oximetry (%) 100 10/28/18 10:00 Constitutional: Yes: No Distress, Calm Neck: Yes: Supple Cardiovascular: Yes: Regular Rate and Rhythm Respiratory: Yes: Regular, Diminished, On Nasal O2, Other Gastrointestinal: Yes: Normal Bowel Sounds, Soft Edema: Yes Edema: LLE: 2+, RLE: 2+ Labs: CBC, BMP 10/27/18 06:00 10/28/18 05:30 INR, PTT INR 1.14 (0.83-1.09) H 10/18/18 06:30 Problem List - Problems (1) Demand ischemia Code(s): I24.8 - OTHER FORMS OF ACUTE ISCHEMIC HEART DISEASE (2) LUCRECIA (acute kidney injury) Code(s): N17.9 - ACUTE KIDNEY FAILURE, UNSPECIFIED (3) Congestive heart failure Code(s): I50.9 - HEART FAILURE, UNSPECIFIED Qualifiers: Heart failure type: diastolic Heart failure chronicity: acute on chronic Qualified Code(s): I50.33 - Acute on chronic diastolic (congestive) heart failure (4) Large pleural effusion Code(s): J90 - PLEURAL EFFUSION, NOT ELSEWHERE CLASSIFIED (5) Chest tube in place Code(s): Z96.89 - PRESENCE OF OTHER SPECIFIED FUNCTIONAL IMPLANTS (6) Metastatic breast cancer Code(s): C50.919 - MALIGNANT NEOPLASM OF UNSP SITE OF UNSPECIFIED FEMALE BREAST Assessment/Plan 1. s/p bilateral VATS with pleurX cath placement and biopsy for bilateral pleural effusions 2. Diastolic/systolic LV dysfunction with clinical class 0-I NYHA classification LV failure, compensated/euvolemic, exudative pleural effusion argues against heart failure 3. CAD post PCI/stent demand ischemia angina pectoris 4. Paroxysmal atrial tachycardia currently in sinus rhythm/sinus tachycardia 5. HTN 6. Hyperlipidemia 7. 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 Thrombophlebitis of right superficial cephalic vein 9. Acute kidney injury, with Hypokalemia/resolved- Hypokalemia 10. Thrombocytopenia, resolved 11. Abnormal LFTs, possible hepatic congestion, resolving 12. Hypocalcemia PLAN: 1. Recommend resumption of Lipitor unless contraindicated; LFT abnormality resolving 2. Continue Toprol XL 12.5 bid and titrate dosage as needed and as tolerated, hemodynamics permitting 3. Resume Losartan once renal function improves and as tolerated, hemodynamics permitting 4. Lovenox as recommended by hematology 5. Await pathology report, monitor catheter output, OOB to chair 6. Complete abx course per ID, replete K 7. OOB to chair with legs elevated
--- NOTE | 2018-10-28 13:21 | PN ---
Teaching Attending Note Name of Resident: Anuj Covarrubias ATTENDING PHYSICIAN STATEMENT I saw and evaluated the patient. I reviewed the resident's note and discussed the case with the resident. I agree with the resident's findings and plan as documented. SUBJECTIVE: no new complains. OBJECTIVE: Vital Signs Temperature 98.1 F 10/28/18 10:00 Pulse Rate 85 10/28/18 10:00 Respiratory Rate 20 10/28/18 08:00 Blood Pressure 109/88 10/28/18 10:00 O2 Sat by Pulse Oximetry (%) 100 10/28/18 10:00 GENERAL: AAOx3 , NAD EYES: EOMI Sclera Clear. LUNGS: decreased BS at the basis. Bilateral pleur-x catheters capped. HEART: RRR, S1S2 positive, No murmur is appreciated. ABDOMEN: ND, NT, BS positive EXTREMITIES: 2 plus edema bl, pulses are positive. SKIN: No rashes or lesions appreciated CBCD WBC 13.3 K/mm3 (4.0-10.0) H 10/27/18 06:00 RBC 2.34 M/mm3 (3.60-5.2) L 10/27/18 06:00 Hgb 8.0 GM/dL (10.7-15.3) L 10/27/18 06:00 Hct 23.8 % (32.4-45.2) L 10/27/18 06:00 MCV 101.7 fl (80-96) H 10/27/18 06:00 MCHC 33.8 g/dl (32.0-36.0) 10/27/18 06:00 RDW 25.7 % (11.6-15.6) H 10/27/18 06:00 Plt Count 135 K/MM3 (134-434) 10/27/18 06:00 MPV 7.9 fl (7.5-11.1) 10/27/18 06:00 CMP Sodium 135 mmol/L (136-145) L 10/28/18 05:30 Potassium 3.0 mmol/L (3.5-5.1) L 10/28/18 05:30 Chloride 104 mmol/L (98-107) 10/28/18 05:30 Carbon Dioxide 23 mmol/L (21-32) 10/28/18 05:30 Anion Gap 8 MMOL/L (8-16) 10/28/18 05:30 BUN 33 mg/dL (7-18) H 10/28/18 05:30 Creatinine 1.6 mg/dL (0.55-1.3) H 10/28/18 05:30 Creat Clearance w eGFR 31.68 (>60) 10/28/18 05:30 Random Glucose 83 mg/dL (74-106) 10/28/18 05:30 Calcium 6.6 mg/dL (8.5-10.1) L* 10/28/18 05:30 Total Bilirubin 0.5 mg/dL (0.2-1) 10/28/18 05:30 AST 95 U/L (15-37) H 10/28/18 05:30 ALT 52 U/L (13-61) 10/28/18 05:30 Alkaline Phosphatase 410 U/L (45-117) H 10/28/18 05:30 Total Protein 3.5 g/dl (6.4-8.2) L 10/28/18 05:30 Albumin 1.0 g/dl (3.4-5.0) L 10/28/18 05:30 CARDIAC ENZYMES Creatine Kinase 708 U/L (26-192) H 10/04/18 17:45 Troponin I 0.46 ng/ml (0.00-0.05) H 10/04/18 21:00 Current Medications Generic Name Dose Route Start Last Admin Trade Name Freq PRN Reason Stop Dose Admin Acetaminophen 650 mg 10/25/18 10:31 10/27/18 17:03 Tylenol - PO 650 mg Q6H PRN Administration Fever Or Pain Chlorhexidine Gluconate 1 applic 10/25/18 22:00 10/27/18 21:19 Hibiclens For Decolonization - TP 1 applic HS JOSE ARMANDO Administration Enoxaparin Sodium 30 mg 10/27/18 17:03 10/28/18 09:15 Lovenox - SQ 30 mg DAILY JOSE ARMANDO Administration Fentanyl 50 mcg 10/25/18 10:31 Sublimaze Injection - IVPUSH [id number] PRN PAIN-PACU ORDER X 4 DOSES ONLY Piperacillin Sod/Tazobactam 50 mls @ 100 mls/hr 10/25/18 21:00 10/28/18 09:14 Sod 2.25 gm/ Dextrose IVPB 100 mls/hr Q6H-IV JOSE ARMANDO Administration Protocol Metoprolol Succinate 12.5 mg 10/25/18 22:00 10/28/18 09:16 Toprol Xl - PO 12.5 mg BID JOSE ARMANDO Administration Mupirocin 1 applic 10/25/18 22:00 10/28/18 09:14 Bactroban Ointment (For Decolonization) - NS 10/30/18 21:59 1 applic BID JOSE ARMANDO Administration Ondansetron HCl 4 mg 10/25/18 10:31 10/25/18 22:10 Zofran Injection IVPUSH 4 mg Q6H PRN Administration NAUSEA AND/OR VOMITING Promethazine HCl 12.5 mg 10/25/18 10:31 Phenergan Injection - IVPB Q6H PRN NAUSEA-FOR RESCUE AFTER 15 MIN Home Medications Medication Instructions Recorded Aspirin [ASA -] 81 mg PO HS 03/29/14 Atorvastatin Ca [Lipitor -] 80 mg PO HS 03/29/14 Losartan Potassium [Cozaar] 25 mg PO DAILY 03/29/14 Metoprolol Succinate [Toprol Xl] 12.5 mg PO BID 03/29/14 RX: Folic Acid 400 mcg PO DAILY 03/29/14 Cholecalciferol (Vitamin D3) 1,000 unit PO DAILY 10/04/18 [Vitamin D3] RX: Gemcitabine HCl [Gemzar -] 200 mg IV ASDIR 10/04/18 RX: Nitroglycerin Sublingual 0.4 mg PO PRN PRN 10/04/18 [Nitrostat -] EJF: 50-55% ASSESSMENT AND PLAN: Patient is a 73yo female with PMHx of 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 #S/p left VAT POD #4 and right VAT POD # 11 due to having B/l Pleural effusions : with pleurodesis, pleurX cath placement and Bx pending, frozen section is negative. Pleur-x catheter is capped bl. #Right UE thrombophlebitis of superficial cephalic vein # LUCRECIA on CKD : back to 1.7 today 1.7-->1.5-->1.5--1.3--> 1.7-->1.6-->1.6 today, base line 1.2, continue to hold losartan , blood pressure is stable. will continue to trend. # Elevated trop: could be due to ARF , cont BB , and asa (will resume) # Thrombocytopenia: resolved # Paroxysmal atrial tachycardia currently in sinus rhythm #acute Hypokalemia will replete # Transaminitis: possible due to liver congestion ;will continue to trend #CAD post PCI/stent demand ischemia on aspirin. # Hx of Stage IV breast cancer with mets to spine # Hx of HLD: resume Lipitor but with elevated LFts will monitor. # hypocalcemia , corrected ca is normal DVT Px: On lovenox sq will reduce to 30mg (dosed renally) OOB to chair with legs elevated waiting for rehab. approval
[2018-10-28] MEDS ORDERED: POTASSIUM CHLORIDE TABS 20 MEQ TABLET.ER (FP) PO SCH (14:00)
--- NOTE | 2018-10-28 15:41 | PN ---
Progress Note, Physician History of Present Illness: Pt is alert, afebrile, without distress. Some soreness at catheter sites but no other complaints. RUE less edema. - Current Medication List Current Medications: Active Medications Acetaminophen (Tylenol -) 650 mg PO Q6H PRN PRN Reason: Fever Or Pain Last Admin: 10/27/18 17:03 Dose: 650 mg Aspirin (Ecotrin -) 81 mg PO DAILY [facility] Chlorhexidine Gluconate (Hibiclens For Decolonization -) 1 applic TP HS [facility] Last Admin: 10/27/18 21:19 Dose: 1 applic Enoxaparin Sodium (Lovenox -) 30 mg SQ DAILY [facility] Last Admin: 10/28/18 09:15 Dose: 30 mg Fentanyl (Sublimaze Injection -) 50 mcg IVPUSH [id number] PRN PRN Reason: PAIN-PACU ORDER X 4 DOSES ONLY Piperacillin Sod/Tazobactam (Sod 2.25 gm/ Dextrose) 50 mls @ 100 mls/hr IVPB Q6H-IV [facility]; Protocol Last Admin: 10/28/18 09:14 Dose: 100 mls/hr Metoprolol Succinate (Toprol Xl -) 12.5 mg PO BID [facility] Last Admin: 10/28/18 09:16 Dose: 12.5 mg Mupirocin (Bactroban Ointment (For Decolonization) -) 1 applic NS BID [facility] Stop: 10/30/18 21:59 Last Admin: 10/28/18 09:14 Dose: 1 applic Ondansetron HCl (Zofran Injection) 4 mg IVPUSH Q6H PRN PRN Reason: NAUSEA AND/OR VOMITING Last Admin: 10/25/18 22:10 Dose: 4 mg Potassium Chloride (K-Dur -) 20 meq PO BID [facility] Stop: 10/30/18 22:01 Promethazine HCl (Phenergan Injection -) 12.5 mg IVPB Q6H PRN PRN Reason: NAUSEA-FOR RESCUE AFTER 15 MIN - Objective Vital Signs: Vital Signs Temperature 98.1 F 10/28/18 10:00 Pulse Rate 85 10/28/18 10:00 Respiratory Rate 20 10/28/18 08:00 Blood Pressure 109/88 10/28/18 10:00 O2 Sat by Pulse Oximetry (%) 100 10/28/18 10:00 Constitutional: Yes: No Distress, Calm Cardiovascular: Yes: Tachycardia Respiratory: Yes: Diminished (bases) Gastrointestinal: Yes: Normal Bowel Sounds, Soft Edema: Yes (b/l LE) Integumentary: Yes: WNL Neurological: Yes: Alert Labs: CBC, BMP 10/27/18 06:00 10/28/18 05:30 INR, PTT INR 1.14 (0.83-1.09) H 10/18/18 06:30 Microbiology 10/25/18 09:15 Pleural Fluid Gram Stain - Final 10/25/18 09:15 Pleural Fluid Body Fluid Culture - Final NO GROWTH OF AEROBIC ORGANISMS AFTER 48 HOURS INCUBATION 10/25/18 09:15 Pleural Fluid Anaerobic Culture - Final NO ANAEROBES WERE ISOLATED Problem List - Problems (1) LUCRECIA (acute kidney injury) Code(s): N17.9 - ACUTE KIDNEY FAILURE, UNSPECIFIED (2) CAD (coronary artery disease) Code(s): I25.10 - ATHSCL HEART DISEASE OF [place] CORONARY ARTERY W/O ANG PCTRS Qualifiers: Coronary Disease-Associated Artery/Lesion type: [place] artery [place] vs. transplanted heart: [place] heart Associated angina: without angina Qualified Code(s): I25.10 - Atherosclerotic heart disease of [place] coronary artery without angina pectoris (3) Chest tube in place Code(s): Z96.89 - PRESENCE OF OTHER SPECIFIED FUNCTIONAL IMPLANTS (4) HTN (hypertension) Code(s): I10 - ESSENTIAL (PRIMARY) HYPERTENSION Qualifiers: Hypertension type: essential hypertension Qualified Code(s): I10 - Essential (primary) hypertension (5) Hypercholesterolemia Code(s): E78.00 - PURE HYPERCHOLESTEROLEMIA, UNSPECIFIED (6) Large pleural effusion Code(s): J90 - PLEURAL EFFUSION, NOT ELSEWHERE CLASSIFIED (7) Metastatic breast cancer Code(s): C50.919 - MALIGNANT NEOPLASM OF UNSP SITE OF UNSPECIFIED FEMALE BREAST Assessment/Plan B/L pleural effusion s/p VATS/pleur-x/biopsy Metastatic Breast CA LUCRECIA/CKD CAD s/p PCI/stent HTN HLD -- wbc trending down, repeat cbc in a.m. -- afebrile, without resp distress -- continue Zosyn
[2018-10-28] MEDS: ASPIRIN COATED 81 MG TABLET.EC PO SCH (16:09)
[2018-10-28] MEDS: CHLORHEXIDINE GLUCONATE 4% CLEANSER FOR DECOLONIZATION TP SCH (21:30)
[2018-10-28] MEDS: POTASSIUM CHLORIDE TABS 10 MEQ TABLET.ER (FP) PO SCH ×2 (21:30→22:04)
[2018-10-29] MEDS ORDERED: DEXTROSE 5%-WATER - 50 ML IVPB ONE ×3 (02:25→09:18)
[2018-10-29] MEDS ORDERED: PIPERACILLIN/TAZOBACTAM 2.25 GM VIAL IVPB ONE ×3 (02:25→09:18)
[2018-10-29] MEDS: PIPERACILLIN/TAZOB 2.25 GM 2.25 GM in DEXTROSE 5%-WATER - 50 ML IVPB SCH ×2 (02:57→09:21)
[2018-10-29 06:45] LABS: HEMATOCRIT 24.8 % (32.4-45.2); HEMOGLOBIN 8.6 GM/dL (10.7-15.3); MCH 35.2 pg (25.7-33.7); MCHC 34.8 g/dl (32.0-36.0); MEAN CELL VOLUME 101.2 fl (80-96); MEAN PLT VOLUME 7.9 fl (7.5-11.1); PLATELET COUNT 152 K/MM3 (134-434); RBC 2.45 M/mm3 (3.60-5.2); RDW 24.5 % (11.6-15.6); WHITE BLOOD COUNT 10.8 K/mm3 (4.0-10.0)
[2018-10-29 08:35] LABS: ALBUMIN 0.9 g/dl (3.4-5.0); ALK PHOS 396 U/L (45-117); ANION GAP 9 MMOL/L (8-16); BILIRUBIN,TOTAL 0.4 mg/dL (0.2-1); BLOOD UREA NITROGEN 32 mg/dL (7-18); CHLORIDE 102 mmol/L (98-107); CO2 23 mmol/L (21-32); CREATININE 1.5 mg/dL (0.55-1.3); GLUCOSE,RANDOM 85 mg/dL (74-106); MAGNESIUM 1.9 mg/dL (1.8-2.4); PHOSPHOROUS 3.1 mg/dL (2.5-4.9); POTASSIUM 3.4 mmol/L (3.5-5.1); SGOT/AST 86 U/L (15-37); SGPT/ALT 50 U/L (13-61); SODIUM 134 mmol/L (136-145); TOT PROT 3.4 g/dl (6.4-8.2)
[2018-10-29] MEDS: ASPIRIN COATED 81 MG TABLET.EC PO SCH (09:22)
[2018-10-29] MEDS: MUPIROCIN 2% TOPICAL OINTMENT FOR DECOLONIZATION NS SCH ×2 (09:22→21:39)
[2018-10-29] MEDS: POTASSIUM CHLORIDE TABS 10 MEQ TABLET.ER (FP) PO SCH ×2 (09:23→21:38)
[2018-10-29] MEDS: ENOXAPARIN NA (PORCINE) 30 MG/0.3 ML DISP.SYRIN SQ SCH (09:23)
[2018-10-29 09:30] LABS: CALCIUM 6.5 mg/dL (8.5-10.1)
--- NOTE | 2018-10-29 09:47 | PN ---
Progress Note (short form) - Note Progress Note: POD 11, s/p Right VATS with pleural biopsy and pleurex catheter placement, POD 4 , s/p Left Video Assisted Thoracoscopy, Pleurodesis and Pleurx Catheter Insertion Pt seen and examined on AM rounds. Stable over the weekend. Reports breathing well on NC since tubes were capped on Monday. Continues to use IS to 500 ( unchanged from last week). Reports having significant edema in her b/l le's over the weekend, improved now. Tolerated PO, denies cp/sob, n/v/d, calf pain/ edema. Vital Signs Temp 97.7 F 10/29/18 04:00 Pulse 110 H 10/29/18 04:00 Resp 18 10/29/18 04:00 BP 112/70 10/29/18 04:00 Pulse Ox 100 10/28/18 23:01 Intake & Output 10/28/18 10/28/18 10/29/18 11:59 23:59 11:59 Intake Total 950 100 Balance 950 100 Intake: IVPB 500 100 Oral 450 Other: Voiding Method Bedpan Bedpan # Unmeasured Voids Void 3 2 Bowel Movement Yes No CBC, BMP 10/29/18 05:00 10/29/18 05:00 Gen: awake, alert, nad Resp: unlabored on 3L NC. Decreased breath sounds lower lobes (slightly improved from prior). B/L dressings saturated, L with brown discharge, R with serosanguinous discharge, dressings changed to new 4x4s and tegaderms. Ext: soft, nt, minimal edema. A/P: 73 y/o F w/ PMHx recurrent pleural effusion, stage 4 R breast CA with chemoport w/mets to spine, HTN, HLD, CAD s/p 1 stent (2013), angina, admitted for SOB on rest and exertion, now POD 11, s/p Right VATS with pleural biopsy and pleurex catheter placement, POD 4, s/p Left Video Assisted Thorascopy, Pleurodesis and Pleurx Catheter Insertion Afebrile, tachy to 110 (?pain), leukocytosis resolving h/h relatively stable Creatinine 1.7 from 1.3 -F/U OR cytology (negative on prelim) -Xray ordered for tomorrow AM -Will need VNS for home if d/c is to home, pt considering rehab -Will need to drain tubes prior to d/c d/w attending Dr Fletcher
--- NOTE | 2018-10-29 11:08 | PN ---
Progress Note (short form) - Note Progress Note: Vital Signs Temperature 97.7 F 10/29/18 08:00 Pulse Rate 105 H 10/29/18 08:00 Respiratory Rate 20 10/29/18 08:00 Blood Pressure 104/75 10/29/18 08:00 O2 Sat by Pulse Oximetry (%) 100 10/29/18 09:00 GENERAL: AAOx3 , NAD EYES: EOMI Sclera Clear. LUNGS: decreased BS at the basis. Bilateral pleur-x catheters capped. HEART: RRR, S1S2 positive, No murmur is appreciated. ABDOMEN: ND, NT, BS positive EXTREMITIES: 2 plus edema bl, pulses are positive. SKIN: No rashes or lesions appreciated CBCD WBC 10.8 K/mm3 (4.0-10.0) H 10/29/18 05:00 RBC 2.45 M/mm3 (3.60-5.2) L 10/29/18 05:00 Hgb 8.6 GM/dL (10.7-15.3) L 10/29/18 05:00 Hct 24.8 % (32.4-45.2) L 10/29/18 05:00 MCV 101.2 fl (80-96) H 10/29/18 05:00 MCHC 34.8 g/dl (32.0-36.0) 10/29/18 05:00 RDW 24.5 % (11.6-15.6) H 10/29/18 05:00 Plt Count 152 K/MM3 (134-434) 10/29/18 05:00 MPV 7.9 fl (7.5-11.1) 10/29/18 05:00 CMP Sodium 134 mmol/L (136-145) L 10/29/18 05:00 Potassium 3.4 mmol/L (3.5-5.1) L 10/29/18 05:00 Chloride 102 mmol/L (98-107) 10/29/18 05:00 Carbon Dioxide 23 mmol/L (21-32) 10/29/18 05:00 Anion Gap 9 MMOL/L (8-16) 10/29/18 05:00 BUN 32 mg/dL (7-18) H 10/29/18 05:00 Creatinine 1.5 mg/dL (0.55-1.3) H 10/29/18 05:00 Creat Clearance w eGFR 34.13 (>60) 10/29/18 05:00 Random Glucose 85 mg/dL (74-106) 10/29/18 05:00 Calcium 6.5 mg/dL (8.5-10.1) L* 10/29/18 05:00 Total Bilirubin 0.4 mg/dL (0.2-1) 10/29/18 05:00 AST 86 U/L (15-37) H 10/29/18 05:00 ALT 50 U/L (13-61) 10/29/18 05:00 Alkaline Phosphatase 396 U/L (45-117) H 10/29/18 05:00 Total Protein 3.4 g/dl (6.4-8.2) L 10/29/18 05:00 Albumin 0.9 g/dl (3.4-5.0) L 10/29/18 05:00 CARDIAC ENZYMES Creatine Kinase 708 U/L (26-192) H 10/04/18 17:45 Troponin I 0.46 ng/ml (0.00-0.05) H 10/04/18 21:00 EJF: 50-55% ASSESSMENT AND PLAN: Patient is a 73yo female with PMHx of 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 #S/p left VAT POD #4 and right VAT POD # 11 due to having B/l Pleural effusions: with pleurodesis, pleurX cath placement and Bx pending, frozen section is negative. Pleur-x catheter is capped bl. #Right UE thrombophlebitis of superficial cephalic vein # LUCR[place]IA on CKD : back to 1.7 today 1.7-->1.5-->1.5--1.3--> 1.7-->1.6-->1.6 today, base line 1.2, continue to hold losartan , blood pressure is stable. will continue to trend. # Elevated trop: could be due to ARF , cont BB , and asa (will resume) # Thrombocytopenia: resolved # Paroxysmal atrial tachycardia currently in sinus rhythm #acute Hypokalemia will replete # Transaminitis: possible due to liver congestion ;will continue to trend #CAD post PCI/stent demand ischemia on aspirin. # Hx of Stage IV breast cancer with mets to spine # Hx of HLD: resume Lipitor but with elevated LFts will monitor. # hypocalcemia , corrected ca is normal DVT Px: On lovenox sq will reduce to 30mg (dosed renally) OOB to chair with legs elevated Visit type - Emergency Visit Emergency Visit: Yes ED Registration Date: 10/04/18 Care time: The patient presented to the Emergency Department on the above date and was hospitalized for further evaluation of their emergent condition. - New Patient This patient is new to me today: No - Critical Care Critical Care patient: No - Discharge Referral Referred to [facility] Med [facility].C.: No
--- NOTE | 2018-10-29 11:40 | PN ---
Progress Note, Physician - Current Medication List Current Medications: Active Medications Acetaminophen (Tylenol -) 650 mg PO Q6H PRN PRN Reason: Fever Or Pain Last Admin: 10/27/18 17:03 Dose: 650 mg Aspirin (Ecotrin -) 81 mg PO DAILY [facility] Last Admin: 10/29/18 09:22 Dose: 81 mg Chlorhexidine Gluconate (Hibiclens For Decolonization -) 1 applic TP HS [facility] Last Admin: 10/28/18 21:30 Dose: 1 applic Enoxaparin Sodium (Lovenox -) 30 mg SQ DAILY [facility] Last Admin: 10/29/18 09:23 Dose: 30 mg Fentanyl (Sublimaze Injection -) 50 mcg IVPUSH [id number] PRN PRN Reason: PAIN-PACU ORDER X 4 DOSES ONLY Piperacillin Sod/Tazobactam (Sod 2.25 gm/ Dextrose) 50 mls @ 100 mls/hr IVPB Q6H-IV [facility]; Protocol Last Admin: 10/29/18 09:21 Dose: 100 mls/hr Metoprolol Succinate (Toprol Xl -) 12.5 mg PO BID [facility] Last Admin: 10/28/18 21:30 Dose: 12.5 mg Mupirocin (Bactroban Ointment (For Decolonization) -) 1 applic NS BID [facility] Stop: 10/30/18 21:59 Last Admin: 10/29/18 09:22 Dose: 1 applic Ondansetron HCl (Zofran Injection) 4 mg IVPUSH Q6H PRN PRN Reason: NAUSEA AND/OR VOMITING Last Admin: 10/25/18 22:10 Dose: 4 mg Potassium Chloride (K-Dur -) 20 meq PO BID [facility] Stop: 10/30/18 22:01 Last Admin: 10/29/18 09:23 Dose: 20 meq Promethazine HCl (Phenergan Injection -) 12.5 mg IVPB Q6H PRN PRN Reason: NAUSEA-FOR RESCUE AFTER 15 MIN - Objective Vital Signs: Vital Signs Temperature 97.7 F 10/29/18 08:00 Pulse Rate 105 H 10/29/18 08:00 Respiratory Rate 20 10/29/18 08:00 Blood Pressure 104/75 10/29/18 08:00 O2 Sat by Pulse Oximetry (%) 100 10/29/18 09:00 Labs: CBC, BMP 10/29/18 05:00 10/29/18 05:00 INR, PTT INR 1.14 (0.83-1.09) H 10/18/18 06:30
--- NOTE | 2018-10-29 12:14 | PN ---
Progress Note, Physician History of Present Illness: Dyspnea resolving, s/p bilateral VATS with pleural biopsy and pleurex catheter placement without sequelae. HR improved, bilateral LE edema. - Current Medication List Current Medications: Active Medications Acetaminophen (Tylenol -) 650 mg PO Q6H PRN PRN Reason: Fever Or Pain Last Admin: 10/27/18 17:03 Dose: 650 mg Aspirin (Ecotrin -) 81 mg PO DAILY [facility] Last Admin: 10/29/18 09:22 Dose: 81 mg Chlorhexidine Gluconate (Hibiclens For Decolonization -) 1 applic TP HS [facility] Last Admin: 10/28/18 21:30 Dose: 1 applic Enoxaparin Sodium (Lovenox -) 30 mg SQ DAILY [facility] Last Admin: 10/29/18 09:23 Dose: 30 mg Fentanyl (Sublimaze Injection -) 50 mcg IVPUSH [id number] PRN PRN Reason: PAIN-PACU ORDER X 4 DOSES ONLY Metoprolol Succinate (Toprol Xl -) 12.5 mg PO BID [facility] Last Admin: 10/28/18 21:30 Dose: 12.5 mg Mupirocin (Bactroban Ointment (For Decolonization) -) 1 applic NS BID [facility] Stop: 10/30/18 21:59 Last Admin: 10/29/18 09:22 Dose: 1 applic Ondansetron HCl (Zofran Injection) 4 mg IVPUSH Q6H PRN PRN Reason: NAUSEA AND/OR VOMITING Last Admin: 10/25/18 22:10 Dose: 4 mg Potassium Chloride (K-Dur -) 20 meq PO BID [facility] Stop: 10/30/18 22:01 Last Admin: 10/29/18 09:23 Dose: 20 meq Promethazine HCl (Phenergan Injection -) 12.5 mg IVPB Q6H PRN PRN Reason: NAUSEA-FOR RESCUE AFTER 15 MIN - Objective Vital Signs: Vital Signs Temperature 97.7 F 10/29/18 08:00 Pulse Rate 105 H 10/29/18 08:00 Respiratory Rate 20 10/29/18 08:00 Blood Pressure 104/75 10/29/18 08:00 O2 Sat by Pulse Oximetry (%) 100 10/29/18 10:00 Constitutional: Yes: No Distress, Calm, Thin Neck: Yes: Supple Cardiovascular: Yes: Regular Rate and Rhythm Respiratory: Yes: Regular, Diminished, On Nasal O2 Gastrointestinal: Yes: Normal Bowel Sounds, Soft Edema: Yes Edema: LLE: 3+, RLE: 3+ Labs: CBC, BMP 10/29/18 05:00 10/29/18 05:00 INR, PTT INR 1.14 (0.83-1.09) H 10/18/18 06:30 Problem List - Problems (1) Demand ischemia Code(s): I24.8 - OTHER FORMS OF ACUTE ISCHEMIC HEART DISEASE (2) LUCRECIA (acute kidney injury) Code(s): N17.9 - ACUTE KIDNEY FAILURE, UNSPECIFIED (3) Congestive heart failure Code(s): I50.9 - HEART FAILURE, UNSPECIFIED Qualifiers: Heart failure type: diastolic Heart failure chronicity: acute on chronic Qualified Code(s): I50.33 - Acute on chronic diastolic (congestive) heart failure (4) Large pleural effusion Code(s): J90 - PLEURAL EFFUSION, NOT ELSEWHERE CLASSIFIED (5) Chest tube in place Code(s): Z96.89 - PRESENCE OF OTHER SPECIFIED FUNCTIONAL IMPLANTS (6) Metastatic breast cancer Code(s): C50.919 - MALIGNANT NEOPLASM OF UNSP SITE OF UNSPECIFIED FEMALE BREAST Assessment/Plan 1. s/p bilateral VATS with pleurX cath placement and biopsy for bilateral pleural effusions 2. Diastolic/systolic LV dysfunction with clinical class 0-I NYHA classification LV failure, compensated/euvolemic, exudative pleural effusion argues against heart failure 3. CAD post PCI/stent demand ischemia angina pectoris 4. Paroxysmal atrial tachycardia currently in sinus rhythm/sinus tachycardia 5. HTN 6. Hyperlipidemia 7. 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 Thrombophlebitis of right superficial cephalic vein 9. Acute kidney injury, with Hypokalemia/resolved- Hypokalemia 10. Thrombocytopenia, resolved 11. Abnormal LFTs, possible hepatic congestion, resolving 12. Hypocalcemia PLAN: 1. Recommend resumption of Lipitor unless contraindicated; LFT abnormality resolving 2. Continue Toprol XL 12.5 bid and titrate dosage as needed and as tolerated, hemodynamics permitting 3. Resume Losartan once renal function improves and as tolerated, hemodynamics permitting 4. Lovenox as recommended by hematology and ASA 81 qd 5. Await pathology report, monitor catheter output, OOB to chair 6. Complete abx course per ID, replete K 7. OOB to chair with legs elevated, cannot compress due to h/o DVT
[2018-10-29] MEDS: metoPROLOL SUCCINATE 25 MG TAB.SR.24H (FP) PO SCH ×2 (12:15→21:39)
--- NOTE | 2018-10-29 13:25 | PN ---
Progress Note (short form) - Note Progress Note: Breathing feels overall better. Leg edema slightly better but still significant. Intake & Output 10/26/18 10/27/18 10/28/18 10/29/18 23:59 23:59 23:59 23:59 Intake Total 1950 1970 950 100 Output Total 110 1250 Balance 1840 720 950 100 Last Vital Signs Temp Pulse Resp BP Pulse Ox 98.1 F 112 H 20 104/79 100 10/29/18 12:00 10/29/18 12:00 10/29/18 12:00 10/29/18 12:00 10/29/18 10:00 Active Medications Acetaminophen (Tylenol -) 650 mg PO Q6H PRN PRN Reason: Fever Or Pain Last Admin: 10/27/18 17:03 Dose: 650 mg Aspirin (Ecotrin -) 81 mg PO DAILY [facility] Last Admin: 10/29/18 09:22 Dose: 81 mg Chlorhexidine Gluconate (Hibiclens For Decolonization -) 1 applic TP HS [facility] Last Admin: 10/28/18 21:30 Dose: 1 applic Enoxaparin Sodium (Lovenox -) 30 mg SQ DAILY [facility] Last Admin: 10/29/18 09:23 Dose: 30 mg Fentanyl (Sublimaze Injection -) 50 mcg IVPUSH [id number] PRN PRN Reason: PAIN-PACU ORDER X 4 DOSES ONLY Metoprolol Succinate (Toprol Xl -) 12.5 mg PO BID [facility] Last Admin: 10/29/18 12:15 Dose: 12.5 mg Mupirocin (Bactroban Ointment (For Decolonization) -) 1 applic NS BID [facility] Stop: 10/30/18 21:59 Last Admin: 10/29/18 09:22 Dose: 1 applic Ondansetron HCl (Zofran Injection) 4 mg IVPUSH Q6H PRN PRN Reason: NAUSEA AND/OR VOMITING Last Admin: 10/25/18 22:10 Dose: 4 mg Potassium Chloride (K-Dur -) 20 meq PO BID [facility] Stop: 10/30/18 22:01 Last Admin: 10/29/18 09:23 Dose: 20 meq Promethazine HCl (Phenergan Injection -) 12.5 mg IVPB Q6H PRN PRN Reason: NAUSEA-FOR RESCUE AFTER 15 MIN Constitutional: Yes: Awake and alert, NAD Eyes: Yes: WNL HENT: Yes: Nasal Congestion Neck: Yes: WNL Cardiovascular: Yes: Regular Rate and Rhythm, S1, S2 Respiratory: Yes: Diminished, Rhonchi, bilateral PleureX catheters Gastrointestinal: Yes: Normal Bowel Sounds, Soft Extremities: Yes: WNL Edema: No Labs: Laboratory Results - last 24 hr 10/29/18 10/29/18 05:00 05:00 WBC 10.8 H RBC 2.45 L Hgb 8.6 L Hct 24.8 L MCV 101.2 H MCH 35.2 H MCHC 34.8 RDW 24.5 H Plt Count 152 MPV 7.9 Sodium 134 L Potassium 3.4 L Chloride 102 Carbon Dioxide 23 Anion Gap 9 BUN 32 H Creatinine 1.5 H Creat Clearance w eGFR 34.13 Random Glucose 85 Calcium 6.5 L* Phosphorus 3.1 Magnesium 1.9 Total Bilirubin 0.4 AST 86 H ALT 50 Alkaline Phosphatase 396 H Total Protein 3.4 L Albumin 0.9 L Problem List - Problems (1) LUCRECIA (acute kidney injury) Code(s): N17.9 - ACUTE KIDNEY FAILURE, UNSPECIFIED (2) CAD (coronary artery disease) Code(s): I25.10 - ATHSCL HEART DISEASE OF [place] CORONARY ARTERY W/O ANG PCTRS Qualifiers: Coronary Disease-Associated Artery/Lesion type: [place] artery [place] vs. transplanted heart: [place] heart Associated angina: without angina Qualified Code(s): I25.10 - Atherosclerotic heart disease of [place] coronary artery without angina pectoris (3) Chest tube in place Code(s): Z96.89 - PRESENCE OF OTHER SPECIFIED FUNCTIONAL IMPLANTS (4) Congestive heart failure Code(s): I50.9 - HEART FAILURE, UNSPECIFIED Qualifiers: Heart failure type: diastolic Heart failure chronicity: acute on chronic Qualified Code(s): I50.33 - Acute on chronic diastolic (congestive) heart failure (5) Difficulty breathing Code(s): R06.89 - OTHER ABNORMALITIES OF BREATHING (6) HTN (hypertension) Code(s): I10 - ESSENTIAL (PRIMARY) HYPERTENSION Qualifiers: Hypertension type: essential hypertension Qualified Code(s): I10 - Essential (primary) hypertension (7) History of percutaneous coronary intervention Code(s): Z98.61 - CORONARY ANGIOPLASTY STATUS (8) Hypercholesterolemia Code(s): E78.00 - PURE HYPERCHOLESTEROLEMIA, UNSPECIFIED (9) Large pleural effusion Code(s): J90 - PLEURAL EFFUSION, NOT ELSEWHERE CLASSIFIED (10) Metastatic breast cancer Code(s): C50.919 - MALIGNANT NEOPLASM OF UNSP SITE OF UNSPECIFIED FEMALE BREAST Assessment/Plan IMP BILATERAL PLEURAL EFFUSIONS S/P R VAT BX - FOR MALIGNANCY METASTATIC BREAST CA ANEMIA ASHD S/P STENT DIASTOLIC HF CKD ELEVATED TROPONIN PLAN REPEAT CXR O2 NEEDED TO MAINTAIN SATURATION OOB TO CHAIR INCENTIVE SPIROMETRY D/C PLANNING DR ARNOLD
[2018-10-29] MEDS: CHLORHEXIDINE GLUCONATE 4% CLEANSER FOR DECOLONIZATION TP SCH (21:41)
[2018-10-29] MEDS ORDERED: RANITIDINE HCL 150 MG TABLET (FP) PO ONE (22:15)
--- NOTE | 2018-10-30 08:23 | PN ---
Progress Note (short form) - Note Progress Note: POD 12, s/p Right VATS with pleural biopsy and pleurex catheter placement, POD 5 , s/p Left Video Assisted Thoracoscopy, Pleurodesis and Pleurx Catheter Insertion Pt seen and examined on AM rounds. States she is doing "okay" this morning. Has had NC off for 30-40 mins. Was oob yesterday to chair with PT. Tolerating PO, voiding without issue. C/O indigestion and heartburn. Denies cp/sob, n/v/d, calf pain/edema. Vital Signs Temp 98.8 F 10/30/18 05:00 Pulse 110 H 10/30/18 05:00 Resp 16 10/30/18 05:00 BP 114/88 10/30/18 05:00 Pulse Ox 100 10/29/18 22:38 Intake & Output 10/29/18 10/29/18 10/30/18 11:59 23:59 11:59 Intake Total 100 570 100 Balance 100 570 100 Intake: IVPB 100 50 Oral 520 100 Other: Voiding Method Bedpan Bedpan # Unmeasured Voids Void 2 2 2 Bowel Movement No Yes Yes # Bowel Movements 2 CBC, BMP 10/29/18 05:00 10/29/18 05:00 Gen: awake, alert, nad Resp: unlabored on RA. Decreased breath sounds lower lobes (slightly improved from prior). B/L dressings with small amount of drianage at catheter sites. + slight erythema beneath R dressing Ext: soft, nt, minimal edema. CXR 10/29: Single AP view of the chest is been submitted. Since 10/26/18 at 1531 hours, the bilateral chest tubes, right port and b/l pleural effusions with basilar atelectasis or infiltrates, large heart, and folded aorta, prominent jose and dense bones persist. A/P: 73 y/o F w/ PMHx recurrent pleural effusion, stage 4 R breast CA with chemoport w/mets to spine, HTN, HLD, CAD s/p 1 stent (2013), angina, admitted for SOB on rest and exertion, now POD 12, s/p Right VATS with pleural biopsy and pleurex catheter placement, POD 5, s/p Left Video Assisted Thorascopy, Pleurodesis and Pleurx Catheter Insertion Afebrile, tachy to 110 (?pain). Off O2 x 45 mins this morning, satting high 90s during evaluation. Creatinine trending down 1.5 today Am xray stable from 10/26 -F/U OR cytology (negative on prelim) -Will need VNS for home if d/c is to home, pt considering rehab. -Pt requesting social work evaluation for rehab (RN aware) -Will need to drain tubes prior to d/c d/w attending Dr Fletcher
[2018-10-30] MEDS: POTASSIUM CHLORIDE TABS 10 MEQ TABLET.ER (FP) PO SCH ×2 (09:41→22:05)
[2018-10-30] MEDS: metoPROLOL SUCCINATE 25 MG TAB.SR.24H (FP) PO SCH ×2 (09:41→22:05)
[2018-10-30] MEDS: ENOXAPARIN NA (PORCINE) 30 MG/0.3 ML DISP.SYRIN SQ SCH (09:42)
[2018-10-30] MEDS: MUPIROCIN 2% TOPICAL OINTMENT FOR DECOLONIZATION NS SCH (09:42)
[2018-10-30] MEDS: ASPIRIN COATED 81 MG TABLET.EC PO SCH (09:42)
[2018-10-30] MEDS ORDERED: metoPROLOL SUCCINATE 25 MG TAB.SR.24H (FP) PO ONE (12:15)
--- NOTE | 2018-10-30 12:38 | PN ---
Progress Note, Physician Chief Complaint: Events noted Bilateral VAT and pleuroX catheter placement History of Present Illness: Patient was seen and examined. Awake and alert. Chart was reviewed Still with HR > 100 Denies chest pain, SOB or palpitations - Current Medication List Current Medications: Active Medications Acetaminophen (Tylenol -) 650 mg PO Q6H PRN PRN Reason: Fever Or Pain Last Admin: 10/27/18 17:03 Dose: 650 mg Apixaban (Eliquis -) 2.5 mg PO BID [facility] Aspirin (Ecotrin -) 81 mg PO DAILY [facility] Last Admin: 10/30/18 09:42 Dose: 81 mg Chlorhexidine Gluconate (Hibiclens For Decolonization -) 1 applic TP HS [facility] Last Admin: 10/29/18 21:41 Dose: 1 applic Fentanyl (Sublimaze Injection -) 50 mcg IVPUSH [id number] PRN PRN Reason: PAIN-PACU ORDER X 4 DOSES ONLY Metoprolol Succinate (Toprol Xl -) 25 mg PO BID [facility] Mupirocin (Bactroban Ointment (For Decolonization) -) 1 applic NS BID [facility] Stop: 10/30/18 21:59 Last Admin: 10/30/18 09:42 Dose: 1 applic Ondansetron HCl (Zofran Injection) 4 mg IVPUSH Q6H PRN PRN Reason: NAUSEA AND/OR VOMITING Last Admin: 10/25/18 22:10 Dose: 4 mg Potassium Chloride (K-Dur -) 20 meq PO BID [facility] Stop: 10/30/18 22:01 Last Admin: 10/30/18 09:41 Dose: 20 meq Promethazine HCl (Phenergan Injection -) 12.5 mg IVPB Q6H PRN PRN Reason: NAUSEA-FOR RESCUE AFTER 15 MIN - Objective Vital Signs: Vital Signs Temperature 98 F 10/30/18 08:00 Pulse Rate 112 H 10/30/18 08:00 Respiratory Rate 18 10/30/18 09:00 Blood Pressure 110/82 10/30/18 08:00 O2 Sat by Pulse Oximetry (%) 100 10/30/18 09:00 HENT: Yes: Atraumatic Neck: Yes: Supple Cardiovascular: Yes: Tachycardia, Pulse Irregular, S1, S2 Respiratory: Yes: Diminished Gastrointestinal: Yes: Normal Bowel Sounds, Soft. No: Tenderness Edema: No Additional Findings/Remarks: Review of Systems Constitutional: denies Chills or Fever Respiratory: denies Cough or Sputum Production Cardiovascular: denies: SOB, chest pain, palpitations Gastrointestinal: denies Nausea, Vomiting, Diarrhea, Constipation or Abdominal Pain Genitourinary: denies Frequency or Urgency Musculoskeletal: No symptoms reported Labs: CBC, BMP 10/29/18 05:00 10/29/18 05:00 Problem List - Problems (1) LUCRECIA (acute kidney injury) Code(s): N17.9 - ACUTE KIDNEY FAILURE, UNSPECIFIED (2) Chest tube in place Code(s): Z96.89 - PRESENCE OF OTHER SPECIFIED FUNCTIONAL IMPLANTS (3) Congestive heart failure Code(s): I50.9 - HEART FAILURE, UNSPECIFIED Qualifiers: Heart failure type: diastolic Heart failure chronicity: acute on chronic Qualified Code(s): I50.33 - Acute on chronic diastolic (congestive) heart failure (4) Demand ischemia Code(s): I24.8 - OTHER FORMS OF ACUTE ISCHEMIC HEART DISEASE (5) Large pleural effusion Code(s): J90 - PLEURAL EFFUSION, NOT ELSEWHERE CLASSIFIED (6) Metastatic breast cancer Code(s): C50.919 - MALIGNANT NEOPLASM OF UNSP SITE OF UNSPECIFIED FEMALE BREAST (7) CAD (coronary artery disease) Code(s): I25.10 - ATHSCL HEART DISEASE OF [place] CORONARY ARTERY W/O ANG PCTRS Qualifiers: Coronary Disease-Associated Artery/Lesion type: [place] artery [place] vs. transplanted heart: [place] heart Associated angina: without angina Qualified Code(s): I25.10 - Atherosclerotic heart disease of [place] coronary artery without angina pectoris (8) History of percutaneous coronary intervention Code(s): Z98.61 - CORONARY ANGIOPLASTY STATUS (9) Hypercholesterolemia Code(s): E78.00 - PURE HYPERCHOLESTEROLEMIA, UNSPECIFIED (10) HTN (hypertension) Code(s): I10 - ESSENTIAL (PRIMARY) HYPERTENSION Qualifiers: Hypertension type: essential hypertension Qualified Code(s): I10 - Essential (primary) hypertension (11) Congestive heart failure with LV diastolic dysfunction, NYHA class 2 Code(s): I50.30 - UNSPECIFIED DIASTOLIC (CONGESTIVE) HEART FAILURE Assessment/Plan 1. Bilateral VATS with pleurX cath placement and biopsy for bilateral pleural effusions 2. Diastolic/systolic LV dysfunction with clinical class 0-I NYHA classification LV failure, compensated/euvolemic, exudative pleural effusion 3. CAD post PCI/stent demand ischemia angina pectoris 4. Paroxysmal atrial tachycardia currently in sinus tachycardia 5. HTN 6. Hyperlipidemia 7. 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 Thrombophlebitis of right superficial cephalic vein 9. Acute kidney injury, with Hypokalemia/resolved- Hypokalemia 10. Thrombocytopenia, resolved 11. Abnormal LFTs, possible hepatic congestion, resolving 12. Hypocalcemia PLAN: 1. Recommend resumption of Lipitor unless contraindicated - LFT abnormality resolving 2. Agree Toprol XL 25 mg QD 3. Resume Losartan once renal function improves and as tolerated 4. Eliquis 2.5 mg BID restarted 5. Await pathology report and OOB to chair 6. Await SNF Further plans are to follow Bello Combs MD
--- NOTE | 2018-10-30 14:35 | PN ---
Progress Note (short form) - Note Progress Note: Breathing feels about the same as yesterday. No acute events overnight. CXR: slight decrease in bilateral pleural effusions Intake & Output 10/27/18 10/28/18 10/29/18 10/30/18 23:59 23:59 23:59 23:59 Intake Total 1970 950 670 100 Output Total 1250 Balance 720 950 670 100 Last Vital Signs Temp Pulse Resp BP Pulse Ox 98 F 112 H 18 110/82 100 10/30/18 08:00 10/30/18 08:00 10/30/18 09:00 10/30/18 08:00 10/30/18 09:00 Active Medications Acetaminophen (Tylenol -) 650 mg PO Q6H PRN PRN Reason: Fever Or Pain Last Admin: 10/27/18 17:03 Dose: 650 mg Apixaban (Eliquis -) 2.5 mg PO BID [facility] Aspirin (Ecotrin -) 81 mg PO DAILY [facility] Last Admin: 10/30/18 09:42 Dose: 81 mg Chlorhexidine Gluconate (Hibiclens For Decolonization -) 1 applic TP HS [facility] Last Admin: 10/29/18 21:41 Dose: 1 applic Fentanyl (Sublimaze Injection -) 50 mcg IVPUSH [id number] PRN PRN Reason: PAIN-PACU ORDER X 4 DOSES ONLY Metoprolol Succinate (Toprol Xl -) 25 mg PO BID [facility] Mupirocin (Bactroban Ointment (For Decolonization) -) 1 applic NS BID [facility] Stop: 10/30/18 21:59 Last Admin: 10/30/18 09:42 Dose: 1 applic Ondansetron HCl (Zofran Injection) 4 mg IVPUSH Q6H PRN PRN Reason: NAUSEA AND/OR VOMITING Last Admin: 10/25/18 22:10 Dose: 4 mg Potassium Chloride (K-Dur -) 20 meq PO BID [facility] Stop: 10/30/18 22:01 Last Admin: 10/30/18 09:41 Dose: 20 meq Promethazine HCl (Phenergan Injection -) 12.5 mg IVPB Q6H PRN PRN Reason: NAUSEA-FOR RESCUE AFTER 15 MIN Constitutional: Yes: Awake and alert, NAD Eyes: Yes: WNL HENT: Yes: Nasal Congestion Neck: Yes: WNL Cardiovascular: Yes: Regular Rate and Rhythm, S1, S2 Respiratory: Yes: Diminished, Rhonchi, bilateral PleureX catheters Gastrointestinal: Yes: Normal Bowel Sounds, Soft Extremities: Yes: WNL Edema: No Labs: Problem List - Problems (1) LUCRECIA (acute kidney injury) Code(s): N17.9 - ACUTE KIDNEY FAILURE, UNSPECIFIED (2) CAD (coronary artery disease) Code(s): I25.10 - ATHSCL HEART DISEASE OF [place] CORONARY ARTERY W/O ANG PCTRS Qualifiers: Coronary Disease-Associated Artery/Lesion type: [place] artery [place] vs. transplanted heart: [place] heart Associated angina: without angina Qualified Code(s): I25.10 - Atherosclerotic heart disease of [place] coronary artery without angina pectoris (3) Chest tube in place Code(s): Z96.89 - PRESENCE OF OTHER SPECIFIED FUNCTIONAL IMPLANTS (4) Congestive heart failure Code(s): I50.9 - HEART FAILURE, UNSPECIFIED Qualifiers: Heart failure type: diastolic Heart failure chronicity: acute on chronic Qualified Code(s): I50.33 - Acute on chronic diastolic (congestive) heart failure (5) Difficulty breathing Code(s): R06.89 - OTHER ABNORMALITIES OF BREATHING (6) HTN (hypertension) Code(s): I10 - ESSENTIAL (PRIMARY) HYPERTENSION Qualifiers: Hypertension type: essential hypertension Qualified Code(s): I10 - Essential (primary) hypertension (7) History of percutaneous coronary intervention Code(s): Z98.61 - CORONARY ANGIOPLASTY STATUS (8) Hypercholesterolemia Code(s): E78.00 - PURE HYPERCHOLESTEROLEMIA, UNSPECIFIED (9) Large pleural effusion Code(s): J90 - PLEURAL EFFUSION, NOT ELSEWHERE CLASSIFIED (10) Metastatic breast cancer Code(s): C50.919 - MALIGNANT NEOPLASM OF UNSP SITE OF UNSPECIFIED FEMALE BREAST Assessment/Plan IMP BILATERAL PLEURAL EFFUSIONS S/P R VAT BX - FOR MALIGNANCY METASTATIC BREAST CA ANEMIA ASHD S/P STENT DIASTOLIC HF CKD ELEVATED TROPONIN PLAN O2 NEEDED TO MAINTAIN SATURATION OOB TO CHAIR INCENTIVE SPIROMETRY PLAN TO DRAIN PRIOR TO D/C D/C PLANNING TO SNF DR ARNOLD
--- NOTE | 2018-10-30 14:43 | DS ---
Physical Exam: SUBJECTIVE: Patient seen and examined at bedside. No acute events overnight. Denies chest pain or shortness of breath. Spoke with Dr Lazaro Nelson at [facility] (pt's Oncologist). States pt is fine to go to short term rehab and hold chemo for time being. OBJECTIVE: Vital Signs Period Temp Pulse Resp BP Sys/[place] Pulse Ox Last 24 Hr 97.7 F-98.8 F 89-112 16-22 93-114/70-88 100-100 PHYSICAL EXAM GENERAL: AAOx3, NAD. HEAD: Atraumatic Normocephalic EYES: EOMI Sclera Clear ENT: MMM Trachea midline NECK: full range of motion, supple. LUNGS: Decreased Breath Sounds at bases. HEART: Irregular S1S2 ABDOMEN: Soft,Nondistended Nontender No guarding or rigidity appreciated EXTREMITIES: 1+ Pitting edema PSYCH: Normal mood, normal affect. SKIN: No rashes or lesions appreciated LABS HOSPITAL COURSE: Date of Admission:10/04/18 Pt is a 73 y/o lady with a significant past medical history of recurrent pleural effusion, stage 4 R breast CA with chemoport w/mets to spine, HTN, HLD, CAD s/p 1 stent (2013), and angina who presented to [facility] c/o shortness of breath and dyspnea on exertion. Pt was noted to have elevated troponin at 0.49 which dropped to 0.46 on repeat. While pt was in ED, pt was started on Zosyn and Doxycycline for possible pneumonia in light of CT imaging. Blood Cultures were negative. Pt also underwent imaging which revealed a sizeable left effusion , please see report for further details. Pt subsequently underwent a a left chest tube insertion while in the ED. Pt eventually underwent a right side VATS w/ pleural biopsy and pleurex catheter placement followed by a left VATS w/ pleural biopsy and pleurex catheter. Pt's right upper arm was noted to be enlarged and swollen and a LUE duplex ultrasound was performed which revealed a thrombus within the superficial cephalic vein. Pt was subsequently started on Eliquis. Pt's heart rate was elevated as well and pt's Metoprolol was increased from 12.5 BID to 25 BID. Pt's LFT's were elevated on admission and Lipitor was discontinued. Furthermore, pt's Cozaar was also held in light of pt's LUCRECIA. Date of Discharge: 10/30/18 Minutes to complete discharge: 35 Discharge Summary Reason For Visit: ACUTE KIDNEY INJURY LARGE PLEURAL EFFUSION [place] Current Active Problems LCURECIA (acute kidney injury) (Acute) CAD (coronary artery disease) (Acute) Chest tube in place (Acute) Congestive heart failure (Acute) Congestive heart failure with LV diastolic dysfunction, NYHA class 2 (Acute) Demand ischemia (Acute) Difficulty breathing (Acute) HTN (hypertension) (Acute) History of percutaneous coronary intervention (Acute) Hypercholesterolemia (Acute) Large pleural effusion (Acute) Metastatic breast cancer (Acute) Troponin level elevated (Acute) Condition: Guarded - Instructions Diet, Activity, Other Instructions: You presented to the hospital due to increasing shortness of breath and found to have excess fluid in your lungs. -After you leave this hospital you will continue to take Eliquis 2.5 MG TWICE per day (For clot prevention) -Your heart rate was elevated during your stay and as a result we have increased the dosage of your heart medication, Metoprolol to 25 mg TWICE per Day -Your Losartan (Cozaar) medication was held due to abnormal kidney function tests. Please do not take this medication until after you have seen your primary care doctor and undergo repeat blood tests to confirm your kidney function is normal. -Your cholesterol medication, Lipitor, was also stopped due to abnormal liver function tests. Please do not take this medication until after you have seen your primary care doctor and undergo repeat blood tests to confirm your liver function is normal. Please follow up with your Primary Care Physician in 1 week Please follow up with Dr Fletcher, the Thoracic Surgeon, in 1 week. You have chest tubes on both sides of your chest. These will remain in until further discussed with Dr Fletcher. Please follow up with your computer customer support specialist, Dr Woodall in 1 week. Please follow up with Dr Lazaro Nelson in 1 week. Please continue to take the rest of your medications. Please return to the emergency Department if you begin to experience worsening shortness of breath, chest pain, nausea, vomiting, dizziness, or any other worsening of your symptoms. Referrals: Ambrocio Fritz MD [Staff Physician] - Nevin Fletcher MD [Staff Physician] - Zac Doherty MD [Staff Physician] - Jimi Joseph MD [Primary Care Provider] - Disposition: LONG TERM FACILITY - Home Medications Comprehensive Discharge Medication List: Ambulatory Orders Aspirin [ASA -] 81 mg PO HS 03/29/14 Atorvastatin Ca [Lipitor -] 80 mg PO HS 03/29/14 Folic Acid 400 mcg PO DAILY 03/29/14 Losartan Potassium [Cozaar] 25 mg PO DAILY 03/29/14 Metoprolol Succinate [Toprol Xl] 12.5 mg PO BID 03/29/14 Cholecalciferol (Vitamin D3) [Vitamin D3] 1,000 unit PO DAILY 10/04/18 Gemcitabine HCl [Gemzar -] 200 mg IV ASDIR 10/04/18 Nitroglycerin Sublingual [Nitrostat -] 0.4 mg PO PRN PRN 10/04/18 This patient is new to me today: No Emergency Visit: Yes ED Registration Date: 10/04/18 Care time: The patient presented to the Emergency Department on the above date and was hospitalized for further evaluation of their emergent condition. Critical Care patient: No - Discharge Referral Referred to [facility] No
--- NOTE | 2018-10-30 18:16 | PN ---
Teaching Attending Note Name of Resident: Paulie Haney ATTENDING PHYSICIAN STATEMENT I saw and evaluated the patient. I reviewed the resident's note and discussed the case with the resident. I agree with the resident's findings and plan as documented. SUBJECTIVE: Patient is comfortable with no acute distress, no nausea or vomiting. Stable, no new changes. OBJECTIVE: Vital Signs Temperature 98 F 10/30/18 08:00 Pulse Rate 117 H 10/30/18 14:47 Respiratory Rate 18 10/30/18 13:00 Blood Pressure 114/87 10/30/18 13:00 O2 Sat by Pulse Oximetry (%) 99 10/30/18 14:47 GENERAL: AAOx3 , NAD EYES: EOMI Sclera Clear. LUNGS: decreased BS at the basis. Bilateral pleur-x catheters capped. HEART: RRR, S1S2 positive, No murmur is appreciated. ABDOMEN: ND, NT, BS positive EXTREMITIES: 2 plus edema bl, pulses are positive. SKIN: No rashes or lesions appreciated CBCD WBC 10.8 K/mm3 (4.0-10.0) H 10/29/18 05:00 RBC 2.45 M/mm3 (3.60-5.2) L 10/29/18 05:00 Hgb 8.6 GM/dL (10.7-15.3) L 10/29/18 05:00 Hct 24.8 % (32.4-45.2) L 10/29/18 05:00 MCV 101.2 fl (80-96) H 10/29/18 05:00 MCHC 34.8 g/dl (32.0-36.0) 10/29/18 05:00 RDW 24.5 % (11.6-15.6) H 10/29/18 05:00 Plt Count 152 K/MM3 (134-434) 10/29/18 05:00 MPV 7.9 fl (7.5-11.1) 10/29/18 05:00 CMP Sodium 134 mmol/L (136-145) L 10/29/18 05:00 Potassium 3.4 mmol/L (3.5-5.1) L 10/29/18 05:00 Chloride 102 mmol/L (98-107) 10/29/18 05:00 Carbon Dioxide 23 mmol/L (21-32) 10/29/18 05:00 Anion Gap 9 MMOL/L (8-16) 10/29/18 05:00 BUN 32 mg/dL (7-18) H 10/29/18 05:00 Creatinine 1.5 mg/dL (0.55-1.3) H 10/29/18 05:00 Creat Clearance w eGFR 34.13 (>60) 10/29/18 05:00 Random Glucose 85 mg/dL (74-106) 10/29/18 05:00 Calcium 6.5 mg/dL (8.5-10.1) L* 10/29/18 05:00 Total Bilirubin 0.4 mg/dL (0.2-1) 10/29/18 05:00 AST 86 U/L (15-37) H 10/29/18 05:00 ALT 50 U/L (13-61) 10/29/18 05:00 Alkaline Phosphatase 396 U/L (45-117) H 10/29/18 05:00 Total Protein 3.4 g/dl (6.4-8.2) L 10/29/18 05:00 Albumin 0.9 g/dl (3.4-5.0) L 10/29/18 05:00 CARDIAC ENZYMES Creatine Kinase 708 U/L (26-192) H 10/04/18 17:45 Troponin I 0.46 ng/ml (0.00-0.05) H 10/04/18 21:00 Current Medications Generic Name Dose Route Start Last Admin Trade Name Freq PRN Reason Stop Dose Admin Acetaminophen 650 mg 10/25/18 10:31 10/27/18 17:03 Tylenol - PO 650 mg Q6H PRN Administration Fever Or Pain Apixaban 2.5 mg 10/30/18 22:00 Eliquis - PO BID JOSE ARMANDO Aspirin 81 mg 10/28/18 14:00 10/30/18 09:42 Ecotrin - PO 81 mg DAILY JOSE ARMANDO Administration Chlorhexidine Gluconate 1 applic 10/25/18 22:00 10/29/18 21:41 Hibiclens For Decolonization - TP 1 applic HS JOSE ARMANDO Administration Fentanyl 50 mcg 10/25/18 10:31 Sublimaze Injection - IVPUSH [id number] PRN PAIN-PACU ORDER X 4 DOSES ONLY Metoprolol Succinate 25 mg 10/30/18 22:00 Toprol Xl - PO BID JOSE ARMANDO Mupirocin 1 applic 10/25/18 22:00 10/30/18 09:42 Bactroban Ointment (For Decolonization) - NS 10/30/18 21:59 1 applic BID JOSE ARMANDO Administration Ondansetron HCl 4 mg 10/25/18 10:31 10/25/18 22:10 Zofran Injection IVPUSH 4 mg Q6H PRN Administration NAUSEA AND/OR VOMITING Potassium Chloride 20 meq 10/28/18 19:15 10/30/18 09:41 K-Dur - PO 10/30/18 22:01 20 meq BID JOSE ARMANDO Administration Promethazine HCl 12.5 mg 10/25/18 10:31 Phenergan Injection - IVPB Q6H PRN NAUSEA-FOR RESCUE AFTER 15 MIN Home Medications Medication Instructions Recorded Aspirin [ASA -] 81 mg PO HS 03/29/14 Folic Acid 400 mcg PO DAILY 03/29/14 Cholecalciferol (Vitamin D3) 1,000 unit PO DAILY 10/04/18 [Vitamin D3] Nitroglycerin Sublingual 0.4 mg PO PRN PRN 10/04/18 [Nitrostat -] Apixaban [Eliquis -] 2.5 mg PO BID #60 tablet 10/30/18 Metoprolol Succinate [Toprol XL -] 25 mg PO BID #60 tab.sr.24h 10/30/18 EJF: 50-55% ASSESSMENT AND PLAN: Patient is a 73yo female with PMHx of 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 #S/p left VAT POD #6 and right VAT POD # 13 due to having B/l Pleural effusions: with pleurodesis, pleurX cath placement and Bx pending, frozen section is negative. Pleur-x catheter is capped bl. #Right UE thrombophlebitis of superficial cephalic vein on Eliquis 2.5mg po bid now, discussed with agrees with the plan. # LUCRECIA on CKD : back to 1.7 today 1.7-->1.5-->1.5--1.3--> 1.7-->1.6-->1.6-->1.5 today, base line 1.2, continue to hold losartan , blood pressure is stable. continue to monitor. # Elevated trop: could be due to ARF , cont BB , and asa # Thrombocytopenia: resolved 152K platelets # Paroxysmal atrial tachycardia currently in sinus rhythm, on Eliquis continue #acute Hypokalemia will replete # Transaminitis: possible due to liver congestion ;will continue to trend #CAD post PCI/stent demand ischemia on aspirin. # Hx of Stage IV breast cancer with mets to spine # Hx of HLD: resume Lipitor but with elevated LFts will monitor. # hypocalcemia , corrected ca is normal DVT Px: On Eliquis OOB to chair with legs elevated waiting for rehab per her own oncologist , as per Paulie Saldaña who discussed with the oncologist , patient can go to rehab. and chemo can be continued afterward.
[2018-10-30] MEDS: CHLORHEXIDINE GLUCONATE 4% CLEANSER FOR DECOLONIZATION TP SCH (22:05)
[2018-10-30] MEDS: APIXABAN 2.5 MG TABLET PO SCH (22:05)
[2018-10-31] MEDS: ACETAMINOPHEN 325 MG TABLET (FP) PO PRN ×2 (08:43→15:01)
[2018-10-31] MEDS ORDERED: POTASSIUM CHLORIDE TABS 10 MEQ TABLET.ER (FP) PO ONE (09:07)
[2018-10-31] MEDS: APIXABAN 2.5 MG TABLET PO SCH (10:00)
[2018-10-31] MEDS: metoPROLOL SUCCINATE 25 MG TAB.SR.24H (FP) PO SCH (10:00)
[2018-10-31] MEDS: ASPIRIN COATED 81 MG TABLET.EC PO SCH (10:01)
[2018-10-31 10:06] LABS: BASO % 0.8 % (0-2.0); EOS % 3.1 % (0-4.5); HEMATOCRIT 28.2 % (32.4-45.2); HEMOGLOBIN 9.7 GM/dL (10.7-15.3); MCH 35.2 pg (25.7-33.7); MCHC 34.5 g/dl (32.0-36.0); MEAN PLT VOLUME 8.1 fl (7.5-11.1); MONO % 7.9 % (3.8-10.2); NEUT % 71.2 % (42.8-82.8); PLATELET COUNT 191 K/MM3 (134-434); RBC 2.76 M/mm3 (3.60-5.2); RDW 24.6 % (11.6-15.6); WHITE BLOOD COUNT 12.9 K/mm3 (4.0-10.0)
--- NOTE | 2018-10-31 10:22 | PN ---
Progress Note, Physician - Current Medication List Current Medications: Active Medications Acetaminophen (Tylenol -) 650 mg PO Q6H PRN PRN Reason: Fever Or Pain Last Admin: 10/31/18 08:43 Dose: 650 mg Apixaban (Eliquis -) 2.5 mg PO BID [facility] Last Admin: 10/31/18 10:00 Dose: 2.5 mg Aspirin (Ecotrin -) 81 mg PO DAILY [facility] Last Admin: 10/31/18 10:01 Dose: 81 mg Chlorhexidine Gluconate (Hibiclens For Decolonization -) 1 applic TP HS [facility] Last Admin: 10/30/18 22:05 Dose: 1 applic Fentanyl (Sublimaze Injection -) 50 mcg IVPUSH [id number] PRN PRN Reason: PAIN-PACU ORDER X 4 DOSES ONLY Metoprolol Succinate (Toprol Xl -) 25 mg PO BID [facility] Last Admin: 10/31/18 10:00 Dose: 25 mg Ondansetron HCl (Zofran Injection) 4 mg IVPUSH Q6H PRN PRN Reason: NAUSEA AND/OR VOMITING Last Admin: 10/25/18 22:10 Dose: 4 mg Promethazine HCl (Phenergan Injection -) 12.5 mg IVPB Q6H PRN PRN Reason: NAUSEA-FOR RESCUE AFTER 15 MIN - Objective Vital Signs: Vital Signs Temperature 97.7 F 10/31/18 06:10 Pulse Rate 90 10/31/18 04:00 Respiratory Rate 13 10/31/18 04:00 Blood Pressure 105/70 10/31/18 04:00 O2 Sat by Pulse Oximetry (%) 97 10/30/18 20:39 Labs: CBC, BMP 10/31/18 09:45 INR, PTT INR 1.14 (0.83-1.09) H 10/18/18 06:30
[2018-10-31 10:26] LABS: ANION GAP 8 MMOL/L (8-16); BLOOD UREA NITROGEN 30 mg/dL (7-18); CALCIUM 7.4 mg/dL (8.5-10.1); CHLORIDE 105 mmol/L (98-107); CO2 22 mmol/L (21-32); CREATININE 1.5 mg/dL (0.55-1.3); GLUCOSE,RANDOM 157 mg/dL (74-106); POTASSIUM 4.3 mmol/L (3.5-5.1); SODIUM 135 mmol/L (136-145)
--- NOTE | 2018-10-31 11:30 | PN ---
Progress Note (short form) - Note Progress Note: Breathing feels about the same as yesterday. Had some left sided discomfort and SOB when she moved onto the left side this AM. Afebrile. Intake & Output 10/28/18 10/29/18 10/30/18 10/31/18 23:59 23:59 23:59 23:59 Intake Total 950 670 580 Balance 950 670 580 Last Vital Signs Temp Pulse Resp BP Pulse Ox 97.4 F L 94 H 12 93/81 97 10/31/18 10:00 10/31/18 10:00 10/31/18 10:00 10/31/18 10:00 10/31/18 09:00 Active Medications Acetaminophen (Tylenol -) 650 mg PO Q6H PRN PRN Reason: Fever Or Pain Last Admin: 10/31/18 08:43 Dose: 650 mg Apixaban (Eliquis -) 2.5 mg PO BID [facility] Last Admin: 10/31/18 10:00 Dose: 2.5 mg Aspirin (Ecotrin -) 81 mg PO DAILY [facility] Last Admin: 10/31/18 10:01 Dose: 81 mg Chlorhexidine Gluconate (Hibiclens For Decolonization -) 1 applic TP HS [facility] Last Admin: 10/30/18 22:05 Dose: 1 applic Fentanyl (Sublimaze Injection -) 50 mcg IVPUSH [id number] PRN PRN Reason: PAIN-PACU ORDER X 4 DOSES ONLY Metoprolol Succinate (Toprol Xl -) 25 mg PO BID [facility] Last Admin: 10/31/18 10:00 Dose: 25 mg Ondansetron HCl (Zofran Injection) 4 mg IVPUSH Q6H PRN PRN Reason: NAUSEA AND/OR VOMITING Last Admin: 10/25/18 22:10 Dose: 4 mg Promethazine HCl (Phenergan Injection -) 12.5 mg IVPB Q6H PRN PRN Reason: NAUSEA-FOR RESCUE AFTER 15 MIN Constitutional: Yes: Awake and alert, NAD Eyes: Yes: WNL HENT: Yes: Nasal Congestion Neck: Yes: WNL Cardiovascular: Yes: Regular Rate and Rhythm, S1, S2 Respiratory: Yes: Diminished, Rhonchi, bilateral PleureX catheters Gastrointestinal: Yes: Normal Bowel Sounds, Soft Extremities: Yes: WNL Edema: No Labs: Laboratory Results - last 24 hr 10/31/18 10/31/18 09:45 09:45 WBC 12.9 H RBC 2.76 L Hgb 9.7 L Hct 28.2 L MCV 102.0 H MCH 35.2 H MCHC 34.5 RDW 24.6 H Plt Count 191 D MPV 8.1 Absolute Neuts (auto) 9.2 H Neutrophils % 71.2 Lymphocytes % 17.0 D Monocytes % 7.9 D Eosinophils % 3.1 D Basophils % 0.8 Nucleated RBC % 0 Sodium 135 L Potassium 4.3 Chloride 105 Carbon Dioxide 22 Anion Gap 8 BUN 30 H Creatinine 1.5 H Creat Clearance w eGFR 34.13 Random Glucose 157 H Calcium 7.4 L Problem List - Problems (1) LUCRECIA (acute kidney injury) Code(s): N17.9 - ACUTE KIDNEY FAILURE, UNSPECIFIED (2) CAD (coronary artery disease) Code(s): I25.10 - ATHSCL HEART DISEASE OF [place] CORONARY ARTERY W/O ANG PCTRS Qualifiers: Coronary Disease-Associated Artery/Lesion type: [place] artery [place] vs. transplanted heart: [place] heart Associated angina: without angina Qualified Code(s): I25.10 - Atherosclerotic heart disease of [place] coronary artery without angina pectoris (3) Chest tube in place Code(s): Z96.89 - PRESENCE OF OTHER SPECIFIED FUNCTIONAL IMPLANTS (4) Congestive heart failure Code(s): I50.9 - HEART FAILURE, UNSPECIFIED Qualifiers: Heart failure type: diastolic Heart failure chronicity: acute on chronic Qualified Code(s): I50.33 - Acute on chronic diastolic (congestive) heart failure (5) Difficulty breathing Code(s): R06.89 - OTHER ABNORMALITIES OF BREATHING (6) HTN (hypertension) Code(s): I10 - ESSENTIAL (PRIMARY) HYPERTENSION Qualifiers: Hypertension type: essential hypertension Qualified Code(s): I10 - Essential (primary) hypertension (7) History of percutaneous coronary intervention Code(s): Z98.61 - CORONARY ANGIOPLASTY STATUS (8) Hypercholesterolemia Code(s): E78.00 - PURE HYPERCHOLESTEROLEMIA, UNSPECIFIED (9) Large pleural effusion Code(s): J90 - PLEURAL EFFUSION, NOT ELSEWHERE CLASSIFIED (10) Metastatic breast cancer Code(s): C50.919 - MALIGNANT NEOPLASM OF UNSP SITE OF UNSPECIFIED FEMALE BREAST Assessment/Plan IMP BILATERAL PLEURAL EFFUSIONS S/P R VAT BX - FOR MALIGNANCY METASTATIC BREAST CA ANEMIA ASHD S/P STENT DIASTOLIC HF CKD ELEVATED TROPONIN PLAN O2 NEEDED TO MAINTAIN SATURATION OOB TO CHAIR INCENTIVE SPIROMETRY SURGICAL FOLLOW FOR PLEUREX DRAINAGE TODAY D/C PLANNING TO SNF DR ARNOLD
--- NOTE | 2018-10-31 14:43 | PN ---
Teaching Attending Note Name of Resident: Cheyanne Conklin ATTENDING PHYSICIAN STATEMENT I saw and evaluated the patient. I reviewed the resident's note and discussed the case with the resident. I agree with the resident's findings and plan as documented. SUBJECTIVE: On bed rios, does not want to be examined OBJECTIVE: Pleasant unfortunate 73 y/o lady with h/o Stage IV breast Cancer, HTN, HLD, CAD s/p PCI, currently on chemotherapy, and recent diagnosis of pleural effusions s/ p thoracentesis who presented with SOB. 1- B/l Pleural effusions, exudative fluid . S/P VATS with R pleurodesis, pleurX cath placement and Bx . s/p L pleurx cath placement 2- LUCRECIA . ? CKD 3- Elevated trop 4- Transaminitis 5- hypoclacemia /hypoalbuminemia 6- RUE superficial phlebitis 7- Superficial thrombosis of RUE plan: - drianage of L and R pleural effusion through Pleurx cath today - pathology form L and R pleural fluid and R pleural Bx is neg for malignancy - cont with eliquis -off Abx. slight leukocytosis is probably due to accumulation of fluid - cont Asa - cont to hold statin until she follows with card and her LFTs normalizes. - contot hold losartan as her BP is on lower side. can be resumed by card at follow up - follow up with repeat US of RUE n few days at [place] . dc to rehab today
[2018-10-31 15:01] LABS: PLATELET ESTIMATE NORMAL
[2018-10-31 15:34] LABS: ANISOCYTOSIS 1+; MACROCYTOSIS 2+; OVALOCYTE 1+; TEAR DROP CELLS 1+
[2018-10-31 18:08] VITALS: BP 113/79; PULSE 100; TEMP 97.9
== END 2018-10-31 17:47 | DRG 166 ==
LOC: JER 16:37 → JERBED 19:45 → J4W 10-05 15:27 → JSAMEDAYSX 10-18 08:06 → J2W 10-18 13:28
PROVIDERS: ADMIT Internal Medicine; ATTEND Internal Medicine
PROC: 0W9B30Z Drainage of Left Pleural Cavity with Drainage Device, Percutaneous Approach (ICD-10-PCS; 2018-10-09)
PROC: 0BBN4ZX Excision of Right Pleura, Percutaneous Endoscopic Approach, Diagnostic (ICD-10-PCS; 2018-10-18)
PROC: 0W9940Z Drainage of Right Pleural Cavity with Drainage Device, Percutaneous Endoscopic Approach (ICD-10-PCS; principal; 2018-10-18 08:00)
PROC: 0W9B40Z Drainage of Left Pleural Cavity with Drainage Device, Percutaneous Endoscopic Approach (ICD-10-PCS; 2018-10-25)
PROC: 3E0L4GC Introduction of Other Therapeutic Substance into Pleural Cavity, Percutaneous Endoscopic Approach (ICD-10-PCS; 2018-10-25)
DX: J90 Pleural effusion, not elsewhere classified (principal); J18.8 Other pneumonia, unspecified organism; I50.33 Acute on chronic diastolic (congestive) heart failure; N17.9 Acute kidney failure, unspecified; C79.51 Secondary malignant neoplasm of bone; I24.8 Other forms of acute ischemic heart disease; J98.11 Atelectasis; I82.611 Acute embolism and thrombosis of superficial veins of right upper extremity; I47.1 Supraventricular tachycardia; I13.0 Hypertensive heart and chronic kidney disease with heart failure and stage 1 through stage 4 chronic kidney disease, or unspecified chronic kidney disease; E88.09 Other disorders of plasma-protein metabolism, not elsewhere classified; I80.8 Phlebitis and thrombophlebitis of other sites; Z98.61 Coronary angioplasty status; R74.0 Nonspecific elevation of levels of transaminase and lactic acid dehydrogenase [LDH]; E83.51 Hypocalcemia; N18.9 Chronic kidney disease, unspecified; D69.6 Thrombocytopenia, unspecified; E87.6 Hypokalemia; E78.5 Hyperlipidemia, unspecified; D64.9 Anemia, unspecified; I25.119 Atherosclerotic heart disease of native coronary artery with unspecified angina pectoris; D72.829 Elevated white blood cell count, unspecified
CPT/HCPCS: 36415; 36600; 71045-TC-FY; 71250-TC; 76705-TC; 76775-TC; 80048; 80053; 80076; 81003; 81015; 82042; 82150; 82550; 82553; 82607; 82746; 82803; 82945; 83605; 83615; 83735; 83880; 83986; 84100; 84134; 84157; 84478; 84484; 84560; 85025; 85027; 85610; 85730; 86850; 86900; 86901; 87040; 87070; 87075; 87086; 87102; 87116; 87205; 87206; 87210; 87633; 87899; 88108; 88305-TC; 88331-TC; 93005; 93010; 93306-TC; 93971; 94760; 94761; 97116-GP; 97162-GP; 99285-25; J0131; J1644; J7030

== ENCOUNTER 2018-11-30 14:06 | Inpatient (IN) | payer OTHER, BC ==
[2018-11-30 16:07] LABS: BASO % 0.5 % (0-2.0); EOS % 0.3 % (0-4.5); HEMATOCRIT 30.1 % (32.4-45.2); HEMOGLOBIN 10.4 GM/dL (10.7-15.3); LYMPH % 7.3 % (8-40); MCHC 34.7 g/dl (32.0-36.0); MEAN CELL VOLUME 100.9 fl (80-96); MEAN PLT VOLUME 7.3 fl (7.5-11.1); MONO % 6.1 % (3.8-10.2); NEUT % 85.8 % (42.8-82.8); PLATELET COUNT 219 K/MM3 (134-434); RBC 2.98 M/mm3 (3.60-5.2); WHITE BLOOD COUNT 17.2 K/mm3 (4.0-10.0)
--- NOTE | 2018-11-30 16:41 | CON.CARD ---
Consult Consult Specialty:: Cardiology Referred by:: Jaime Tian MD Reason for Consultation:: Dyspnea, increasing LE edema - History of Present Illness Chief Complaint: Dyspnea, increasing LE edema History of Present Illness: 73 yo female h/o CAD s/p EVAN LAD 09/18/2003, diastolic dysfunction with h/o failure, hypertensive heart disease, hyperlipidemia, Stage IV breast cancer with bilateral pleural effusions post Pleurx tube bilaterally presented for progressive SOB, bilateral LE edema, light-headedness without chest pain, true syncope, orthopnea, PND. Bedside echo shows pleural effusions, no pericardial tamponade. CXR shows increased left effusion. - History Source History Provided By: Patient Limitations to Obtaining History: No Limitations - Past Medical History Cardio/Vascular: Yes: CAD, Hyperlipdemia Pulmonary: Yes: O2 Dependent - Past Surgical History Past Surgical History: Yes: Mastectomy - Alcohol/Substance Use Hx Alcohol Use: No - Smoking History Smoking history: Never smoked Have you smoked in the past 12 months: No - Social History Usual Living Arrangement: With Spouse Home Medications - Allergies Allergies/Adverse Reactions: Allergies Allergy/AdvReac Type Severity Reaction Status Date / Time No Known Allergies Allergy Verified 11/30/18 14:46 - Home Medications Home Medications: Ambulatory Orders Aspirin [ASA -] 81 mg PO HS 03/29/14 Folic Acid 400 mcg PO DAILY 03/29/14 Cholecalciferol (Vitamin D3) [Vitamin D3] 1,000 unit PO DAILY 10/04/18 Nitroglycerin Sublingual [Nitrostat -] 0.4 mg PO PRN PRN 10/04/18 Apixaban [Eliquis -] 2.5 mg PO BID #60 tablet 10/30/18 Metoprolol Succinate [Toprol XL -] 25 mg PO BID #60 tab.sr.24h 10/30/18 Miscellaneous Drug Not In Syst [Outpatient Lab Test] 1 each [place] [facility] [place]iscellaneous Drug Not In Syst [Outpatient Lab Test] 1 each [place] [facility] [place] Review of Systems - Review of Systems Cardiovascular: reports: Edema Respiratory: reports: SOB Vital Signs: Vital Signs Temperature 98.4 F 11/30/18 14:33 Pulse Rate 133 H 11/30/18 14:33 Respiratory Rate 18 11/30/18 14:33 Blood Pressure 94/67 11/30/18 14:33 O2 Sat by Pulse Oximetry (%) 96 11/30/18 14:47 Constitutional: Yes: No Distress, Calm Neck: Yes: Supple Respiratory: Yes: Regular, Diminished, On Nasal O2, SOB Gastrointestinal: Yes: Normal Bowel Sounds, Soft Cardiovascular: Yes: Regular Rate and Rhythm JVD: No Carotid Bruit: No Heart Sounds: Yes: S1, S2 Murmur: Yes: Systolic Murmur, Grade 1 Edema: Yes Edema: LLE: 3+, RLE: 3+ - Other Data Labs, Other Data: CBC, BMP 11/30/18 15:55 ST@127 low volts nonspec T wave changes Ejection Fraction %: LVEF > or = 40 % Imaging - Results Chest X-ray: Report Reviewed (Increased left effusion) Problem List - Problems (1) CAD (coronary artery disease) Code(s): I25.10 - ATHSCL HEART DISEASE OF [place] CORONARY ARTERY W/O ANG PCTRS Qualifiers: Coronary Disease-Associated Artery/Lesion type: [place] artery [place] vs. transplanted heart: [place] heart Associated angina: without angina Qualified Code(s): I25.10 - Atherosclerotic heart disease of [place] coronary artery without angina pectoris (2) Chest tube in place Code(s): Z96.89 - PRESENCE OF OTHER SPECIFIED FUNCTIONAL IMPLANTS (3) HTN (hypertension) Code(s): I10 - ESSENTIAL (PRIMARY) HYPERTENSION Qualifiers: Hypertension type: essential hypertension Qualified Code(s): I10 - Essential (primary) hypertension (4) History of percutaneous coronary intervention Code(s): Z98.61 - CORONARY ANGIOPLASTY STATUS (5) Hypercholesterolemia Code(s): E78.00 - PURE HYPERCHOLESTEROLEMIA, UNSPECIFIED (6) Large pleural effusion Code(s): J90 - PLEURAL EFFUSION, NOT ELSEWHERE CLASSIFIED (7) LUCRECIA (acute kidney injury) Code(s): N17.9 - ACUTE KIDNEY FAILURE, UNSPECIFIED (8) Difficulty breathing Code(s): R06.89 - OTHER ABNORMALITIES OF BREATHING Assessment/Plan 1. Dyspnea due to L>R effusions 2. H/o bilateral VATS with pleurX cath placement and biopsy for bilateral pleural effusions 3. Diastolic dysfunction 4. CAD post PCI/stent demand ischemia angina pectoris 5. Paroxysmal atrial tachycardia currently in sinus tachycardia 6. HTN 7. Hyperlipidemia 8. 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 Thrombophlebitis of right superficial cephalic vein 10. Acute on chronic kidney injury with Hypokalemia 11. Abnormal LFTs, possible hepatic congestion, resolving 12. Hypocalcemia PLAN: 1. Increase Pleurx drainage to remove left effusion, f/u chest CT, replete K, surgical path reportedly neg for malignancy 2. Continue Toprol XL 25 mg BID, Eliquis 2.5 mg BID 3. Resume Losartan once renal function improves to baseline 4. Wrap legs with DIAMANTE wraps and release at bedtime 5. Thank you for consultative opportunity
[2018-11-30 16:42] LABS: ALBUMIN 0.9 g/dl (3.4-5.0); ALK PHOS 414 U/L (45-117); ANION GAP 11 MMOL/L (8-16); BILIRUBIN,TOTAL 0.7 mg/dL (0.2-1); BLOOD UREA NITROGEN 44 mg/dL (7-18); CHLORIDE 94 mmol/L (98-107); CO2 24 mmol/L (21-32); CREATININE 2.1 mg/dL (0.55-1.3); GLUCOSE,RANDOM 142 mg/dL (74-106); PHOSPHOROUS 3.9 mg/dL (2.5-4.9); SGOT/AST 61 U/L (15-37); SGPT/ALT 34 U/L (13-61); SODIUM 129 mmol/L (136-145); TOT PROT 4.4 g/dl (6.4-8.2)
--- NOTE | 2018-11-30 16:45 | PDOC ---
History of Present Illness <Denita Martines - Last Filed: 11/30/18 19:01> - History of Present Illness Initial Comments: Blanca casillas is a 73yo woman with a PMH of stage 4 breast CA w/ bony mets, HTN, HLD, CAD s/p EVAN LAD (09/2003), diastolic CHF, b/l pleural effusions s/p Pleur-X catheters b/l, hypocalcemia, hypokalemia, thrombocytopenia who was sent to the ED by Dr Palacios. She is not entirely sure why, but she says that she went to see him in clinic this morning and he thought she might need IV medication. She thought it might be her heart medication but isn't sure. Ms Casillas states that she was in the hospital "for a month" and had significant loss of strength and severe LE edema when in the hospital, but she says that both of these have improved while she has been at rehab. She does feel more short of breath but says she thinks the Pleur-X catheters likely need to be drained. She has no other complaints at this time. <Lisa Barclay - Last Filed: 11/30/18 19:37> - General Chief Complaint: Shortness of Breath Stated Complaint: Shortness of Breath Time Seen by Provider: 11/30/18 15:11 Past History <Denita Martines - Last Filed: 11/30/18 19:01> - Past Medical History Cancer: Yes (BREAST CA to spine) Cardiac Disorders: Yes COPD: No - Surgical History Cardiac Surgery: Yes (STENT) - Suicide/Smoking/Psychosocial Hx Smoking History: Never smoked Have you smoked in the past 12 months: No Information on smoking cessation initiated: No Hx Alcohol Use: No Drug/Substance Use Hx: No Substance Use Type: None <Lisa Barclay - Last Filed: 11/30/18 19:37> - Past Medical History Allergies/Adverse Reactions: Allergies Allergy/AdvReac Type Severity Reaction Status Date / Time No Known Allergies Allergy Verified 11/30/18 14:46 Home Medications: Ambulatory Orders Aspirin [ASA -] 81 mg PO HS 03/29/14 Folic Acid 400 mcg PO DAILY 03/29/14 Cholecalciferol (Vitamin D3) [Vitamin D3] 1,000 unit PO DAILY 10/04/18 Nitroglycerin Sublingual [Nitrostat -] 0.4 mg PO PRN PRN 10/04/18 Apixaban [Eliquis -] 2.5 mg PO BID #60 tablet 10/30/18 Metoprolol Succinate [Toprol XL -] 25 mg PO BID #60 tab.sr.24h 10/30/18 Miscellaneous Drug Not In Syst [Outpatient Lab Test] [facility] Miscellaneous Drug Not In Syst [Outpatient Lab Test] [facility] Review of Systems - Review of Systems Comments:: General: No fevers, no chills, no weight or appetite change, no malaise HEENT: No changes in vision, no changes in hearing, no congestion, no sore throat CV: No chest pain, no palpitations, significant LE edema Pulm: +worsening SOB GI: No nausea or vomiting, no change in bowel habits, no melena : No frequency, no urgency, no dysuria Musc: +generalized weakness, Skin: Weeping skin in legs Endo: No excessive thirst, no heat/cold intolerance Heme: No unusual bruising or bleeding, no swollen glands Neuro: No syncope, no numbness/tingling, no focal weakness Vasc: No claudication Psych: No recent change in mood, no SI or HI <Lisa Barclay - Last Filed: 11/30/18 19:37> *Physical Exam - Vital Signs Last Vital Signs Temp Pulse Resp BP Pulse Ox 98.4 F 133 H 18 94/67 96 11/30/18 14:33 11/30/18 14:33 11/30/18 14:33 11/30/18 14:33 11/30/18 14:47 <Denita Martines - Last Filed: 11/30/18 19:01> - Vital Signs Last Vital Signs Temp Pulse Resp BP Pulse Ox 98.4 F 133 H 18 94/67 96 11/30/18 14:33 11/30/18 14:33 11/30/18 14:33 11/30/18 14:33 11/30/18 14:33 - Physical Exam Comments: General: Comfortable, no acute distress HEENT: PERRL, EOMI, MMM, voice normal Cards: Tachycardic, irregular. Pitting edema to waist Pulm: Comfortable on room air. No wheezing. Pleur-X catheters w/ clean bandages in place Abd: Soft, nontender, nondistended Ext: Atraumatic. 4+ BLE pitting edema w/ weeping skin. ROM intact. 4/5 strength in BLE Vasc: Extremities WWP. Pedal pulses not palpable due to edema Neuro: A&Ox3, CN grossly intact, normal speech, motor/sensory grossly intact and symmetric Psych: Mood appropriate to situation <Lisa Barclay - Last Filed: 11/30/18 19:37> Moderate Sedation - Procedure Monitoring Vital Signs: Procedure Monitoring Vital Signs Temperature 98.4 F 11/30/18 14:33 Pulse Rate 133 H 11/30/18 14:33 Respiratory Rate 18 11/30/18 14:33 Blood Pressure 94/67 11/30/18 14:33 O2 Sat by Pulse Oximetry (%) 96 11/30/18 14:47 <Denita Martines - Last Filed: 11/30/18 19:01> - Procedure Monitoring Vital Signs: Procedure Monitoring Vital Signs Temperature 98.4 F 11/30/18 14:33 Pulse Rate 133 H 11/30/18 14:33 Respiratory Rate 18 11/30/18 14:33 Blood Pressure 94/67 11/30/18 14:33 O2 Sat by Pulse Oximetry (%) 96 11/30/18 14:33 <Lisa Barclay - Last Filed: 11/30/18 19:37> ED Treatment Course - LABORATORY CBC & Chemistry Diagram: 11/30/18 15:55 11/30/18 15:55 - ADDITIONAL ORDERS Additional order review: Laboratory Results 11/30/18 11/30/18 11/30/18 15:55 15:55 15:55 Sodium 129 L Potassium 2.7 L* Chloride 94 L Carbon Dioxide 24 Anion Gap 11 BUN 44 H Creatinine 2.1 H Creat Clearance w eGFR 23.15 Random Glucose 142 H Calcium 6.8 L* Phosphorus 3.9 Magnesium 2.0 Total Bilirubin 0.7 AST 61 H ALT 34 Alkaline Phosphatase 414 H Creatine Kinase 59 Troponin I 0.04 B-Natriuretic Peptide 3087.2 H Total Protein 4.4 L Albumin 0.9 L TSH 1.64 11/30/18 15:55 RBC 2.98 L MCV 100.9 H MCHC 34.7 RDW 16.0 H MPV 7.3 L Neutrophils % 85.8 H D Lymphocytes % 7.3 L D Monocytes % 6.1 Eosinophils % 0.3 D Basophils % 0.5 - Medications Given in the ED: ED Medications Discontinued Medications Generic Name Dose Route Start Last Admin Trade Name Aquilino PRN Reason Stop Dose Admin Acetaminophen 1,000 mg 11/30/18 17:12 11/30/18 18:43 Ofirmev Injection - IVPB 11/30/18 17:13 1,000 mg ONCE ONE Administration Calcium Chloride 1 gm 11/30/18 17:17 11/30/18 18:43 Calcium Chloride 10% - IVPUSH 11/30/18 17:18 1 gm ONCE ONE Administration Piperacillin Sod/Tazobactam 100 mls @ 200 mls/hr 11/30/18 17:09 11/30/18 18: 43 Sod 4.5 gm/ Dextrose IVPB 11/30/18 17:38 200 mls/hr ONCE ONE Administration Protocol Potassium Chloride 40 meq 11/30/18 17:03 11/30/18 18:43 K-Dur - PO 11/30/18 17:04 Not Given ONCE ONE <Denita Martines - Last Filed: 11/30/18 19:01> - LABORATORY CBC & Chemistry Diagram: 11/30/18 15:55 11/30/18 15:55 - RADIOLOGY Radiology Studies Ordered: Category Date Time Status CHEST X-RAY PORTABLE* [RAD] Stat Radiology 11/30/18 15:21 Ordered <Lisa Barclay - Last Filed: 11/30/18 19:37> Medical Decision Making - Medical Decision Making 11/30/18 15:25 Blanca casillas is a 73yo woman with a PMH of stage 4 breast CA w/ bony mets, HTN, HLD, CAD s/p EVAN LAD (09/2003), diastolic CHF, b/l pleural effusions s/p Pleur-X catheters b/l, hypocalcemia, hypokalemia, thrombocytopenia who was sent to the ED by Dr Palacios due to worsening BLE edema, now to the waist, along with worsening SOB. Ms Casillas has b/l pleur-x catheters in place for drainage of pulmonary effusion. - Spoke to Dr Evans, forest economist for Dr Palacios. Pt apparently also had a recent xray at [facility] indicating worsenign pulmonary edema - CBC, CMP, mag, phos, trop, EKG, CXR, BNP, UA for evaluation - Will give IV lasix when labs resulted. 11/30/18 17:20 - CBC notable for leukocytosis to 17 - concern for sepsis given tachycardia up to 130's (varies 2/2 arrhythmia). Sepsis workup initiated including blood cultures, lactate, vanc/zosyn given emp - Chemistry signficantl for sodium 129, potassium 2.7, Cr 2.1, Ca 6.8. Repleting Ca and K - BNP 3087. Was in 7000's in September - Will need to replete electrolytes prior to diuresis 11/30/18 18:27 - Bedside US completed with Dr Martines and Dr Evans. No tamponade, no pericardial effusion. Significant pulmonary effusions - Per recommendation of Dr Evans, wrapped lebs w/ DIAMANTE wraps to upper thighs 11/30/18 19:20 - Pending CT - Pt signed out to Dr Britton for remainder of ED care - Microblog sent to hospitalist team for admission 11/30/18 19:37 - Admission discussed with Dr Cotton - Requesting pleural fluid cultures. Will be completed by overnight team in ED. Discussed with Dr Martines. Lisa Barclay PGY1 <Lisa Barclay - Last Filed: 11/30/18 19:37> *DC/Admit/Observation/Transfer - Discharge Dispostion Decision to Admit order: Yes <Denita Martines - Last Filed: 11/30/18 19:01> - Discharge Dispostion Decision to Admit order: Yes <Lisa Barclay - Last Filed: 11/30/18 19:37> Diagnosis at time of Disposition: Hypokalemia, CHF exacerbation, Tachycardia, Large pleural effusion, Hypocalcemia, LUCRECIA (acute kidney injury) - Discharge Dispostion Condition at time of disposition: Guarded - Referrals Referrals: Car Asher MD [Primary Care Provider] - - Patient Instructions - Post Discharge Activity
[2018-11-30 16:54] LABS: CALCIUM 6.8 mg/dL (8.5-10.1); POTASSIUM 2.7 mmol/L (3.5-5.1)
[2018-11-30] MEDS ORDERED: POTASSIUM CHLORIDE TABS 20 MEQ TABLET.ER (FP) PO ONE ×2 (17:03→18:14)
[2018-11-30] MEDS ORDERED: VANCOMYCIN 1,250 MG in DEXTROSE 5%-WATER - 250 ML IVPB ONE (17:09)
[2018-11-30] MEDS ORDERED: PIPERACILLIN/TAZOB 4.5 GM 4.5 GM in DEXTROSE 5%-WATER 100 ML IVPB ONE (17:09)
[2018-11-30] MEDS ORDERED: ACETAMINOPHEN 1000 MG/100 ML VIAL (NON FORMULARY) IVPB ONE (17:12)
[2018-11-30] MEDS ORDERED: CALCIUM CHLORIDE 10% 1 GM/10 ML *VIAL IVPUSH ONE (17:17)
--- NOTE | 2018-11-30 17:26 | PDOC ---
Attending Attestation - Resident Resident Name: Lisa Barclay - ED Attending Attestation I have performed the following: I have examined & evaluated the patient, The case was reviewed & discussed with the resident, I agree w/resident's findings & plan - HPI HPI: 11/30/18 17:25 The patient is 73 year old female with a significant past medical history of stage 4 breast CA w/ mets, hypertension, hyperlipidemia, CAD s/p EVAN LAD 2003, diastolic dysfunction, CHF, pleural effusions ( large left pleural and moderate right effusion s/p thoracentesis with bilateral chest tubes in place from [facility] Transaminitis, hypocalcemia/hypokalemia, thrombocytopenia and superficial thrombosis (right upper extremity) previously on eliquis who presents to the ER with generalized weakness, shortness of breath and worsening lower extremity swelling. On chemo for breast ca, last dose 1 month ago, and held off due to her recent illnesses. Allergies: NKDA Social history: Lives with family. No smoking. No alcohol. No illicit drugs. Surgical history: STENT PMD: Lb [employer] Inserter: Dr Dunaway - Physicial Exam PE: 11/30/18 17:25 Agree with the resident's HPI and PE as documented in the electronic medical record. NAD, malaised appearing, PERRL, EOMI, MMM, nl conjunctiva, anicteric; neck supple. rt anterior chest wall port, bilateral chest tubes clamped in place. lungs diminished breath sounds bilaterally at the bases, +tachy, abdomen soft nontender. HERRERA x4, no focal neuro deficits. 4+ peripheral edema up to abdomen, + anasarca. normal color for ethnicity, very warm to touch. 12/01/18 18:58 - Medical Decision Making 11/30/18 17:29 I, Denita Martines MD, attest that this document has been prepared under my direction and personally reviewed by me in its entirety. I further attest, that it accurately reflects all work, treatment, procedures and medical decision -making performed by me. See HPI for details DDX. DDx SOB: ACS, PE, PTX, CHF, COPD exac, pulmonary edema, pleurisy, pericardial effusion/tamponade. worsening pleural effusion, pneumonia, viral syndrome. effusion. anemia, electrolyte/metabolic derangements. sepsis. Vital signs reviewed, +tachycardic and mildly tachypneic, no hypoxia, comfortable on 2LNC Prior notes reviewed, including admissions, discharges and consultations. laboratory results and imaging reviewed, basic labs and lytes notable for: -hyponatremia likely fluid overload. -renal insufficiency at baseline noted, - hold diuresis for now due to electrolyte derangements. +low K and Ca; potassium repletions and IV calcium. - leukocytosis noted 17K, tachycardia present but no fever. defer rectal testing due to cancer and chemo history. could be sepsis, sent off for blood cultures central and peripherally. CXR_left pleural effusion. CT chest ordered for management and eval further of pleural effusions. Cardiac panel_neg trop; bnp elevated as expected with known heart failure, trend. EKG sinus tachycardia with visualized P waves, irregular c/w PACs, low voltage, no interval abnormalities, narrow QRS, ST and T wave segments and morphology normal. Nonspecific T wave abnormalities ED course - pocus echo with depressed EF visually, no pericardial effusion or tamponade, limited views due to large b/l pleural effusions. - no e/o PE/tamponade. - hold diuresis 2/2 electrolyte derangements no fluids either - IV calcium repletions and potassium - cards cs with Dr Evans, in agreement with plan, as outlined with recs. dispo: admit tele for CHF exacerbation, fluid overload and pleural effusions, ? infection with recent procedures/interventions, will need gentle diuresis once electrolyte stabilized and continued tele/monitoring. admit to hospitalist service. 11/30/18 19:01 12/01/18 18:59 <Denita Martines - Last Filed: 12/01/18 19:00> Heart Score/ECG Review #1 ECG reviewed & interpreted by me at: 16:25 Compared to previous ECG there are: Changes noted 11/30/18 17:32 EKG sinus tachycardia at 127 bpm with visualized P waves, irregular c/w PACs, low voltage, no interval abnormalities, narrow QRS, ST and T wave segments and morphology normal. Nonspecific T wave abnormalities <Denita Martines - Last Filed: 12/01/18 19:00> Attestations - Attestations 11/30/18 17:42 Documentation prepared by Aliyah Lincoln, acting as nuclear medicine medical director for Denita Martines MD, MD <Aliyah Lincoln - Last Filed: 11/30/18 17:42> Procedures - Bedside Ultrasound Bedside Ultrasound: Cardiac Remarks: 11/30/18 17:46 POCUS echo and thoracic exam performed and documented/saved, indication includes chest pain/dyspnea. views obtained (PSLA, PSS, A4, SX, bilateral lung jackson). Findings include depressed EF on visual estimation, no pericardial effusion or tamponade, RV<LV; bilateral large pleural effusions. Impression: large bilateral pleural effusions. <Denita Martines - Last Filed: 12/01/18 19:00>
[2018-11-30] MEDS ORDERED: KCL 10 MEQ IVPB 10 MEQ/100 ML INFUS.BAG IVPB ONE ×2 (18:14→20:37)
[2018-11-30] MEDS ORDERED: ACETAMINOPHEN INJECTION 100 ML IVPB ONE (18:14)
[2018-11-30] MEDS ORDERED: CALCIUM GLUCONATE 10% - 1,000 MG/10 ML VIAL ONE (18:14)
[2018-11-30] MEDS ORDERED: PIPERACILLIN/TAZOB 4.5 GM 4.5 GM/100 ML BAG IVPB ONE (18:14)
[2018-11-30] MEDS: KCL 10 MEQ IVPB 10 MEQ/100 ML INFUS.BAG IVPB SCH ×3 (18:43→20:41)
--- NOTE | 2018-11-30 19:34 | PN ---
Teaching Attending Note Name of Resident: Galen Pineda ATTENDING PHYSICIAN STATEMENT I saw and evaluated the patient. I reviewed the resident's note and discussed the case with the resident. I agree with the resident's findings and plan as documented. SUBJECTIVE: Seen and examined; please see resident note for further historical discussion. 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 She is found to be tachycardic but with acceptable MAP. Dr. Evans called by ER; reviewed bedside echo and no tamponade, etc. Increased size of effusion (left sided) noted on CXR (L>R with R-side actually smaller than last study); electrolyte derrangements and profound hypoalbuminemia noted. CV recommended increasing pleurx drainage to remove the increased left-sided effusion, continuation of toprol XL 25 BID and eliquis 2.5 BID, resuming ARB when renal function improves , and daily DIAMANTE wraps to legs with release at bedtime. I spoke with ER and they will try to access the catheters to increase dranage. Finally, CT chest agrees with the increased L-sided effusion with interval development of ascites with prominent subQ edema noted alongside osteoblastic metastatic disease. There is a new hypodense liver lesion that may represent mets. Spoke to the patient at length as well as her daughter (who she is making HCP; used to be but he is having a hard time). She would like to discuss end of life care with the palliative team tomorrow. 10 sys ROS done and negative aside from HPI PMH (CAD s/p EVAN LAD remote, Diastolic Dysfunction, HTN, HLD, Stage IV BrCa with mets to the bone and b/l effusions s/p pleurx tube placement with hx VATS, paroxysmal atrial tachycardia, CKD, hypoalbuminemia), PSH, Family Hx, Social Hx reviewed Medication list reviewed; pending reconciliation Home Medications Medication Instructions Recorded Aspirin [ASA -] 81 mg PO HS 03/29/14 Folic Acid 400 mcg PO DAILY 03/29/14 Cholecalciferol (Vitamin D3) 1,000 unit PO DAILY 10/04/18 [Vitamin D3] Nitroglycerin Sublingual 0.4 mg PO PRN PRN 10/04/18 [Nitrostat -] Apixaban [Eliquis -] 2.5 mg PO BID #60 tablet 10/30/18 Metoprolol Succinate [Toprol XL -] 25 mg PO BID #60 tab.sr.24h 10/30/18 Miscellaneous Drug Not In Syst 1 each ASDIR #1 misc 10/31/18 [Outpatient Lab Test] Miscellaneous Drug Not In Syst 1 each [facility] #1 [facility] 10/31/18 [Outpatient Lab Test] OBJECTIVE: VS, labs, imaging reviewed NAD, AAO, resting comfortably in bed NC AT EOMI PERRLA RRR s1/2 no mgr; transient tachycardia observed prior Lungs with diminished breath sounds b/l, w/ sym exp. Pleurex in place NT ND +BS Legs wrapped, Anasarca observed, skin without breakdown or rashes CN2-12 wnl, no fnd RUE swollen 2/2 thrombus Normal mood, appropriate behavior CT reviewed; discussed in HPI EKG reviewed Labs show leukocytosis (has been this high in recent past 10/2018), as well as macrocytic anemia with Hb slightly above baseline at 10 (baseline ~9). She is severely hypokalemic at 2.7 and hyponatremic to 129. Cr is 2.1 (above baseline 1.5). BNP elevated to 3k range but was up to 7k 09/2018. Lactate and troponin negative. Alk phos largely elevated at 414 which is consistent with prior values from mid-10/2018 Echo 09/2018: LVEF 50-55% with normal RV ASSESSMENT AND PLAN: Patient presents with worsening SOB, edema, and is noted to have increasing L- sided effusion and to be profoundly hypoalbuminemic. Cardiology saw and recommended increasing pleurex drainage. 1) Increased L-sided pleural effusion -Has b/l pleurX tubes in. She recently had R and L-VATS with pleural biopsy during her last admission. CT results reviewed. Effusion was exudative on last admission which argues against CHF. -Increasing the drainage out of the L-pleurex (asked ER to access) per CV recs; appreciate expert opinion. If this is an issue with access, etc. can consult his CT surgeon. -Culture the L-sided effusion; no pneumonia seen on CT official report -Incentive spirometry 2) LUCRECIA on CKD -Monitoring; got volume with the vancomycin but note that this could precipitate renal injury. She is anasarcic with low albumin. Calculating FeNa and check renal US. Consulting Dr. Rascon. -Hold ARB and avoid further nephrotoxins 3) Anasarca with ascites with New Hypodense liver lesion and elevated Alk phos -Obtaining RUQ US; liver lesion noted on CT. She hasn't seen GI here before and per the family they had no prior knowledge of the liver mass. Alkaline phosphatase had been trending up during the latter half of her 10/2018 admission. Will consult GI, check GGT. Deferring further imaging studies to their service. 4) Leukocytosis -Empiric antibiotics given in the ER. CT without pneumonia, no GI sx, UA pending. Followup blood and urine cultures; send off pleural fluid as well. Could be reactive. Will trend CBC. She is afebrile. Has only grown out contaminants from urine here in the past so ceftriaxone would be reasonable for a urinary source; no past blood cx data. 5) Diastolic CHF -Anasarcic but with LUCRECIA and borderline pressures; Dr. Evans saw in ER. Will defer further diuresis, etc. to CV service. Hold ARB until renal function returns. 6) Borderline hypotension -Slightly lower than last time; very low albumin and metastatic cancer. If she is hypotensive can try small bolus. Covered empirically and investigating the source of underlying infection. 7) Profound hypoalbuminemia -Likely 2/2 malignancy and surrounding issues; check prealbumin, consult nutrition 8) Paroxysmal tachycardia -Continue BB, HR improved in ER, monitor on telemetry 9) Superficial Cephalic V. Thrombus -On eliquis; continue and followup as OP 10) Stage IV Breast CA with osteoblastic mets and likely new liver met -Consulting palliative care -Can phone her oncologist to update 11) HypoK -Replete; followup repeat BMP and monitor tele 12) HypoCa -Noted low albumin; will check ionized 13) HypoNa -Check urine and serum osm, urine na. Volume status noted. FENA -Holding off on further fluids; if hypotensive can give a small bolus but will ultimately defer to CV/Nephro -PRN replete; optimize Mg and K -Low salt -As tolerated Consultants: Cardiology, Nephrology, Palliative Care, Gastroenterology DNR/I-confirmed with daughter who is new HCP. All paperwork to be completed by patient and filed in chart and signed within 24 hours.
[2018-11-30 20:25] LABS: EPI CELLS 8.9 /HPF (0-5); URINE APPEARANCE CLOUDY; URINE BACTERIA 144.108 /hpf (NEGATIVE); URINE BILIRUBIN NEGATIVE (<2.0 mg/dL); URINE COLOR YELLOW; URINE GLUCOSE (UA) NEGATIVE (NEGATIVE); URINE KETONE NEGATIVE (NEGATIVE); URINE LEUK ESTERASE 2+ (NEGATIVE); URINE NITRITE NEGATIVE (NEGATIVE); URINE PROTEIN NEGATIVE (NEGATIVE); URINE RBC 4 /hpf (0-4); URINE WBC 53 /hpf (0-5)
[2018-11-30 21:05] LABS: HYALINE CASTS 19.95 /hpf (0-8)
[2018-11-30 21:06] LABS: YEAST MOD (NEGATIVE)
--- NOTE | 2018-11-30 21:45 | HP ---
<Galen Pineda - Last Filed: 12/01/18 03:29> CHIEF COMPLAINT: SOB, LE edema PCP: HISTORY OF PRESENT ILLNESS: The patient is a 73 yo f w/ PMH of stage 4 breast CA w/ bony mets, HTN, HLD, CAD s/p EVAN LAD (09/2003), diastolic CHF, b/l pleural effusions s/p Pleur-X catheters b/l, hypocalcemia, hypokalemia, thrombocytopenia who was sent to the ED by her safety and health manager, Dr Fritz. The patient endorses b/l LE edema and progressive SOB since her last hospitalization. The SOB is exertional per the patient and the LE edema is improved, but no back to baseline. Dr. Evans was consulted by the ER team. He reviewed the patient's bedside echo and CXR. He noted no evidence of tamponade or RV strain; CXR showed increased effusion size L>R. Dr. Evans recommended toprol xl 25 BID, eliqis 2.5 BID, increasing pleur-x drainage and daily DIAMANTE wraps for the patient' s LE. labs showed K+ 2.1, albumin .9, creatinine 2.1 and sodium 129. Upon interview, the patient states that her breathing is slightly improved since coming into the ED Recent Travel: none PAST MEDICAL HISTORY: see HPI PAST SURGICAL HISTORY: se HPI Social History: Smoking: denies Alcohol: denies Drugs: denies Family History: non-contributory Allergies No Known Allergies Allergy (Verified 11/30/18 14:46) HOME MEDICATIONS: Home Medications Medication Instructions Recorded Aspirin [ASA -] 81 mg PO HS 03/29/14 Folic Acid 400 mcg PO DAILY 03/29/14 Cholecalciferol (Vitamin D3) 1,000 unit PO DAILY 10/04/18 [Vitamin D3] Nitroglycerin Sublingual 0.4 mg PO PRN PRN 10/04/18 [Nitrostat -] Apixaban [Eliquis -] 2.5 mg PO BID #60 tablet 10/30/18 Metoprolol Succinate [Toprol XL -] 25 mg PO BID #60 tab.sr.24h 10/30/18 Miscellaneous Drug Not In Syst 1 each ASDIR #1 misc 10/31/18 [Outpatient Lab Test] Miscellaneous Drug Not In Syst 1 each ASDIR #1 misc 10/31/18 [Outpatient Lab Test] REVIEW OF SYSTEMS CONSTITUTIONAL: Absent: fever, chills, diaphoresis, generalized weakness, malaise, loss of appetite, weight change HEENT: Absent: rhinorrhea, nasal congestion, throat pain, throat swelling, difficulty swallowing, mouth swelling, ear pain, eye pain, visual changes CARDIOVASCULAR: Absent: chest pain, syncope, palpitations, irregular heart rate, lightheadedness RESPIRATORY: Absent: cough, orthopnea, wheezing, stridor, hemoptysis GASTROINTESTINAL: Absent: abdominal pain, abdominal distension, nausea, vomiting, diarrhea, constipation, melena, hematochezia GENITOURINARY: Absent: dysuria, frequency, urgency, hesitancy, hematuria, flank pain, genital pain MUSCULOSKELETAL: Absent: myalgia, arthralgia, joint swelling, back pain, neck pain SKIN: Absent: rash, itching, pallor HEMATOLOGIC/IMMUNOLOGIC: Absent: easy bleeding, easy bruising, lymphadenopathy, frequent infections ENDOCRINE: Absent: unexplained weight gain, unexplained weight loss, heat intolerance, cold intolerance NEUROLOGIC: Absent: headache, focal weakness or paresthesias, dizziness, unsteady gait, seizure, mental status changes, bladder or bowel incontinence PSYCHIATRIC: Absent: anxiety, depression, suicidal or homicidal ideation, hallucinations. PHYSICAL EXAMINATION Vital Signs - 24 hr 11/30/18 11/30/18 11/30/18 14:33 14:47 21:09 Temperature 98.4 F Pulse Rate 133 H Pulse Rate [ 107 H Left] Respiratory 18 16 Rate Blood Pressure 94/67 Blood Pressure 82/54 L [Left] O2 Sat by Pulse 96 96 91 L Oximetry (%) GENERAL: Awake, alert, and fully oriented, in no acute distress. HEAD: Normal with no signs of trauma. NECK: Normal range of motion, supple without lymphadenopathy, JVD, or masses. LUNGS: Breath sounds equal, clear to auscultation bilaterally. decreased breath sounds at the bases. HEART: Regular rate and rhythm, normal S1 and S2 without murmur, rub or gallop. ABDOMEN: Soft, nontender, not distended, normoactive bowel sounds, no guarding, no rebound, no masses. No hepatomegaly or splenomegaly. LOWER EXTREMITIES: 2+ pulses, warm, well-perfused. No calf tenderness. 2+ peripheral edema. LE wrapped in diamante bandages NEUROLOGICAL: Cranial nerves II-X intact. Normal speech. PSYCHIATRIC: Cooperative. Good eye contact. Appropriate mood and affect. SKIN: Warm, dry, normal turgor, no rashes or lesions noted, normal capillary refill. Laboratory Results - last 24 hr 11/30/18 11/30/18 11/30/18 15:55 15:55 15:55 WBC 17.2 H RBC 2.98 L Hgb 10.4 L Hct 30.1 L MCV 100.9 H MCH 35.0 H MCHC 34.7 RDW 16.0 H Plt Count 219 MPV 7.3 L Absolute Neuts (auto) 14.7 H Neutrophils % 85.8 H D Lymphocytes % 7.3 L D Monocytes % 6.1 Eosinophils % 0.3 D Basophils % 0.5 Nucleated RBC % 0 Sodium 129 L Potassium 2.7 L* Chloride 94 L Carbon Dioxide 24 Anion Gap 11 BUN 44 H Creatinine 2.1 H Creat Clearance w eGFR 23.15 Random Glucose 142 H Lactic Acid Calcium 6.8 L* Phosphorus 3.9 Magnesium 2.0 Total Bilirubin 0.7 AST 61 H ALT 34 Alkaline Phosphatase 414 H Creatine Kinase 59 Troponin I 0.04 B-Natriuretic Peptide 3087.2 H Total Protein 4.4 L Albumin 0.9 L TSH Urine Color Urine Appearance Urine pH Ur Specific [place] Urine Protein Urine Glucose (UA) Urine Ketones Urine Blood Urine Nitrite Urine Bilirubin Urine Urobilinogen Ur Leukocyte Esterase Urine WBC (Auto) Urine RBC (Auto) Urine Casts (Auto) U Pathogenic Cast Auto U Epithel Cells (Auto) Urine Bacteria (Auto) Urine Yeast (Auto) 11/30/18 11/30/18 11/30/18 15:55 18:26 20:06 WBC RBC Hgb Hct MCV MCH MCHC RDW Plt Count MPV Absolute Neuts (auto) Neutrophils % Lymphocytes % Monocytes % Eosinophils % Basophils % Nucleated RBC % Sodium Potassium Chloride Carbon Dioxide Anion Gap BUN Creatinine Creat Clearance w eGFR Random Glucose Lactic Acid 1.7 Calcium Phosphorus Magnesium Total Bilirubin AST ALT Alkaline Phosphatase Creatine Kinase Troponin I B-Natriuretic Peptide Total Protein Albumin TSH 1.64 Urine Color Yellow Urine Appearance Cloudy Urine pH 5.0 Ur Specific [place] 1.018 Urine Protein Negative Urine Glucose (UA) Negative Urine Ketones Negative Urine Blood Negative Urine Nitrite Negative Urine Bilirubin Negative Urine Urobilinogen 1.0 Ur Leukocyte Esterase 2+ Urine WBC (Auto) 53 Urine RBC (Auto) 4 Urine Casts (Auto) 19.95 U Pathogenic Cast Auto None seen U Epithel Cells (Auto) 8.9 Urine Bacteria (Auto) 144.108 Urine Yeast (Auto) Mod ASSESSMENT/PLAN: The patient is a 73 yo f w/ PMH of stage 4 breast CA w/ bony mets, HTN, HLD, CAD , dCHF, b/l pleural effusions s/p Pleur-X catheters b/l who was sent to the ED by her safety and health manager, Dr Fritz. #SOB likely 2/2 worsening pleural effusions -increase LT Plur-X drainage rate to help clear effusions as per cardio -send pleural fluid for culture r/o infected effusions -will consult Dr. Fletcher, the CT surgeon who placed the Plur-X -incentive spirometry #LUCRECIA on CKD -cr 2.0, approx. baseline 1.3 -used volume from vancomycin to resus the patient -will monitor closely -renal US -neprho consult: Dr. Rascon -avoid nephrotoxic meds #New hypodense liver lesion -RUQ US -GGT -consider GI consult in AM -possible cause of low albumin lvl and anasarca #Leukocytosis -empiric vanc zosyn given in ER -UA indicative of UTI -based off previous cultures, Ceftriaxone should be effective. Will give 1g daily -trend CBC -afebrile #hypoalbuminemia -likely 2/2 malignancy and liver disease -check prealbumin -nutrition consult #Tachycardia -continue beta blockade -tachy in ED #hypokalemia/ hyponatremia -2.7 s/p 3 k riders. rpt 3.1. -will give additional 40eq KCL PO -recheck in AM #Stage 4 breast Ca -can contact patient's oncologist to update and to aquire details regarding patient's chemo tx -palliative care #FEN -no fluids currently; can give small bolus if hypotensive -monitor lytes as above -renal diet #prophy -on eliquis 2.5 BID #Dispo -admit telemetry -DNR/DNI -patient's daughter new HCP Visit type - Emergency Visit Emergency Visit: Yes ED Registration Date: 11/30/18 Care time: The patient presented to the Emergency Department on the above date and was hospitalized for further evaluation of their emergent condition. - New Patient This patient is new to me today: Yes Date on this admission: 12/01/18 - Critical Care Critical Care patient: No <Kyle Cotton - Last Filed: 12/31/18 21:57> Seen and examined; agree with above aside from what is supplemented in my own documentation. Repeated all rm parts of exam, supervised all vital parts of patient care.
[2018-11-30] MEDS: metoPROLOL SUCCINATE 25 MG TAB.SR.24H (FP) PO SCH (22:02)
[2018-11-30] MEDS ORDERED: ASPIRIN 81 MG CHEWABLE TABLETS ONE (22:15)
[2018-11-30] MEDS ORDERED: APIXABAN 5 MG TABLET PO ONE (22:15)
[2018-11-30] MEDS: APIXABAN 2.5 MG TABLET PO SCH (22:24)
[2018-11-30] MEDS: ASPIRIN 81 MG CHEWABLE TABLETS PO SCH (22:24)
[2018-12-01 00:25] LABS: HEMATOCRIT 28.3 % (32.4-45.2); HEMOGLOBIN 9.7 GM/dL (10.7-15.3); MCH 34.8 pg (25.7-33.7); MCHC 34.3 g/dl (32.0-36.0); MEAN CELL VOLUME 101.4 fl (80-96); MEAN PLT VOLUME 7.2 fl (7.5-11.1); PLATELET COUNT 187 K/MM3 (134-434); RBC 2.79 M/mm3 (3.60-5.2); RDW 16.1 % (11.6-15.6); WHITE BLOOD COUNT 15.7 K/mm3 (4.0-10.0)
[2018-12-01] MEDS ORDERED: SODIUM CHLORIDE 500 ML IV STA (00:37)
[2018-12-01 01:11] LABS: ALBUMIN 0.7 g/dl (3.4-5.0); ALK PHOS 443 U/L (45-117); ANION GAP 9 MMOL/L (8-16); BILIRUBIN,TOTAL 0.8 mg/dL (0.2-1); BLOOD UREA NITROGEN 42 mg/dL (7-18); CHLORIDE 94 mmol/L (98-107); CO2 25 mmol/L (21-32); GLUCOSE,RANDOM 177 mg/dL (74-106); MAGNESIUM 1.9 mg/dL (1.8-2.4); PHOSPHOROUS 3.9 mg/dL (2.5-4.9); POTASSIUM 3.1 mmol/L (3.5-5.1); SGOT/AST 90 U/L (15-37); SGPT/ALT 38 U/L (13-61); SODIUM 128 mmol/L (136-145); TOT PROT 3.5 g/dl (6.4-8.2)
[2018-12-01 01:17] LABS: CALCIUM 6.6 mg/dL (8.5-10.1)
[2018-12-01] MEDS ORDERED: POTASSIUM CHLORIDE TABS 20 MEQ TABLET.ER (FP) PO ONE ×2 (01:21→06:15)
[2018-12-01] MEDS ORDERED: POTASSIUM CHLORIDE TABS 10 MEQ TABLET.ER (FP) PO ONE ×2 (06:45→16:31)
[2018-12-01 07:33] LABS: BASO % 0.2 % (0-2.0); EOS % 1.5 % (0-4.5); HEMATOCRIT 26.2 % (32.4-45.2); HEMOGLOBIN 9.1 GM/dL (10.7-15.3); LYMPH % 10.2 % (8-40); MCH 34.6 pg (25.7-33.7); MCHC 34.6 g/dl (32.0-36.0); MEAN CELL VOLUME 100.1 fl (80-96); MEAN PLT VOLUME 7.2 fl (7.5-11.1); MONO % 6.8 % (3.8-10.2); NEUT % 81.3 % (42.8-82.8); PLATELET COUNT 182 K/MM3 (134-434); RBC 2.62 M/mm3 (3.60-5.2); RDW 15.8 % (11.6-15.6); WHITE BLOOD COUNT 12.9 K/mm3 (4.0-10.0)
[2018-12-01 07:46] LABS: INR 1.99 (0.83-1.09); PROTHROMBIN TIME (PATIENT) 23.7 SEC (9.7-13.0)
[2018-12-01 07:48] LABS: ALBUMIN 0.8 g/dl (3.4-5.0); ALK PHOS 457 U/L (45-117); ANION GAP 10 MMOL/L (8-16); BILIRUBIN,TOTAL 0.7 mg/dL (0.2-1); BLOOD UREA NITROGEN 42 mg/dL (7-18); CHLORIDE 95 mmol/L (98-107); CO2 26 mmol/L (21-32); GLUCOSE,RANDOM 90 mg/dL (74-106); MAGNESIUM 1.6 mg/dL (1.8-2.4); PHOSPHOROUS 3.7 mg/dL (2.5-4.9); SGOT/AST 85 U/L (15-37); SGPT/ALT 40 U/L (13-61); SODIUM 131 mmol/L (136-145); TOT PROT 3.5 g/dl (6.4-8.2)
[2018-12-01 08:06] LABS: CALCIUM 6.5 mg/dL (8.5-10.1); POTASSIUM 2.8 mmol/L (3.5-5.1)
[2018-12-01 08:44] LABS: OSMOLALITY,SERUM 274 mosm/kg (278-305)
[2018-12-01] MEDS ORDERED: ACETAMINOPHEN 325 MG TABLET (FP) ONE (09:27)
[2018-12-01] MEDS ORDERED: cefTRIAXone SODIUM 1 GM VIAL ONE (10:05)
[2018-12-01] MEDS ORDERED: DEXTROSE 5%-WATER - 50 ML IVPB ONE (10:05)
[2018-12-01] MEDS: metoPROLOL SUCCINATE 25 MG TAB.SR.24H (FP) PO SCH ×2 (10:40→23:16)
[2018-12-01] MEDS: APIXABAN 2.5 MG TABLET PO SCH ×2 (10:40→23:16)
[2018-12-01] MEDS: CEFTRIAXONE 1 GM in DEXTROSE 5%-WATER - 50 ML IVPB SCH (10:40)
--- NOTE | 2018-12-01 11:05 | CON.GI ---
Consult Consult Specialty:: Gastroenterology ( covering Dr Mckeon) Referred by:: Dr. Kyle Cotton Reason for Consultation:: Liver lesion - History of Present Illness Chief Complaint: Swollen legs History of Present Illness: 73F is admitted for management of CHF and found to have a new left liver lobe lesion by chest CT. She is being treated for recurrent breast cancer by her oncologist at [facility]. She had bilateral mastectomies and flap reconstruction 9 years ago at [facility]. She had chemotherapy but no RT at that time and was maintained on Tamoxifen. Her cancer recurred in her spine and has caused her to lose 40 lbs.. She was not aware that the tumor involves her liver. She denies any h/o liver disease. She used to have a glass of wine with dinner until she resumed her chemotherapy . She has had numerous blood transfusions. She had a colonoscopy remotely and believes that polyps were removed. She knows that she is overdue. Her mother age 55 of colon cancer. - History Source History Provided By: Patient Limitations to Obtaining History: No Limitations - Past Medical History Cardio/Vascular: Yes: CAD (has stent), CHF, HTN, Hyperlipdemia Pulmonary: Yes: O2 Dependent Gastrointestinal: Yes: Other (colon polyps removed remotely) Heme/Onc: Yes: Cancer (Recurrent breast cancer involving cervical and thoracic spine and now the liver despite chemotherapy) - Past Surgical History Past Surgical History: Yes: Colonoscopy, Mastectomy (bilateral mastectomies and brest reconstuctions), Tonsillectomy - Alcohol/Substance Use Hx Alcohol Use: Yes (wine daily until started on chemotherpay) - Smoking History Smoking history: Never smoked Have you smoked in the past 12 months: No - Social History Usual Living Arrangement: With Spouse ADL: Independent 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 Place of : [facility] History of Recent Travel: No Home Medications - Allergies Allergies/Adverse Reactions: Allergies Allergy/AdvReac Type Severity Reaction Status Date / Time No Known Allergies Allergy Verified 11/30/18 14:46 - Home Medications Home Medications: Ambulatory Orders Aspirin [ASA -] 81 mg PO HS 03/29/14 Folic Acid 400 mcg PO DAILY 03/29/14 Cholecalciferol (Vitamin D3) [Vitamin D3] 1,000 unit PO DAILY 10/04/18 Nitroglycerin Sublingual [Nitrostat -] 0.4 mg PO PRN PRN 10/04/18 Apixaban [Eliquis -] 2.5 mg PO BID #60 tablet 10/30/18 Metoprolol Succinate [Toprol XL -] 25 mg PO BID #60 tab.sr.24h 10/30/18 Miscellaneous Drug Not In Syst [Outpatient Lab Test] 1 each ASDIR #1 misc Miscellaneous Drug Not In Syst [Outpatient Lab Test] 1 each ASDIR #1 [facility] Family Disease History - Family Disease History Family Disease History: Heart Disease: Father (lived to 94), CA: Mother ( 55 colon cancer), Sister (breast cancer survivor) Review of Systems - Review of Systems Constitutional: reports: Unintentional Wgt. Loss Eyes: reports: No Symptoms HENT: reports: No Symptoms Neck: reports: No Symptoms Cardiovascular: reports: No Symptoms Respiratory: reports: Exercise Intolerance, SOB on Exertion Gastrointestinal: reports: No Symptoms Genitourinary: reports: No Symptoms Musculoskeletal: reports: Other (lower extremity swelling) Physical Exam-GI Vital Signs: Vital Signs Temperature 98.1 F 12/01/18 06:00 Pulse Rate 110 H 12/01/18 06:00 Respiratory Rate 18 12/01/18 06:00 Blood Pressure 112/54 L 12/01/18 06:00 O2 Sat by Pulse Oximetry (%) 100 12/01/18 01:10 CBC,CMP WBC 12.9 K/mm3 (4.0-10.0) H 12/01/18 05:30 RBC 2.62 M/mm3 (3.60-5.2) L 12/01/18 05:30 Hgb 9.1 GM/dL (10.7-15.3) L 12/01/18 05:30 Hct 26.2 % (32.4-45.2) L 12/01/18 05:30 MCV 100.1 fl (80-96) H 12/01/18 05:30 MCH 34.6 pg (25.7-33.7) H 12/01/18 05:30 MCHC 34.6 g/dl (32.0-36.0) 12/01/18 05:30 RDW 15.8 % (11.6-15.6) H 12/01/18 05:30 Plt Count 182 K/MM3 (134-434) 12/01/18 05:30 MPV 7.2 fl (7.5-11.1) L 12/01/18 05:30 Absolute Neuts (auto) 10.5 K/mm3 (1.5-8.0) H 12/01/18 05:30 Neutrophils % 81.3 % (42.8-82.8) 12/01/18 05:30 Lymphocytes % 10.2 % (8-40) D 12/01/18 05:30 Monocytes % 6.8 % (3.8-10.2) 12/01/18 05:30 Eosinophils % 1.5 % (0-4.5) D 12/01/18 05:30 Basophils % 0.2 % (0-2.0) 12/01/18 05:30 Nucleated RBC % 0 % (0-0) 12/01/18 05:30 Sodium 131 mmol/L (136-145) L 12/01/18 05:30 Potassium 2.8 mmol/L (3.5-5.1) L* 12/01/18 05:30 Chloride 95 mmol/L (98-107) L 12/01/18 05:30 Carbon Dioxide 26 mmol/L (21-32) 12/01/18 05:30 Anion Gap 10 MMOL/L (8-16) 12/01/18 05:30 BUN 42 mg/dL (7-18) H 12/01/18 05:30 Creatinine 2.0 mg/dL (0.55-1.3) H 12/01/18 05:30 Creat Clearance w eGFR 24.49 (>60) 12/01/18 05:30 Random Glucose 90 mg/dL (74-106) 12/01/18 05:30 Serum Osmolality 274 mosm/kg (278-305) L 12/01/18 05:30 Lactic Acid 1.7 mmol/L (0.4-2.0) 11/30/18 18:26 Calcium 6.5 mg/dL (8.5-10.1) L* 12/01/18 05:30 Phosphorus 3.7 mg/dL (2.5-4.9) 12/01/18 05:30 Magnesium 1.6 mg/dL (1.8-2.4) L 12/01/18 05:30 Total Bilirubin 0.7 mg/dL (0.2-1) 12/01/18 05:30 AST 85 U/L (15-37) H 12/01/18 05:30 ALT 40 U/L (13-61) 12/01/18 05:30 Alkaline Phosphatase 457 U/L (45-117) H 12/01/18 05:30 Creatine Kinase 59 U/L (26-192) 11/30/18 15:55 Troponin I 0.04 ng/ml (0.00-0.05) 11/30/18 15:55 B-Natriuretic Peptide 3087.2 pg/ml (5-125) H 11/30/18 15:55 Total Protein 3.5 g/dl (6.4-8.2) L 12/01/18 05:30 Albumin 0.8 g/dl (3.4-5.0) L 12/01/18 05:30 Prealbumin 3.4 mg/dl (20-40) L 12/01/18 00:04 TSH 1.64 uIU/ml (0.358-3.74) 11/30/18 15:55 Current Medications Generic Name Dose Route Start Last Admin Trade Name Freq PRN Reason Stop Dose Admin Acetaminophen 650 mg 12/01/18 11:16 Tylenol - PO Q4H PRN PAIN 1-3 Apixaban 2.5 mg 11/30/18 22:00 12/01/18 10:40 Eliquis - PO 2.5 mg BID JOSE ARMANDO Administration Aspirin 81 mg 11/30/18 22:00 11/30/18 22:24 Asa - PO 81 mg HS JOSE ARMANDO Administration Ceftriaxone Sodium 1 gm/ 50 mls @ 100 mls/hr 12/01/18 10:00 12/01/18 10:40 Dextrose IVPB 100 mls/hr DAILY JOSE ARMANDO Administration Metoprolol Succinate 25 mg 11/30/18 22:00 12/01/18 10:40 Toprol Xl - PO 25 mg BID JOSE ARMANDO Administration Constitutional: Yes: Calm Eyes: Yes: Conjunctiva Clear HENT: Yes: Atraumatic Neck: Yes: Supple Cardiovascular: Yes: Regular Rate and Rhythm Respiratory: Yes: CTA Bilaterally, Other (right chest port) Gastrointestinal Inspection: Yes: Scars (long lower transverse incision ( breast flap donor site)) ...Auscultate: Yes: Normoactive Bowel Sounds ...Palpate: Yes: Soft, Other (nontender) ...Rectal Exam: Yes: Guaiac Negative (brown g neg stool, no masses) Edema: LLE: 2+, RLE: 2+ Neurological: Yes: Alert, Oriented Labs: CBC, BMP 12/01/18 05:30 12/01/18 05:30 INR, PTT INR 1.99 (0.83-1.09) H 12/01/18 05:30 Laboratory Tests 11/21/15 10/04/18 10/25/18 10:00 17:45 11:20 Alkaline Phosphatase 92 196 H 378 H 12/01/18 05:30 Alkaline Phosphatase 457 H Imaging - Results Cat Scan: Report Reviewed (Wallace Ragsdale Name: [facility] DEPARTMENT OF RADIOLOGY Phys: Joshua Barclay RESIDENT : 1945 Age: 73 Sex: F [facility] Acct: [id number] Loc: [address] Exam Date: 11/30/18 Status: [place] [address] Unit Number: [id number] EXAM#: TYPE/EXAM: RESULT: [id number] CT/CHEST CT WITHOUT CONTRAST Chest CT without contrast Clinical information: dyspnea, increasing effusion Multiplanar imaging was performed. Intravenous contrast was not administered. In comparison to a prior chest CT exam of 10/05/2018 interval increased left-sided pleural effusion is noted which currently appears large in size, previously small. A left- sided chest tube is again seen in place although the tube apparently has been changed since the previous exam. There is resultant left lower lobe compressive atelectasis. A small right pleural effusion is noted within ipsilateral chest tube in place. This pleural effusion appears decreased in size. No obvious pleural soft tissue nodularity/mass lesion is identified. The visualized lung jackson demonstrate no discrete nodule. A possible 2.3 cm left hepatic lobe hypodense mass lesion is seen which cannot be visualized on prior studies. The partially imaged upper abdomen demonstrates interval development of ascites bilaterally which is probably moderate in volume. Prominently increased subcutaneous edema is seen along the left and right posterolateral aspect of the chest as well as along the partially imaged flanks of the abdomen. The remainder of the exam demonstrates no obvious interval change. No definite lymphadenopathy is seen on noncontrast imaging. There is no cardiac enlargement. No pericardial effusion is noted. Atherosclerotic coronary calcifications are seen. 1.3 cm left hepatic lobe cyst. The patient appears to be status post bilateral mastectomies. Right internal jugular venous catheter in place with the catheter tip at the level of the lower third of the superior vena cava. Multifocal osteoblastic metastatic neoplastic disease including the thoracic spine and partially imaged lower cervical spine. Impression: Bilateral pleural drainage catheters in place. A large left pleural effusion is noted which has increased in size in comparison to a CT study of . A small right pleural effusion is seen which has decreased in size. Possible interval development of a 2.3 cm left hepatic lobe hypodense lesion is noted which may be on the basis of metastatic neoplastic disease. Interval development of a moderate amount of ascites is noted within the partially imaged upper abdomen. Prominently increased subcutaneous edema is noted along the chest and abdomen bilaterally. Osteoblastic metastatic neoplastic disease as on the prior exam. Reported By: Joshua Lorenzo MD 1931 [address] Technologist: Ghulam Romero Transcribed Date/Time: 11/30 Rod Greaser: Joshua Lorenzo Printed Date/Time: By: Signed by: Joshua Lorenzo Signed on: 30-Nov-2018 19:35) Problem List - Problems (1) Liver metastasis Assessment/Plan: I agree that the left lobe liver lesion appears to be a metastasis from her breast cancer and advised that she should make her oncologist aware of this. I suspect that her elevated alkaline phosphatase reflects a combination of congestive hepatopathy and the liver metastasis and that it includes a bony component from her spinal metastases. Code(s): C78.7 - SECONDARY MALIG NEOPLASM OF LIVER AND INTRAHEPATIC BILE DUCT (2) History of colon polyps Assessment/Plan: Given her FH of colon cancer and personal h/o polyps Negro should ideally have a repeat colonoscopy if/when cardiologically and oncologically feasible. Code(s): Z86.010 - PERSONAL HISTORY OF COLONIC POLYPS (3) Family history of colon cancer in mother Code(s): Z80.0 - FAMILY HISTORY OF MALIGNANT NEOPLASM OF DIGESTIVE ORGANS (4) CHF exacerbation Code(s): I50.9 - HEART FAILURE, UNSPECIFIED (5) CAD (coronary artery disease) Code(s): I25.10 - ATHSCL HEART DISEASE OF [place] CORONARY ARTERY W/O ANG PCTRS Qualifiers: Coronary Disease-Associated Artery/Lesion type: [place] artery [place] vs. transplanted heart: [place] heart Associated angina: without angina Qualified Code(s): I25.10 - Atherosclerotic heart disease of [place] coronary artery without angina pectoris (6) HTN (hypertension) Code(s): I10 - ESSENTIAL (PRIMARY) HYPERTENSION Qualifiers: Hypertension type: essential hypertension Qualified Code(s): I10 - Essential (primary) hypertension (7) History of percutaneous coronary intervention Code(s): Z98.61 - CORONARY ANGIOPLASTY STATUS (8) Metastatic breast cancer Code(s): C50.919 - MALIGNANT NEOPLASM OF UNSP SITE OF UNSPECIFIED FEMALE BREAST Assessment/Plan Impression Left liver lobe breast cancer metastasis Personal h/o colon polyps FH colon cancer Plan: Followup with her oncologist and business continuity analyst as an outpatient
[2018-12-01] MEDS ORDERED: ACETAMINOPHEN 325 MG TABLET (FP) PO PRN (11:16)
[2018-12-01] MEDS ORDERED: POTASSIUM CHLORIDE ORAL LIQUID 20 MEQ/15 ML PO ONE (11:16)
[2018-12-01] MEDS ORDERED: MAGNESIUM SULF 50% (8.12 MEQ/2 ML-1 GM VIAL) IVPB ONE (12:45)
--- NOTE | 2018-12-01 13:53 | PN ---
Progress Note (short form) - Note Progress Note: Chief Complaint: Events noted, notes reviewed, reports persistent dyspnea but improved, denies orthopnea or PND, denies any chest pain, atrial fibrillation persists History of Present Illness: Seen and examined on telemetry. Events noted, notes reviewed, reports persistent dyspnea but improved, denies orthopnea or PND, denies any chest pain , atrial fibrillation persists Echocardiography dated 10/05/2018 revealed mild cLVH, low normal LVEF 50-55%, normal RV size and function, mild TR and a small pericardial effusion Current Medications: Current Medications Acetaminophen (Tylenol -) 650 mg PO Q4H PRN PRN Reason: PAIN 1-3 Apixaban (Eliquis -) 2.5 mg PO BID [facility] Last Admin: 12/01/18 10:40 Dose: 2.5 mg Aspirin (Asa -) 81 mg PO HS [facility] Last Admin: 11/30/18 22:24 Dose: 81 mg Ceftriaxone Sodium 1 gm/ (Dextrose) 50 mls @ 100 mls/hr IVPB DAILY [facility] Last Admin: 12/01/18 10:40 Dose: 100 mls/hr Potassium Chloride (Potassium Chloride 10 Meq Premix Ivpb -) 10 meq in 100 mls @ 100 mls/hr IVPB Q60M [facility] Stop: 12/01/18 15:29 Metoprolol Succinate (Toprol Xl -) 25 mg PO BID [facility] Last Admin: 12/01/18 10:40 Dose: 25 mg Review of Systems Constitutional: denies Chills or Fever Respiratory: denies Cough or Sputum Production Cardiovascular: As noted above Gastrointestinal: denies Nausea, Vomiting, Diarrhea, Constipation or Abdominal Pain Genitourinary: denies Frequency or Urgency Musculoskeletal: No symptoms reported - Objective Vital Signs: Last Vital Signs Temp Pulse Resp BP Pulse Ox 98.1 F 111 H 18 95/60 99 12/01/18 06:00 12/01/18 10:00 12/01/18 10:00 12/01/18 10:00 12/01/18 09:00 Intake & Output 11/28/18 11/29/18 11/30/18 12/01/18 23:59 23:59 23:59 23:59 Intake Total 500 Balance 500 Weight 163 lb 162 lb 9.6 oz Neck: Supple Negative JVD No bruit Respiratory: Diminished breath sounds at the bases Cardiovascular: S1, S2 Irregularly Irregular Gastrointestinal: Soft Benign Normal Bowel Sounds Ext: Negative Edema Labs: CBC, BMP 12/01/18 05:30 12/01/18 05:30 Hepatic Panel Total Bilirubin 0.7 mg/dL (0.2-1) 12/01/18 05:30 AST 85 U/L (15-37) H 12/01/18 05:30 ALT 40 U/L (13-61) 12/01/18 05:30 Alkaline Phosphatase 457 U/L (45-117) H 12/01/18 05:30 Albumin 0.8 g/dl (3.4-5.0) L 12/01/18 05:30 INR, PTT INR 1.99 (0.83-1.09) H 12/01/18 05:30 Assessment/Plan ASSESSMENT: 1. Dyspnea related to recurrent pleural effusions, history of bilateral VATS with pleurX-cath placement/biopsy for bilateral pleural effusions 2. Diastolic/systolic LV dysfunction with clinical class I-II NYHA classification LV failure, resolving 3. CAD post PCI/stent demand ischemia angina pectoris 4. Paroxysmal atrial tachycardia/MAT/PAF 5. HTN 6. Hyperlipidemia 7. 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 Thrombophlebitis of superficial cephalic vein 9. Acute kidney injury, with Hypokalemia 10. Anemia 11. Abnormal LFTs, hepatic lesion, possible hepatic congestion 12. Hypocalcemia PLAN: 1. Continue Eliquis and ASA with caution and close monitoring of renal function/ electrolytes unless contraindicated 2. Continue Toprol XL with caution, hemodynamics permitting 3. Resume Losartan once renal function improves and as tolerated, hemodynamics permitting 4. Increase amount of drainage from the pleurX-cath as needed 5. Leg wrapping with DIAMANTE wraps and release at bedtime Discussed indetail with the patient and her Ambrocio Fritz MD
--- NOTE | 2018-12-01 13:59 | PN ---
Progress Note (short form) - Note Progress Note: states breathing is much improved since pleurex was drained. states that they were not drained this week at facility. that she been having it done 1-2/week since discharge last month. days are not consistent more so because specialized person who will be doing it. was anticipating it to be done yesterday however was so symptomatic that she was sent here instead. denies CP, fever, chills, cough Current Medications Generic Name Dose Route Start Last Admin Trade Name Freq PRN Reason Stop Dose Admin Acetaminophen 650 mg 12/01/18 11:16 Tylenol - PO Q4H PRN PAIN 1-3 Apixaban 2.5 mg 11/30/18 22:00 12/01/18 10:40 Eliquis - PO 2.5 mg BID JOSE ARMANDO Administration Aspirin 81 mg 11/30/18 22:00 11/30/18 22:24 Asa - PO 81 mg HS JOSE ARMANDO Administration Ceftriaxone Sodium 1 gm/ 50 mls @ 100 mls/hr 12/01/18 10:00 12/01/18 10:40 Dextrose IVPB 100 mls/hr DAILY JOSE ARMANDO Administration Potassium Chloride 10 meq in 100 mls @ 100 mls/hr 12/01/18 12:30 Potassium Chloride 10 Meq Premix Ivpb - IVPB 12/01/18 15:29 Q60M JOSE ARMANDO Metoprolol Succinate 25 mg 11/30/18 22:00 12/01/18 10:40 Toprol Xl - PO 25 mg BID JOSE ARMANDO Administration Last Vital Signs Temp Pulse Resp BP Pulse Ox 98.1 F 111 H 18 95/60 99 12/01/18 06:00 12/01/18 10:00 12/01/18 10:00 12/01/18 10:00 12/01/18 09:00 Intake & Output 11/28/18 11/29/18 11/30/18 12/01/18 23:59 23:59 23:59 23:59 Intake Total 500 Balance 500 Weight 163 lb 162 lb 9.6 oz General NAD CV S1 S2 RRR no murmur/rub/gallops + R sided port Lungs decreased breath sounds B/L poor inspiratory effort ABdomen soft NT slightly distended Extremities 1+ pitting edema B/L CBCD WBC 12.9 K/mm3 (4.0-10.0) H 12/01/18 05:30 RBC 2.62 M/mm3 (3.60-5.2) L 12/01/18 05:30 Hgb 9.1 GM/dL (10.7-15.3) L 12/01/18 05:30 Hct 26.2 % (32.4-45.2) L 12/01/18 05:30 MCV 100.1 fl (80-96) H 12/01/18 05:30 MCHC 34.6 g/dl (32.0-36.0) 12/01/18 05:30 RDW 15.8 % (11.6-15.6) H 12/01/18 05:30 Plt Count 182 K/MM3 (134-434) 12/01/18 05:30 MPV 7.2 fl (7.5-11.1) L 12/01/18 05:30 CMP Sodium 131 mmol/L (136-145) L 12/01/18 05:30 Potassium 2.8 mmol/L (3.5-5.1) L* 12/01/18 05:30 Chloride 95 mmol/L (98-107) L 12/01/18 05:30 Carbon Dioxide 26 mmol/L (21-32) 12/01/18 05:30 Anion Gap 10 MMOL/L (8-16) 12/01/18 05:30 BUN 42 mg/dL (7-18) H 12/01/18 05:30 Creatinine 2.0 mg/dL (0.55-1.3) H 12/01/18 05:30 Creat Clearance w eGFR 24.49 (>60) 12/01/18 05:30 Calcium 6.5 mg/dL (8.5-10.1) L* 12/01/18 05:30 Total Bilirubin 0.7 mg/dL (0.2-1) 12/01/18 05:30 AST 85 U/L (15-37) H 12/01/18 05:30 ALT 40 U/L (13-61) 12/01/18 05:30 Alkaline Phosphatase 457 U/L (45-117) H 12/01/18 05:30 Total Protein 3.5 g/dl (6.4-8.2) L 12/01/18 05:30 Albumin 0.8 g/dl (3.4-5.0) L 12/01/18 05:30 A/P 73yo F wtih PMH DVT on eliquis, CAD s/p PCI, Stage IV breast Cancer with metastasis to spine and now liver lesions appreciated, with recent prolonged hospital course for B/L pleural effusions s/p VATS and pleurex catheter placement B/L now returning for shortness of breath with 500cc being drained from each tube 1. B/L pleural effusions- L>R. now drained with symptomatic relief. on previous admission fluid was exudative however negative for malignant effusions. CT surgeon consulted. 2. UTI- started on ceftriaxone day 1. f/u Cx 3. Hypokalemia- KCl IV and po 4. pseudohypocalcemia- Corrected Ca 9.1 5. Acute on CKD- liekly due to preload. good UOP. also received vanco in the ER. will hold for now. avoid nephrotoxic agents. nephro consulted 6. New liver lesion- liekly metastasis from breast ca. seen by GI. to follow up with oncologist 7. Acute transaminitis- LIkely hepatic congestion due to volume overload. + ansarca. will re-start lasix as well. seems was intermittently being held at facility 8. Elevated alk phos- likely due to junaid lesions. does not have abdominal pain at this time 9. CAD sp PCI- asa 10. Dyslipidemia- statin held on last admission due to transaminits. will consider re-starting prior to discharge if no other contraindications 11. DVT-dx on last admission. on eliquis 12. spoke with son and present at bedside. all questions answered. verbalized understanding and agreement Visit type - Emergency Visit Emergency Visit: Yes ED Registration Date: 11/30/18 Care time: The patient presented to the Emergency Department on the above date and was hospitalized for further evaluation of their emergent condition. - New Patient This patient is new to me today: Yes Date on this admission: 12/01/18 - Critical Care Critical Care patient: No - Discharge Referral Referred to [facility] No
--- NOTE | 2018-12-01 16:16 | CONSULT ---
Consult Consult Specialty:: Nephrology Reason for Consultation:: CKD and hypokalemia - History of Present Illness Chief Complaint: sent in for abnormal labs History of Present Illness: Pt is a 73 year old female with pmhx of ckd, hypokalemia, stage 4 breast cancer , HTN, HLD, CAD, diastolic CHF, pleural effusions with bilateral catheters who was sent in to the ER for progressive weakness and shortness of breath. She was found to be hypokalemic and was found to have elevated creatinine. She denies history of kidney disease however she has many abnormal older creatinine values in the computer chart. She does have history of hypokalemia and she was on supplements for it in the past. She denies dysuria or hematuria. She denies chest pain or palpitations. - History Source History Provided By: Patient - Past Medical History Cardio/Vascular: Yes: CAD (has stent), CHF, HTN, Hyperlipdemia Pulmonary: Yes: O2 Dependent Gastrointestinal: Yes: Other (colon polyps removed remotely) Renal/: Yes: Renal Inusuff - Past Surgical History Past Surgical History: Yes: Colonoscopy, Mastectomy (bilateral mastectomies and brest reconstuctions), Tonsillectomy - Alcohol/Substance Use Hx Alcohol Use: Yes (wine daily until started on chemotherpay) - Smoking History Smoking history: Never smoked Have you smoked in the past 12 months: No - Social History Usual Living Arrangement: With Spouse ADL: Independent 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 History of Recent Travel: No Home Medications - Allergies Allergies/Adverse Reactions: Allergies Allergy/AdvReac Type Severity Reaction Status Date / Time No Known Allergies Allergy Verified 11/30/18 14:46 - Home Medications Home Medications: Ambulatory Orders Aspirin [ASA -] 81 mg PO HS 03/29/14 Folic Acid 400 mcg PO DAILY 03/29/14 Cholecalciferol (Vitamin D3) [Vitamin D3] 1,000 unit PO DAILY 10/04/18 Nitroglycerin Sublingual [Nitrostat -] 0.4 mg PO PRN PRN 10/04/18 Apixaban [Eliquis -] 2.5 mg PO BID #60 tablet 10/30/18 Metoprolol Succinate [Toprol XL -] 25 mg PO BID #60 tab.sr.24h 10/30/18 Miscellaneous Drug Not In Syst [Outpatient Lab Test] 1 each ASDIR #1 misc Miscellaneous Drug Not In Syst [Outpatient Lab Test] 1 each [place] [facility] [place] Disease History - Family Disease History Family Disease History: Heart Disease: Father (lived to 94), CA: Mother ( 55 colon cancer), Sister (breast cancer survivor) Review of Systems - Review of Systems Constitutional: reports: Malaise Eyes: reports: No Symptoms HENT: reports: No Symptoms Neck: reports: No Symptoms Cardiovascular: reports: Edema Respiratory: reports: Cough, SOB, SOB on Exertion Gastrointestinal: reports: No Symptoms Genitourinary: reports: No Symptoms Musculoskeletal: reports: No Symptoms Integumentary: reports: No Symptoms Neurological: reports: No Symptoms Endocrine: reports: No Symptoms Hematology/Lymphatic: reports: No Symptoms Psychiatric: reports: No Symptoms Physical Exam Vital Signs: Vital Signs Temperature 97.8 F 12/01/18 14:00 Pulse Rate 100 H 12/01/18 14:00 Respiratory Rate 20 12/01/18 14:00 Blood Pressure 102/66 12/01/18 14:00 O2 Sat by Pulse Oximetry (%) 99 12/01/18 09:00 Constitutional: Yes: Calm Eyes: Yes: Conjunctiva Clear HENT: Yes: Atraumatic Cardiovascular: Yes: S1, S2 Respiratory: Yes: Diminished, On Nasal O2 Gastrointestinal: Yes: Soft Renal/: Yes: WNL Musculoskeletal: Yes: WNL Edema: Yes Neurological: Yes: Oriented Psychiatric: Yes: Oriented Labs: CBC, BMP 12/01/18 05:30 12/01/18 05:30 Laboratory Tests 10/12/18 10/17/18 10/20/18 06:15 06:25 05:30 WBC Hgb Plt Count Sodium Potassium BUN Creatinine 1.5 H 1.5 H 1.4 H Calcium Albumin Urine Protein Urine Blood Ur Random Sodium 10/26/18 10/27/18 10/28/18 05:30 06:00 05:30 WBC Hgb Plt Count Sodium Potassium BUN Creatinine 1.7 H 1.6 H 1.6 H Calcium Albumin Urine Protein Urine Blood Ur Random Sodium 10/29/18 10/31/18 11/30/18 05:00 09:45 15:55 WBC Hgb 10.4 L Plt Count Sodium Potassium BUN Creatinine 1.5 H 1.5 H Calcium Albumin Urine Protein Urine Blood Ur Random Sodium 11/30/18 11/30/18 12/01/18 15:55 20:06 00:04 WBC Hgb 9.7 L Plt Count 187 Sodium 129 L Potassium 2.7 L* BUN 44 H Creatinine 2.1 H Calcium Albumin Urine Protein Negative Urine Blood Negative Ur Random Sodium 12/01/18 12/01/18 12/01/18 00:04 05:15 05:30 WBC 12.9 H Hgb 9.1 L Plt Count 182 Sodium Potassium 3.1 L BUN Creatinine 2.0 H Calcium Albumin Urine Protein Urine Blood Ur Random Sodium < 18 L 12/01/18 05:30 WBC Hgb Plt Count Sodium Potassium 2.8 L* BUN 42 H Creatinine 2.0 H Calcium 6.5 L* Albumin 0.8 L Urine Protein Urine Blood Ur Random Sodium Imaging - Results Chest X-ray: Report Reviewed Problem List - Problems (1) CKD (chronic kidney disease) Code(s): N18.9 - CHRONIC KIDNEY DISEASE, UNSPECIFIED (2) LUCRECIA (acute kidney injury) Code(s): N17.9 - ACUTE KIDNEY FAILURE, UNSPECIFIED (3) CHF exacerbation Code(s): I50.9 - HEART FAILURE, UNSPECIFIED (4) Hypokalemia Code(s): E87.6 - HYPOKALEMIA Assessment/Plan Current Medications Generic Name Dose Route Start Last Admin Trade Name Tristanq PRN Reason Stop Dose Admin Acetaminophen 650 mg 12/01/18 11:16 Tylenol - PO Q4H PRN PAIN 1-3 Apixaban 2.5 mg 11/30/18 22:00 12/01/18 10:40 Eliquis - PO 2.5 mg BID JOSE ARMANDO Administration Aspirin 81 mg 11/30/18 22:00 11/30/18 22:24 Asa - PO 81 mg HS JOSE ARMANDO Administration Ceftriaxone Sodium 1 gm/ 50 mls @ 100 mls/hr 12/01/18 10:00 12/01/18 10:40 Dextrose IVPB 100 mls/hr DAILY JOSE ARMANDO Administration Metoprolol Succinate 25 mg 11/30/18 22:00 12/01/18 10:40 Toprol Xl - PO 25 mg BID JOSE ARMANDO Administration Impression 1. CKD 2. LUCRECIA 3. hypokalemia 4. HTN 5. metastatic breast cancer 6. pleural effusions 7. malnutrition 8. CAD 9. HLD Plan - replace potassium - pt did get 40 meq earlier today, will also give IV - avoid lasix in the setting of hypokalemia - cardio input appreciated - follow up renal ultrasound - send ua and lytes - pt does have ckd - replace mag
--- NOTE | 2018-12-01 16:32 | EKG ---
Test Reason : Blood Pressure : / mmHG Vent. Rate : 127 BPM Atrial Rate : 133 BPM P-R Int : 000 ms QRS Dur : 072 ms QT Int : 268 ms P-R-T Axes : 054 -03 197 degrees QTc Int : 389 ms SINUS TACHYCARDIA LOW VOLTAGE QRS NONSPECIFIC ST AND T WAVE ABNORMALITY ABNORMAL ECG WHEN COMPARED WITH ECG OF 04-OCT-2018 18:22, SIGNIFICANT CHANGES HAVE OCCURRED Confirmed by LING ECHOLS MD ([id number]) on 12/01/2018 4:32:46 PM Referred By: Confirmed By:LING ECHOLS MD
[2018-12-01] MEDS: KCL 10 MEQ IVPB 10 MEQ/100 ML INFUS.BAG IVPB SCH ×4 (17:24→23:16)
[2018-12-01] MEDS ORDERED: MAGNESIUM SULF 50% (8.12 MEQ/2 ML-1 GM VIAL) ONE (17:29)
--- NOTE | 2018-12-01 20:21 | CONSULT ---
Consult - text type - Consultation Consultation Note: 73F admitted for management of CHF and found to have a new left liver lobe lesion by chest CT. She is being treated for recurrent breast cancer by her oncologist at [facility]. She had bilateral mastectomies and flap reconstruction 9 years ago at [facility]. She had chemotherapy but no RT at that time and was maintained on Tamoxifen. Her cancer recurred in her spine and has caused her to lose 40 lbs.. She was not aware that the tumor involves her liver. Her mother age 55 of colon cancer. - History Source History Provided By: Patient - Past Medical History Cardio/Vascular: Yes: CAD (has stent), CHF, HTN, Hyperlipdemia Pulmonary: Yes: O2 Dependent Gastrointestinal: Yes: Other (colon polyps removed remotely) Heme/Onc: Yes: Cancer (Recurrent breast cancer involving cervical and thoracic spine and now the liver despite chemotherapy) - Past Surgical History Past Surgical History: Yes: Colonoscopy, Mastectomy (bilateral mastectomies and brest reconstuctions), Tonsillectomy - Alcohol/Substance Use Hx Alcohol Use: Yes (wine daily until started on chemotherpay) - Smoking History Smoking history: Never smoked - Social History Usual Living Arrangement: With Spouse ADL: Independent 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 Place of : [facility] - Allergies Allergies/Adverse Reactions: Allergies Allergy/AdvReac Type Severity Reaction Status Date / Time No Known Allergies Allergy Verified 11/30/18 14:46 - Home Medications Home Medications: Ambulatory Orders Aspirin [ASA -] 81 mg PO HS 03/29/14 Folic Acid 400 mcg PO DAILY 03/29/14 Cholecalciferol (Vitamin D3) [Vitamin D3] 1,000 unit PO DAILY 10/04/18 Nitroglycerin Sublingual [Nitrostat -] 0.4 mg PO PRN PRN 10/04/18 Apixaban [Eliquis -] 2.5 mg PO BID #60 tablet 10/30/18 Metoprolol Succinate [Toprol XL -] 25 mg PO BID #60 tab.sr.24h 10/30/18 Miscellaneous Drug Not In Syst [Outpatient Lab Test] 1 each ASDIR #1 misc Miscellaneous Drug Not In Syst [Outpatient Lab Test] [facility] Family Disease History - Family Disease History Family Disease History: Heart Disease: Father (lived to 94), CA: Mother ( 55 colon cancer), Sister (breast cancer survivor) Vital Signs: Last Vital Signs Temp Pulse Resp BP Pulse Ox 97.5 F L 103 H 20 103/79 99 12/01/18 17:45 12/01/18 17:45 12/01/18 17:45 12/01/18 17:45 12/01/18 09:00 Cor: RSR, No murmurs, No gallops Lungs: Clear to P&A Abd: Soft, Normal bowel sounds, No organomegaly Ext:No significant edema Abnormal Lab Results 12/01/18 12/01/18 12/01/18 00:04 00:04 00:04 WBC 15.7 H RBC 2.79 L Hgb 9.7 L Hct 28.3 L MCV 101.4 H MCH 34.8 H RDW 16.1 H MPV 7.2 L Absolute Neuts (auto) PT with INR INR Sodium 128 L Potassium 3.1 L Chloride 94 L BUN 42 H Creatinine 2.0 H Random Glucose 177 H Serum Osmolality Calcium 6.6 L* Magnesium AST 90 H Alkaline Phosphatase 443 H Total Protein 3.5 L Albumin 0.7 L Prealbumin 3.4 L Ur Random Sodium 12/01/18 12/01/18 12/01/18 05:15 05:30 05:30 WBC 12.9 H RBC 2.62 L Hgb 9.1 L Hct 26.2 L MCV 100.1 H MCH 34.6 H RDW 15.8 H MPV 7.2 L Absolute Neuts (auto) 10.5 H PT with INR 23.70 H INR 1.99 H Sodium Potassium Chloride BUN Creatinine Random Glucose Serum Osmolality Calcium Magnesium AST Alkaline Phosphatase Total Protein Albumin Prealbumin Ur Random Sodium < 18 L 12/01/18 05:30 WBC RBC Hgb Hct MCV MCH RDW MPV Absolute Neuts (auto) PT with INR INR Sodium 131 L Potassium 2.8 L* Chloride 95 L BUN 42 H Creatinine 2.0 H Random Glucose Serum Osmolality 274 L Calcium 6.5 L* Magnesium 1.6 L AST 85 H Alkaline Phosphatase 457 H Total Protein 3.5 L Albumin 0.8 L Prealbumin Ur Random Sodium Active Medications Generic Name Dose Route Start Last Admin Trade Name Freq PRN Reason Stop Dose Admin Acetaminophen 650 mg 12/01/18 11:16 Tylenol - PO Q4H PRN PAIN 1-3 Apixaban 2.5 mg 11/30/18 22:00 12/01/18 10:40 Eliquis - PO 2.5 mg BID JOSE ARMANDO Administration Aspirin 81 mg 11/30/18 22:00 11/30/18 22:24 Asa - PO 81 mg HS JOSE ARMANDO Administration Ceftriaxone Sodium 1 gm/ 50 mls @ 100 mls/hr 12/01/18 10:00 12/01/18 10:40 Dextrose IVPB 100 mls/hr DAILY JOSE ARMANDO Administration Metoprolol Succinate 25 mg 11/30/18 22:00 12/01/18 10:40 Toprol Xl - PO 25 mg BID JOSE ARMANDO Administration Assessment/Plan Metastatic breast cancer ? CHF Pleural effusion Ascites LUCRECIA on CKD Metastaic breast cancer -- CT chshows --pleural effusion/ ascites/ 1 left hepatic lobe liver lesion/multiple bone mets pleural fl;uid 10/25/18 negative h/o b/l VATS/pleurex catheters reports h/o early stage node neg. breast cancere 9 yrs. ago, s/p b/l mastectomies, adjuvant cheotx,s/p tamoxifen for several yrs. Recent spine mets - -s/p ibrance, s/p salvage chemo and most recently gemzar 2 months ago ALKP --400s/ albumin 0.8 On eliquis/ASA will request pulmonary consult will discuss with primary oncologist at [facility]
[2018-12-01] MEDS: ASPIRIN 81 MG CHEWABLE TABLETS PO SCH (23:16)
[2018-12-02 08:05] LABS: ALBUMIN 0.8 g/dl (3.4-5.0); ALK PHOS 441 U/L (45-117); ANION GAP 8 MMOL/L (8-16); BILIRUBIN,TOTAL 0.7 mg/dL (0.2-1); BLOOD UREA NITROGEN 43 mg/dL (7-18); CHLORIDE 98 mmol/L (98-107); CO2 24 mmol/L (21-32); GLUCOSE,RANDOM 78 mg/dL (74-106); POTASSIUM 4.4 mmol/L (3.5-5.1); SGOT/AST 77 U/L (15-37); SGPT/ALT 39 U/L (13-61); SODIUM 129 mmol/L (136-145); TOT PROT 3.6 g/dl (6.4-8.2)
[2018-12-02 08:26] LABS: CALCIUM 6.5 mg/dL (8.5-10.1)
[2018-12-02 09:17] LABS: OSMOLALITY,SERUM 275 mosm/kg (278-305)
[2018-12-02] MEDS: CEFTRIAXONE 1 GM in DEXTROSE 5%-WATER - 50 ML IVPB SCH ×2 (10:09→17:44)
[2018-12-02] MEDS: metoPROLOL SUCCINATE 25 MG TAB.SR.24H (FP) PO SCH ×2 (10:09→21:44)
[2018-12-02] MEDS: APIXABAN 2.5 MG TABLET PO SCH ×2 (10:09→21:44)
--- NOTE | 2018-12-02 10:53 | PN ---
Progress Note (short form) - Note Progress Note: Chief Complaint: Events noted, notes reviewed, reports persistent dyspnea but improved, denies orthopnea or PND, denies any chest pain, sinus rhythm with APC 's noted History of Present Illness: Seen and examined on telemetry. Events noted, notes reviewed, reports persistent dyspnea but improved, denies orthopnea or PND, denies any chest pain , sinus rhythm with APC's noted Echocardiography dated 10/05/2018 revealed mild cLVH, low normal LVEF 50-55%, normal RV size and function, mild TR and a small pericardial effusion Current Medications: Current Medications Acetaminophen (Tylenol -) 650 mg PO Q4H PRN PRN Reason: PAIN 1-3 Apixaban (Eliquis -) 2.5 mg PO BID [facility] Last Admin: 12/02/18 10:09 Dose: 2.5 mg Aspirin (Asa -) 81 mg PO HS [facility] Last Admin: 12/01/18 23:16 Dose: 81 mg Ceftriaxone Sodium 1 gm/ (Dextrose) 50 mls @ 100 mls/hr IVPB DAILY [facility] Last Admin: 12/02/18 10:09 Dose: Not Given Metoprolol Succinate (Toprol Xl -) 25 mg PO BID [facility] Last Admin: 12/02/18 10:09 Dose: 25 mg Review of Systems Constitutional: denies Chills or Fever Respiratory: denies Cough or Sputum Production Cardiovascular: As noted above Gastrointestinal: denies Nausea, Vomiting, Diarrhea, Constipation or Abdominal Pain Genitourinary: denies Frequency or Urgency Musculoskeletal: No symptoms reported - Objective Vital Signs: Last Vital Signs Temp Pulse Resp BP Pulse Ox 97.5 F L 98 H 20 89/55 L 100 12/02/18 09:25 12/02/18 09:25 12/02/18 09:25 12/02/18 09:25 12/02/18 08:28 Intake & Output 11/29/18 11/30/18 12/01/18 12/02/18 23:59 23:59 23:59 23:59 Intake Total 700 300 Balance 700 300 Weight 163 lb 162 lb 9.6 oz 165 lb Neck: Supple Negative JVD No bruit Respiratory: Diminished breath sounds at the bases Cardiovascular: S1, S2 Regular Rate Rhythm Gastrointestinal: Soft Benign Normal Bowel Sounds Ext: Trace-1+ Edema Labs: CBC, BMP 12/01/18 05:30 12/02/18 06:00 Hepatic Panel Total Bilirubin 0.7 mg/dL (0.2-1) 12/02/18 06:00 AST 77 U/L (15-37) H 12/02/18 06:00 ALT 39 U/L (13-61) 12/02/18 06:00 Alkaline Phosphatase 441 U/L (45-117) H 12/02/18 06:00 Albumin 0.8 g/dl (3.4-5.0) L 12/02/18 06:00 INR, PTT INR 1.99 (0.83-1.09) H 12/01/18 05:30 Assessment/Plan ASSESSMENT: 1. Dyspnea related to recurrent pleural effusions, history of bilateral VATS with pleurX-cath placement/biopsy for bilateral pleural effusions 2. Diastolic/systolic LV dysfunction with clinical class I-II NYHA classification LV failure, resolving 3. CAD post PCI/stent demand ischemia angina pectoris 4. Paroxysmal atrial tachycardia/MAT/PAF 5. HTN 6. Hyperlipidemia 7. 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 Thrombophlebitis of superficial cephalic vein 9. Acute kidney injury 10. Anemia 11. Abnormal LFTs, hepatic lesion, possible hepatic congestion 12. Hyponatremia 13. Hypocalcemia PLAN: 1. Continue Eliquis and ASA with caution and close monitoring of renal function/ electrolytes unless contraindicated 2. Continue Toprol XL with caution, hemodynamics permitting 3. Resume Losartan once renal function improves and as tolerated, hemodynamics permitting 4. Increase amount of drainage from the pleurX-cath as needed 5. Continue leg wrapping with DIAMANTE wraps and release at bedtime Discussed in detail with the patient and her Ambrocio Fritz MD
[2018-12-02 12:14] VITALS: BMI 26.6
[2018-12-02 12:55] LABS: LDH 206 U/L (84-246)
--- NOTE | 2018-12-02 13:04 | PN ---
Teaching Attending Note Name of Resident: Dora Chapman ATTENDING PHYSICIAN STATEMENT I saw and evaluated the patient. I reviewed the resident's note and discussed the case with the resident. I agree with the resident's findings and plan as documented. SUBJECTIVE:not much change from yesterday. denies CP, SOB, fever, chills OBJECTIVE: Last Vital Signs Temp Pulse Resp BP Pulse Ox 97.5 F L 98 H 20 89/55 L 100 12/02/18 09:25 12/02/18 09:25 12/02/18 09:25 12/02/18 09:25 12/02/18 08:28 General NAD Lungs decrease breath sounds B/L poor inspiratory effort ASSESSMENT AND PLAN: 73yo F wtih PMH DVT on , CAD s/p PCI, Stage IV breast Cancer with metastasis to spine and now liver lesions appreciated, with recent prolonged hospital course for B/L pleural effusions s/p VATS and pleurex catheter placement B/L now returning for shortness of breath with 500cc being drained from each tube 1. B/L pleural effusions- L>R. repeat CXR shows re-accumulation of fluid. consult pulm, CT surgery for further recommendations. was on lasix on last discharge. will re-start when hemodynamics permit. f/u cx 2. UTI- started on ceftriaxone day 2. f/u Cx 3. Hypokalemia- resolved 4. pseudohypocalcemia- Corrected Ca 9.1 5. Acute on CKD- liekly due to preload vs medication induced. (gemcitabine) which can also cause HUS> will get LDH. monitor renal function. avoid nephrotoxic agents. nephro consulted 6. New liver lesion- liekly metastasis from breast ca. spoke with oncology who will call private oncologist tomorrow to see what alternative treatments have already been done. due to patients poor functional status likely limited in these. 7. Acute transaminitis- LIkely hepatic congestion due to volume overload. + ansarca. 8. Elevated alk phos- likely due to junaid lesions. does not have abdominal pain at this time 9. CAD sp PCI- asa 10. Dyslipidemia- statin held on last admission due to transaminits. will consider re-starting prior to discharge if no other contraindications 11. DVT-dx on last admission. on 12. spoke with son and present at bedside. all questions answered. verbalized understanding and agreement
--- NOTE | 2018-12-02 14:01 | PN ---
Physical Exam: SUBJECTIVE: Patient seen and examined at bedside. Endorses pleurex drainage b/l , last done on Monday. Today without complaint. on 2L 02 NC, sat well. OBJECTIVE: Vital Signs Period Temp Pulse Resp BP Sys/[place] Pulse Ox Last 24 Hr 97.4 F-97.8 F 98-114 20-20 89-108/55-79 100-100 GENERAL: The patient is awake, alert, and fully oriented, in no acute distress. HEAD: Normal with no signs of trauma. EYES: PERRL, extraocular movements intact, sclera anicteric, conjunctiva clear. ENT: Ears normal, nares patent, oropharynx clear without exudates, moist mucous membranes. NECK: Trachea midline, supple. CHEST: +b/l pleurex LUNGS: +decreased breath sounds at bases. mild accessory m usage HEART: Regular rate and rhythm, S1, S2 without murmur, rub or gallop. ABDOMEN: Soft, nontender, nondistended, normoactive bowel sounds, no guarding, no rebound EXTREMITIES: 2+ pt pulses, warm, well-perfused, no edema. NEUROLOGICAL: Cranial nerves II through XII grossly intact. PSYCH: Normal mood, normal affect. SKIN: Warm, dry, normal turgor Laboratory Results 12/02/18 12/02/18 12/02/18 02:35 02:35 06:00 Sodium 129 L Potassium 4.4 Chloride 98 Carbon Dioxide 24 Anion Gap 8 BUN 43 H Creatinine 2.0 H Creat Clearance w eGFR 24.49 Random Glucose 78 Serum Osmolality 275 L Calcium 6.5 L* Magnesium 2.0 Total Bilirubin 0.7 AST 77 H ALT 39 Alkaline Phosphatase 441 H LD Total 206 Total Protein 3.6 L Albumin 0.8 L TSH 1.64 Urine Osmolality 479 Ur Random Sodium < 18 L Ur Random Potassium 36.5 Ur Random Chloride < 11 L Active Medications Generic Name Dose Route Start Last Admin Trade Name Freq PRN Reason Stop Dose Admin Acetaminophen 650 mg 12/01/18 11:16 Tylenol - PO Q4H PRN PAIN 1-3 Apixaban 2.5 mg 11/30/18 22:00 12/02/18 10:09 Eliquis - PO 2.5 mg BID JOSE ARMANDO Administration Aspirin 81 mg 11/30/18 22:00 12/01/18 23:16 Asa - PO 81 mg HS JOSE ARMANDO Administration Ceftriaxone Sodium 1 gm/ 50 mls @ 100 mls/hr 12/01/18 10:00 12/02/18 10:09 Dextrose IVPB Not Given DAILY JOSE ARMANDO Metoprolol Succinate 25 mg 11/30/18 22:00 12/02/18 10:09 Toprol Xl - PO 25 mg BID JOSE ARMANDO Administration ASSESSMENT/PLAN: 73 y/o F with PMH DVT (on eliquis), CAD s/p PCI, stage 4 breast CA with spine and liver mets, who presented to the ED with SOB and with b/l pleurex draining effusions. #b/l pleural effusions -possible 2/2 malignancy, as need for pleurex -c/w drainage. +yeast from pleural fluid cx -was on lasix 20mg qd when at rehab on Monday. will restart when BP improves -f/u CXR in AM -Pulm: Dr. Webb -CT sx: Dr. Fletcher #UTI -c/w rocephin - Day2 -f/u ucx #LUCRECIA on CKD -may be 2/2 overload, decreased renal perfusion -follow nephro recs -f/u LDH - chemo can cause HUS -Nephro: Dr. Rascon #Acute transaminitis -likely 2/2 overload -statin held -c/t to monitor #Elevated ALP -2/2 spine mets from breast CA -c/t to monitor #CAD s/p PCI -c/w asa #hx DVT -c/w eliquis #F/E/N no IVF at this time continue to follow lytes regular diet #PPX on eliquis Visit type - Emergency Visit Emergency Visit: No - New Patient This patient is new to me today: No - Critical Care Critical Care patient: No
--- NOTE | 2018-12-02 15:27 | CON.PULM ---
Consult Consult Specialty:: PULMONARY Referred by:: NIKOLE Reason for Consultation:: SOB - History of Present Illness Chief Complaint: SOB History of Present Illness: 73 yo female h/o CAD s/p PCI STENT LAD 09/18/2003, diastolic dysfunction with h/ o failure, hypertensive heart disease, hyperlipidemia, Stage IV breast cancer with bilateral pleural effusions post Pleurx tube bilaterally presented for progressive SOB, bilateral LE edema, light-headedness without chest pain, true syncope, orthopnea, PND. Bedside echo shows pleural effusions, no pericardial tamponade. CXR shows increased left effusion. Weight loss and failure to thrive. 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 Cardio/Vascular: Yes: CAD (has stent), CHF, HTN, Hyperlipdemia Pulmonary: Yes: O2 Dependent, Other (pleural effusions/bilateral pleurex) Gastrointestinal: Yes: Other (colon polyps removed remotely) Renal/: Yes: Renal Inusuff - Past Surgical History Past Surgical History: Yes: Colonoscopy, Mastectomy (bilateral mastectomies and brest reconstuctions), Tonsillectomy - Alcohol/Substance Use Hx Alcohol Use: Yes (wine daily until started on chemotherpay) - Smoking History Smoking history: Never smoked Have you smoked in the past 12 months: No - Social History Usual Living Arrangement: With Spouse ADL: Independent 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 History of Recent Travel: No Home Medications - Allergies Allergies/Adverse Reactions: Allergies Allergy/AdvReac Type Severity Reaction Status Date / Time No Known Allergies Allergy Verified 11/30/18 14:46 - Home Medications Home Medications: Ambulatory Orders Aspirin [ASA -] 81 mg PO HS 03/29/14 Folic Acid 400 mcg PO DAILY 03/29/14 Cholecalciferol (Vitamin D3) [Vitamin D3] 1,000 unit PO DAILY 10/04/18 Nitroglycerin Sublingual [Nitrostat -] 0.4 mg PO PRN PRN 10/04/18 Apixaban [Eliquis -] 2.5 mg PO BID #60 tablet 10/30/18 Metoprolol Succinate [Toprol XL -] 25 mg PO BID #60 tab.sr.24h 10/30/18 Miscellaneous Drug Not In Syst [Outpatient Lab Test] 1 each ASDIR #1 misc Miscellaneous Drug Not In Syst [Outpatient Lab Test] 1 each ASDIR #1 [facility] [place] Furosemide [Lasix] 20 mg PO DAILY 12/02/18 Family Disease History - Family Disease History Family Disease History: Heart Disease: Father (lived to 94), CA: Mother ( 55 colon cancer), Sister (breast cancer survivor) Review of Systems - Review of Systems Constitutional: reports: Lethargy, Loss of Appetite, Unintentional Wgt. Loss. denies: Fever Eyes: denies: Blurred Vision HENT: denies: Difficult Swallowing Neck: denies: Decreased ROM Cardiovascular: denies: Chest Pain Respiratory: reports: Cough, Exercise Intolerance, Orthopnea, SOB on Exertion. denies: Hemoptysis Gastrointestinal: denies: Abdominal Pain Neurological: denies: Confusion Physical Exam Vital Sings: Vital Signs Temperature 98.6 F 12/02/18 14:00 Pulse Rate 110 H 12/02/18 14:00 Respiratory Rate 18 12/02/18 14:00 Blood Pressure 102/71 12/02/18 14:00 O2 Sat by Pulse Oximetry (%) 100 12/02/18 08:28 Constitutional: Yes: Calm, Pallor Eyes: Yes: EOM Intact HENT: Yes: Normocephalic Neck: Yes: Trachea Midline Cardiovascular: Yes: S1, S2 Respiratory: Yes: Diminished (bibasilar) Gastrointestinal: Yes: Normal Bowel Sounds Renal/: Yes: WNL Edema: Yes Edema: LLE: 2+, RLE: 2+ Neurological: Yes: Alert Labs: CBC, BMP 12/01/18 05:30 12/02/18 06:00 rest reviewed Imaging - Results Chest X-ray: Report Reviewed, Image Reviewed Cat Scan: Report Reviewed, Image Reviewed Problem List - Problems (1) CHF exacerbation Code(s): I50.9 - HEART FAILURE, UNSPECIFIED (2) CKD (chronic kidney disease) Code(s): N18.9 - CHRONIC KIDNEY DISEASE, UNSPECIFIED (3) Liver metastasis Code(s): C78.7 - SECONDARY MALIG NEOPLASM OF LIVER AND INTRAHEPATIC BILE DUCT (4) Large pleural effusion Code(s): J90 - PLEURAL EFFUSION, NOT ELSEWHERE CLASSIFIED (5) CAD (coronary artery disease) Code(s): I25.10 - ATHSCL HEART DISEASE OF [place] CORONARY ARTERY W/O ANG PCTRS Qualifiers: Coronary Disease-Associated Artery/Lesion type: [place] artery [place] vs. transplanted heart: [place] heart Associated angina: without angina Qualified Code(s): I25.10 - Atherosclerotic heart disease of [place] coronary artery without angina pectoris (6) Chest tube in place Code(s): Z96.89 - PRESENCE OF OTHER SPECIFIED FUNCTIONAL IMPLANTS (7) History of percutaneous coronary intervention Code(s): Z98.61 - CORONARY ANGIOPLASTY STATUS (8) Metastatic breast cancer Code(s): C50.919 - MALIGNANT NEOPLASM OF UNSP SITE OF UNSPECIFIED FEMALE BREAST Assessment/Plan BILATERAL PALLIATIVE PLEUREX DRAINING EFFUSIONS METASTATIC BREAST CANCER FAILURE TO THRIVE CAD S/P PCI H/O DVT LUCRECIA/CKD WILL ASK T-SURG TO RE-EVAL PLEUREX FUNCTION O2 SUPPLEMENTATION ABS PER PRIMARY TEAM Ge RAMIREZ MD
--- NOTE | 2018-12-02 16:09 | PN ---
Progress Note, Physician History of Present Illness: Pt seen and examined at bedside. She is awake and alert. She does not feel much different than yesterday. - Current Medication List Current Medications: Active Medications Acetaminophen (Tylenol -) 650 mg PO Q4H PRN PRN Reason: PAIN 1-3 Apixaban (Eliquis -) 2.5 mg PO BID [facility] Last Admin: 12/02/18 10:09 Dose: 2.5 mg Aspirin (Asa -) 81 mg PO HS [facility] Last Admin: 12/01/18 23:16 Dose: 81 mg Ceftriaxone Sodium 1 gm/ (Dextrose) 50 mls @ 100 mls/hr IVPB DAILY [facility] Last Admin: 12/02/18 10:09 Dose: Not Given Metoprolol Succinate (Toprol Xl -) 25 mg PO BID [facility] Last Admin: 12/02/18 10:09 Dose: 25 mg - Objective Vital Signs: Vital Signs Temperature 98.6 F 12/02/18 14:00 Pulse Rate 110 H 12/02/18 14:00 Respiratory Rate 18 12/02/18 14:00 Blood Pressure 102/71 12/02/18 14:00 O2 Sat by Pulse Oximetry (%) 100 12/02/18 08:28 Constitutional: Yes: Calm Eyes: Yes: Conjunctiva Clear Cardiovascular: Yes: S1, S2 Respiratory: Yes: On Nasal O2 Gastrointestinal: Yes: Soft Genitourinary: Yes: WNL Musculoskeletal: Yes: Muscle Weakness Edema: Yes (abdominal wall edema) Edema: LLE: 1+, RLE: 1+ Neurological: Yes: Oriented Psychiatric: Yes: Oriented Labs: CBC, BMP 12/01/18 05:30 12/02/18 06:00 INR, PTT INR 1.99 (0.83-1.09) H 12/01/18 05:30 Problem List - Problems (1) CKD (chronic kidney disease) Code(s): N18.9 - CHRONIC KIDNEY DISEASE, UNSPECIFIED (2) LUCRECIA (acute kidney injury) Code(s): N17.9 - ACUTE KIDNEY FAILURE, UNSPECIFIED (3) CHF exacerbation Code(s): I50.9 - HEART FAILURE, UNSPECIFIED (4) Hypokalemia Code(s): E87.6 - HYPOKALEMIA Assessment/Plan Current Medications Generic Name Dose Route Start Last Admin Trade Name Freq PRN Reason Stop Dose Admin Acetaminophen 650 mg 12/01/18 11:16 Tylenol - PO Q4H PRN PAIN 1-3 Apixaban 2.5 mg 11/30/18 22:00 12/02/18 10:09 Eliquis - PO 2.5 mg BID JOSE ARMANDO Administration Aspirin 81 mg 11/30/18 22:00 12/01/18 23:16 Asa - PO 81 mg HS JOSE ARMANDO Administration Ceftriaxone Sodium 1 gm/ 50 mls @ 100 mls/hr 12/01/18 10:00 12/02/18 10:09 Dextrose IVPB Not Given DAILY JOSE ARMANDO Metoprolol Succinate 25 mg 11/30/18 22:00 12/02/18 10:09 Toprol Xl - PO 25 mg BID JOSE ARMANDO Administration Impression 1. CKD 2. LUCRECIA 3. hypokalemia 4. HTN 5. metastatic breast cancer 6. pleural effusions 7. malnutrition 8. CAD 9. HLD Plan - potassium improved - repeat labs in am - pt may have had a kidney biopsy, she is going to try to find out where and the name of the doctor as she does not remember now - monitor renal function - restrict free water
[2018-12-02] MEDS ORDERED: cefTRIAXone SODIUM 1 GM VIAL ONE (17:42)
[2018-12-02] MEDS ORDERED: DEXTROSE 5%-WATER - 50 ML IVPB ONE (17:42)
[2018-12-02] MEDS: ASPIRIN 81 MG CHEWABLE TABLETS PO SCH (21:44)
[2018-12-03 07:03] LABS: ALBUMIN 0.8 g/dl (3.4-5.0); ALK PHOS 431 U/L (45-117); ANION GAP 6 MMOL/L (8-16); BILIRUBIN,TOTAL 0.6 mg/dL (0.2-1); BLOOD UREA NITROGEN 46 mg/dL (7-18); CHLORIDE 98 mmol/L (98-107); CO2 25 mmol/L (21-32); GLUCOSE,RANDOM 82 mg/dL (74-106); MAGNESIUM 2.2 mg/dL (1.8-2.4); PHOSPHOROUS 3.6 mg/dL (2.5-4.9); POTASSIUM 4.6 mmol/L (3.5-5.1); SGOT/AST 70 U/L (15-37); SGPT/ALT 40 U/L (13-61); SODIUM 129 mmol/L (136-145); TOT PROT 3.7 g/dl (6.4-8.2)
[2018-12-03 07:29] LABS: CALCIUM 6.7 mg/dL (8.5-10.1)
[2018-12-03] MEDS ORDERED: cefTRIAXone SODIUM 1 GM VIAL ONE (09:16)
[2018-12-03] MEDS ORDERED: DEXTROSE 5%-WATER - 50 ML IVPB ONE (09:17)
[2018-12-03] MEDS: APIXABAN 2.5 MG TABLET PO SCH ×2 (09:55→21:48)
[2018-12-03] MEDS: CEFTRIAXONE 1 GM in DEXTROSE 5%-WATER - 50 ML IVPB SCH (09:55)
[2018-12-03] MEDS: metoPROLOL SUCCINATE 25 MG TAB.SR.24H (FP) PO SCH ×2 (09:55→21:48)
--- NOTE | 2018-12-03 10:17 | PN ---
Progress Note, Physician History of Present Illness: SOB, bilateral LE edema, light-headedness without chest pain, true syncope, orthopnea, PND improving with leg wraps. CXR shows increased left effusion. - Current Medication List Current Medications: Active Medications Acetaminophen (Tylenol -) 650 mg PO Q4H PRN PRN Reason: PAIN 1-3 Apixaban (Eliquis -) 2.5 mg PO BID [facility] Last Admin: 12/03/18 09:55 Dose: 2.5 mg Aspirin (Asa -) 81 mg PO HS [facility] Last Admin: 12/02/18 21:44 Dose: 81 mg Ceftriaxone Sodium 1 gm/ (Dextrose) 50 mls @ 100 mls/hr IVPB DAILY [facility] Last Admin: 12/03/18 09:55 Dose: 100 mls/hr Metoprolol Succinate (Toprol Xl -) 25 mg PO BID [facility] Last Admin: 12/03/18 09:55 Dose: 25 mg - Objective Vital Signs: Vital Signs Temperature 98 F 12/03/18 09:00 Pulse Rate 103 H 12/03/18 09:00 Respiratory Rate 20 12/03/18 09:00 Blood Pressure 96/53 L 12/03/18 09:00 O2 Sat by Pulse Oximetry (%) 100 12/02/18 20:00 Constitutional: Yes: No Distress, Calm Neck: Yes: Supple Cardiovascular: Yes: Regular Rate and Rhythm Respiratory: Yes: Regular, Diminished, On Nasal O2 Gastrointestinal: Yes: Normal Bowel Sounds, Soft Edema: Yes Edema: LLE: 2+, RLE: 2+ Labs: CBC, BMP 12/01/18 05:30 12/03/18 05:30 INR, PTT INR 1.99 (0.83-1.09) H 12/01/18 05:30 - ....Imaging EKG: Report Reviewed (sinus rhythm with APC's noted) Problem List - Problems (1) CAD (coronary artery disease) Code(s): I25.10 - ATHSCL HEART DISEASE OF [place] CORONARY ARTERY W/O ANG PCTRS Qualifiers: Coronary Disease-Associated Artery/Lesion type: [place] artery [place] vs. transplanted heart: [place] heart Associated angina: without angina Qualified Code(s): I25.10 - Atherosclerotic heart disease of [place] coronary artery without angina pectoris (2) Chest tube in place Code(s): Z96.89 - PRESENCE OF OTHER SPECIFIED FUNCTIONAL IMPLANTS (3) HTN (hypertension) Code(s): I10 - ESSENTIAL (PRIMARY) HYPERTENSION Qualifiers: Hypertension type: essential hypertension Qualified Code(s): I10 - Essential (primary) hypertension (4) History of percutaneous coronary intervention Code(s): Z98.61 - CORONARY ANGIOPLASTY STATUS (5) Hypercholesterolemia Code(s): E78.00 - PURE HYPERCHOLESTEROLEMIA, UNSPECIFIED (6) Large pleural effusion Code(s): J90 - PLEURAL EFFUSION, NOT ELSEWHERE CLASSIFIED (7) LUCRECIA (acute kidney injury) Code(s): N17.9 - ACUTE KIDNEY FAILURE, UNSPECIFIED (8) Difficulty breathing Code(s): R06.89 - OTHER ABNORMALITIES OF BREATHING Assessment/Plan Echocardiography dated 10/05/2018 revealed mild cLVH, low normal LVEF 50-55%, normal RV size and function, mild TR and a small pericardial effusion 1. Dyspnea related to recurrent pleural effusions, history of bilateral VATS with pleurX-cath placement/biopsy for bilateral pleural effusions 2. Diastolic/systolic LV dysfunction with clinical class I-II NYHA classification LV failure, resolving 3. CAD post PCI/stent demand ischemia angina pectoris 4. Paroxysmal atrial tachycardia/MAT/PAF 5. HTN 6. Hyperlipidemia 7. 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 Thrombophlebitis of superficial cephalic vein 9. Acute kidney injury 10. Anemia 11. Abnormal LFTs, hepatic lesion, possible hepatic congestion 12. Hyponatremia 13. Hypocalcemia PLAN: 1. Continue Eliquis 2.5 bid and ASA 81 qd with caution and close monitoring of renal function/electrolytes unless contraindicated 2. Continue Toprol XL 25 bid with caution, hemodynamics permitting 3. Resume Losartan once renal function improves and as tolerated, hemodynamics permitting 4. Increase amount of drainage from the pleurX-cath as needed, may need repositioning 5. Continue leg wrapping with DIAMANTE wraps and release at bedtime 6. D/c telemetry
--- NOTE | 2018-12-03 11:13 | PN ---
Progress Note, Physician History of Present Illness: PULMONARY ALERT,FEELING BETTER,COMFORTABLE,-RESP DISTRESS - Current Medication List Current Medications: Active Medications Acetaminophen (Tylenol -) 650 mg PO Q4H PRN PRN Reason: PAIN 1-3 Apixaban (Eliquis -) 2.5 mg PO BID [facility] Last Admin: 12/03/18 09:55 Dose: 2.5 mg Aspirin (Asa -) 81 mg PO HS [facility] Last Admin: 12/02/18 21:44 Dose: 81 mg Ceftriaxone Sodium 1 gm/ (Dextrose) 50 mls @ 100 mls/hr IVPB DAILY [facility] Last Admin: 12/03/18 09:55 Dose: 100 mls/hr Metoprolol Succinate (Toprol Xl -) 25 mg PO BID [facility] Last Admin: 12/03/18 09:55 Dose: 25 mg - Objective Vital Signs: Vital Signs Temperature 98 F 12/03/18 09:00 Pulse Rate 103 H 12/03/18 09:00 Respiratory Rate 20 12/03/18 09:00 Blood Pressure 96/53 L 12/03/18 09:00 O2 Sat by Pulse Oximetry (%) 96 12/03/18 09:00 Constitutional: Yes: Well Nourished, Calm Eyes: Yes: WNL HENT: Yes: WNL Neck: Yes: WNL Cardiovascular: Yes: Pulse Irregular, S1, S2 Respiratory: Yes: Diminished Gastrointestinal: Yes: Normal Bowel Sounds, Soft Extremities: Yes: WNL Edema: Yes Labs: CBC, BMP 12/03/18 05:30 INR, PTT INR 1.99 (0.83-1.09) H 12/01/18 05:30 Assessment/Plan Problem List - Problems (1) CHF exacerbation Code(s): I50.9 - HEART FAILURE, UNSPECIFIED (2) CKD (chronic kidney disease) Code(s): N18.9 - CHRONIC KIDNEY DISEASE, UNSPECIFIED (3) Liver metastasis Code(s): C78.7 - SECONDARY MALIG NEOPLASM OF LIVER AND INTRAHEPATIC BILE DUCT (4) Large pleural effusion Code(s): J90 - PLEURAL EFFUSION, NOT ELSEWHERE CLASSIFIED (5) CAD (coronary artery disease) Code(s): I25.10 - ATHSCL HEART DISEASE OF [place] CORONARY ARTERY W/O ANG PCTRS Qualifiers: Coronary Disease-Associated Artery/Lesion type: [place] artery [place] vs. transplanted heart: [place] heart Associated angina: without angina Qualified Code(s): I25.10 - Atherosclerotic heart disease of [place] coronary artery without angina pectoris (6) Chest tube in place Code(s): Z96.89 - PRESENCE OF OTHER SPECIFIED FUNCTIONAL IMPLANTS (7) History of percutaneous coronary intervention Code(s): Z98.61 - CORONARY ANGIOPLASTY STATUS (8) Metastatic breast cancer Code(s): C50.919 - MALIGNANT NEOPLASM OF UNSP SITE OF UNSPECIFIED FEMALE BREAST Assessment/Plan BILATERAL PALLIATIVE PLEUR-X DRAINING EFFUSIONS METASTATIC BREAST CANCER FAILURE TO THRIVE CAD S/P PCI H/O DVT LUCRECIA/CKD T-SURG TO RE-EVAL PLEUR-X FUNCTION O2 SUPPLEMENTATION DR [place]
--- NOTE | 2018-12-03 13:59 | PN ---
Physical Exam: SUBJECTIVE: Patient seen and examined at bedside. Denies shortness of breath, chest pain, n/v/d/f/c. OBJECTIVE: Vital Signs Period Temp Pulse Resp BP Sys/[place] Pulse Ox Last 24 Hr 97.6 F-98.6 F 102-110 18-20 95-102/53-71 96-100 GENERAL: A&Ox3, no acute distress EYES: PERRLA, EOMI ENT: Moist mucus membranes NECK: No JVD LUNGS: CTA, no wheezes, b/l chest tubes not connected HEART: RRR, no murmurs, diffuse anasarca noted on exam ABDOMEN: Soft, nontender, BS present MUSCULOSKELETAL: No CVA Tenderness EXTREMITIES: 2+ pulses, no edema. NEUROLOGICAL: Cranial nerves II-XII intact. Laboratory Results - last 24 hr 12/03/18 05:30 Sodium 129 L Potassium 4.6 Chloride 98 Carbon Dioxide 25 Anion Gap 6 L BUN 46 H Creatinine 2.0 H Creat Clearance w eGFR 24.49 Random Glucose 82 Calcium 6.7 L* Phosphorus 3.6 Magnesium 2.2 Total Bilirubin 0.6 AST 70 H ALT 40 Alkaline Phosphatase 431 H Total Protein 3.7 L Albumin 0.8 L Active Medications Generic Name Dose Route Start Last Admin Trade Name Freq PRN Reason Stop Dose Admin Acetaminophen 650 mg 12/01/18 11:16 Tylenol - PO Q4H PRN PAIN 1-3 Apixaban 2.5 mg 11/30/18 22:00 12/03/18 09:55 Eliquis - PO 2.5 mg BID JOSE ARMANDO Administration Aspirin 81 mg 11/30/18 22:00 12/02/18 21:44 Asa - PO 81 mg HS JOSE ARMANDO Administration Ceftriaxone Sodium 1 gm/ 50 mls @ 100 mls/hr 12/01/18 10:00 12/03/18 09:55 Dextrose IVPB 100 mls/hr DAILY JOSE ARMANDO Administration Metoprolol Succinate 25 mg 11/30/18 22:00 12/03/18 09:55 Toprol Xl - PO 25 mg BID JOSE ARMANDO Administration ASSESSMENT/PLAN: DRAFT 73 year old female with hx DVT on eliquis, CAD s/p PCI, stage IV breast CA w/ spine/liver mets most recently on Gemzar (gemcitabine) 2 months ago initially presented with shortness of breath w/ pleurex draining effusions, now on ceftriaxone Shortness of Breath: ? 2/2 effusions, patient feels better today without shortness of breath, tubes not connected to pleurevacs -on abx (ceftriaxone) -cultures growing yeast -ID on board -cardio and CT surg on board -patient has been on aromatase inhibitors and failed treatment in the past Metastatic Breast CA: mets to spine and liver -home oncologist is Lazaro Nelson -patient's daughter wants patient transferred to [place] to be with treating oncologist -will reach out to inquire whether patient has been on aromatase inhibitors before -primary team reaching out to [place] [facility] and Dr. Nelson to inquire about transfer Elevated Alk Phos: likely due to spine mets Subhash Nguyen, PGY2 Case Discussed w/ Dr. Rodriguez Visit type - Emergency Visit Emergency Visit: No - New Patient This patient is new to me today: Yes Date on this admission: 12/03/18 - Critical Care Critical Care patient: No
--- NOTE | 2018-12-03 14:02 | CON.ID ---
Consult Consult Specialty:: infectious diseases Referred by:: hospitalist Reason for Consultation:: pleural fluid infection - History of Present Illness Chief Complaint: sob,positive sputum cx History of Present Illness: 73yo woman with a PMH of stage 4 breast CA w/ bony mets, HTN, HLD, CAD s/p EVAN LAD (09/2003), diastolic CHF, b/l pleural effusions s/p Pleur-X catheters b/l, hypocalcemia, hypokalemia, thrombocytopenia who was sent to the ED by Dr Palacios. She is not entirely sure why, but she says that she went to see him in clinic this morning and he thought she might need IV medication. She thought it might be her heart medication but isn't sure. 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 Cardio/Vascular: Yes: CAD (has stent), CHF, HTN, Hyperlipdemia Pulmonary: Yes: O2 Dependent, Other (pleural effusions/bilateral pleurex) Gastrointestinal: Yes: Other (colon polyps removed remotely) Renal/: Yes: Renal Inusuff - Past Surgical History Past Surgical History: Yes: Colonoscopy, Mastectomy (bilateral mastectomies and brest reconstuctions), Tonsillectomy - Alcohol/Substance Use Hx Alcohol Use: Yes (wine daily until started on chemotherpay) - Smoking History Smoking history: Never smoked Have you smoked in the past 12 months: No - Social History Usual Living Arrangement: With Spouse ADL: Independent 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 History of Recent Travel: No Home Medications - Allergies Allergies/Adverse Reactions: Allergies Allergy/AdvReac Type Severity Reaction Status Date / Time No Known Allergies Allergy Verified 11/30/18 14:46 - Home Medications Home Medications: Ambulatory Orders RX: Aspirin [ASA -] 81 mg PO HS 03/29/14 RX: Folic Acid 400 mcg PO DAILY 03/29/14 RX: Cholecalciferol (Vitamin D3) [Vitamin D3] 1,000 unit PO DAILY 10/04/18 RX: Nitroglycerin Sublingual [Nitrostat -] 0.4 mg PO PRN PRN 10/04/18 RX: Apixaban [Eliquis -] 2.5 mg PO BID #60 tablet 10/30/18 RX: Metoprolol Succinate [Toprol XL -] 25 mg PO BID #60 tab.sr.24h 10/30/18 RX: Miscellaneous Drug Not In Syst [Outpatient Lab Test] 1 each ASDIR #1 [facility] [place] 10/31/18 RX: Miscellaneous Drug Not In Syst [Outpatient Lab Test] 1 each ASDIR #1 [facility] [place] 10/31/18 RX: Furosemide [Lasix] 20 mg PO DAILY 12/02/18 Family Disease History - Family Disease History Family Disease History: Heart Disease: Father (lived to 94), CA: Mother ( 55 colon cancer), Sister (breast cancer survivor) Review of Systems - Review of Systems Constitutional: reports: No Symptoms Eyes: reports: No Symptoms HENT: reports: No Symptoms Neck: reports: No Symptoms Cardiovascular: reports: No Symptoms Respiratory: reports: Cough, SOB, SOB on Exertion Gastrointestinal: reports: No Symptoms Genitourinary: reports: No Symptoms Musculoskeletal: reports: No Symptoms Integumentary: reports: No Symptoms Neurological: reports: No Symptoms Endocrine: reports: No Symptoms Hematology/Lymphatic: reports: No Symptoms Psychiatric: reports: No Symptoms Physical Exam Vital Signs: Vital Signs Temperature 98 F 12/03/18 09:00 Pulse Rate 103 H 12/03/18 09:00 Respiratory Rate 20 12/03/18 09:00 Blood Pressure 96/53 L 12/03/18 09:00 O2 Sat by Pulse Oximetry (%) 96 12/03/18 09:00 Constitutional: Yes: Well Nourished, Calm, Mild Distress Eyes: Yes: Conjunctiva Clear Neck: Yes: Supple, Trachea Midline Cardiovascular: Yes: Regular Rate and Rhythm Respiratory: Yes: Regular, On Nasal O2, Poor Air Entry, Other (b/l pleurex tubes ) Gastrointestinal: Yes: Normal Bowel Sounds, Soft Musculoskeletal: Yes: WNL Extremities: Yes: WNL Psychiatric: Yes: Alert, Oriented Labs: CBC, BMP 12/01/18 05:30 12/03/18 05:30 Imaging - Results Chest X-ray: Report Reviewed, Image Reviewed Cat Scan: Report Reviewed, Image Reviewed Assessment/Plan Assessment/Plan Problem List - Problems (1) CHF exacerbation Code(s): I50.9 - HEART FAILURE, UNSPECIFIED (2) CKD (chronic kidney disease) Code(s): N18.9 - CHRONIC KIDNEY DISEASE, UNSPECIFIED (3) Liver metastasis Code(s): C78.7 - SECONDARY MALIG NEOPLASM OF LIVER AND INTRAHEPATIC BILE DUCT (4) Large pleural effusion Code(s): J90 - PLEURAL EFFUSION, NOT ELSEWHERE CLASSIFIED (5) CAD (coronary artery disease) Code(s): I25.10 - ATHSCL HEART DISEASE OF [place] CORONARY ARTERY W/O ANG PCTRS Qualifiers: Coronary Disease-Associated Artery/Lesion type: [place] artery [place] vs. transplanted heart: [place] heart Associated angina: without angina Qualified Code(s): I25.10 - Atherosclerotic heart disease of [place] coronary artery without angina pectoris (6) Chest tube in place Code(s): Z96.89 - PRESENCE OF OTHER SPECIFIED FUNCTIONAL IMPLANTS (7) History of percutaneous coronary intervention Code(s): Z98.61 - CORONARY ANGIOPLASTY STATUS (8) Metastatic breast cancer Code(s): C50.919 - MALIGNANT NEOPLASM OF UNSP SITE OF UNSPECIFIED FEMALE BREAST plan will await the cx report nutrition resp support rest as per the team
--- NOTE | 2018-12-03 14:05 | PN ---
Progress Note, Physician History of Present Illness: Pt seen and examined at bedside. She is awake and alert. Her family are at bedside. Pt did not have a kidney biopsy, she had a liver biopsy in the past. - Current Medication List Current Medications: Active Medications Acetaminophen (Tylenol -) 650 mg PO Q4H PRN PRN Reason: PAIN 1-3 Apixaban (Eliquis -) 2.5 mg PO BID [facility] Last Admin: 12/03/18 09:55 Dose: 2.5 mg Aspirin (Asa -) 81 mg PO HS [facility] Last Admin: 12/02/18 21:44 Dose: 81 mg Ceftriaxone Sodium 1 gm/ (Dextrose) 50 mls @ 100 mls/hr IVPB DAILY [facility] Last Admin: 12/03/18 09:55 Dose: 100 mls/hr Metoprolol Succinate (Toprol Xl -) 25 mg PO BID [facility] Last Admin: 12/03/18 09:55 Dose: 25 mg - Objective Vital Signs: Vital Signs Temperature 98 F 12/03/18 09:00 Pulse Rate 103 H 12/03/18 09:00 Respiratory Rate 20 12/03/18 09:00 Blood Pressure 96/53 L 12/03/18 09:00 O2 Sat by Pulse Oximetry (%) 96 12/03/18 09:00 Constitutional: Yes: Calm Eyes: Yes: Conjunctiva Clear HENT: Yes: Atraumatic Neck: Yes: Supple Cardiovascular: Yes: S1, S2 Respiratory: Yes: On Nasal O2, SOB Gastrointestinal: Yes: Soft, Other (anasarca) Genitourinary: Yes: WNL Musculoskeletal: Yes: Muscle Weakness Edema: Yes Edema: LLE: 1+, RLE: 1+ Neurological: Yes: Oriented Psychiatric: Yes: Oriented Labs: CBC, BMP 12/01/18 05:30 12/03/18 05:30 INR, PTT INR 1.99 (0.83-1.09) H 12/01/18 05:30 Problem List - Problems (1) CKD (chronic kidney disease) Code(s): N18.9 - CHRONIC KIDNEY DISEASE, UNSPECIFIED (2) LUCRECIA (acute kidney injury) Code(s): N17.9 - ACUTE KIDNEY FAILURE, UNSPECIFIED (3) CHF exacerbation Code(s): I50.9 - HEART FAILURE, UNSPECIFIED (4) Hypokalemia Code(s): E87.6 - HYPOKALEMIA Assessment/Plan Current Medications Generic Name Dose Route Start Last Admin Trade Name [place]a PRN Reason Stop Dose Admin Acetaminophen 650 mg 12/01/18 11:16 Tylenol - PO Q4H PRN PAIN 1-3 Apixaban 2.5 mg 11/30/18 22:00 12/03/18 09:55 Eliquis - PO 2.5 mg BID JOSE ARMANDO Administration Aspirin 81 mg 11/30/18 22:00 12/02/18 21:44 Asa - PO 81 mg HS JOSE ARMANDO Administration Metoprolol Succinate 25 mg 11/30/18 22:00 12/03/18 09:55 Toprol Xl - PO 25 mg BID JOSE ARMANDO Administration Impression 1. CKD 2. LUCRECIA 3. hypokalemia 4. HTN 5. metastatic breast cancer 6. pleural effusions 7. malnutrition 8. CAD 9. 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
--- NOTE | 2018-12-03 14:57 | PN ---
Progress Note (short form) - Note Progress Note: 73yo F s/p bilateral pleurex catheter placement, pt presented to the hospital with complaints of worsening SOB. Pt currently only draining 500ml from each side 2 times a week. Pt continues to have persistent bilateral pleural effusions. Recommend increase drainage of Pleurex to every day and up to 1L daily. Case discussed with Dr. Fletcher who agrees with plan.
--- NOTE | 2018-12-03 16:05 | PN ---
Teaching Attending Note Name of Resident: Turner Kang ATTENDING PHYSICIAN STATEMENT I saw and evaluated the patient. I reviewed the resident's note and discussed the case with the resident. I agree with the resident's findings and plan as documented. SUBJECTIVE:states overall breathing has improved. no cough. denies CP, fever, chills OBJECTIVE: Last Vital Signs Temp Pulse Resp BP Pulse Ox 98.1 F 113 H 20 87/60 L 96 12/03/18 14:00 12/03/18 14:00 12/03/18 14:00 12/03/18 14:00 12/03/18 09:00 Intake & Output 11/30/18 12/01/18 12/02/18 12/03/18 23:59 23:59 23:59 23:59 Intake Total 700 660 Balance 700 660 Weight 163 lb 162 lb 9.6 oz 165 lb General NAD CV S1 S3 RRR no murmur/rub/gallop Lungs decrease breath sounds B/L poor inspiratory effort Extremiteis 1+ pitting edema ASSESSMENT AND PLAN: 73yo F wtih PMH DVT on eliquis, CAD s/p PCI, Stage IV breast Cancer with metastasis to spine and now liver lesions appreciated, with recent prolonged hospital course for B/L pleural effusions s/p VATS and pleurex catheter placement B/L now returning for shortness of breath with 500cc being drained from each tube 1. B/L pleural effusions- L>R, spoke with surgical team which states that it was recommended that pt drain catheters based on symptoms. can drain up to 1 L at a time as needed as frequent as daily. repeat CXR showing re-accumulation of fluid, will wait for patient to become symptomatic and drain prn. fluid cx showing few-mod yeast. identification pending. consulted ID to comment if this requires treatment. was on lasix on last discharge. will re-start when hemodynamics permit. f/u cx 2. UTI- started on ceftriaxone day 3. f/u Cx 3. Hypokalemia- resolved 4. pseudohypocalcemia- Corrected Ca 9.1 5. Acute on CKD- liekly due to pre-load vs medication induced. (gemcitabine) renal function is stable. avoid nephrotoxic agents. nephro consulted 6. New liver lesion- liekly metastasis from breast ca. spoke with oncology who will call private oncologist today to see what alternative treatments have already been done. due to patients poor functional status likely limited in these. 7. Acute transaminitis- LIkely hepatic congestion due to volume overload. + ansarca. 8. Elevated alk phos- likely due to junaid lesions. does not have abdominal pain at this time 9. CAD sp PCI- asa 10. Dyslipidemia- statin held on last admission due to transaminits. will consider re-starting prior to discharge if no other contraindications 11. DVT-dx on last admission. on eliquis 12. pt wants to be transferred to [facility] where her oncology team is located. call placed out to see if he is willing to accept care at this time
--- NOTE | 2018-12-03 18:12 | PN ---
Physical Exam: SUBJECTIVE: Patient seen and examined at bedside. states overall breathing has improved. no cough. denies CP, fever, chills, n/v/d OBJECTIVE: Vital Signs Period Temp Pulse Resp BP Sys/[place] Pulse Ox Last 24 Hr 97.6 F-98.2 F 102-113 20-20 87-101/53-66 96-100 GENERAL: The patient is awake, alert, and fully oriented, in no acute distress. HEAD: Normal with no signs of trauma. EYES: PERRL, extraocular movements intact, sclera anicteric, conjunctiva clear. ENT: Ears normal, nares patent, oropharynx clear without exudates, moist mucous membranes. NECK: Trachea midline, supple. CHEST: +b/l pleurex, LUNGS: +decreased breath sounds at bases. mild wheezing HEART: Regular rate and rhythm, S1, S2 without murmur, rub or gallop. ABDOMEN: Soft, nontender, nondistended, normoactive bowel sounds, no guarding, no rebound EXTREMITIES: 2+ pt pulses, warm, well-perfused, 1+ pitting edema NEUROLOGICAL: Cranial nerves II through XII grossly intact. PSYCH: Normal mood, normal affect. SKIN: Warm, dry, normal turgor Laboratory Results - last 24 hr 12/03/18 05:30 Sodium 129 L Potassium 4.6 Chloride 98 Carbon Dioxide 25 Anion Gap 6 L BUN 46 H Creatinine 2.0 H Creat Clearance w eGFR 24.49 Random Glucose 82 Calcium 6.7 L* Phosphorus 3.6 Magnesium 2.2 Total Bilirubin 0.6 AST 70 H ALT 40 Alkaline Phosphatase 431 H Total Protein 3.7 L Albumin 0.8 L Active Medications Generic Name Dose Route Start Last Admin Trade Name Freq PRN Reason Stop Dose Admin Acetaminophen 650 mg 12/01/18 11:16 Tylenol - PO Q4H PRN PAIN 1-3 Apixaban 2.5 mg 11/30/18 22:00 12/03/18 09:55 Eliquis - PO 2.5 mg BID JOSE ARMANDO Administration Aspirin 81 mg 11/30/18 22:00 12/02/18 21:44 Asa - PO 81 mg HS JOSE ARMANDO Administration Metoprolol Succinate 25 mg 11/30/18 22:00 12/03/18 09:55 Toprol Xl - PO 25 mg BID JOSE ARMANDO Administration ASSESSMENT/PLAN: 73 y/o F with PMH DVT (on eliquis), CAD s/p PCI, stage 4 breast CA with spine and liver mets, with recent prolonged hospital course for B/L pleural effusions s/p VATS and pleurex catheter placement B/L now returning for SOB with 500cc being drained from each tube #b/l pleural effusions L>R -likely 2/2 malignancy, as need for pleurex -per surgical team recommend that pt drain catheters based on symptoms. can drain up to 1 L at a time as needed as frequent as daily. -repeat CXR showing re-accumulation of fluid, will wait for patient to become symptomatic and drain prn -+yeast from pleural fluid cx -was on lasix 20mg qd when at rehab on Monday. will restart when BP improves -Pulm: Dr. Webb -CT sx: Dr. Fletcher -ID consult for yeast in pleural fluid cx -[facility] consult #UTI -c/w rocephin - Day2...started on 12/01 but missed dose on 12/02/18 -ucx, bcx neg #LUCRECIA on CKD - likely 2/2 pre-load vs medication induced. (gemcitabine). 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 Rascon #New liver lesion- likely metastasis from breast ca. per oncology will call private oncologist today to see what alternative treatments have already been done. due to patients poor functional status likely limited in these. -Hemeonc consult #Acute transaminitis likely 2/2 hepatic congestion 2/2 volume overload. + ansarca. -statin held -monitor LFTs #Elevated ALP -2/2 spine mets from breast CA -c/t to monitor #CAD s/p PCI -c/w asa #HLD- statin held on last admission due to transaminits. -will consider re-starting prior to discharge if no other contraindications #hx DVT -c/w eliquis #F/E/N no IVF at this time continue to follow lytes regular diet #PPX on eliquis Dispo tele pt wants to be transferred to [facility] where her oncology team is located. call placed out to see if he is willing to accept care at this time Visit type - Emergency Visit Emergency Visit: Yes ED Registration Date: 11/30/18 Care time: The patient presented to the Emergency Department on the above date and was hospitalized for further evaluation of their emergent condition. - New Patient This patient is new to me today: Yes Date on this admission: 12/03/18 - Critical Care Critical Care patient: No
[2018-12-03] MEDS: ASPIRIN 81 MG CHEWABLE TABLETS PO SCH (21:48)
[2018-12-04 08:50] LABS: BASO % 0.4 % (0-2.0); EOS % 0.9 % (0-4.5); HEMATOCRIT 28.8 % (32.4-45.2); HEMOGLOBIN 9.8 GM/dL (10.7-15.3); LYMPH % 10.8 % (8-40); MCH 34.3 pg (25.7-33.7); MCHC 33.9 g/dl (32.0-36.0); MEAN CELL VOLUME 101.2 fl (80-96); MEAN PLT VOLUME 7.6 fl (7.5-11.1); MONO % 7.1 % (3.8-10.2); NEUT % 80.8 % (42.8-82.8); PLATELET COUNT 208 K/MM3 (134-434); RBC 2.85 M/mm3 (3.60-5.2); RDW 15.5 % (11.6-15.6); WHITE BLOOD COUNT 18.1 K/mm3 (4.0-10.0)
[2018-12-04 09:31] LABS: ALBUMIN 0.8 g/dl (3.4-5.0); ALK PHOS 469 U/L (45-117); ANION GAP 8 MMOL/L (8-16); BILIRUBIN,TOTAL 0.5 mg/dL (0.2-1); BLOOD UREA NITROGEN 45 mg/dL (7-18); CHLORIDE 99 mmol/L (98-107); CO2 24 mmol/L (21-32); GLUCOSE,RANDOM 73 mg/dL (74-106); MAGNESIUM 1.9 mg/dL (1.8-2.4); PHOSPHOROUS 3.7 mg/dL (2.5-4.9); POTASSIUM 4.5 mmol/L (3.5-5.1); SGOT/AST 62 U/L (15-37); SGPT/ALT 40 U/L (13-61); SODIUM 131 mmol/L (136-145); TOT PROT 3.8 g/dl (6.4-8.2)
[2018-12-04 09:40] LABS: CALCIUM 6.8 mg/dL (8.5-10.1)
[2018-12-04] MEDS ORDERED: cefTRIAXone SODIUM 1 GM VIAL ONE (09:53)
[2018-12-04] MEDS ORDERED: DEXTROSE 5%-WATER - 50 ML IVPB ONE (09:54)
[2018-12-04] MEDS ORDERED: CEFTRIAXONE 1 GM in DEXTROSE 5%-WATER - 50 ML IVPB SCH (10:00)
--- NOTE | 2018-12-04 11:03 | PN ---
Teaching Attending Note Name of Resident: Turner Kang ATTENDING PHYSICIAN STATEMENT I saw and evaluated the patient. I reviewed the resident's note and discussed the case with the resident. I agree with the resident's findings and plan as documented. SUBJECTIVE:no complaints at this time. denies CP, SOB,fever, chills, cough OBJECTIVE: Last Vital Signs Temp Pulse Resp BP Pulse Ox 98 F 102 H 20 85/57 L 100 12/04/18 08:52 12/04/18 08:52 12/04/18 09:00 12/04/18 08:52 12/04/18 09:00 General NAD CV S1 S3 RRR no murmur/rub/gallop Lungs decrease breath sounds B/L poor inspiratory effort Extremiteis 1+ pitting edema ASSESSMENT AND PLAN: 73yo F wtih PMH DVT on eliquis, CAD s/p PCI, Stage IV breast Cancer with metastasis to spine and now liver lesions appreciated, with recent prolonged hospital course for B/L pleural effusions s/p VATS and pleurex catheter placement B/L now returning for shortness of breath with 500cc being drained from each tube 1. B/L pleural effusions-s/p drainage on presentation. recommendations per surgical team for them to be drained as frequent as necessary with up to 1L at a time. Fluid sent to cytology to evaluate for malignancy. which was negative last hospitalization however high suspicion it is related. monitor breathing status. fluid Cx with yeast. as per ID does not require treatment 2. UTI- UCx negative, d/c abx 3. Hypokalemia- resolved 4. pseudohypocalcemia- Corrected Ca 9.1 5. Acute on CKD- liekly due to pre-load vs medication induced. (gemcitabine) renal function is stable. avoid nephrotoxic agents. nephro consulted 6. New liver lesion- liekly metastasis from breast ca. oncologist would like for patient to be transferred to [facility] for further management 7. Acute transaminitis- LIkely hepatic congestion due to volume overload. + ansarca. 8. Elevated alk phos- likely due to junaid lesions. does not have abdominal pain at this time 9. CAD sp PCI- asa 10. Dyslipidemia- statin held on last admission due to transaminits. will consider re-starting prior to discharge if no other contraindications 11. DVT-dx on last admission. on eliquis 12. HCP (daughter) wants patient to be transferred to [facility]. awaiting to obtain accepting physician (Oncologist does not have admitting privileges)
--- NOTE | 2018-12-04 11:33 | PN ---
Progress Note, Physician Chief Complaint: Events noted Does not appear to be in distress History of Present Illness: Patient was seen and examined. Awake and alert. Chart was reviewed Denies chest pain - Current Medication List Current Medications: Active Medications Acetaminophen (Tylenol -) 650 mg PO Q4H PRN PRN Reason: PAIN 1-3 Apixaban (Eliquis -) 2.5 mg PO BID [facility] Last Admin: 12/03/18 21:48 Dose: 2.5 mg Aspirin (Asa -) 81 mg PO HS [facility] Last Admin: 12/03/18 21:48 Dose: 81 mg Metoprolol Succinate (Toprol Xl -) 25 mg PO BID [facility] Last Admin: 12/03/18 21:48 Dose: 25 mg - Objective Vital Signs: Vital Signs Temperature 98 F 12/04/18 08:52 Pulse Rate 102 H 12/04/18 08:52 Respiratory Rate 20 12/04/18 09:00 Blood Pressure 85/57 L 12/04/18 08:52 O2 Sat by Pulse Oximetry (%) 100 12/04/18 09:00 Eyes: Yes: PERRL HENT: Yes: Atraumatic Cardiovascular: Yes: Tachycardia, Pulse Irregular, S1, S2 Respiratory: Yes: Diminished Gastrointestinal: No: Tenderness Edema: Yes Edema: LLE: 1+, RLE: 1+ Additional Findings/Remarks: - Review of Systems Constitutional: denies: Chills, Fever Cardiovascular: denies Chest Pain, (+) Shortness of Breath. denies: Palpitations Respiratory: denies: Cough, (+) SOB. denies: Hemoptysis, Orthopnea, PND, (+) SOB on Exertion Gastrointestinal: denies: Abdominal Pain, Constipation, Diarrhea, Melena, Nausea , Rectal Bleeding Genitourinary: denies: Dysuria, Hematuria Neurological: denies: Dizziness, Headache, Seizure, Syncope Labs: CBC, BMP 12/04/18 08:00 12/04/18 08:00 Problem List - Problems (1) CKD (chronic kidney disease) Code(s): N18.9 - CHRONIC KIDNEY DISEASE, UNSPECIFIED (2) Large pleural effusion Code(s): J90 - PLEURAL EFFUSION, NOT ELSEWHERE CLASSIFIED (3) CAD (coronary artery disease) Code(s): I25.10 - ATHSCL HEART DISEASE OF [place] CORONARY ARTERY W/O ANG PCTRS Qualifiers: Coronary Disease-Associated Artery/Lesion type: [place] artery [place] vs. transplanted heart: [place] heart Associated angina: without angina Qualified Code(s): I25.10 - Atherosclerotic heart disease of [place] coronary artery without angina pectoris (4) Congestive heart failure with LV diastolic dysfunction, NYHA class 2 Code(s): I50.30 - UNSPECIFIED DIASTOLIC (CONGESTIVE) HEART FAILURE (5) HTN (hypertension) Code(s): I10 - ESSENTIAL (PRIMARY) HYPERTENSION Qualifiers: Hypertension type: essential hypertension Qualified Code(s): I10 - Essential (primary) hypertension (6) History of percutaneous coronary intervention Code(s): Z98.61 - CORONARY ANGIOPLASTY STATUS (7) Hypercholesterolemia Code(s): E78.00 - PURE HYPERCHOLESTEROLEMIA, UNSPECIFIED (8) Demand ischemia Code(s): I24.8 - OTHER FORMS OF ACUTE ISCHEMIC HEART DISEASE Assessment/Plan 1. Dyspnea related to recurrent pleural effusions, history of bilateral VATS with pleurX-catheter placement/biopsy for bilateral pleural effusions 2. Diastolic/systolic LV dysfunction with clinical class I-II NYHA classification LV failure 3. CAD post PCI/stent demand ischemia angina pectoris 4. Paroxysmal atrial tachycardia/MAT/PAF 5. HTN 6. Hyperlipidemia 7. 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 Thrombophlebitis of superficial cephalic vein 9. Acute kidney injury 10. Anemia 11. Abnormal LFTs, hepatic lesion, possible hepatic congestion 12. Hyponatremia 13. Hypocalcemia PLAN: 1. Continue Eliquis 2.5 mg BID and ASA 81 mg QD with caution 2. Continue Toprol XL 25 mg BID as tolerated 3. Resume Losartan once renal function improves and as tolerated 4. Catheter care Present therapy Bello Combs MD
--- NOTE | 2018-12-04 11:43 | PN ---
Progress Note, Physician History of Present Illness: pulmonary alert,mildly dyspneic at rest - Current Medication List Current Medications: Active Medications Acetaminophen (Tylenol -) 650 mg PO Q4H PRN PRN Reason: PAIN 1-3 Apixaban (Eliquis -) 2.5 mg PO BID [facility] Last Admin: 12/03/18 21:48 Dose: 2.5 mg Aspirin (Asa -) 81 mg PO HS [facility] Last Admin: 12/03/18 21:48 Dose: 81 mg Metoprolol Succinate (Toprol Xl -) 25 mg PO BID [facility] Last Admin: 12/03/18 21:48 Dose: 25 mg - Objective Vital Signs: Vital Signs Temperature 98 F 12/04/18 08:52 Pulse Rate 102 H 12/04/18 08:52 Respiratory Rate 20 12/04/18 09:00 Blood Pressure 85/57 L 12/04/18 08:52 O2 Sat by Pulse Oximetry (%) 100 12/04/18 09:00 Constitutional: Yes: Well Nourished, Calm, Other (mildly tachpneic when talking) Eyes: Yes: WNL HENT: Yes: WNL Neck: Yes: WNL Cardiovascular: Yes: Pulse Irregular, S1, S2 Respiratory: Yes: Diminished Gastrointestinal: Yes: Normal Bowel Sounds, Soft Extremities: Yes: WNL Edema: Yes Labs: CBC, BMP 12/04/18 08:00 12/04/18 08:00 INR, PTT INR 1.99 (0.83-1.09) H 12/01/18 05:30 Assessment/Plan Problem List - Problems (1) CHF exacerbation Code(s): I50.9 - HEART FAILURE, UNSPECIFIED (2) CKD (chronic kidney disease) Code(s): N18.9 - CHRONIC KIDNEY DISEASE, UNSPECIFIED (3) Liver metastasis Code(s): C78.7 - SECONDARY MALIG NEOPLASM OF LIVER AND INTRAHEPATIC BILE DUCT (4) Large pleural effusion Code(s): J90 - PLEURAL EFFUSION, NOT ELSEWHERE CLASSIFIED (5) CAD (coronary artery disease) Code(s): I25.10 - ATHSCL HEART DISEASE OF [place] CORONARY ARTERY W/O ANG PCTRS Qualifiers: Coronary Disease-Associated Artery/Lesion type: [place] artery [place] vs. transplanted heart: [place] heart Associated angina: without angina Qualified Code(s): I25.10 - Atherosclerotic heart disease of [place] coronary artery without angina pectoris (6) Chest tube in place Code(s): Z96.89 - PRESENCE OF OTHER SPECIFIED FUNCTIONAL IMPLANTS (7) History of percutaneous coronary intervention Code(s): Z98.61 - CORONARY ANGIOPLASTY STATUS (8) Metastatic breast cancer Code(s): C50.919 - MALIGNANT NEOPLASM OF UNSP SITE OF UNSPECIFIED FEMALE BREAST Assessment/Plan BILATERAL PALLIATIVE PLEUR-X DRAINING EFFUSIONS METASTATIC BREAST CANCER FAILURE TO THRIVE CAD S/P PCI H/O DVT LUCRECIA/CKD O2 SUPPLEMENTATION DRAIN PLEURAL FLUID VIA PLEUR-X F/U CHEST X-RAY DR CA
[2018-12-04] MEDS: metoPROLOL SUCCINATE 25 MG TAB.SR.24H (FP) PO SCH (11:45)
[2018-12-04] MEDS: APIXABAN 2.5 MG TABLET PO SCH (11:46)
--- NOTE | 2018-12-04 13:07 | PN ---
Progress Note, Physician History of Present Illness: Pt seen and examined at bedside. She is awake and alert. She appears more comfortable than she was yesterday. - Current Medication List Current Medications: Active Medications Acetaminophen (Tylenol -) 650 mg PO Q4H PRN PRN Reason: PAIN 1-3 Apixaban (Eliquis -) 2.5 mg PO BID [facility] Last Admin: 12/04/18 11:46 Dose: 2.5 mg Aspirin (Asa -) 81 mg PO HS [facility] Last Admin: 12/03/18 21:48 Dose: 81 mg Metoprolol Succinate (Toprol Xl -) 25 mg PO BID [facility] Last Admin: 12/04/18 11:45 Dose: 25 mg - Objective Vital Signs: Vital Signs Temperature 98 F 12/04/18 08:52 Pulse Rate 102 H 12/04/18 11:46 Respiratory Rate 20 12/04/18 11:46 Blood Pressure 96/48 L 12/04/18 11:46 O2 Sat by Pulse Oximetry (%) 100 12/04/18 09:00 Constitutional: Yes: Calm Eyes: Yes: Conjunctiva Clear HENT: Yes: Atraumatic Cardiovascular: Yes: S1, S2 Respiratory: Yes: On Nasal O2 Gastrointestinal: Yes: Soft Musculoskeletal: Yes: WNL Edema: Yes (abd wall edema) Edema: LLE: 2+, RLE: 2+ Neurological: Yes: Oriented Psychiatric: Yes: Oriented Labs: CBC, BMP 12/04/18 08:00 12/04/18 08:00 INR, PTT INR 1.99 (0.83-1.09) H 12/01/18 05:30 Problem List - Problems (1) CKD (chronic kidney disease) Code(s): N18.9 - CHRONIC KIDNEY DISEASE, UNSPECIFIED (2) LUCRECIA (acute kidney injury) Code(s): N17.9 - ACUTE KIDNEY FAILURE, UNSPECIFIED (3) CHF exacerbation Code(s): I50.9 - HEART FAILURE, UNSPECIFIED (4) Hypokalemia Code(s): E87.6 - HYPOKALEMIA Assessment/Plan Current Medications Generic Name Dose Route Start Last Admin Trade Name Freq PRN Reason Stop Dose Admin Acetaminophen 650 mg 12/01/18 11:16 Tylenol - PO Q4H PRN PAIN 1-3 Apixaban 2.5 mg 11/30/18 22:00 12/04/18 11:46 Eliquis - PO 2.5 mg BID JOSE ARMANDO Administration Aspirin 81 mg 11/30/18 22:00 12/03/18 21:48 Asa - PO 81 mg HS JOSE ARMANDO Administration Metoprolol Succinate 25 mg 11/30/18 22:00 12/04/18 11:45 Toprol Xl - PO 25 mg BID JOSE ARMANDO Administration Impression 1. CKD 2. LUCRECIA 3. hypokalemia 4. HTN 5. metastatic breast cancer 6. pleural effusions 7. malnutrition 8. CAD 9. HLD Plan - pt has a baseline terminal supervisor of 18 - family want pt transferred to [facility] - sodium is improved - pt remains hypotensive - oncology follow up - monitor renal function - restrict free water
--- NOTE | 2018-12-04 14:02 | PN ---
Physical Exam: SUBJECTIVE: Patient seen and examined at bedside. states overall breathing has improved. no cough. s/p 500cc drained from L tube and 450cc from R tube. denies CP, fever, chills, n/v/d. call placed to [facility] to see if there is an accepting physician willing to accept care at this time OBJECTIVE: Vital Signs Period Temp Pulse Resp BP Sys/Trujillo Pulse Ox Last 24 Hr 97.3 F-98.9 F 57-117 18-22 85-97/48-71 100-100 GENERAL: The patient is awake, alert, and fully oriented, in no acute distress. HEAD: NCAT EYES: PERRL, extraocular movements intact, sclera anicteric, conjunctiva clear. ENT: Ears normal, nares patent, oropharynx clear without exudates, MMM NECK: Trachea midline, supple. CHEST: +b/l pleurex, LUNGS: +decreased breath sounds at bases. mild wheezing HEART:RRR, S1, S2 without murmur, rub or gallop. ABDOMEN: Soft, NTND, normoactive bowel sounds, no guarding, no rebound EXTREMITIES: 2+ pt pulses, warm, well-perfused, 1+ pitting edema NEUROLOGICAL: Cranial nerves II through XII grossly intact. PSYCH: Normal mood, normal affect. SKIN: Warm, dry, normal turgor Laboratory Results - last 24 hr 12/01/18 12/04/18 12/04/18 00:04 08:00 08:00 WBC 18.1 H RBC 2.85 L Hgb 9.8 L Hct 28.8 L MCV 101.2 H MCH 34.3 H MCHC 33.9 RDW 15.5 Plt Count 208 MPV 7.6 Absolute Neuts (auto) 14.6 H Neutrophils % 80.8 Lymphocytes % 10.8 Monocytes % 7.1 Eosinophils % 0.9 Basophils % 0.4 Nucleated RBC % 0 Sodium 131 L Potassium 4.5 Chloride 99 Carbon Dioxide 24 Anion Gap 8 BUN 45 H Creatinine 2.0 H Creat Clearance w eGFR 24.49 Random Glucose 73 L Calcium 6.8 L* Ionized Calcium 4.9 Phosphorus 3.7 Magnesium 1.9 Total Bilirubin 0.5 AST 62 H ALT 40 Alkaline Phosphatase 469 H Total Protein 3.8 L Albumin 0.8 L Active Medications Generic Name Dose Route Start Last Admin Trade Name Freq PRN Reason Stop Dose Admin Acetaminophen 650 mg 12/01/18 11:16 Tylenol - PO Q4H PRN PAIN 1-3 Apixaban 2.5 mg 11/30/18 22:00 12/04/18 11:46 Eliquis - PO 2.5 mg BID JOSE ARMANDO Administration Aspirin 81 mg 11/30/18 22:00 12/03/18 21:48 Asa - PO 81 mg HS JOSE ARMANDO Administration Metoprolol Succinate 25 mg 11/30/18 22:00 12/04/18 11:45 Toprol Xl - PO 25 mg BID JOSE ARMANDO Administration ASSESSMENT/PLAN: 73 y/o F with PMH DVT (on eliquis), CAD s/p PCI, stage 4 breast CA with spine and liver mets, with recent prolonged hospital course for B/L pleural effusions s/p VATS and pleurex catheter placement B/L now returning for SOB with 500cc being drained from each tube #b/l pleural effusions L>R -likely 2/2 malignancy, as need for pleurex -per surgical team recommend to drain catheters based on symptoms. can drain up to 1 L at a time as needed as frequent as daily. -repeat CXR showing re-accumulation of fluid, will wait for patient to become symptomatic and drain prn -+yeast from pleural fluid cx, per ID no abx at this time. con to monitor. pt is asxs, afebrile -was on lasix 20mg qd when at rehab on Monday. will restart when BP improves -Pulm: Dr. Webb -CT sx: Dr. Fletcher -ID consult for yeast in pleural fluid cx -Hemeon consult #UTI - resolved -s/p rocephin x3d -ucx, bcx neg #LUCRECIA on CKD - likely 2/2 pre-load vs medication induced. (gemcitabine). 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 Rascon #New liver lesion- likely metastasis from breast ca. per oncology will call private oncologist today to see what alternative treatments have already been done. due to patients poor functional status likely limited in these. -Hemeonc consult #Acute transaminitis likely 2/2 hepatic congestion 2/2 volume overload. + ansarca. -statin held -monitor LFTs #Elevated ALP -2/2 spine mets from breast CA -c/t to monitor #CAD s/p PCI -c/w asa #HLD- statin held on last admission due to transaminits. -will consider re-starting prior to discharge if no other contraindications #hx DVT -c/w eliquis #F/E/N no IVF at this time continue to follow lytes regular diet #PPX on eliquis Dispo tele pt wants to be transferred to [facility] where her oncology team is located. Her oncologist Dr. Granado is on board for her to be transferred. However, still need an accepting physician, call placed out to see if there is an accepting physician willing to accept care at this time Visit type - Emergency Visit Emergency Visit: Yes ED Registration Date: 11/30/18 Care time: The patient presented to the Emergency Department on the above date and was hospitalized for further evaluation of their emergent condition. - New Patient This patient is new to me today: Yes Date on this admission: 12/04/18 - Critical Care Critical Care patient: No
--- NOTE | 2018-12-04 15:24 | PN ---
Progress Note, Physician History of Present Illness: patient stable no complaints doing well breathing ok - Current Medication List Current Medications: Active Medications Acetaminophen (Tylenol -) 650 mg PO Q4H PRN PRN Reason: PAIN 1-3 Last Admin: 12/04/18 13:45 Dose: 650 mg Apixaban (Eliquis -) 2.5 mg PO BID [facility] Last Admin: 12/04/18 11:46 Dose: 2.5 mg Aspirin (Asa -) 81 mg PO HS [facility] Last Admin: 12/03/18 21:48 Dose: 81 mg Metoprolol Succinate (Toprol Xl -) 25 mg PO BID [facility] Last Admin: 12/04/18 11:45 Dose: 25 mg - Objective Vital Signs: Vital Signs Temperature 98.3 F 12/04/18 13:40 Pulse Rate 117 H 12/04/18 13:40 Respiratory Rate 22 H 12/04/18 13:40 Blood Pressure 94/61 12/04/18 13:40 O2 Sat by Pulse Oximetry (%) 100 12/04/18 09:00 Constitutional: Yes: No Distress, Calm Cardiovascular: Yes: Regular Rate and Rhythm Respiratory: Yes: Regular, On Nasal O2, Poor Air Entry, Other (b/l pleurex tubes ) Gastrointestinal: Yes: Normal Bowel Sounds, Soft Musculoskeletal: Yes: WNL Extremities: Yes: WNL Neurological: Yes: Alert, Oriented Psychiatric: Yes: Alert, Oriented Labs: CBC, BMP 12/04/18 08:00 12/04/18 08:00 INR, PTT INR 1.99 (0.83-1.09) H 12/01/18 05:30 Assessment/Plan Assessment/Plan Problem List - Problems (1) CHF exacerbation Code(s): I50.9 - HEART FAILURE, UNSPECIFIED (2) CKD (chronic kidney disease) Code(s): N18.9 - CHRONIC KIDNEY DISEASE, UNSPECIFIED (3) Liver metastasis Code(s): C78.7 - SECONDARY MALIG NEOPLASM OF LIVER AND INTRAHEPATIC BILE DUCT (4) Large pleural effusion Code(s): J90 - PLEURAL EFFUSION, NOT ELSEWHERE CLASSIFIED (5) CAD (coronary artery disease) Code(s): I25.10 - ATHSCL HEART DISEASE OF [place] CORONARY ARTERY W/O ANG PCTRS Qualifiers: Coronary Disease-Associated Artery/Lesion type: [place] artery [place] vs. transplanted heart: [place] heart Associated angina: without angina Qualified Code(s): I25.10 - Atherosclerotic heart disease of [place] coronary artery without angina pectoris (6) Chest tube in place Code(s): Z96.89 - PRESENCE OF OTHER SPECIFIED FUNCTIONAL IMPLANTS (7) History of percutaneous coronary intervention Code(s): Z98.61 - CORONARY ANGIOPLASTY STATUS (8) Metastatic breast cancer Code(s): C50.919 - MALIGNANT NEOPLASM OF UNSP SITE OF UNSPECIFIED FEMALE BREAST plan continue to monitor await for final identification of the organism resp support rest as per the team
--- NOTE | 2018-12-04 16:00 | PN ---
Physical Exam: HEME ONC PROGRESS NOTE SUBJECTIVE: Patient seen and examined at bedside. No acute changes from yesterday. Denies any current complaints. OBJECTIVE: Vital Signs Period Temp Pulse Resp BP Sys/Trujillo Pulse Ox Last 24 Hr 97.3 F-98.9 F 57-117 18-22 85-97/48-71 100-100 GENERAL: A&Ox3, no acute distress EYES: PERRLA, EOMI ENT: Moist mucus membranes NECK: No JVD LUNGS: CTA, no wheezes, b/l chest tubes not connected HEART: RRR, no murmurs, diffuse anasarca noted on exam, R chest wall catheter noted ABDOMEN: Soft, nontender, BS present MUSCULOSKELETAL: No CVA Tenderness EXTREMITIES: 2+ pulses, no edema. NEUROLOGICAL: Cranial nerves II-XII intact. Laboratory Results - last 24 hr 12/01/18 12/04/18 12/04/18 00:04 08:00 08:00 WBC 18.1 H RBC 2.85 L Hgb 9.8 L Hct 28.8 L MCV 101.2 H MCH 34.3 H MCHC 33.9 RDW 15.5 Plt Count 208 MPV 7.6 Absolute Neuts (auto) 14.6 H Neutrophils % 80.8 Lymphocytes % 10.8 Monocytes % 7.1 Eosinophils % 0.9 Basophils % 0.4 Nucleated RBC % 0 Sodium 131 L Potassium 4.5 Chloride 99 Carbon Dioxide 24 Anion Gap 8 BUN 45 H Creatinine 2.0 H Creat Clearance w eGFR 24.49 Random Glucose 73 L Calcium 6.8 L* Ionized Calcium 4.9 Phosphorus 3.7 Magnesium 1.9 Total Bilirubin 0.5 AST 62 H ALT 40 Alkaline Phosphatase 469 H Total Protein 3.8 L Albumin 0.8 L Active Medications Generic Name Dose Route Start Last Admin Trade Name Freq PRN Reason Stop Dose Admin Acetaminophen 650 mg 12/01/18 11:16 12/04/18 13:45 Tylenol - PO 650 mg Q4H PRN Administration PAIN 1-3 Apixaban 2.5 mg 11/30/18 22:00 12/04/18 11:46 Eliquis - PO 2.5 mg BID JOSE ARMANDO Administration Aspirin 81 mg 11/30/18 22:00 12/03/18 21:48 Asa - PO 81 mg HS JOSE ARMANDO Administration Metoprolol Succinate 25 mg 11/30/18 22:00 12/04/18 11:45 Toprol Xl - PO 25 mg BID JOSE ARMANDO Administration ASSESSMENT/PLAN: DRAFT 73 year old female with hx DVT on eliquis, CAD s/p PCI, stage IV breast CA w/ spine/liver mets most recently on Gemzar (gemcitabine) 2 months ago initially presented with shortness of breath w/ pleurex draining effusions, now on ceftriaxone Shortness of Breath: ? 2/2 effusions, patient feels better today without shortness of breath, tubes not connected to pleurevacs -cultures growing yeast -ID on board -cardio and CT surg on board -patient has been on aromatase inhibitors and failed treatment in the past Metastatic Breast CA: mets to spine and liver -home oncologist is Lazaro Nelson -patient's daughter wants patient transferred to [facility] to be with treating oncologist -primary team reaching out to [facility] and Dr. Nelson to inquire about transfer Elevated Alk Phos: likely due to spine mets Subhash Nguyen, PGY2 Visit type - Emergency Visit Emergency Visit: No - New Patient This patient is new to me today: No - Critical Care Critical Care patient: No
[2018-12-04 18:23] VITALS: TEMP 98.4
[2018-12-04] MEDS ORDERED: ACETAMINOPHEN 325 MG TABLET (FP) PO PRN (19:15)
[2018-12-04 20:22] VITALS: BP 98/61; PULSE 114
--- NOTE | 2018-12-04 21:56 | DS ---
Physical Exam: SUBJECTIVE: Patient seen and examined at bedside. states overall breathing has improved. no cough. s/p 500cc drained from L tube and 450cc from R tube. denies CP, fever, chills, n/v/d. OBJECTIVE: Vital Signs Period Temp Pulse Resp BP Sys/T[place] Pulse Ox Last 24 Hr 97.3 F-98.4 F 102-117 19-22 85-128/48-63 100 PHYSICAL EXAM GENERAL: The patient is awake, alert, and fully oriented, in no acute distress. HEAD: NCAT EYES: PERRL, extraocular movements intact, sclera anicteric, conjunctiva clear. ENT: Ears normal, nares patent, oropharynx clear without exudates, MMM NECK: Trachea midline, supple. CHEST: +b/l pleurex, LUNGS: +decreased breath sounds at bases. mild wheezing HEART:RRR, S1, S2 without murmur, rub or gallop. ABDOMEN: Soft, NTND, normoactive bowel sounds, no guarding, no rebound EXTREMITIES: 2+ pt pulses, warm, well-perfused, 1+ pitting edema NEUROLOGICAL: Cranial nerves II through XII grossly intact. PSYCH: Normal mood, normal affect. SKIN: Warm, dry, normal turgor LABS Laboratory Results - last 24 hr 12/01/18 12/04/18 12/04/18 00:04 08:00 08:00 WBC 18.1 H RBC 2.85 L Hgb 9.8 L Hct 28.8 L MCV 101.2 H MCH 34.3 H MCHC 33.9 RDW 15.5 Plt Count 208 MPV 7.6 Absolute Neuts (auto) 14.6 H Neutrophils % 80.8 Lymphocytes % 10.8 Monocytes % 7.1 Eosinophils % 0.9 Basophils % 0.4 Nucleated RBC % 0 Sodium 131 L Potassium 4.5 Chloride 99 Carbon Dioxide 24 Anion Gap 8 BUN 45 H Creatinine 2.0 H Creat Clearance w eGFR 24.49 Random Glucose 73 L Calcium 6.8 L* Ionized Calcium 4.9 Phosphorus 3.7 Magnesium 1.9 Total Bilirubin 0.5 AST 62 H ALT 40 Alkaline Phosphatase 469 H Total Protein 3.8 L Albumin 0.8 L [id number] CT/CHEST CT WITHOUT CONTRAST Chest CT without contrast Clinical information: dyspnea, increasing effusion Multiplanar imaging was performed. Intravenous contrast was not administered. In comparison to a prior chest CT exam of 10/05/2018 interval increased left- sided pleural effusion is noted which currently appears large in size, previously small. A left-sided chest tube is again seen in place although the tube apparently has been changed since the previous exam. There is resultant left lower lobe compressive atelectasis. A small right pleural effusion is noted within ipsilateral chest tube in place. This pleural effusion appears decreased in size. No obvious pleural soft tissue nodularity/mass lesion is identified. The visualized lung jackson demonstrate no discrete nodule. A possible 2.3 cm left hepatic lobe hypodense mass lesion is seen which cannot be visualized on prior studies. The partially imaged upper abdomen demonstrates interval development of ascites bilaterally which is probably moderate in volume. Prominently increased subcutaneous edema is seen along the left and right posterolateral aspect of the chest as well as along the partially imaged flanks of the abdomen. The remainder of the exam demonstrates no obvious interval change. No definite lymphadenopathy is seen on noncontrast imaging. There is no cardiac enlargement. No pericardial effusion is noted. Atherosclerotic coronary calcifications are seen. 1.3 cm left hepatic lobe cyst. The patient appears to be status post bilateral mastectomies. Right internal jugular venous catheter in place with the catheter tip at the level of the lower third of the superior vena cava. Multifocal osteoblastic metastatic neoplastic disease including the thoracic spine and partially imaged lower cervical spine. Impression: Bilateral pleural drainage catheters in place. A large left pleural effusion is noted which has increased in size in comparison to a CT study of 10/05/2018. A small right pleural effusion is seen which has decreased in size. Possible interval development of a 2.3 cm left hepatic lobe hypodense lesion is noted which may be on the basis of metastatic neoplastic disease. Interval development of a moderate amount of ascites is noted within the partially imaged upper abdomen. Prominently increased subcutaneous edema is noted along the chest and abdomen bilaterally. Osteoblastic metastatic neoplastic disease as on the prior exam. 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 CT surgery was consulted (Dr. Fletcher) . effusions were drained via pt's pleurex catheters and pt sxs and O2 sat improved. per surgical team recommend to drain catheters based on symptoms. can drain up to 1 L at a time as needed as frequent as daily. +yeast from pleural fluid cx, per ID no abx at this time. con to monitor. pt is asxs, afebrile. -takes lasix 20mg qd at home. was held here due to low BP. can restart when BP improves -Pulm consulted: Dr. Webb -ID consulted Dr vazquez -Eb consulted Dr Ojeda #UTI - resolved -s/p rocephin x3d -ucx, bcx neg #LUCRECIA on CKD - likely 2/2 pre-load vs medication induced. 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 Rascon #New liver lesion noted on CT scan above- likely metastasis from breast ca. -Hemeonc consulted -pt being transferred to [facility] and will f/u w/ her oncologist there #Acute transaminitis likely 2/2 hepatic congestion 2/2 volume overload. + ansarca. -statin held, can likely resume as appears to be improving -monitor LFTs #Elevated ALP -2/2 spine mets from breast CA -c/t to monitor #HLD- statin held on last admission due to transaminits. -statin held, can likely resume as appears to be improving pt wants to be transferred to [facility] where her oncology team is located. Her oncologist Dr. Granado is on board for her to be transferred. pt stable and ready for transfer to [facility] w/ appropriate f/u Minutes to complete discharge: 39 Discharge Summary Reason For Visit: ACUTE KIDNEY INKURY,LARGE PLEURAL EFFUSION, Condition: Guarded - Instructions Diet, Activity, Other Instructions: you came in with shortness of breath and was found to have excess fluid in your chest cavity. we drained the fluid via the pleuredex catheters that you have and your symptoms improved. Please resume your home meds You requested to be transferred to [facility] because your oncologist is there. Please follow up with your primary care physician within 1 week Please follow up with your oncologist within 1 week Please follow up with your within 1 week Here is a list of referrals of physicians that have seen you and that you can follow up with if you wish: nephrology Dr. Rascon oncology Dr. Ojeda infectious disease Dr. Vazquez cardiology Dr. Fritz Thoracic surgeon Dr. Fletcher Pulmonology Dr. Webb If you experience any worsening shortness of breath or any chest pain, increased leg swelling, please call 911 or go to the ER. Referrals: Kvng Vazquez MD [Staff Physician] - 1 Week Joshua Webb MD [Staff Physician] - 1 Week Ambrocio Fritz MD [Staff Physician] - 1 Week Nevin Fletcher MD [Staff Physician] - 1 Week Jennifer Ojeda MD [Staff Physician] - 1 Week Andrew Rascon MD [Staff Physician] - 1 Week Disposition: TRANSFER ACUTE CARE/OTHER HOSP - Home Medications Comprehensive Discharge Medication List: Ambulatory Orders Aspirin [ASA -] 81 mg PO HS 03/29/14 Folic Acid 400 mcg PO DAILY 03/29/14 Cholecalciferol (Vitamin D3) [Vitamin D3] 1,000 unit PO DAILY 10/04/18 Nitroglycerin Sublingual [Nitrostat -] 0.4 mg PO PRN PRN 10/04/18 Apixaban [Eliquis -] 2.5 mg PO BID #60 tablet 10/30/18 Metoprolol Succinate [Toprol XL -] 25 mg PO BID #60 tab.sr.24h 10/30/18 Miscellaneous Drug Not In Syst [Outpatient Lab Test] 1 each ASDIR #1 misc Miscellaneous Drug Not In Syst [Outpatient Lab Test] 1 each ASDIR #1 misc Furosemide [Lasix] 20 mg PO DAILY 12/02/18 This patient is new to me today: Yes Date on this admission: 12/04/18 Emergency Visit: Yes ED Registration Date: 11/30/18 Care time: The patient presented to the Emergency Department on the above date and was hospitalized for further evaluation of their emergent condition. Critical Care patient: No - Discharge Referral Referred to [facility] Med P.C.: No
[2018-12-04] MEDS ORDERED: metoPROLOL SUCCINATE 25 MG TAB.SR.24H (FP) PO SCH (22:00)
[2018-12-04] MEDS ORDERED: APIXABAN 2.5 MG TABLET PO SCH (22:00)
[2018-12-04] MEDS ORDERED: ASPIRIN 81 MG CHEWABLE TABLETS PO SCH (22:00)
== END 2018-12-04 20:22 | disposition short-term general hospital (02) | DRG 187 ==
LOC: JER 14:06 → JERBED 19:34 → J4W 12-01 01:25 → J6S 12-04 16:47
PROVIDERS: ADMIT Internal Medicine; ATTEND Internal Medicine
DX: J90 Pleural effusion, not elsewhere classified (principal); I50.30 Unspecified diastolic (congestive) heart failure; C79.51 Secondary malignant neoplasm of bone; N17.9 Acute kidney failure, unspecified; I47.1 Supraventricular tachycardia; E87.1 Hypo-osmolality and hyponatremia; C78.7 Secondary malignant neoplasm of liver and intrahepatic bile duct; I13.0 Hypertensive heart and chronic kidney disease with heart failure and stage 1 through stage 4 chronic kidney disease, or unspecified chronic kidney disease; N39.0 Urinary tract infection, site not specified; E46 Unspecified protein-calorie malnutrition; R18.8 Other ascites; I24.8 Other forms of acute ischemic heart disease; C50.919 Malignant neoplasm of unspecified site of unspecified female breast; I25.10 Atherosclerotic heart disease of native coronary artery without angina pectoris; I11.0 Hypertensive heart disease with heart failure; E78.5 Hyperlipidemia, unspecified; R62.7 Adult failure to thrive; E83.51 Hypocalcemia; E87.6 Hypokalemia; D69.6 Thrombocytopenia, unspecified; I80.8 Phlebitis and thrombophlebitis of other sites; D72.829 Elevated white blood cell count, unspecified; E88.09 Other disorders of plasma-protein metabolism, not elsewhere classified; N18.9 Chronic kidney disease, unspecified; Z99.81 Dependence on supplemental oxygen; Z86.010 Personal history of colon polyps; Z80.0 Family history of malignant neoplasm of digestive organs; Z68.27 Body mass index [BMI] 27.0-27.9, adult; Z95.5 Presence of coronary angioplasty implant and graft
CPT/HCPCS: 36415; 71045-TC-FY; 71250-TC; 76705-TC; 76775-TC; 76856-TC; 80048; 80053; 81003; 82330; 82436; 82533; 82550; 83605; 83615; 83735; 83880; 83930; 83935; 84100; 84133; 84134; 84300; 84443; 84484; 85025; 85027; 85610; 85730; 87040; 87070; 87075; 87077; 87086; 87106; 87205; 93005; 93010; 99285-25; J0131